=== PATIENT | female | born 1955 | race Caucasian/White ===

== ENCOUNTER 2017-06-13 10:28 | Emergency (ER) | payer MEDICARE, MEDICAID ==
[2017-06-13 11:21] LABS: #Eosinphils 0.2 thou/uL (0.0-0.7); #Lymphocytes 1.7 thou/uL (1.20-3.40); #Monocytes 0.4 thou/uL (0.11-0.59); #Neutrophils 3.5 thou/uL (1.40-6.50); %Basophils 0.5 % (0.0-1.0); %Lymphocytes 29.3 % (21.0-51.0); %Monocytes 6.8 % (0.0-10.0); Hematocrit 38.3 % (36.0-47.0); Mean Platelet Volume 8.8 fL (7.4-10.4); Red Blood Cell (RBC) Count 4.08 mill/uL (4.20-5.40); White Blood Cell (WBC) Count 5.9 thou/uL (4.8-10.8)
--- NOTE | 2017-06-13 11:25 | RAD ---
PORTABLE CHEST ONE VIEW: 06/13/2017 10:54 a.m. HISTORY: Syncope. Atrial fibrillation. Seizures. COMPARISON: 06/23/2016 FINDINGS: The heart size is enlarged. The lungs are well expanded without focal areas of consolidation, pneum othorax, anabel pulmonary edema, or pleural effusions. IMPRESSION: No acute process. POS: [facility]
[2017-06-13 11:33] LABS: PTT 41.3 SEC (22.9-36.1); Prothrombin Time 24.8 SEC (12.0-14.7)
[2017-06-13 11:50] LABS: Troponin I Less than 0.010 ng/mL (< 0.028)
[2017-06-13 11:53] LABS: ALT (SGPT) 27 U/L (8-55); AST (SGOT) 13 U/L (5-34); Alkaline Phosphatase 117 U/L (40-150); Anion Gap 8 mmol/L (10-20); BUN (Urea Nitrogen) 23 mg/dL (9.8-20.1); Bilirubin, Total 0.5 mg/dL (0.2-1.2); CK (CPK) 34 U/L (29-168); Calc. Creatinine Clearance 0 mL/min (70-130); Calcium 9.7 mg/dL (7.8-10.44); Carbon Dioxide 36 mmol/L (23-31); Chloride 98 mmol/L (98-107); Estimated GFR-MDRD 53; Globulin 3.4 g/dL (2.4-3.5); Lipase 12 U/L (8-78); Protein, Total 7.4 g/dL (6.0-8.3)
--- NOTE | 2017-06-13 11:53 | CT ---
CT BRAIN WITHOUT CONTRAST: Date: 06/13/17 HISTORY: Altered mental status. FINDINGS: Comparison made with exam of 06/28/16. No evidence of acute infarct, hemorrhage, midline shift, or abnormal extra-axial fluid collections a re seen. The ventricular size is stable and the basilar cisterns are patent. The bony calvarium is i ntact. The visualized paranasal sinuses and mastoid air cells are well aerated. IMPRESSION: No CT evidence of acute intracranial process. POS: [facility]
[2017-06-13 12:44] LABS: Bilirubin Negative (Negative); Blood, Urine Negative (Negative); Glucose, Urine (Dipstick) Negative (Negative); Ketone, Urine Negative (Negative); Nitrite Negative (Negative); Protein, Urine (Dipstick) Negative (Neg-Trace)
== END 2017-06-13 15:10 | disposition home or self-care (01) ==
LOC: ERS 10:28
DX: R55 Syncope and collapse (principal); E03.9 Hypothyroidism, unspecified; K21.9 Gastro-esophageal reflux disease without esophagitis; I48.91 Unspecified atrial fibrillation; I11.0 Hypertensive heart disease with heart failure; I50.9 Heart failure, unspecified; E11.9 Type 2 diabetes mellitus without complications; J44.9 Chronic obstructive pulmonary disease, unspecified; I05.0 Rheumatic mitral stenosis; F31.9 Bipolar disorder, unspecified; F20.9 Schizophrenia, unspecified; Z87.891 Personal history of nicotine dependence; Z79.4 Long term (current) use of insulin; Z79.82 Long term (current) use of aspirin; Z79.01 Long term (current) use of anticoagulants; Z79.899 Other long term (current) drug therapy
CPT/HCPCS: 36415; 70450; 71010; 80053; 80162; 81003; 82550; 82553; 83690; 83880; 84146; 84443; 84484; 85025; 85610; 85730; 87040; 93005; 96360; 96361

== ENCOUNTER 2017-08-04 09:15 | Outpatient (CLI) | payer MEDICARE, MEDICAID ==
--- NOTE | 2017-08-09 14:25 | MMO ---
BILATERAL SCREENING MAMMOGRAM: Date: 08/04/17 HISTORY: 61-year-old female. Screening mammography. COMPARISON: 08/31/16 and 11/07/13. TECHNIQUE: CC and MLO views of both breasts are submitted for interpretation. This patient's mammogram was reviewed with the assistance of computer-aided detection. FINDINGS: The breasts are composed of scattered fibroglandular tissue. Bilaterally, no suspicious dominant mass , architectural distortion, or suspicious calcifications. Benign-appearing calcifications noted bilat erally. IMPRESSION: BIRADS 2: Benign Finding(s) RECOMMENDATION: Annual mammogram. POS: [facility]
== END 2017-08-04 09:16 | disposition home or self-care (01) ==
LOC: SCSMAMMO 09:15
PROVIDERS: ATTEND Internal Medicine
DX: Z12.31 Encounter for screening mammogram for malignant neoplasm of breast (principal)
CPT/HCPCS: 77067; G0202

== ENCOUNTER 2017-12-18 00:04 | Inpatient (IN) | payer MEDICARE, MEDICAID ==
[2017-12-18] MEDS ORDERED: Ibuprofen 200 MG TAB ONE (00:44)
[2017-12-18] MEDS ORDERED: Acetaminophen 500 MG TAB ONE (00:44)
[2017-12-18 01:07] LABS: #Lymphocytes 1.1 thou/uL (1.20-3.40); #Monocytes 0.6 thou/uL (0.11-0.59); #Neutrophils 6.9 thou/uL (1.40-6.50); %Eosinophils 0.1 % (0.0-10.0); %Lymphocytes 12.7 % (21.0-51.0); %Neutrophils 80.2 % (42.0-75.0); Mean Corpuscular HGB CONC 33.6 g/dL (32.0-36.0); Mean Corpuscular Hemoglobin 28.9 pg (27.0-31.0); Mean Corpuscular Volume 85.9 fl (81.0-99.0); Mean Platelet Volume 9.9 fL (7.4-10.4); Platelet Count 143 thou/uL (130-400); RBC Distribution Width 16.4 % (11.5-14.5); Red Blood Cell (RBC) Count 4.17 mill/uL (4.20-5.40); White Blood Cell (WBC) Count 8.6 thou/uL (4.8-10.8)
[2017-12-18 01:17] LABS: ALT (SGPT) 27 U/L (8-55); AST (SGOT) 18 U/L (5-34); Alkaline Phosphatase 79 U/L (40-150); Anion Gap 12 mmol/L (10-20); BUN (Urea Nitrogen) 19 mg/dL (9.8-20.1); Bilirubin, Total 1.2 mg/dL (0.2-1.2); CK (CPK) 55 U/L (29-168); Calc. Creatinine Clearance 0 mL/min (70-130); Calcium 8.8 mg/dL (7.8-10.44); Carbon Dioxide 26 mmol/L (23-31); Chloride 102 mmol/L (98-107); Estimated GFR-MDRD 42; Globulin 3.4 g/dL (2.4-3.5); Glucose 141 mg/dL (80-115); Potassium 4.1 mmol/L (3.5-5.1); Protein, Total 7.4 g/dL (6.0-8.3); Sodium 136 mmol/L (136-145)
[2017-12-18 01:20] LABS: CKMB 0.4 ng/mL (0-6.6); Troponin I 0.018 ng/mL (< 0.028)
[2017-12-18] MEDS ORDERED: cefTRIAXone\\ROCEPHIN 2 GM VIAL ONE (01:51)
[2017-12-18] MEDS ORDERED: Furosemide 40 MG/4 ML VIAL ONE (01:51)
[2017-12-18] MEDS ORDERED: Azithromycin 500 MG VIAL ONE (03:01)
[2017-12-18] MEDS ORDERED: Acetaminophen 325 MG TAB PO PRN (03:42)
[2017-12-18 05:21] VITALS: BMI 39.7
[2017-12-18] MEDS ORDERED: Ondansetron ODT 4 MG TAB SL PRN (05:26)
[2017-12-18] MEDS ORDERED: Sodium Chloride 0.9% 1,000 ML IV SCH (05:26)
[2017-12-18] MEDS ORDERED: Ondansetron HCl/PF 4 MG/2 ML Vial IVP PRN (05:26)
[2017-12-18] MEDS ORDERED: Vancomycin HCl 1 GM in Premix Bag 1 BAG IVPB SCH ×2 (06:00→10:00)
--- NOTE | 2017-12-18 08:59 | RAD ---
PORTABLE CHEST: DATE: 12/18/17. PROVIDED CLINICAL HISTORY: Difficulty breathing. FINDINGS: Comparison 06/13/17. The cardiac silhouette appears enlarged. Prominence of the pulmonary vasculatu re and pulmonary interstitium are noted. Patchy perihilar airspace disease may be present. No pleur al fluid or pneumothorax evident. IMPRESSION: Findings suggesting congestive failure with possible alveolar edema. Followup is recommended. POS: [facility]
[2017-12-18] MEDS: Heparin 5,000 UNITS/ML VIAL SC SCH ×3 (09:04→21:05)
[2017-12-18] MEDS ORDERED: Acetaminophen 650 MG Suppository PR PRN (09:23)
[2017-12-18] MEDS ORDERED: Bisacodyl 5 MG TAB PO PRN (09:23)
[2017-12-18] MEDS ORDERED: cefTRIAXone\\ROCEPHIN 1 GM in Sodium Chloride 0.9% 100 ML IVPB SCH (10:00)
[2017-12-18] MEDS ORDERED: Dextrose 5% in Water 1,000 ML IV PRN (10:17)
[2017-12-18] MEDS ORDERED: Dextrose 50% Abboject 50 ML SYRINGE SLOW IVP PRN (10:17)
[2017-12-18] MEDS: Furosemide 20 MG/2 ML VIAL SLOW IVP SCH (13:30)
[2017-12-18 13:32] LABS: Bilirubin Negative (Negative); Blood, Urine Small (Negative); Glucose, Urine (Dipstick) Negative (Negative); Leukocyte Moderate (Negative); Nitrite Negative (Negative); Protein, Urine (Dipstick) 100 mg/dL (Neg-Trace); pH, Urine 5.5 (5.0-9.0)
[2017-12-18 13:38] LABS: Clarity CLEAR (Clear)
[2017-12-18 13:40] LABS: Bacteria/HPF 2+ HPF (None Seen); Hyaline Casts/LPF NONE SEEN LPF (0-3 Hyaline); WBC/HPF 21-50 HPF (0-3)
[2017-12-18] MEDS ORDERED: predniSONE 20 MG TAB PO SCH (15:00)
[2017-12-18] MEDS ORDERED: Amiodarone In Dextrose 200 ML IVPB SCH (15:15)
[2017-12-18] MEDS ORDERED: Amiodarone HCl 150 MG, Admixture Fee 1 EACH in Dextrose 5% in Water 100 ML IVPB SCH (15:45)
[2017-12-18] MEDS: Amiodarone HCl 450 MG, Admixture Fee 1 EACH in Dextrose 5% in Water 250 ML IVPB SCH (16:21)
[2017-12-18] MEDS ORDERED: Vancomycin HCl 1.75 GM in Sodium Chloride 0.9% 500 ML IVPB SCH (18:00)
[2017-12-18] MEDS: Insulin Regular 300 UNITS/3 ML VIAL SC PRN (21:06)
[2017-12-18] MEDS: Acetaminophen 325 MG TAB PO PRN (23:41)
[2017-12-19] MEDS: cefTRIAXone\\ROCEPHIN 1 GM, Syringe 0.4 ML in Sterile Water 9.6 ML SLOW IVP SCH (01:57)
[2017-12-19] MEDS: Amiodarone HCl 450 MG, Admixture Fee 1 EACH in Dextrose 5% in Water 250 ML IVPB SCH ×2 (02:35→15:59)
[2017-12-19] MEDS ORDERED: Azithromycin 500 MG in Sodium Chloride 0.9% 250 ML 250 ML IVPB SCH (03:00)
[2017-12-19 04:42] LABS: INR-International Normal Ratio 1.3
[2017-12-19 05:28] LABS: #Lymphocytes 0.9 thou/uL (1.20-3.40); #Monocytes 0.5 thou/uL (0.11-0.59); #Neutrophils 4.8 thou/uL (1.40-6.50); %Basophils 0.1 % (0.0-1.0); %Eosinophils 0.1 % (0.0-10.0); %Lymphocytes 14.8 % (21.0-51.0); Hemoglobin 11.1 g/dL (12.0-16.0); Mean Corpuscular Hemoglobin 29.9 pg (27.0-31.0); Mean Platelet Volume 10.4 fL (7.4-10.4); PLT Morphology Comment Appears Decreased; Platelet Count 103 thou/uL (130-400); RBC Distribution Width 16.4 % (11.5-14.5); Red Blood Cell (RBC) Count 3.71 mill/uL (4.20-5.40); White Blood Cell (WBC) Count 6.2 thou/uL (4.8-10.8)
[2017-12-19 05:40] LABS: Anion Gap 11 mmol/L (10-20); BUN (Urea Nitrogen) 18 mg/dL (9.8-20.1); Calc. Creatinine Clearance 86 mL/min (70-130); Calcium 8.2 mg/dL (7.8-10.44); Carbon Dioxide 24 mmol/L (23-31); Chloride 101 mmol/L (98-107); Estimated GFR-MDRD 46; Glucose 221 mg/dL (80-115); Potassium 3.9 mmol/L (3.5-5.1); Sodium 132 mmol/L (136-145)
[2017-12-19] MEDS: Insulin Regular 300 UNITS/3 ML VIAL SC PRN ×3 (05:46→18:11)
[2017-12-19] MEDS: Furosemide 20 MG/2 ML VIAL SLOW IVP SCH (05:46)
[2017-12-19] MEDS: predniSONE 20 MG TAB PO SCH (08:36)
[2017-12-19] MEDS: Heparin 5,000 UNITS/ML VIAL SC SCH ×3 (08:37→20:34)
--- NOTE | 2017-12-19 12:22 | PRG ---
DATE OF SERVICE: 12/19/2017 SERVICE: Pulmonary Medicine INTERVAL HISTORY: The patient is doing fine from a respiratory standpoint. She is breathing much mo re comfortably. She denies any chest pain or shortness of breath. Her heart rate is under good cont rol. Otherwise, there has been no change to her condition. She has some complaints of chest pain. It has been ongoing since being here. PHYSICAL EXAMINATION: VITAL SIGNS: Afebrile, pulse 95, blood pressure 144/67, respirations 20, saturation 95% on 2 liters nasal cannula. GENERAL: The patient is awake, alert, no apparent distress. LUNGS: Decent air entry. There is a slightly prolonged expiratory phase and a little bit of wheezin g. Rhonchi are also present, but they clear with cough. Dependent crackles are present. HEART: Normal rate. Irregular. ABDOMEN: Soft, nontender, nondistended. Bowel sounds are positive. MUSCULOSKELETAL: No cyanosis or clubbing. There is no pitting in the bilateral lower extremities. NEUROLOGIC: Grossly nonfocal. LABORATORY DATA: WBC 6.2, hemoglobin 11.1, platelets 103,000. INR 1.3. Creatinine 1.20 and gently down trending. Basic metabolic profile is otherwise unremarkable. TSH falls within normal limits. Procalcitonin is indeterminate. Urinalysis is positive for significant white blood cells. Urine cul ture, however, is negative to date. Blood cultures are also unremarkable. ASSESSMENT: 1. Atrial fibrillation with rapid ventricular response. 2. Acute hypoxic respiratory failure. 3. Chronic obstructive pulmonary disease with acute exacerbation. 4. Acute on chronic diastolic heart failure. PLAN: We will continue to diurese the patient to euvolemia. Steroids can be interrupted after rough ly 5 days. Steroids and antibiotics can be interrupted after 5 days. It looks like she has urinary tract infection based on the UA, though the cultures are unremarkable today. I will repeat an EKG to make certain she does not have significant ST changes. Previous cardiac enzymes were unremarkable.
--- NOTE | 2017-12-19 16:09 | PDOC.PN ---
- Subjective Encounter Start Date: 12/19/17 Encounter Start Time: 09:40 Pt seenfor followup re: sepsis. Denies chest pain, cough or fevers. Reports SOBOE. - Objective Resuscitation Status: Resuscitation Status FULL:Full Resuscitation MAR Reviewed: Yes Vital Signs & Weight: Vital Signs (12 hours) Temp Pulse Pulse Pulse Resp BP BP 12/19/17 13:17 107 H 20 12/19/17 12:02 117 H 101 H 104/76 117/56 L 12/19/17 10:56 98.5 F 114 H 22 H 12/19/17 08:00 98.8 F 95 20 12/19/17 07:35 98.8 F 95 20 12/19/17 07:22 100 18 BP Pulse Ox Pulse Ox Pulse Ox 12/19/17 13:17 97 12/19/17 12:02 97 97 12/19/17 10:56 144/67 H 97 12/19/17 08:00 95 12/19/17 07:35 133/63 95 12/19/17 07:22 98 Weight Weight 247 lb I&O: 12/18/17 12/19/17 12/20/17 06:59 06:59 06:59 Intake Total 200 900 Output Total 50 Balance 150 900 Result Diagrams: 12/19/17 04:16 12/19/17 04:16 Additional Labs: Accuchecks 12/19/17 12/19/17 12/18/17 10:46 05:26 20:58 POC Glucose 254 H 206 H 299 H Labs reviewed by me EKG Reviewed by me: Yes Phys Exam - Physical Examination Obesity HEENT: PERRLA, moist MMs, sclera anicteric, oral pharynx no lesions Neck: no nodes, supple, full ROM JVD+ Respiratory: no wheezing, no rhonchi Bassam crackles Cardiovascular: no rub, irregular S1, S2, tachy, irreg Gastrointestinal: soft, non-tender, no distention, positive bowel sounds Musculoskeletal: pulses present, edema present Neurological: moves all 4 limbs Psychiatric: normal affect Skin: no rash Dx/Plan (1) Sepsis Code(s): A41.9 - SEPSIS, UNSPECIFIED ORGANISM Status: Acute Comment: continue IV ceftriaxone, follow urine and blood cultures (2) Atrial fibrillation with RVR Code(s): I48.91 - UNSPECIFIED ATRIAL FIBRILLATION Status: Acute Comment: continue amiodarone (3) COPD exacerbation Code(s): J44.1 - CHRONIC OBSTRUCTIVE PULMONARY DISEASE W (ACUTE) EXACERBATION Status: Acute Comment: continue steroids, bronchodilators (4) DM type 2 (diabetes mellitus, type 2) Status: Chronic Comment: continue accuchecks, insulin sliding scale. (5) HTN (hypertension) Code(s): I10 - ESSENTIAL (PRIMARY) HYPERTENSION Status: Chronic Comment: Monitor vital signs, titrate antihypertensives as needed. - Plan * . Review of Systems - Review of Systems Constitutional: weakness. negative: fever, chills, sweats, malaise Respiratory: Cough, Dry. negative: SOB with Excertion, Pleuritic Pain, Sputum, Wheezing Cardiovascular: negative: chest pain, palpitations, orthopnea, paroxysmal nocturnal dyspnea Gastrointestinal: negative: Nausea, Vomiting, Abdominal Pain, Diarrhea, Constipation Genitourinary: negative: Dysuria, Frequency, Incontinence, Hematuria, Retention Skin: negative: Rash, Lesions, Faustino, Bruising - Medications/Allergies Allergies/Adverse Reactions: Allergies Allergy/AdvReac Type Severity Reaction Status Date / Time tomato [Tomato] Allergy Intermediate Verified 07/10/14 16:36 No Known Drug Allergies Allergy Verified 06/24/16 00:40 Medications: Current Medications Acetaminophen (Tylenol) 650 mg [place] Q4H PRN PRN Reason: Headache/Fever or Pain Acetaminophen (Tylenol) 650 mg PO Q4H PRN PRN Reason: Headache/Fever or Pain Last Admin: 12/18/17 23:41 Dose: 650 mg Albuterol/Ipratropium (Duoneb) 3 ml NEB [id number] [facility] Last Admin: 12/19/17 13:17 Dose: 3 ml Aspirin (Aspirin Chewable) 81 mg PO DAILY [facility] Last Admin: 12/19/17 08:37 Dose: 81 mg Bisacodyl (Dulcolax) 10 mg PO DAILYPRN PRN PRN Reason: Constipation Dextrose/Water (Dextrose 50%) 25 gm SLOW IVP PRN PRN PRN Reason: Hypoglycemia Furosemide (Lasix) 20 mg SLOW IVP 0600 SOFY Glucagon (Glucagon) 1 mg IM PRN PRN PRN Reason: Hypoglycemia Heparin Sodium (Porcine) (Heparin) 5,000 units SC TID [facility] Last Admin: 12/19/17 15:58 Dose: 5,000 units Ceftriaxone Sodium 1 gm/ (Syringe 0.4 ml/ Sterile Water) 10 mls @ 120 mls/hr SLOW IVP Q24HR@0200 [facility] Last Admin: 12/19/17 01:57 Dose: 10 mls Dextrose/Water (D5w) 1,000 mls @ 0 mls/hr IV .Q0M PRN; As Directed PRN Reason: Hypoglycemia Amiodarone HCl 450 mg/Miscellaneous Medication 1 each/ Dextrose/Water 259 mls @ 0 mls/hr IVPB INF SOFY; As Directed PRN Reason: Protocol Last Admin: 12/19/17 15:59 Dose: 259 mls Insulin Human Regular (Humulin R) 0 units SC .MILD SLIDING SCALE PRN PRN Reason: Mild Correctional Scale Last Admin: 12/19/17 12:08 Dose: 4 unit Prednisone (Prednisone) 40 mg PO QAM-[facility] Last Admin: 12/19/17 08:36 Dose: 40 mg
[2017-12-20] MEDS: cefTRIAXone\\ROCEPHIN 1 GM, Syringe 0.4 ML in Sterile Water 9.6 ML SLOW IVP SCH (02:17)
--- NOTE | 2017-12-20 03:20 | CON ---
DATE OF CONSULTATION: 12/19/2017 HISTORY OF PRESENT ILLNESS: Ms. Kristina Carlson is a 62-year-old white female , who had been following since 1991. She was noted at that time to have a murmur and was found to have moderate to severe aortic insufficiency with a trileaflet aortic valve, moderate tricuspid regurgitation, and moderate mitral stenosis. She denied any history of rheumatic fever, but does state that when she was 12 years old, she had 3-4 months of joint pain. In 1992, she underwent cardiac catheterization, which revealed normal coronary arteries. She had mild aortic insufficiency, mild mitral stenosis, and mild global left ventricular hypokinesis. Her problems at that time were increased shortness of breath, which was mostly related to COPD and smoking. She did fairly well over the years without significant worsening of her valvular heart disease initially. She had increased edema and shortness of breath and had been followed in the [facility]. In 11/2013, she was hospitalized and echo revealed ejection fraction of 50% to 55%, left atrial enlargement, mild aortic stenosis, moderate to severe aortic insufficiency, moderate mitral stenosis, moderate mitral regurgitation, moderate tricuspid regurgitation, and mild pulmonic insufficiency. She also was found to have atrial tachycardia. She was transferred to [facility] in [place] and underwent an atrial tachycardia ablation. In 12/2013, she was again admitted with chest pain after a fall. EKG showed atrial fibrillation with controlled rate. Cardiac enzymes were unremarkable. Also, prior to that in 11/2013, she had undergone Lexiscan Cardiolite testing, which was negative for ischemia. Again in 01/2014, she was admitted with atrial fibrillation with fast ventricular response and was given intravenous digoxin. She was diuresed. Her heart rate was controlled and she was discharged. She again was admitted later in 01/2014 with history of increased shortness of breath, increased leg edema, and chest pressure at rest lasting 30 minutes to 1 hour. Again, she had atrial fibrillation with controlled ventricular response. With her mitral stenosis and atrial fibrillation, she was placed on Coumadin and an appointment was made for followup with the educational administrator. She had a 3-hour episode of chest pressure and was admitted. She underwent cardiac catheterization and had a 20% LAD stenosis, 20% proximal RCA stenosis. There was moderate left ventricular systolic dysfunction with ejection fraction of 30% to 35%, moderate aortic insufficiency, moderate aortic stenosis with valve area of 1.05 cm2. She also had severe mitral stenosis with mitral valve area of 1.2 cm2. In 01/2014, she underwent mitral balloon valvuloplasty at [facility] in [place]. In 04/2014, she can walk for 10 minutes without becoming dyspneic after the balloon valvuloplasty. In 06/2014, she was admitted with COPD exacerbation and hypoxic respiratory failure. She would have tachycardic runs of her atrial fibrillation with activity. She now is admitted after a fall at her custodial. She has been in atrial fibrillation with fast ventricular response, has been started on IV amiodarone. She was last seen in the office in 03/2017. She does complain of increased shortness of breath, but denies any chest discomfort. PAST MEDICAL HISTORY: Probable rheumatic fever, valvular abnormalities status post valvuloplasty for mitral stenosis, diabetes, asthma, obesity, hypertension , hyperlipidemia, mental retardation, renal insufficiency, hypothyroidism, bipolar disorder and depression. MEDICATIONS: At home include; Abilify 7.5 at bedtime, aspirin 81 daily, atorvastatin 40 daily, Cogentin 1 tablet q.p.m., Celexa 20 daily, Zetia 10 mg daily, flecainide 50 b.i.d., furosemide 1 tablet b.i.d., levothyroxine 75 mcg daily, Tradjenta 5 mg daily, lisinopril 2.5 daily, alprazolam 0.5 b.i.d., Amitiza 24 mcg b.i.d., metoprolol unknown dose b.i.d., potassium 20 mEq b.i.d., torsemide 20 b.i.d., and warfarin unknown dose daily. ALLERGIES: TOMATOES. SOCIAL HISTORY: She smoked over a pack per day in the past, but has quit. She does not drink alcohol. She currently is back living in a custodial. FAMILY HISTORY: Unobtainable. REVIEW OF SYSTEMS: Negative except as noted above. PHYSICAL EXAMINATION: VITAL SIGNS: Blood pressure 111/70 and pulse of 105. HEENT: PERRL. NECK: Supple. CHEST: Reveals bilateral wheezing. CARDIAC: S1, S2 normal. There is no S3 or S4. There is a 2/6 holosystolic murmur along the left sternal border, and 1-2/6 diastolic murmur heard intermittently. ABDOMEN: Normal bowel sounds, without tenderness or organomegaly. EXTREMITIES: Revealed 1-2+ pretibial edema. NEUROLOGIC: Grossly intact. SKIN: Warm and dry. LABORATORY DATA: EKG reveals atrial fibrillation with fast ventricular response , nonspecific ST and T-wave changes. Hemoglobin 9.1, hematocrit 32.6, white count 6200, and platelets 103,000. INR is only 1.3. Sodium 132, potassium 3.9 , chloride 101, carbon dioxide 18, and creatinine 1.20. Troponin I is unremarkable. TSH is normal. IMPRESSION: 1. Increased shortness of breath which in the past has been more related to chronic obstructive pulmonary disease exacerbation. 2. Recurrence of paroxysmal atrial fibrillation, currently on amiodarone drip. 3. Rheumatic heart disease with moderate to severe aortic insufficiency. She has had mitral stenosis and has undergone mitral valvuloplasty. 4. Recurrence of atrial fibrillation. 5. History of atrial tachycardia ablation in 11/2013 at [place]. 6. Hypercholesterolemia. 7. Seizure disorder. 8. Depression. 9. Mild mental retardation. 10. Former smoker. 11. Chronic obstructive pulmonary disease. PLAN: The patient currently is on heparin 5000 units t.i.d. with her nontherapeutic Coumadin dosage. She currently is being diuresed. Echo will be performed to reassess her valvular abnormalities. Consideration may be given to electrical cardioversion during this admission if she does not convert on her own. MTDD
[2017-12-20] MEDS: Amiodarone HCl 450 MG, Admixture Fee 1 EACH in Dextrose 5% in Water 250 ML IVPB SCH ×2 (06:12→20:34)
[2017-12-20] MEDS: Furosemide 20 MG/2 ML VIAL SLOW IVP SCH (06:12)
--- NOTE | 2017-12-20 07:25 | EKG ---
Test Reason : Blood Pressure : / mmHG Vent. Rate : 110 BPM Atrial Rate : 103 BPM P-R Int : 000 ms QRS Dur : 078 ms QT Int : 376 ms P-R-T Axes : 000 073 036 degrees QTc Int : 508 ms Atrial fibrillation with rapid ventricular response with premature ventricular or aberrantly conducte d complexes Nonspecific ST and T wave abnormality Abnormal ECG When compared with ECG of 18-DEC-2017 01:56, (Unconfirmed) T wave inversion now evident in Anterior leads QT has lengthened Confirmed by DR. Cristiano THOMPSON (3) on 12/20/2017 7:25:34 AM Referred By: YOU Confirmed By:DR. Cristiano THOMPSON
--- NOTE | 2017-12-20 09:04 | CON ---
DATE OF CONSULTATION: 12/18/2017 SERVICE: Pulmonary Medicine. REASON FOR CONSULT: IMCU patient. HISTORY OF PRESENT ILLNESS: The patient is a 62-year-old white female with past medical history significant for debility. She was in her usual state of health until about a week prior to presentation. She had increasing dyspnea with exertion and orthopnea. She has sleep apnea and uses are CPAP intermittently. She also started having increasing cough, bringing up green sputum, and dysuria. She presented to the Emergency Department and was subsequently placed in the ICU because of AFib with rapid ventricular response. She ended up getting her rate in her slightly better control, though she remains tachycardic. She has a little bit of chest discomfort. She has no fevers. She did not have any recent sick contact. PAST MEDICAL HISTORY: 1. Hypothyroidism. 2. Chronic kidney disease. 3. Atrial fibrillation. 4. Chronic systolic and diastolic heart failure. 5. Type 2 diabetes mellitus. 6. Mitral regurgitation. 7. Mitral stenosis. 8. Hypertension. 9. Asthma, possible. 10. Obstructive sleep apnea. PAST SURGICAL HISTORY: 1. Left wrist surgery. 2. Cardiac catheterization. 3. Cardiac ablation. SOCIAL HISTORY: Negative for alcohol, tobacco, or illicit drug use. She denies any exposure to chemicals, dust, asbestos, or tuberculosis. FAMILY HISTORY: Noncontributory. ALLERGIES: TOMATOES. There is no known drug allergies. MEDICATIONS: List of her inpatient medications were reviewed. Multiple updates were made. REVIEW OF SYSTEMS: General, head, ears, eyes, nose, throat, cardiovascular, respiratory, GI, , musculoskeletal, neurologic, and skin is negative except as mentioned in the HPI. PHYSICAL EXAMINATION: VITAL SIGNS: Afebrile, pulse 79, blood pressure 149/80, respirations 18, saturation 98% on room air. GENERAL: The patient is awake, alert, in no apparent distress. LUNGS: Decent air entry. Crackles are present. There is no prolonged expiratory phase or wheezing. Rhonchi are present but clear with very good cough. HEART: Tachycardic. Irregular. ABDOMEN: Soft, nontender, nondistended. Bowel sounds are positive. MUSCULOSKELETAL: No cyanosis or clubbing. There is 1 to 2+ pitting throughout. GENITOURINARY: No Roman. NEUROLOGIC: Grossly nonfocal. LABORATORY DATA: WBC 8.6, hemoglobin 12.0, platelets 143,000 and roughly stable. Creatinine 1.30, which is slightly above baseline. Basic metabolic profile and liver function studies are otherwise unremarkable. Cardiac enzymes are negative. Lactate 1.6. Procalcitonin is 1.08, with in the intermediate range. Urinalysis is positive for leukocyte esterase and significant white blood cells. Digoxin level is unremarkable. IMAGING: Chest x-ray demonstrates findings consistent with volume overload. She is pulmonary vascular congestion, interstitial fullness. I do not see any obvious infiltrates bilaterally. Cardiac silhouette is quite enlarged. There is widened carinal angle. ASSESSMENT: 1. Acute hypoxic respiratory failure, resolved. 2. Atrial fibrillation with rapid ventricular response. 3. Sepsis without end-organ damage. 4. Urinary tract infection, suspected. PLAN: I will continue antibiotics. We will work on controlling her heart rate. Pulmonary Critical Care will continue to follow along for the time being. She will need to remain in the IMCU for the next 24 hours. We will work on mobility moving forward. 70 minutes have been devoted to this patient in various activities. I personally reviewed all imaging studies and laboratory data noted within this document. For fifty percent of this time, I was interacting with the patient at the bedside or coordinating care with the care team. For the remainder of the time I was immediately available to the patient in the hospital unit. CATHERINE
[2017-12-20] MEDS: predniSONE 20 MG TAB PO SCH (09:31)
[2017-12-20] MEDS: Heparin 5,000 UNITS/ML VIAL SC SCH ×3 (09:31→20:26)
--- NOTE | 2017-12-20 09:53 | PRG ---
DATE OF SERVICE: 12/20/2017 SERVICE: Pulmonary Medicine INTERVAL HISTORY: The patient is doing okay from a cardiovascular standpoint. Her heart rate is low. She denies any chest discomfort today. This morning, however, she indicates having more and breathing difficulty. She is more tachypneic. She also has increased work of breathing. PHYSICAL EXAMINATION: HEENT: Normocephalic, atraumatic. Sclerae are white, conjunctivae pink. Oral mucosa is moist without lesions. LUNGS: There is good air entry, but there is a prolonged expiratory phase with polyphonic wheezing as well as rhonchi. I do appreciate crackles today. HEART: Normal rate, regular. ABDOMEN: Soft, nontender, nondistended. Bowel sounds are positive. MUSCULOSKELETAL: No cyanosis or clubbing. There is no pitting in the bilateral lower extremities. NEUROLOGIC: Grossly nonfocal. LABORATORY: Blood cultures x2 and urine cultures remain unremarkable. ASSESSMENT: 1. Acute hypoxic respiratory failure. 2. Chronic obstructive pulmonary disease with acute exacerbation. 3. Atrial fibrillation with rapid ventricular response. 4. Sepsis without end organ damage. 5. Urinary tract infection, suspected. PLAN: We will initiate a brief course of steroids, and start some scheduled nebulized medications. I am going to repeat a chest x-ray to make certain that she has not fluffed out a pneumonia. BiPAP will be considered if the patient has increasing respiratory difficulties. ASHD
--- NOTE | 2017-12-20 11:58 | RAD ---
RADIOGRAPH CHEST 1 VIEW: Date: 12/20/17 Time: 1021 HOURS HISTORY: 62-year-old female with dyspnea. COMPARISON: 12/18/17. FINDINGS: Again noted is the cardiomegaly, pulmonary vascular engorgement, and predominantly mild, bilateral in terstitial densities. This has become more confluent into an air space density in the left upper lobe , including the lateral aspect of the mid lung field. No pneumothorax is identified. IMPRESSION: 1. Interval development of left upper lobe air space opacity, suspicious for left upper lobe pneumon ia. 2. Cardiomegaly and mild to moderate congestive heart failure is similar to 2 days ago. JN [] POS: [facility]
--- NOTE | 2017-12-20 13:11 | PDOC.PN ---
- Subjective Encounter Start Date: 12/20/17 Encounter Start Time: 11:00 Patient is seen today, alert and oriented. She is On oxygen and feels short of breath. Denies any chest pain. - Objective Resuscitation Status: Resuscitation Status FULL:Full Resuscitation MAR Reviewed: Yes Vital Signs & Weight: Vital Signs (12 hours) Temp Pulse Pulse Pulse Resp BP BP 12/20/17 12:51 109 H 16 12/20/17 11:25 98.0 F 91 20 12/20/17 09:46 97 119 H 120/62 106/79 12/20/17 08:00 98.0 F 91 20 12/20/17 07:29 103 H 16 12/20/17 07:15 97.8 F 90 20 12/20/17 04:00 98.4 F 87 18 BP Pulse Ox Pulse Ox Pulse Ox 12/20/17 12:51 12/20/17 11:25 119/63 98 12/20/17 09:46 97 93 L 12/20/17 08:00 98 12/20/17 07:29 12/20/17 07:15 119/75 94 L 12/20/17 04:00 103/69 99 Weight Weight 243 lb 1.6 oz I&O: 12/19/17 12/20/17 12/21/17 06:59 06:59 06:59 Intake Total 900 430 Balance 900 430 Result Diagrams: 12/19/17 04:16 12/19/17 04:16 Additional Labs: Accuchecks 12/20/17 12/20/17 12/19/17 10:43 06:13 20:42 POC Glucose 189 H 138 H 290 H 12/19/17 16:05 POC Glucose 225 H Radiology Reviewed by me: Yes Phys Exam - Physical Examination HEENT: PERRLA, moist MMs Neck: no nodes, no JVD Respiratory: no wheezing, no rales Cardiovascular: RRR, no significant murmur Gastrointestinal: soft, non-tender Musculoskeletal: no edema, pulses present Neurological: non-focal, normal sensation Psychiatric: normal affect Skin: no rash Dx/Plan (1) Atrial fibrillation with RVR Code(s): I48.91 - UNSPECIFIED ATRIAL FIBRILLATION Status: Acute Comment: continue amiodarone (2) COPD exacerbation Code(s): J44.1 - CHRONIC OBSTRUCTIVE PULMONARY DISEASE W (ACUTE) EXACERBATION Status: Acute Comment: continue steroids, bronchodilators, stable. (3) Sepsis Code(s): A41.9 - SEPSIS, UNSPECIFIED ORGANISM Status: Acute Comment: continue IV ceftriaxone, follow urine and blood cultures (4) Anticoagulant long-term use Code(s): Z79.01 - FPC (CURRENT) USE OF ANTICOAGULANTS Status: Acute (5) Dizziness Code(s): R42 - DIZZINESS AND GIDDINESS Status: Acute (6) DM type 2 (diabetes mellitus, type 2) Status: Chronic Comment: continue accuchecks, insulin sliding scale. (7) HTN (hypertension) Code(s): I10 - ESSENTIAL (PRIMARY) HYPERTENSION Status: Chronic Comment: Monitor vital signs, titrate antihypertensives as needed. - Plan cont current plan of care, plan discussed w/ family, PT/OT, social director, incentive spirometry * . - Discharge Day Encounter end time: 11:35 Review of Systems - Review of Systems Eyes: negative: Pain, Vision Change, Conjunctivae Inflammation, Eyelid Inflammation, Redness, Other ENT: negative: Ear Pain, Ear Discharge, Nose Pain, Nose Discharge, Nose Congestion, Mouth Pain, Mouth Swelling, Throat Pain, Throat Swelling, Other Respiratory: negative: Cough, Dry, Shortness of Breath, Hemoptysis, SOB with Excertion, Pleuritic Pain, Sputum, Wheezing Cardiovascular: negative: chest pain, palpitations, orthopnea, paroxysmal nocturnal dyspnea, edema, light headedness, other Musculoskeletal: negative: Neck Pain, Shoulder Pain, Arm Pain, Back Pain, Hand Pain, Leg Pain, Foot Pain, Other Skin: negative: Rash, Lesions, Faustino, Bruising, Other - Medications/Allergies Allergies/Adverse Reactions: Allergies Allergy/AdvReac Type Severity Reaction Status Date / Time tomato [Tomato] Allergy Intermediate Verified 07/10/14 16:36 No Known Drug Allergies Allergy Verified 06/24/16 00:40 Medications: Current Medications Acetaminophen (Tylenol) 650 mg [place] Q4H PRN PRN Reason: Headache/Fever or Pain Acetaminophen (Tylenol) 650 mg PO Q4H PRN PRN Reason: Headache/Fever or Pain Last Admin: 12/18/17 23:41 Dose: 650 mg Albuterol/Ipratropium (Duoneb) 3 ml NEB [id number] Last Admin: 12/20/17 12:51 Dose: 3 ml Aspirin (Aspirin Chewable) 81 mg PO DAILY [facility] Last Admin: 12/20/17 09:30 Dose: 81 mg Bisacodyl (Dulcolax) 10 mg PO DAILYPRN PRN PRN Reason: Constipation Dextrose/Water (Dextrose 50%) 25 gm SLOW IVP PRN PRN PRN Reason: Hypoglycemia Furosemide (Lasix) 20 mg SLOW IVP 0600 [facility] Last Admin: 12/20/17 06:12 Dose: 20 mg Glucagon (Glucagon) 1 mg IM PRN PRN PRN Reason: Hypoglycemia Heparin Sodium (Porcine) (Heparin) 5,000 units SC TID [facility] Last Admin: 12/20/17 09:31 Dose: 5,000 units Ceftriaxone Sodium 1 gm/ (Syringe 0.4 ml/ Sterile Water) 10 mls @ 120 mls/hr SLOW IVP Q24HR@0200 [facility] Last Admin: 12/20/17 02:17 Dose: 10 mls Dextrose/Water (D5w) 1,000 mls @ 0 mls/hr IV .Q0M PRN; As Directed PRN Reason: Hypoglycemia Amiodarone HCl 450 mg/Miscellaneous Medication 1 each/ Dextrose/Water 259 mls @ 0 mls/hr IVPB INF [facility]; As Directed PRN Reason: Protocol Last Admin: 12/20/17 06:12 Dose: 259 mls Insulin Human Regular (Humulin R) 0 units SC .MILD SLIDING SCALE PRN PRN Reason: Mild Correctional Scale Last Admin: 12/19/17 18:11 Dose: 4 unit Prednisone (Prednisone) 40 mg PO QAM-[facility] Last Admin: 12/20/17 09:31 Dose: 40 mg Warfarin Sodium (Coumadin) 5 mg PO 1700 [facility]
[2017-12-20] MEDS: Insulin Regular 300 UNITS/3 ML VIAL SC PRN (16:28)
[2017-12-20] MEDS: Warfarin Sodium 5 MG TAB PO SCH (16:29)
[2017-12-21] MEDS: cefTRIAXone\\ROCEPHIN 1 GM, Syringe 0.4 ML in Sterile Water 9.6 ML SLOW IVP SCH (02:08)
[2017-12-21 04:42] LABS: INR-International Normal Ratio 1.1; Prothrombin Time 14.2 SEC (12.0-14.7)
[2017-12-21 04:52] LABS: Anion Gap 12 mmol/L (10-20); BUN (Urea Nitrogen) 19 mg/dL (9.8-20.1); Calc. Creatinine Clearance 103 mL/min (70-130); Calcium 8.5 mg/dL (7.8-10.44); Carbon Dioxide 27 mmol/L (23-31); Chloride 101 mmol/L (98-107); Estimated GFR-MDRD 57; Glucose 190 mg/dL (80-115); Potassium 4.1 mmol/L (3.5-5.1); Sodium 136 mmol/L (136-145)
[2017-12-21] MEDS: Furosemide 20 MG/2 ML VIAL SLOW IVP SCH (05:58)
[2017-12-21] MEDS: Insulin Regular 300 UNITS/3 ML VIAL SC PRN ×3 (06:03→17:17)
[2017-12-21] MEDS: predniSONE 20 MG TAB PO SCH (08:35)
[2017-12-21] MEDS: Heparin 5,000 UNITS/ML VIAL SC SCH ×3 (08:35→20:53)
--- NOTE | 2017-12-21 11:18 | PDOC.PN ---
- Subjective Encounter Start Date: 12/21/17 Encounter Start Time: 11:00 Patient is seen today, alert and oriented. No other concern snoted. She is still on Amiodarone drip for her Afib with RVR. She has diffucty breething. - Objective Resuscitation Status: Resuscitation Status FULL:Full Resuscitation MAR Reviewed: Yes Vital Signs & Weight: Vital Signs (12 hours) Temp Pulse Resp BP Pulse Ox 12/21/17 07:30 97.9 F 80 20 131/68 98 12/21/17 07:26 90 18 97 12/21/17 04:00 97.2 F L 89 18 132/59 L 98 12/21/17 00:38 81 16 97 12/21/17 00:00 97.4 F L 81 20 115/70 99 Weight Weight 248 lb 1.6 oz I&O: 12/20/17 12/21/17 12/22/17 06:59 06:59 06:59 Intake Total 430 420 Balance 430 420 Result Diagrams: 12/19/17 04:16 12/21/17 04:21 Additional Labs: Accuchecks 12/21/17 12/21/17 12/20/17 10:44 05:39 20:48 POC Glucose 325 H 188 H 310 H 12/20/17 16:28 POC Glucose 286 H Radiology Reviewed by me: Yes Phys Exam - Physical Examination HEENT: PERRLA, moist MMs Neck: no nodes, no JVD Respiratory: wheezing present Cardiovascular: RRR, no significant murmur Gastrointestinal: soft, non-tender Musculoskeletal: no edema, pulses present Neurological: non-focal Lymphatic: no nodes Psychiatric: normal affect, A&O x 3 Dx/Plan (1) Atrial fibrillation with RVR Code(s): I48.91 - UNSPECIFIED ATRIAL FIBRILLATION Status: Acute Comment: continue amiodarone (2) COPD exacerbation Code(s): J44.1 - CHRONIC OBSTRUCTIVE PULMONARY DISEASE W (ACUTE) EXACERBATION Status: Acute Comment: continue steroids, bronchodilators, stable. (3) Sepsis Code(s): A41.9 - SEPSIS, UNSPECIFIED ORGANISM Status: Acute Comment: continue IV ceftriaxone, follow urine and blood cultures (4) Anticoagulant long-term use Code(s): Z79.01 - [employer] (CURRENT) USE OF ANTICOAGULANTS Status: Acute (5) Dizziness Code(s): R42 - DIZZINESS AND GIDDINESS Status: Acute (6) DM type 2 (diabetes mellitus, type 2) Status: Chronic Comment: continue accuchecks, insulin sliding scale. (7) HTN (hypertension) Code(s): I10 - ESSENTIAL (PRIMARY) HYPERTENSION Status: Chronic Comment: Monitor vital signs, titrate antihypertensives as needed. (8) Acute exacerbation of CHF (congestive heart failure) Code(s): I50.9 - HEART FAILURE, UNSPECIFIED Status: Acute Comment: Her Echo showed Reduced EF to 35-40% reduced from 55 % in 2016, Pt is on IV lasix, will start her on Coreg low dose and also lisinopril 2.5 mg - Plan cont current plan of care, PT/OT, respiratory therapy, incentive spirometry, DVT proph w/lovenox * . - Discharge Day Encounter end time: 11:30 Review of Systems - Review of Systems Eyes: negative: Pain, Vision Change, Conjunctivae Inflammation, Eyelid Inflammation, Redness, Other ENT: negative: Ear Pain, Ear Discharge, Nose Pain, Nose Discharge, Nose Congestion, Mouth Pain, Mouth Swelling, Throat Pain, Throat Swelling, Other Respiratory: negative: Cough, Dry, Shortness of Breath, Hemoptysis, SOB with Excertion, Pleuritic Pain, Sputum, Wheezing Cardiovascular: negative: chest pain, palpitations, orthopnea, paroxysmal nocturnal dyspnea, edema, light headedness, other Gastrointestinal: negative: Nausea, Vomiting, Abdominal Pain, Diarrhea, Constipation, Melena, Hematochezia, Other Genitourinary: negative: Dysuria, Frequency, Incontinence, Hematuria, Retention , Other Musculoskeletal: negative: Neck Pain, Shoulder Pain, Arm Pain, Back Pain, Hand Pain, Leg Pain, Foot Pain, Other Skin: negative: Rash, Lesions, Faustino, Bruising, Other - Medications/Allergies Allergies/Adverse Reactions: Allergies Allergy/AdvReac Type Severity Reaction Status Date / Time tomato [Tomato] Allergy Intermediate Verified 07/10/14 16:36 No Known Drug Allergies Allergy Verified 06/24/16 00:40 Medications: Current Medications Acetaminophen (Tylenol) 650 mg UT Q4H PRN PRN Reason: Headache/Fever or Pain Acetaminophen (Tylenol) 650 mg PO Q4H PRN PRN Reason: Headache/Fever or Pain Last Admin: 12/18/17 23:41 Dose: 650 mg Albuterol/Ipratropium (Duoneb) 3 ml NEB [id number] Last Admin: 12/21/17 07:26 Dose: 3 ml Aspirin (Aspirin Chewable) 81 mg PO DAILY [facility] Last Admin: 12/21/17 08:35 Dose: 81 mg Bisacodyl (Dulcolax) 10 mg PO DAILYPRN PRN PRN Reason: Constipation Carvedilol (Coreg) 3.125 mg PO BID-[facility] Dextrose/Water (Dextrose 50%) 25 gm SLOW IVP PRN PRN PRN Reason: Hypoglycemia Furosemide (Lasix) 20 mg SLOW IVP 0600 [facility] Last Admin: 12/21/17 05:58 Dose: 20 mg Glucagon (Glucagon) 1 mg IM PRN PRN PRN Reason: Hypoglycemia Heparin Sodium (Porcine) (Heparin) 5,000 units SC TID [facility] Last Admin: 12/21/17 08:35 Dose: 5,000 units Ceftriaxone Sodium 1 gm/ (Syringe 0.4 ml/ Sterile Water) 10 mls @ 120 mls/hr SLOW IVP Q24HR@0200 [facility] Last Admin: 12/21/17 02:08 Dose: 10 mls Dextrose/Water (D5w) 1,000 mls @ 0 mls/hr IV .Q0M PRN; As Directed PRN Reason: Hypoglycemia Amiodarone HCl 450 mg/Miscellaneous Medication 1 each/ Dextrose/Water 259 mls @ 0 mls/hr IVPB INF [facility]; As Directed PRN Reason: Protocol Last Admin: 12/20/17 20:34 Dose: 259 mls Insulin Human Regular (Humulin R) 0 units SC .MILD SLIDING SCALE PRN PRN Reason: Mild Correctional Scale Last Admin: 12/21/17 06:03 Dose: 2 unit Levothyroxine Sodium (Synthroid) 75 mcg PO 0600 [facility] Lisinopril (Zestril) 2.5 mg PO DAILY [facility] Prednisone (Prednisone) 40 mg PO QAM-[facility] Last Admin: 12/21/17 08:35 Dose: 40 mg Warfarin Sodium (Coumadin) 5 mg PO 1700 [facility] Last Admin: 12/20/17 16:29 Dose: 5 mg
[2017-12-21] MEDS: Amiodarone HCl 450 MG, Admixture Fee 1 EACH in Dextrose 5% in Water 250 ML IVPB SCH (12:15)
--- NOTE | 2017-12-21 13:29 | PRG ---
DATE OF SERVICE: 12/21/2017 SERVICE: Pulmonary Medicine. INTERVAL HISTORY: The patient is doing fine from cardiovascular and respiratory standpoint. She den ies any chest pain, nausea, vomiting. Her breathing is much less labored today. She has no specific complaints about chest pain currently. She remains in atrial fibrillation. There were no events ov ernight. PHYSICAL EXAMINATION: VITAL SIGNS: Afebrile, pulse 84, blood pressure 110/55, respirations 20, saturation 97% on 2 liters nasal cannula. HEENT: Normocephalic, atraumatic. Sclerae are white, conjunctivae pink. Oral mucosa is moist witho ut lesions. LUNGS: Reduced air entry. There is wheezing and crackles both present. HEART: Normal rate, regular. ABDOMEN: Soft, nontender, nondistended. Bowel sounds are positive. MUSCULOSKELETAL: No cyanosis or clubbing. There is no pitting in the bilateral lower extremities. NEUROLOGIC: Grossly nonfocal. LABORATORY DATA: Creatinine 0.99 and down trending. Basic metabolic profile otherwise unremarkable. Her potassium 4.1. IMAGING: Echocardiogram shows a reduced ejection fraction 35%-40%. There is dilated left atrium. M itral stenosis is present. Severe MR is also evident. ASSESSMENT: 1. Acute hypoxic respiratory failure, improving. 2. Atrial fibrillation with rapid ventricular response. 3. Acute on chronic systolic, diastolic and valvular heart failure. 4. Mitral stenosis and regurgitation. 5. Sepsis without end organ damage. 6. Urinary tract infection. 7. Chronic obstructive pulmonary disease with acute exacerbation. PLAN: We will continue her steroids, nebulized medications and antibiotics. We will also continue t o diurese the patient on euvolemia. I do think the patient is sick lungs, but her heart is adding a little fluid to the lungs causing them to operate less optimally. We will continue to diurese her ge ntly until she returns to euvolemia. At this point, however, she is stable for transition to the tel emetry unit.
[2017-12-21] MEDS ORDERED: Furosemide 20 MG/2 ML VIAL SLOW IVP SCH (13:30)
[2017-12-21] MEDS: Warfarin Sodium 5 MG TAB PO SCH (16:57)
[2017-12-21] MEDS: Carvedilol 3.125 MG TAB PO SCH (16:57)
[2017-12-22] MEDS: cefTRIAXone\\ROCEPHIN 1 GM, Syringe 0.4 ML in Sterile Water 9.6 ML SLOW IVP SCH (01:42)
[2017-12-22 04:38] LABS: INR-International Normal Ratio 1.3; Prothrombin Time 16.1 SEC (12.0-14.7)
[2017-12-22 04:47] LABS: Anion Gap 8 mmol/L (10-20); BUN (Urea Nitrogen) 20 mg/dL (9.8-20.1); Calc. Creatinine Clearance 133 mL/min (70-130); Calcium 8.3 mg/dL (7.8-10.44); Carbon Dioxide 28 mmol/L (23-31); Chloride 102 mmol/L (98-107); Estimated GFR-MDRD 75; Glucose 177 mg/dL (80-115); Magnesium 2.1 mg/dL (1.6-2.6); Sodium 134 mmol/L (136-145)
[2017-12-22] MEDS: Amiodarone HCl 450 MG, Admixture Fee 1 EACH in Dextrose 5% in Water 250 ML IVPB SCH (05:39)
[2017-12-22] MEDS: Levothyroxine Sodium 75 MCG TAB PO SCH (05:40)
[2017-12-22] MEDS: Furosemide 20 MG/2 ML VIAL SLOW IVP SCH (05:40)
[2017-12-22] MEDS ORDERED: Levothyroxine 150 MCG TAB PO SCH (06:00)
[2017-12-22] MEDS: Insulin Regular 300 UNITS/3 ML VIAL SC PRN ×3 (06:05→22:21)
--- NOTE | 2017-12-22 09:40 | PRG ---
DATE OF SERVICE: 12/22/2017 SERVICE: Pulmonary Medicine INTERVAL HISTORY: The patient indicates that her breathing is doing much better. She denies any elle st pain, nausea, vomiting, fevers or chills. She was able to get out of bed with physical therapy ye sterday. Otherwise, there is no significant interval change to her condition. PHYSICAL EXAMINATION: VITAL SIGNS: Afebrile, pulse 65, blood pressure 128/64, respirations 18, saturation 100% on 2 liters nasal cannula. GENERAL: The patient is awake, alert, no apparent distress. LUNGS: Decent air entry bilaterally. There is wheezing present. Dependent crackles are evident. HEART: Normal rate, regular. ABDOMEN: Soft, nontender, nondistended. Bowel sounds are positive. MUSCULOSKELETAL: No cyanosis or clubbing. No pitting in the bilateral lower extremities. NEUROLOGIC: Nonfocal. LABORATORY DATA: Basic metabolic profile is unremarkable. Magnesium is 2.1. Blood cultures x2 and urine culture negative to date. ASSESSMENT: 1. Acute hypoxic respiratory failure, resolving. 2. Atrial fibrillation with rapid ventricular response. 3. Acute on chronic systolic and diastolic and valvular heart failure. 4. Mitral stenosis and regurgitation. 5. Sepsis without end organ damage. 6. Urinary tract infection. 7. Chronic obstructive pulmonary disease with acute exacerbation, volume mediated. PLAN: We will continue to diurese the patient to euvolemia. We will work with physical therapy to m hammad her as mobile as possible. She can be transitioned to the telemetry unit. I will continue to fo llow while she remains in this location. Oxygen should be weaned away as tolerated.
[2017-12-22] MEDS: Carvedilol 3.125 MG TAB PO SCH ×2 (10:15→17:07)
[2017-12-22] MEDS: Amiodarone 200 MG TAB PO SCH ×2 (10:15→22:19)
[2017-12-22] MEDS: predniSONE 20 MG TAB PO SCH (10:15)
[2017-12-22] MEDS: Lisinopril 2.5 MG TAB PO SCH (10:15)
[2017-12-22] MEDS: Heparin 5,000 UNITS/ML VIAL SC SCH ×3 (10:16→22:18)
--- NOTE | 2017-12-22 14:39 | PDOC.PN ---
- Subjective Encounter Start Date: 12/22/17 Encounter Start Time: 12:00 Ekaterina is admitted with Afib With RRV, with COPD exacerbation, She is Doing much better, No concern snoted. Alert and oriented. - Objective Resuscitation Status: Resuscitation Status FULL:Full Resuscitation MAR Reviewed: Yes Vital Signs & Weight: Vital Signs (12 hours) Temp Pulse Resp BP Pulse Ox 12/22/17 14:29 97.5 F L 67 17 119/59 L 97 12/22/17 13:31 65 16 99 12/22/17 11:26 97.5 F L 82 14 120/49 L 99 12/22/17 10:15 65 12/22/17 08:32 97.2 F L 65 15 100 12/22/17 07:26 97.2 F L 65 15 120/64 100 12/22/17 07:11 68 14 97 12/22/17 04:00 98.1 F 73 18 124/67 98 12/22/17 02:41 99 Weight Weight 247 lb 1.6 oz I&O: 12/21/17 12/22/17 12/23/17 06:59 06:59 06:59 Intake Total 420 610 Balance 420 610 Result Diagrams: 12/19/17 04:16 12/22/17 03:27 Additional Labs: Accuchecks 12/22/17 12/22/17 12/21/17 10:20 06:01 20:54 POC Glucose 151 H 169 H 286 H 12/21/17 17:12 POC Glucose 295 H Radiology Reviewed by me: Yes Phys Exam - Physical Examination HEENT: PERRLA, moist MMs Neck: no nodes, no JVD Respiratory: no wheezing, no rales Cardiovascular: RRR, no significant murmur Gastrointestinal: soft, non-tender Musculoskeletal: no edema, pulses present Neurological: non-focal, normal sensation Psychiatric: normal affect, A&O x 3 Skin: no rash, normal turgor Dx/Plan (1) Atrial fibrillation with RVR Code(s): I48.91 - UNSPECIFIED ATRIAL FIBRILLATION Status: Acute Comment: Afib rate controlled now, Plan for BASIM in Am and then followed by cardiovertion. (2) COPD exacerbation Code(s): J44.1 - CHRONIC OBSTRUCTIVE PULMONARY DISEASE W (ACUTE) EXACERBATION Status: Acute Comment: continue steroids, bronchodilators, stable. (3) Sepsis Code(s): A41.9 - SEPSIS, UNSPECIFIED ORGANISM Status: Acute Comment: continue IV ceftriaxone, follow urine and blood cultures (4) Anticoagulant long-term use Code(s): Z79.01 - [employer] (CURRENT) USE OF ANTICOAGULANTS Status: Acute (5) Dizziness Code(s): R42 - DIZZINESS AND GIDDINESS Status: Acute (6) DM type 2 (diabetes mellitus, type 2) Status: Chronic Comment: continue accuchecks, insulin sliding scale. (7) HTN (hypertension) Code(s): I10 - ESSENTIAL (PRIMARY) HYPERTENSION Status: Chronic Comment: Monitor vital signs, titrate antihypertensives as needed. (8) Acute exacerbation of CHF (congestive heart failure) Code(s): I50.9 - HEART FAILURE, UNSPECIFIED Status: Acute Comment: Her Echo showed Reduced EF to 35-40% reduced from 55 % in 2016, Pt is on IV lasix, will start her on Coreg low dose and also lisinopril 2.5 mg - Plan cont current plan of care, hernandez catheter, continue antibiotics, PT/OT, respiratory therapy, incentive spirometry, DVT proph w/lovenox * . - Discharge Day Encounter end time: 12:30 Review of Systems - Review of Systems Eyes: negative: Pain, Vision Change, Conjunctivae Inflammation, Eyelid Inflammation, Redness, Other ENT: negative: Ear Pain, Ear Discharge, Nose Pain, Nose Discharge, Nose Congestion, Mouth Pain, Mouth Swelling, Throat Pain, Throat Swelling, Other Respiratory: negative: Cough, Dry, Shortness of Breath, Hemoptysis, SOB with Excertion, Pleuritic Pain, Sputum, Wheezing Cardiovascular: negative: chest pain, palpitations, orthopnea, paroxysmal nocturnal dyspnea, edema, light headedness, other Gastrointestinal: negative: Nausea, Vomiting, Abdominal Pain, Diarrhea, Constipation, Melena, Hematochezia, Other Musculoskeletal: negative: Neck Pain, Shoulder Pain, Arm Pain, Back Pain, Hand Pain, Leg Pain, Foot Pain, Other Skin: negative: Rash, Lesions, Faustino, Bruising, Other - Medications/Allergies Allergies/Adverse Reactions: Allergies Allergy/AdvReac Type Severity Reaction Status Date / Time tomato [Tomato] Allergy Intermediate Verified 07/10/14 16:36 No Known Drug Allergies Allergy Verified 06/24/16 00:40 Medications: Current Medications Acetaminophen (Tylenol) 650 mg FL Q4H PRN PRN Reason: Headache/Fever or Pain Acetaminophen (Tylenol) 650 mg PO Q4H PRN PRN Reason: Headache/Fever or Pain Last Admin: 12/18/17 23:41 Dose: 650 mg Albuterol/Ipratropium (Duoneb) 3 ml NEB [id number] Last Admin: 12/22/17 13:31 Dose: 3 ml Amiodarone HCl (Cordarone) 400 mg PO BID [facility] Last Admin: 12/22/17 10:15 Dose: 400 mg Aspirin (Aspirin Chewable) 81 mg PO DAILY [facility] Last Admin: 12/22/17 10:16 Dose: 81 mg Bisacodyl (Dulcolax) 10 mg PO DAILYPRN PRN PRN Reason: Constipation Carvedilol (Coreg) 3.125 mg PO BID-[facility] Last Admin: 12/22/17 10:15 Dose: 3.125 mg Dextrose/Water (Dextrose 50%) 25 gm SLOW IVP PRN PRN PRN Reason: Hypoglycemia Furosemide (Lasix) 20 mg SLOW IVP 0600 [facility] Last Admin: 12/22/17 05:40 Dose: 20 mg Glucagon (Glucagon) 1 mg IM PRN PRN PRN Reason: Hypoglycemia Heparin Sodium (Porcine) (Heparin) 5,000 units SC TID [facility] Last Admin: 12/22/17 10:16 Dose: 5,000 units Ceftriaxone Sodium 1 gm/ (Syringe 0.4 ml/ Sterile Water) 10 mls @ 120 mls/hr SLOW IVP Q24HR@0200 [facility] Last Admin: 12/22/17 01:42 Dose: 10 mls Dextrose/Water (D5w) 1,000 mls @ 0 mls/hr IV .Q0M PRN; As Directed PRN Reason: Hypoglycemia Insulin Human Regular (Humulin R) 0 units SC .MILD SLIDING SCALE PRN PRN Reason: Mild Correctional Scale Last Admin: 12/22/17 06:05 Dose: 2 unit Levothyroxine Sodium (Synthroid) 75 mcg PO 0600 [facility] Last Admin: 12/22/17 05:40 Dose: 75 mcg Lisinopril (Zestril) 2.5 mg PO DAILY [facility] Last Admin: 12/22/17 10:15 Dose: 2.5 mg Prednisone (Prednisone) 40 mg PO QAM-[facility] Last Admin: 12/22/17 10:15 Dose: 40 mg Warfarin Sodium (Coumadin) 5 mg PO 1700 [facility] Last Admin: 12/21/17 16:57 Dose: 5 mg
[2017-12-22] MEDS: Warfarin Sodium 5 MG TAB PO SCH (17:07)
[2017-12-23] MEDS: cefTRIAXone\\ROCEPHIN 1 GM, Syringe 0.4 ML in Sterile Water 9.6 ML SLOW IVP SCH (01:40)
[2017-12-23 05:17] LABS: INR-International Normal Ratio 1.5; Prothrombin Time 18.1 SEC (12.0-14.7)
[2017-12-23 05:24] LABS: Anion Gap 9 mmol/L (10-20); BUN (Urea Nitrogen) 20 mg/dL (9.8-20.1); Calc. Creatinine Clearance 123 mL/min (70-130); Calcium 8.9 mg/dL (7.8-10.44); Carbon Dioxide 31 mmol/L (23-31); Chloride 101 mmol/L (98-107); Estimated GFR-MDRD 69; Glucose 112 mg/dL (80-115); Magnesium 2.2 mg/dL (1.6-2.6); Sodium 137 mmol/L (136-145)
[2017-12-23] MEDS: Furosemide 20 MG/2 ML VIAL SLOW IVP SCH (06:12)
[2017-12-23] MEDS: Levothyroxine Sodium 75 MCG TAB PO SCH (06:12)
[2017-12-23] MEDS ORDERED: Ketamine 50 MG/ML VIAL ONE (07:45)
[2017-12-23] MEDS ORDERED: Fentanyl 100 MCG/2 ML VIAL ONE (07:45)
[2017-12-23] MEDS ORDERED: Midazolam HCl 2 mg/2 ml Vial ONE (07:45)
[2017-12-23] MEDS: Lisinopril 2.5 MG TAB PO SCH (09:00)
[2017-12-23] MEDS: Carvedilol 3.125 MG TAB PO SCH ×2 (09:00→16:05)
[2017-12-23] MEDS: Amiodarone 200 MG TAB PO SCH (09:00)
[2017-12-23] MEDS: Heparin 5,000 UNITS/ML VIAL SC SCH ×3 (09:00→21:20)
[2017-12-23] MEDS ORDERED: Promethazine HCl 25 MG/ML VIAL IM PRN (09:05)
[2017-12-23] MEDS ORDERED: Ondansetron HCl/PF 4 MG/2 ML Vial IVP PRN (09:05)
[2017-12-23] MEDS ORDERED: Promethazine HCl 25 MG/ML VIAL SLOW IVP PRN (09:05)
[2017-12-23] MEDS: predniSONE 20 MG TAB PO SCH (10:30)
--- NOTE | 2017-12-23 12:42 | ECHO ---
TRANSESOPHAGEAL ECHOCARDIOGRAM: DATE OF PROCEDURE: 12/24/15 INDICATION: 62-year-old woman with paroxysmal atrial fibrillation, mitral stenosis, and aortic stenosis. DESCRIPTION OF PROCEDURE: The patient was taken to the PACU. The patient was sedated by anesthesiology. A transesophageal probe was placed in the distal esophagus and stomach. Echocardiographic images were obtained. The transesophageal probe was removed. FINDINGS: 1. Normal left ventricular systolic function. 2. Left atrial enlargement. 3. The mitral valve leaflets are thickened with reduced leaflet excursion. 4. Moderate mitral stenosis with an estimated area of 1.7 cm2. 5. The aortic valve leaflets are thickened with reduced leaflet excursion. 6. Aortic stenosis. 7. Spontaneous contrast noted in the left atrium and left atrial appendage with no formed thrombus. 8. Atherosclerotic debris in the descending aorta. IMPRESSION: Spontaneous contrast noted in left atrium with no formed thrombus with aortic and mitral stenosis. MTDD
--- NOTE | 2017-12-23 12:46 | OP ---
PROCEDURE: Date: 12/23/17 PROCEDURE: Direct current cardioversion. INDICATION: Atrial fibrillation. DETAILS: The patient remained sedated after the transesophageal echo revealed no evidence of intracardiac thr ombus. With 200 joules of synchronized cardioversion, she returned to sinus bradycardia with heart ra te in the mid 40s, which then increased to the mid 50s. The patient tolerated the procedure well.
--- NOTE | 2017-12-23 14:26 | PRG ---
DATE OF SERVICE: 12/23/2017 SERVICE: Pulmonary Medicine. INTERVAL HISTORY: The patient is doing fine from a respiratory standpoint. She is breathing comfort ably. She has no chest discomfort. Otherwise, there has been no interval change to her condition. PHYSICAL EXAMINATION: VITAL SIGNS: Afebrile, pulse 51, blood pressure 111/54, respirations 18, saturation 94% on room air. GENERAL: The patient is awake, alert, no apparent distress. LUNGS: Decent air entry. There is no prolonged expiratory phase or wheezing present. HEART: Normal rate and regular. ABDOMEN: Soft, nontender, and nondistended. Bowel sounds are positive. MUSCULOSKELETAL: No cyanosis or clubbing. There is no pitting in the bilateral lower extremities. NEUROLOGIC: Grossly nonfocal. LABORATORY DATA: WBC 6.2, hemoglobin 11.1, platelets 103. INR 1.5. Creatinine 0.84. Basic metabol ic profile is otherwise unremarkable. Magnesium 2.2. Blood cultures x2 and urine culture are unrema rkable. IMAGING: BASIM demonstrates normal left ventricular systolic function and left atrial enlargement, red uced leaflet excursion to the mitral valve, moderate mitral stenosis. Aortic valve leaflets are thic kened with reduced leaflet excursion. Aortic stenosis is present. No thrombus is identified in the left atrium, left atrial appendage. Atherosclerotic debris is noted in the aorta. ASSESSMENT: 1. Acute hypoxic respiratory failure, resolved. 2. Atrial fibrillation with rapid ventricular response, status post cardioversion. 3. Acute on chronic systolic, diastolic, and valvular heart failure. 4. Mitral stenosis and regurgitation. 5. Aortic stenosis. 6. Sepsis without end organ damage. 7. Urinary tract infection. 10. Chronic obstructive pulmonary disease with acute exacerbation, volume mediated. DISCUSSION and PLAN: The patient has returned to euvolemia. She will continue working with physical therapy. Pulmonary will continue to follow, intermittently through the weekend. From my perspectiv e, she is stable for transition out of the hospital today or tomorrow. Oxygen will be weaned away as tolerated. Hopefully, having her heart in normal rhythm will facilitate oxygen weaning.
--- NOTE | 2017-12-23 15:03 | PDOC.PN ---
- Subjective Encounter Start Date: 12/23/17 Encounter Start Time: 14:00 Patient is seen today, alert and oriented. No other concerns , She is feeling dizzy now. She just returned from [facility]/ Cardioversion. Pt is admitted with Afibb / COpd exacerbation Right lung pna. - Objective Resuscitation Status: Resuscitation Status FULL:Full Resuscitation MAR Reviewed: Yes Vital Signs & Weight: Vital Signs (12 hours) Temp Pulse Resp BP Pulse Ox 12/23/17 14:36 72 16 98 12/23/17 12:00 96.9 F L 51 L 18 111/54 L 94 L 12/23/17 09:30 96.9 F L 61 18 99/55 L 98 12/23/17 09:00 65 12/23/17 04:00 97.4 F L 65 19 132/77 99 Weight Weight 251 lb 3.2 oz I&O: 12/22/17 12/23/17 12/24/17 06:59 06:59 06:59 Intake Total 610 676 100 Balance 610 676 100 Result Diagrams: 12/19/17 04:16 12/23/17 04:45 Additional Labs: Accuchecks 12/23/17 12/23/17 12/22/17 10:15 06:24 20:46 POC Glucose 123 H 245 H 260 H 12/22/17 16:42 POC Glucose 282 H Radiology Reviewed by me: Yes Phys Exam - Physical Examination HEENT: PERRLA, moist MMs Neck: no nodes, no JVD Respiratory: no wheezing, no rales Cardiovascular: RRR, no significant murmur Gastrointestinal: soft, non-tender Musculoskeletal: no edema, pulses present Lymphatic: no nodes Psychiatric: normal affect, A&O x 3 Dx/Plan (1) Hypotension Status: Acute Comment: WIll hold lisnopril, Pt is symptomatic , so will give 250mo IV bolus now. Systolic 92. Will clsoley monitor. (2) Atrial fibrillation with RVR Code(s): I48.91 - UNSPECIFIED ATRIAL FIBRILLATION Status: Resolved Comment: Sinus rhytm now. (3) COPD exacerbation Code(s): J44.1 - CHRONIC OBSTRUCTIVE PULMONARY DISEASE W (ACUTE) EXACERBATION Status: Acute Comment: continue steroids, bronchodilators, stable. (4) Sepsis Code(s): A41.9 - SEPSIS, UNSPECIFIED ORGANISM Status: Acute Comment: continue IV ceftriaxone, follow urine and blood cultures (5) Anticoagulant long-term use Code(s): Z79.01 - [facility] (CURRENT) USE OF ANTICOAGULANTS Status: Acute (6) Dizziness Code(s): R42 - DIZZINESS AND GIDDINESS Status: Acute (7) DM type 2 (diabetes mellitus, type 2) Status: Chronic Comment: continue accuchecks, insulin sliding scale. (8) HTN (hypertension) Code(s): I10 - ESSENTIAL (PRIMARY) HYPERTENSION Status: Chronic Comment: Hypotension now, will hold lisnoril. (9) Acute exacerbation of CHF (congestive heart failure) Code(s): I50.9 - HEART FAILURE, UNSPECIFIED Status: Acute Comment: Her Echo showed Reduced EF to 35-40% reduced from 55 % in 2016, Pt is on IV lasix, will start her on Coreg low dose and also lisinopril 2.5 mg - Plan cont current plan of care, continue antibiotics, PT/OT, social work job titles, respiratory therapy, incentive spirometry, DVT proph w/lovenox * . - Discharge Day Encounter end time: 14:35 Review of Systems - Review of Systems Constitutional: negative: fever, chills, sweats, weakness, malaise, other Eyes: negative: Pain, Vision Change, Conjunctivae Inflammation, Eyelid Inflammation, Redness, Other Respiratory: negative: Cough, Dry, Shortness of Breath, Hemoptysis, SOB with Excertion, Pleuritic Pain, Sputum, Wheezing Cardiovascular: negative: chest pain, palpitations, orthopnea, paroxysmal nocturnal dyspnea, edema, light headedness, other Gastrointestinal: negative: Nausea, Vomiting, Abdominal Pain, Diarrhea, Constipation, Melena, Hematochezia, Other Musculoskeletal: negative: Neck Pain, Shoulder Pain, Arm Pain, Back Pain, Hand Pain, Leg Pain, Foot Pain, Other - Medications/Allergies Allergies/Adverse Reactions: Allergies Allergy/AdvReac Type Severity Reaction Status Date / Time tomato [Tomato] Allergy Intermediate Verified 12/22/17 16:22 No Known Drug Allergies Allergy Verified 12/22/17 16:22 Medications: Current Medications Acetaminophen (Tylenol) 650 mg [place] Q4H PRN PRN Reason: Headache/Fever or Pain Acetaminophen (Tylenol) 650 mg PO Q4H PRN PRN Reason: Headache/Fever or Pain Last Admin: 12/18/17 23:41 Dose: 650 mg Albuterol/Ipratropium (Duoneb) 3 ml NEB [id number] [facility] Last Admin: 12/23/17 14:36 Dose: 3 ml Aspirin (Aspirin Chewable) 81 mg PO DAILY [facility] Last Admin: 12/23/17 10:30 Dose: 81 mg Bisacodyl (Dulcolax) 10 mg PO DAILYPRN PRN PRN Reason: Constipation Carvedilol (Coreg) 3.125 mg PO BID-[facility] Last Admin: 12/23/17 09:00 Dose: Not Given Dextrose/Water (Dextrose 50%) 25 gm SLOW IVP PRN PRN PRN Reason: Hypoglycemia Digoxin (Lanoxin) 0.25 mg PO DAILY [facility] Digoxin (Lanoxin) 0.5 mg PO ONE [facility] Furosemide (Lasix) 20 mg SLOW IVP 0600 [facility] Last Admin: 12/23/17 06:12 Dose: 20 mg Glucagon (Glucagon) 1 mg IM PRN PRN PRN Reason: Hypoglycemia Heparin Sodium (Porcine) (Heparin) 5,000 units SC TID [facility] Last Admin: 12/23/17 09:00 Dose: Not Given Ceftriaxone Sodium 1 gm/ (Syringe 0.4 ml/ Sterile Water) 10 mls @ 120 mls/hr SLOW IVP Q24HR@0200 [facility] Last Admin: 12/23/17 01:40 Dose: 10 mls Dextrose/Water (D5w) 1,000 mls @ 0 mls/hr IV .Q0M PRN; As Directed PRN Reason: Hypoglycemia Insulin Human Regular (Humulin R) 0 units SC .MILD SLIDING SCALE PRN PRN Reason: Mild Correctional Scale Last Admin: 12/22/17 22:21 Dose: 4 unit Levothyroxine Sodium (Synthroid) 75 mcg PO 0600 [facility] Last Admin: 12/23/17 06:12 Dose: Not Given Lisinopril (Zestril) 2.5 mg PO DAILY [facility] Last Admin: 12/23/17 09:00 Dose: Not Given Prednisone (Prednisone) 40 mg PO QAM-[facility] Last Admin: 12/23/17 10:30 Dose: 40 mg Warfarin Sodium (Coumadin) 5 mg PO 1700 [facility] Last Admin: 12/22/17 17:07 Dose: 5 mg
[2017-12-23] MEDS ORDERED: Digoxin 0.25 MG TAB PO SCH (15:45)
[2017-12-23] MEDS: Warfarin Sodium 5 MG TAB PO SCH (16:06)
--- NOTE | 2017-12-23 16:45 | EKG ---
Test Reason : POST BASIM/CARDIOVERSI Blood Pressure : / mmHG Vent. Rate : 060 BPM Atrial Rate : 060 BPM P-R Int : 162 ms QRS Dur : 088 ms QT Int : 518 ms P-R-T Axes : 075 065 079 degrees QTc Int : 518 ms Normal sinus rhythm Prolonged QT Abnormal ECG When compared with ECG of 19-DEC-2017 12:27, Sinus rhythm has replaced Atrial fibrillation Vent. rate has decreased BY [address] Cristiano THOMPSON ([id number]) on 12/23/2017 4:45:39 PM Referred By: NINO Confirmed By:DR. Cristiano THOMPSON
[2017-12-23] MEDS: Insulin Regular 300 UNITS/3 ML VIAL SC PRN ×2 (18:31→21:19)
[2017-12-23] MEDS ORDERED: PROPOFOL 200 MG/20 ML VIAL ONE (19:40)
[2017-12-24] MEDS: cefTRIAXone\\ROCEPHIN 1 GM, Syringe 0.4 ML in Sterile Water 9.6 ML SLOW IVP SCH (01:02)
[2017-12-24] MEDS: Furosemide 20 MG/2 ML VIAL SLOW IVP SCH (05:16)
[2017-12-24] MEDS: Levothyroxine Sodium 75 MCG TAB PO SCH (05:16)
[2017-12-24 05:51] LABS: INR-International Normal Ratio 1.6; Prothrombin Time 19.3 SEC (12.0-14.7)
[2017-12-24 06:08] LABS: Anion Gap 12 mmol/L (10-20); BUN (Urea Nitrogen) 20 mg/dL (9.8-20.1); Calc. Creatinine Clearance 117 mL/min (70-130); Calcium 9.1 mg/dL (7.8-10.44); Carbon Dioxide 29 mmol/L (23-31); Chloride 100 mmol/L (98-107); Estimated GFR-MDRD 64; Glucose 133 mg/dL (80-115); Potassium 3.8 mmol/L (3.5-5.1); Sodium 137 mmol/L (136-145)
[2017-12-24] MEDS: predniSONE 20 MG TAB PO SCH (09:38)
[2017-12-24] MEDS: Carvedilol 3.125 MG TAB PO SCH ×2 (09:38→17:01)
[2017-12-24] MEDS: Digoxin 0.25 MG TAB PO SCH (09:38)
[2017-12-24] MEDS: Lisinopril 2.5 MG TAB PO SCH (09:38)
[2017-12-24] MEDS: Heparin 5,000 UNITS/ML VIAL SC SCH ×3 (09:38→20:20)
--- NOTE | 2017-12-24 14:42 | PDOC.PN ---
- Subjective Encounter Start Date: 12/24/17 Encounter Start Time: 11:00 Patient is seen today, aler and oriened. Sill in sinus Rhyhm, On Amiodarone. Pt has Afib/ COPD/ CHF. - Objective Resuscitation Status: Resuscitation Status FULL:Full Resuscitation MAR Reviewed: Yes Vital Signs & Weight: Vital Signs (12 hours) Temp Pulse Resp BP Pulse Ox 12/24/17 13:35 66 18 99 12/24/17 11:55 98.3 F 85 18 132/75 94 L 12/24/17 08:00 97.5 F L 83 18 116/59 L 98 12/24/17 07:24 99 12/24/17 07:14 62 16 99 12/24/17 05:06 97.7 F 62 18 135/60 92 L Weight Weight 248 lb 11.2 oz I&O: 12/23/17 12/24/17 12/25/17 06:59 06:59 06:59 Intake Total 676 1080 Balance 676 1080 Result Diagrams: 12/19/17 04:16 12/24/17 05:28 Additional Labs: Accuchecks 12/24/17 12/24/17 12/23/17 11:44 05:15 20:50 POC Glucose 151 H 134 H 245 H 12/23/17 16:50 POC Glucose 297 H Radiology Reviewed by me: Yes Phys Exam - Physical Examination HEENT: PERRLA, moist MMs Neck: no nodes, no JVD Respiratory: no wheezing, no rales Cardiovascular: RRR, no significant murmur Gastrointestinal: soft, non-tender Musculoskeletal: no edema, pulses present Neurological: non-focal, normal sensation Lymphatic: no nodes Psychiatric: normal affect, A&O x 3 Dx/Plan (1) Hypotension Status: Resolved Comment: Resolved. (2) Atrial fibrillation with RVR Code(s): I48.91 - UNSPECIFIED ATRIAL FIBRILLATION Status: Resolved Comment: Sinus rhytm now. (3) COPD exacerbation Code(s): J44.1 - CHRONIC OBSTRUCTIVE PULMONARY DISEASE W (ACUTE) EXACERBATION Status: Acute Comment: continue steroids, bronchodilators, stable. (4) Sepsis Code(s): A41.9 - SEPSIS, UNSPECIFIED ORGANISM Status: Acute Comment: continue IV ceftriaxone, follow urine and blood cultures, Neg so far. (5) Anticoagulant long-term use Code(s): Z79.01 - [facility] (CURRENT) USE OF ANTICOAGULANTS Status: Acute (6) Dizziness Code(s): R42 - DIZZINESS AND GIDDINESS Status: Acute (7) DM type 2 (diabetes mellitus, type 2) Status: Chronic Comment: continue accuchecks, insulin sliding scale. (8) HTN (hypertension) Code(s): I10 - ESSENTIAL (PRIMARY) HYPERTENSION Status: Chronic Comment: Hypotension now, will hold lisnoril. (9) Acute exacerbation of CHF (congestive heart failure) Code(s): I50.9 - HEART FAILURE, UNSPECIFIED Status: Acute Comment: Her Echo showed Reduced EF to 35-40% reduced from 55 % in 2016, Pt is on IV lasix, will start her on Coreg low dose and also lisinopril 2.5 mg - Plan cont current plan of care, PT/OT, dental services director, incentive spirometry, out of bed/ambulate, DVT proph w/heparin, DVT proph w/lovenox * . - Discharge Day Encounter end time: 11:35 Review of Systems - Review of Systems Eyes: negative: Pain, Vision Change, Conjunctivae Inflammation, Eyelid Inflammation, Redness, Other ENT: negative: Ear Pain, Ear Discharge, Nose Pain, Nose Discharge, Nose Congestion, Mouth Pain, Mouth Swelling, Throat Pain, Throat Swelling, Other Respiratory: negative: Cough, Dry, Shortness of Breath, Hemoptysis, SOB with Excertion, Pleuritic Pain, Sputum, Wheezing Cardiovascular: negative: chest pain, palpitations, orthopnea, paroxysmal nocturnal dyspnea, edema, light headedness, other Gastrointestinal: negative: Nausea, Vomiting, Abdominal Pain, Diarrhea, Constipation, Melena, Hematochezia, Other Musculoskeletal: negative: Neck Pain, Shoulder Pain, Arm Pain, Back Pain, Hand Pain, Leg Pain, Foot Pain, Other - Medications/Allergies Allergies/Adverse Reactions: Allergies Allergy/AdvReac Type Severity Reaction Status Date / Time tomato [Tomato] Allergy Intermediate Verified 12/22/17 16:22 No Known Drug Allergies Allergy Verified 12/22/17 16:22 Medications: Current Medications Acetaminophen (Tylenol) 650 mg [place] Q4H PRN PRN Reason: Headache/Fever or Pain Acetaminophen (Tylenol) 650 mg PO Q4H PRN PRN Reason: Headache/Fever or Pain Last Admin: 12/18/17 23:41 Dose: 650 mg Albuterol/Ipratropium (Duoneb) 3 ml NEB [id number] [facility] Last Admin: 12/24/17 13:35 Dose: 3 ml Aspirin (Aspirin Chewable) 81 mg PO DAILY [facility] Last Admin: 12/24/17 09:38 Dose: 81 mg Bisacodyl (Dulcolax) 10 mg PO DAILYPRN PRN PRN Reason: Constipation Carvedilol (Coreg) 3.125 mg PO BID-[facility] Last Admin: 12/24/17 09:38 Dose: 3.125 mg Dextrose/Water (Dextrose 50%) 25 gm SLOW IVP PRN PRN PRN Reason: Hypoglycemia Digoxin (Lanoxin) 0.25 mg PO DAILY [facility] Last Admin: 12/24/17 09:38 Dose: 0.25 mg Furosemide (Lasix) 20 mg SLOW IVP 0600 [facility] Last Admin: 12/24/17 05:16 Dose: 20 mg Glucagon (Glucagon) 1 mg IM PRN PRN PRN Reason: Hypoglycemia Heparin Sodium (Porcine) (Heparin) 5,000 units SC TID [facility] Last Admin: 12/24/17 09:38 Dose: 5,000 units Ceftriaxone Sodium 1 gm/ (Syringe 0.4 ml/ Sterile Water) 10 mls @ 120 mls/hr SLOW IVP Q24HR@0200 [facility] Last Admin: 12/24/17 01:02 Dose: 10 mls Dextrose/Water (D5w) 1,000 mls @ 0 mls/hr IV .Q0M PRN; As Directed PRN Reason: Hypoglycemia Insulin Human Regular (Humulin R) 0 units SC .MILD SLIDING SCALE PRN PRN Reason: Mild Correctional Scale Last Admin: 12/23/17 21:19 Dose: 3 unit Levothyroxine Sodium (Synthroid) 75 mcg PO 0600 [facility] Last Admin: 12/24/17 05:16 Dose: 75 mcg Lisinopril (Zestril) 2.5 mg PO DAILY [facility] Last Admin: 12/24/17 09:38 Dose: 2.5 mg Mometasone Furoate/Formoterol Fumar (Dulera 200 Mcg/5 Mcg Inhaler) 2 puff INH BID-RT [facility] Prednisone (Prednisone) 40 mg PO QAM-[facility] Last Admin: 12/24/17 09:38 Dose: 40 mg Warfarin Sodium (Coumadin) 5 mg PO 1700 [facility] Last Admin: 12/23/17 16:06 Dose: 5 mg
--- NOTE | 2017-12-24 15:40 | PRG ---
DATE OF SERVICE: 12/24/2017 SUBJECTIVE: She is better. She still is coughing and wheezing. OBJECTIVE: VITAL SIGNS: Her sats are 98%, [id number], temperature 98, blood pressure 130/75. CHEST: Bilateral wheezing. CARDIAC: Normal S1, S2. No gallops. ABDOMEN: No masses. LABORATORY DATA: Electrolytes are normal. INR is 1.6. IMPRESSION: 1. Chronic obstructive pulmonary disease. 2. Congestive heart failure. 3. Atrial fibrillation. 4. Possibly pneumonia. PLAN: She is on neb treatments. I have added Dulera to her present treatment. Continue PT and supp ortive care.
[2017-12-24] MEDS: Warfarin Sodium 5 MG TAB PO SCH (17:01)
[2017-12-24] MEDS: Insulin Regular 300 UNITS/3 ML VIAL SC PRN (18:01)
--- NOTE | 2017-12-24 18:18 | PDOC.CTH ---
Cardiology Progress Note - Subjective She is doing well. denies CP, SOB, palpitations. - Objective Vital Signs Temp Pulse Resp BP Pulse Ox 12/24/17 16:57 97.3 F L 81 18 141/91 H 94 L 12/24/17 13:35 66 18 99 12/24/17 11:55 98.3 F 85 18 132/75 94 L 12/24/17 08:00 97.5 F L 83 18 116/59 L 98 12/24/17 07:24 99 12/24/17 07:14 62 16 99 Weight 248 lb 11.2 oz 12/23/17 12/24/17 12/25/17 06:59 06:59 06:59 Intake Total 676 1080 Balance 676 1080 - Physical Examination General/Neuro: alert & oriented x3, NAD Neck: no JVD present Lungs: unlabored respirations Heart: other: (irreg) Abdomen: NT/ND Extremities: + edema B (trace) - Telemetry Telemetry Rhythm: Afib HR 80's. - Labs Result Diagrams: 12/19/17 04:16 12/24/17 05:28 Troponin/CKMB CK-MB (CK-2) 0.4 ng/mL (0-6.6) 12/18/17 00:35 Troponin I 0.020 ng/mL (< 0.028) 12/18/17 06:33 - Assessment/Plan 1. Afib currently rate controlled. 2. COPD 3. Seizure disorder. 4. Mild MR 5. Mod to severe AI. 6. Mitral stenosis s/p valvuloplasty in the past. PLAN: - She recurred even after DCCV. Will opt for rate control strategy. - If she becomes symptomatic will consult EP for consideration of an ablation. - Continue coumadin for CVA prophylaxis.
[2017-12-24] MEDS: Mometasone/Formoterol 120 PUFF INHALER INH SCH (18:53)
[2017-12-25] MEDS: cefTRIAXone\\ROCEPHIN 1 GM, Syringe 0.4 ML in Sterile Water 9.6 ML SLOW IVP SCH (01:36)
[2017-12-25] MEDS: Furosemide 20 MG/2 ML VIAL SLOW IVP SCH (06:09)
[2017-12-25] MEDS: Levothyroxine Sodium 75 MCG TAB PO SCH (06:09)
[2017-12-25 06:31] LABS: INR-International Normal Ratio 1.9; Prothrombin Time 22.1 SEC (12.0-14.7)
[2017-12-25 06:36] LABS: Anion Gap 7 mmol/L (10-20); BUN (Urea Nitrogen) 19 mg/dL (9.8-20.1); Calc. Creatinine Clearance 121 mL/min (70-130); Calcium 8.5 mg/dL (7.8-10.44); Carbon Dioxide 31 mmol/L (23-31); Chloride 101 mmol/L (98-107); Estimated GFR-MDRD 67; Glucose 149 mg/dL (80-115); Potassium 3.9 mmol/L (3.5-5.1); Sodium 135 mmol/L (136-145)
[2017-12-25] MEDS: Mometasone/Formoterol 120 PUFF INHALER INH SCH ×2 (08:09→19:15)
[2017-12-25] MEDS: Carvedilol 3.125 MG TAB PO SCH ×2 (08:30→16:33)
[2017-12-25] MEDS: Digoxin 0.25 MG TAB PO SCH (08:30)
[2017-12-25] MEDS: predniSONE 20 MG TAB PO SCH (08:30)
[2017-12-25] MEDS: Lisinopril 2.5 MG TAB PO SCH (08:30)
[2017-12-25] MEDS: Heparin 5,000 UNITS/ML VIAL SC SCH ×3 (08:31→22:16)
[2017-12-25] MEDS: Insulin Regular 300 UNITS/3 ML VIAL SC PRN ×2 (11:54→16:33)
--- NOTE | 2017-12-25 13:45 | PRG ---
DATE OF SERVICE: 12/25/2017 OBJECTIVE: VITAL SIGNS: Sats are 97 on room air, respirations 18, temperature is 97, blood pressure 157/92. GENERAL: Denies any pain, difficulty breathing. INR is 1.9. She is walking the halls. CHEST: Reveals decreased breath sounds without any wheezing. CARDIAC: Normal S1, S2, no gallops. ABDOMEN: Soft. PLAN: Chronic obstructive pulmonary disease, atrial fibrillation, sepsis. Continue present treatment. Continue on neb treatments. Disposition as per primary care physician.
--- NOTE | 2017-12-25 14:02 | PDOC.PN ---
- Subjective Encounter Start Date: 12/25/17 Encounter Start Time: 09:00 PAtient iss een today,k alert and oriented. No other Concern snoted, pt is waiting to go to SNF tomorrow. - Objective Resuscitation Status: Resuscitation Status FULL:Full Resuscitation MAR Reviewed: Yes Vital Signs & Weight: Vital Signs (12 hours) Temp Pulse Resp BP Pulse Ox 12/25/17 13:30 97 12/25/17 13:25 60 16 97 12/25/17 11:50 97.8 F 70 18 157/92 H 97 12/25/17 08:25 97.9 F 67 18 114/60 94 L 12/25/17 06:59 68 16 92 L 12/25/17 04:00 97.9 F 76 18 153/70 H 95 Weight Weight 247 lb 2 oz I&O: 12/24/17 12/25/17 12/26/17 06:59 06:59 06:59 Intake Total 1080 120 Balance 1080 120 Result Diagrams: 12/19/17 04:16 12/25/17 06:04 Additional Labs: Accuchecks 12/25/17 12/25/17 12/24/17 10:49 05:44 21:08 POC Glucose 178 H 151 H 202 H 12/24/17 16:33 POC Glucose 250 H Radiology Reviewed by me: Yes Phys Exam - Physical Examination HEENT: PERRLA, moist MMs Neck: no nodes, no JVD Respiratory: no wheezing, no rales Cardiovascular: no significant murmur, irregular Gastrointestinal: soft, non-tender Musculoskeletal: pulses present, edema present Neurological: non-focal, normal sensation Lymphatic: no nodes Skin: no rash, normal turgor Dx/Plan (1) Hypotension Status: Resolved Comment: Resolved. (2) Atrial fibrillation with RVR Code(s): I48.91 - UNSPECIFIED ATRIAL FIBRILLATION Status: Resolved Comment: back to Afib rhytm failyed Cardioversion. Continue with Rate control regimen. and Anticoagulation with coumedin, INR is 1.9 (3) COPD exacerbation Code(s): J44.1 - CHRONIC OBSTRUCTIVE PULMONARY DISEASE W (ACUTE) EXACERBATION Status: Acute Comment: continue steroids, bronchodilators, stable. (4) Sepsis Code(s): A41.9 - SEPSIS, UNSPECIFIED ORGANISM Status: Acute Comment: continue IV ceftriaxone, follow urine and blood cultures, Neg so far. (5) Anticoagulant long-term use Code(s): Z79.01 - SNF (CURRENT) USE OF ANTICOAGULANTS Status: Acute (6) Dizziness Code(s): R42 - DIZZINESS AND GIDDINESS Status: Acute (7) DM type 2 (diabetes mellitus, type 2) Status: Chronic Comment: continue accuchecks, insulin sliding scale. (8) HTN (hypertension) Code(s): I10 - ESSENTIAL (PRIMARY) HYPERTENSION Status: Chronic Comment: Hypotension now, will hold lisnoril. (9) Acute exacerbation of CHF (congestive heart failure) Code(s): I50.9 - HEART FAILURE, UNSPECIFIED Status: Resolved Comment: Her Echo showed Reduced EF to 35-40% reduced from 55 % in 2016, Pt is on PO lasix, will start her on Coreg low dose and also lisinopril 2.5 mg - Plan cont current plan of care, plan discussed w/ family, PT/OT, social insurance adviser ( Planned for NH placement Tuesday), respiratory therapy, incentive spirometry, DVT proph w/heparin * . - Discharge Day Encounter end time: 09:35 Review of Systems - Review of Systems Eyes: negative: Pain, Vision Change, Conjunctivae Inflammation, Eyelid Inflammation, Redness, Other Respiratory: Shortness of Breath. negative: Cough, Dry, Hemoptysis, SOB with Excertion, Pleuritic Pain, Sputum, Wheezing Cardiovascular: negative: chest pain, palpitations, orthopnea, paroxysmal nocturnal dyspnea, edema, light headedness, other Gastrointestinal: negative: Nausea, Vomiting, Abdominal Pain, Diarrhea, Constipation, Melena, Hematochezia, Other Musculoskeletal: negative: Neck Pain, Shoulder Pain, Arm Pain, Back Pain, Hand Pain, Leg Pain, Foot Pain, Other - Medications/Allergies Allergies/Adverse Reactions: Allergies Allergy/AdvReac Type Severity Reaction Status Date / Time tomato [Tomato] Allergy Intermediate Verified 12/22/17 16:22 No Known Drug Allergies Allergy Verified 12/22/17 16:22 Medications: Current Medications Acetaminophen (Tylenol) 650 mg [place] Q4H PRN PRN Reason: Headache/Fever or Pain Acetaminophen (Tylenol) 650 mg PO Q4H PRN PRN Reason: Headache/Fever or Pain Last Admin: 12/18/17 23:41 Dose: 650 mg Albuterol/Ipratropium (Duoneb) 3 ml NEB [id number] [facility] Last Admin: 12/25/17 13:25 Dose: 3 ml Aspirin (Aspirin Chewable) 81 mg PO DAILY [facility] Last Admin: 12/25/17 08:30 Dose: 81 mg Bisacodyl (Dulcolax) 10 mg PO DAILYPRN PRN PRN Reason: Constipation Carvedilol (Coreg) 3.125 mg PO BID-[facility] Last Admin: 12/25/17 08:30 Dose: 3.125 mg Dextrose/Water (Dextrose 50%) 25 gm SLOW IVP PRN PRN PRN Reason: Hypoglycemia Digoxin (Lanoxin) 0.25 mg PO DAILY [facility] Last Admin: 12/25/17 08:30 Dose: 0.25 mg Furosemide (Lasix) 20 mg SLOW IVP 0600 [facility] Last Admin: 12/25/17 06:09 Dose: 20 mg Glucagon (Glucagon) 1 mg IM PRN PRN PRN Reason: Hypoglycemia Heparin Sodium (Porcine) (Heparin) 5,000 units SC TID [facility] Last Admin: 12/25/17 08:31 Dose: 5,000 units Ceftriaxone Sodium 1 gm/ (Syringe 0.4 ml/ Sterile Water) 10 mls @ 120 mls/hr SLOW IVP Q24HR@0200 [facility] Last Admin: 12/25/17 01:36 Dose: 10 mls Dextrose/Water (D5w) 1,000 mls @ 0 mls/hr IV .Q0M PRN; As Directed PRN Reason: Hypoglycemia Insulin Human Regular (Humulin R) 0 units SC .MILD SLIDING SCALE PRN PRN Reason: Mild Correctional Scale Last Admin: 12/25/17 11:54 Dose: 2 unit Levothyroxine Sodium (Synthroid) 75 mcg PO 0600 [facility] Last Admin: 12/25/17 06:09 Dose: 75 mcg Lisinopril (Zestril) 2.5 mg PO DAILY [facility] Last Admin: 12/25/17 08:30 Dose: 2.5 mg Mometasone Furoate/Formoterol Fumar (Dulera 200 Mcg/5 Mcg Inhaler) 2 puff INH BID-RT [facility] Last Admin: 12/25/17 08:09 Dose: 2 puff Prednisone (Prednisone) 40 mg PO QAM-WM [facility] Last Admin: 12/25/17 08:30 Dose: 40 mg Warfarin Sodium (Coumadin) 5 mg PO 1700 [facility] Last Admin: 12/24/17 17:01 Dose: 5 mg
[2017-12-25 14:15] LABS: #Eosinphils 0.1 thou/uL (0.0-0.7); #Lymphocytes 1.5 thou/uL (1.20-3.40); #Monocytes 0.4 thou/uL (0.11-0.59); #Neutrophils 7.8 thou/uL (1.40-6.50); %Basophils 0.3 % (0.0-1.0); %Eosinophils 0.7 % (0.0-10.0); %Lymphocytes 15.5 % (21.0-51.0); %Monocytes 4.4 % (0.0-10.0); %Neutrophils 79.1 % (42.0-75.0); Mean Corpuscular HGB CONC 33.5 g/dL (32.0-36.0); Mean Corpuscular Hemoglobin 28.9 pg (27.0-31.0); Mean Corpuscular Volume 86.3 fl (81.0-99.0); Mean Platelet Volume 8.7 fL (7.4-10.4); Platelet Count 206 thou/uL (130-400); RBC Distribution Width 15.8 % (11.5-14.5); Red Blood Cell (RBC) Count 4.14 mill/uL (4.20-5.40); White Blood Cell (WBC) Count 9.9 thou/uL (4.8-10.8)
[2017-12-25] MEDS: Warfarin Sodium 5 MG TAB PO SCH (16:33)
[2017-12-25] MEDS: Acetaminophen 325 MG TAB PO PRN (17:06)
--- NOTE | 2017-12-25 17:08 | PDOC.CTH ---
Cardiology Progress Note - Subjective No new issues. No complaints. - Objective Vital Signs Temp Pulse Resp BP Pulse Ox 12/25/17 13:30 97 12/25/17 13:25 60 16 97 12/25/17 11:50 97.8 F 70 18 157/92 H 97 12/25/17 08:25 97.9 F 67 18 114/60 94 L 12/25/17 06:59 68 16 92 L Weight 247 lb 2 oz 12/24/17 12/25/17 12/26/17 06:59 06:59 06:59 Intake Total 1080 120 Balance 1080 120 - Physical Examination General/Neuro: alert & oriented x3, NAD Neck: no JVD present Lungs: CTA, unlabored respirations Heart: other: (Irreg) Abdomen: NT/ND Extremities: + edema B (tarce) - Telemetry Telemetry Rhythm: Afib HR 70's - Labs Result Diagrams: 12/25/17 14:09 12/25/17 06:04 Troponin/CKMB CK-MB (CK-2) 0.4 ng/mL (0-6.6) 12/18/17 00:35 Troponin I 0.020 ng/mL (< 0.028) 12/18/17 06:33 - Assessment/Plan 1. Afib currently rate controlled. 2. COPD 3. Seizure disorder. 4. Mild MR 5. Mod to severe AI. 6. Mitral stenosis s/p valvuloplasty in the past. PLAN: - She recurred even after DCCV. Rate control strategy. - If she becomes symptomatic will consult EP for consideration of an ablation. - Continue coumadin for CVA prophylaxis. - Rate controlled on current regimen.
[2017-12-26] MEDS: cefTRIAXone\\ROCEPHIN 1 GM, Syringe 0.4 ML in Sterile Water 9.6 ML SLOW IVP SCH (01:34)
[2017-12-26] MEDS: Furosemide 20 MG/2 ML VIAL SLOW IVP SCH (05:44)
[2017-12-26] MEDS: Levothyroxine Sodium 75 MCG TAB PO SCH (05:44)
[2017-12-26 06:03] LABS: INR-International Normal Ratio 2.3; Prothrombin Time 26.2 SEC (12.0-14.7)
[2017-12-26 06:13] LABS: Anion Gap 11 mmol/L (10-20); BUN (Urea Nitrogen) 19 mg/dL (9.8-20.1); Calc. Creatinine Clearance 114 mL/min (70-130); Calcium 8.7 mg/dL (7.8-10.44); Carbon Dioxide 29 mmol/L (23-31); Chloride 100 mmol/L (98-107); Estimated GFR-MDRD 63; Glucose 136 mg/dL (80-115); Potassium 4.1 mmol/L (3.5-5.1); Sodium 136 mmol/L (136-145)
[2017-12-26] MEDS: Mometasone/Formoterol 120 PUFF INHALER INH SCH (07:36)
[2017-12-26 07:42] VITALS: TEMP 97.5
[2017-12-26] MEDS: Lisinopril 2.5 MG TAB PO SCH (08:26)
[2017-12-26] MEDS: Digoxin 0.25 MG TAB PO SCH (08:26)
[2017-12-26] MEDS: predniSONE 20 MG TAB PO SCH (08:27)
[2017-12-26] MEDS: Carvedilol 3.125 MG TAB PO SCH (08:27)
[2017-12-26 11:55] VITALS: BP 139/63
--- NOTE | 2017-12-26 12:20 | PRG ---
DATE OF SERVICE: 12/26/2017 SERVICE: Pulmonary Medicine INTERVAL HISTORY: The patient is doing fantastic from a respiratory standpoint. She denies any ches t pain or shortness of breath today. She is really excited about possibly getting out of here today. She is going to a facility where she has lots of friends. She is looking forward to that transitio n. She has no specific complaints right now. PHYSICAL EXAMINATION: VITAL SIGNS: Afebrile, pulse 80, blood pressure 139/63, respirations 20, saturation 98% on 1 liter n yimi cannula. GENERAL: The patient is awake, alert, no apparent distress. LUNGS: Decent air entry. There is no prolonged expiratory phase or wheezing. HEART: Normal rate. Irregular. ABDOMEN: Soft, nontender, nondistended. Bowel sounds are positive. MUSCULOSKELETAL: No cyanosis or clubbing. There is no pitting in the bilateral lower extremities. NEUROLOGIC: Grossly nonfocal. LABORATORY: Basic metabolic profile is essentially unremarkable. Potassium 4.1, creatinine 0.9. IN R 2.3. ASSESSMENT: 1. Acute hypoxic respiratory failure, resolved. 2. Atrial fibrillation with rapid ventricular response, status post cardioversion with return to a c ontrolled atrial fibrillation. 3. Acute on chronic systolic and diastolic and valvular heart failure. 4. Mitral stenosis and regurgitation. 5. Aortic stenosis. 6. Sepsis without end organ damage. 7. Chronic obstructive pulmonary disease with acute exacerbation, volume mediated. 8. Urinary tract infection. PLAN: The patient remains stable for transition out of the hospital from my perspective. She has be en treated for her COPD exacerbation. At this point, she has no further requirements for inpatient P ulmonary or Critical Care opinion, and I will sign off. Please call with additional questions or con cerns moving forward.
--- NOTE | 2017-12-26 16:57 | DIS ---
DATE OF ADMISSION: 12/18/2017 DATE OF DISCHARGE: 12/26/2017 ADMITTING DIAGNOSIS: Acute chronic obstructive pulmonary disease exacerbation. DISCHARGE DIAGNOSIS: Acute chronic obstructive pulmonary disease exacerbation. SECONDARY DIAGNOSES: 1. Acute recurrent paroxysmal atrial fibrillation. 2. History of seizure disorder. 3. History of depression. CONSULTANTS INVOLVED UNDER THE CARE: 1. Dr. Christ Anderson. 2. Dr. Mendez. HISTORY OF PRESENT ILLNESS AND HOSPITAL COURSE: In brief, this is a 62-year-old white female, who pr esented to the hospital from a senior care with increasing dyspnea and orthopnea. She had a persisten t sleep apnea and she uses CPAP. She was having worsening cough and green sputum and she was admitte d to the ICU because of the atrial fibrillation with rapid ventricular response. So she was started on amiodarone drip because of the low blood pressures and was also started on nebulizer treatments. Patient showed slow improvement and she had a history of ablation in the past, which she failed and s he repeatedly had atrial fibrillation, paroxysmal episodes. At this time, she underwent a BASIM, which was negative for any intramural thrombus and she underwent a repeat cardioversion. Patient again fa iled cardioversion. She initially turned to sinus and then then returned back to atrial fibrillation and which was rate controlled. She was continued on digoxin. The patient was on Coumadin and she c ontinued on the Coumadin. Patient showed slow improvement and the patient was discharged to senior living this time in stable condition. PHYSICAL EXAMINATION: On date of discharge: VITAL SIGNS: Blood pressures are 139/63, heart rate is 80, respirations 20, saturation 98% on room a ir. GENERAL: The patient is moderately built and moderately nourished, does not appear to be in acute di stress. CARDIOVASCULAR: S1 and S2 normal. Irregularly irregular. LUNGS: Bilateral air entry was equal. No wheezing, no crackles. ABDOMEN: Soft, nontender, no guarding, no rebound tenderness. Bowel sounds normal. MUSCULOSKELETAL: No calf tenderness. No pedal edema. No joint tenderness. DISCHARGE MEDICATIONS: 1. Abilify 7.5 mg p.o. at bedtime. 2. Aspirin 81 mg p.o. daily. 3. Benztropine 1 mg p.o. at bedtime. 4. Digoxin 250 mcg p.o. daily. 5. Ezetimibe 10 mg p.o. daily. 6. Lasix 80 mg p.o. daily. 7. Humalog. 8. Levemir 18 units subcu b.i.d. 9. Levothyroxine 75 mcg p.o. daily. 10. Linagliptin 5 mg p.o. daily. 11. Lisinopril 2.5 mg p.o. daily. 12. Metoprolol 25 mg p.o. b.i.d. 13. Pantoprazole 40 mg p.o. daily. 14. Potassium 20 mEq p.o. b.i.d. 15. Warfarin 6 mg p.o. daily at bedtime. DISCHARGE INSTRUCTIONS: Continue activity as tolerated. Advised to follow up with primary care radha baron in 1 week. Advised to follow up with Cardiology in 1-2 weeks. Advised to follow up with Gary castillo in 2 weeks. The patient is discharged to senior living where she will be staying there for rest of her life. The patient did not want to go back to senior care. I spent 35 minutes with this patient on the day of discharge.
== END 2017-12-26 15:24 | DRG 871 ==
LOC: ERS 00:04 → ERHOLD 02:44 → IMCU/EMU 05:01 → 2NO 12-22 14:10
PROVIDERS: ADMIT Internal Medicine; ATTEND Internal Medicine
PROC: 5A2204Z Restoration of Cardiac Rhythm, Single (ICD-10-PCS; principal; 2017-12-23)
DX: A41.9 Sepsis, unspecified organism (principal); J96.01 Acute respiratory failure with hypoxia; I50.43 Acute on chronic combined systolic (congestive) and diastolic (congestive) heart failure; J44.1 Chronic obstructive pulmonary disease with (acute) exacerbation; N39.0 Urinary tract infection, site not specified; I13.0 Hypertensive heart and chronic kidney disease with heart failure and stage 1 through stage 4 chronic kidney disease, or unspecified chronic kidney disease; G40.909 Epilepsy, unspecified, not intractable, without status epilepticus; I08.0 Rheumatic disorders of both mitral and aortic valves; I95.9 Hypotension, unspecified; Z79.01 Long term (current) use of anticoagulants; R42 Dizziness and giddiness; Z79.4 Long term (current) use of insulin; E03.9 Hypothyroidism, unspecified; F32.9 Major depressive disorder, single episode, unspecified; F20.9 Schizophrenia, unspecified; I48.0 Paroxysmal atrial fibrillation; G47.33 Obstructive sleep apnea (adult) (pediatric); Z87.891 Personal history of nicotine dependence; E66.9 Obesity, unspecified; E78.5 Hyperlipidemia, unspecified; F70 Mild intellectual disabilities; N18.9 Chronic kidney disease, unspecified; E11.22 Type 2 diabetes mellitus with diabetic chronic kidney disease; Z68.39 Body mass index [BMI] 39.0-39.9, adult
CPT/HCPCS: 36415; 36416; 71045; 80048; 80053; 81003; 81015; 82553; 83605; 83735; 83880; 84145; 84443; 84484; 85025; 85610; 87040; 87086; 92960; 93005; 93010; 93306; 93312; 93798; 94640; 94760; 96361; 96365; 96367; 96375; A4216; G8978-GP-CM; G8979-GP-CJ; J0282; J0456; J0696; J1644; J1940; J2250; J2704; J3010; J7070; J7506; J7620

== ENCOUNTER 2018-07-19 12:29 | Inpatient (IN) | payer MEDICARE, MEDICAID ==
[2018-07-19 13:13] LABS: #Basophils 0.1 thou/uL (0.0-0.2); #Eosinphils 0.2 thou/uL (0.0-0.7); #Neutrophils 4.8 thou/uL (1.40-6.50); %Eosinophils 2.4 % (0.0-10.0); %Lymphocytes 24.4 % (21.0-51.0); %Monocytes 12.3 % (0.0-10.0); %Neutrophils 59.9 % (42.0-75.0); Hemoglobin 13.7 g/dL (12.0-16.0); Mean Corpuscular HGB CONC 33.8 g/dL (32.0-36.0); Mean Corpuscular Hemoglobin 31.5 pg (27.0-31.0); Mean Corpuscular Volume 93.4 fL (78.0-98.0); Mean Platelet Volume 9.4 fL (7.4-10.4); Platelet Count 163 thou/uL (130-400); RBC Distribution Width 13.3 % (11.5-14.5); Red Blood Cell (RBC) Count 4.36 mill/uL (4.20-5.40)
[2018-07-19 13:22] LABS: INR-International Normal Ratio 1.7; PTT 31.7 SEC (22.9-36.1); Prothrombin Time 20.2 SEC (12.0-14.7)
[2018-07-19 13:31] LABS: ALT (SGPT) 29 U/L (8-55); AST (SGOT) 18 U/L (5-34); Albumin 3.8 g/dL (3.4-4.8); Alkaline Phosphatase 72 U/L (40-150); Anion Gap 12 mmol/L (10-20); BUN (Urea Nitrogen) 17 mg/dL (9.8-20.1); Bilirubin, Total 0.4 mg/dL (0.2-1.2); Calc. Creatinine Clearance 0 mL/min (70-130); Calcium 8.9 mg/dL (7.8-10.44); Carbon Dioxide 28 mmol/L (23-31); Chloride 103 mmol/L (98-107); Estimated GFR-MDRD 58; Globulin 2.9 g/dL (2.4-3.5); Glucose 171 mg/dL (80-115); Potassium 4.3 mmol/L (3.5-5.1); Protein, Total 6.7 g/dL (6.0-8.3); Sodium 139 mmol/L (136-145)
[2018-07-19 13:35] LABS: CKMB 1.6 ng/mL (0-6.6); Troponin I Less than 0.010 ng/mL (< 0.028)
[2018-07-19 13:36] LABS: Digoxin 2.11 ng/mL (0.8-2.0)
--- NOTE | 2018-07-19 13:45 | RAD ---
FRONTAL VIEW CHEST: COMPARISON: 12/20/2017. INDICATION: Syncope. FINDINGS: There is prominence of the cardiac silhouette with bilateral perihilar vascular prominence and inters titial prominence. No significant effusion or discrete pneumothorax. Interval resolution of prior c onsolidation at the lateral left upper mid lung zone. The chest is otherwise grossly stable. IMPRESSION: Findings likely related to decompensated congestive heart failure. Recommend clinical correlation, a nd as necessary imaging followup may be obtained. POS: [facility]
--- NOTE | 2018-07-19 14:17 | CT ---
CT CERVICAL SPINE WITH CORONAL AND SAGITTAL REFORMATIONS: Date: 07/19/18 HISTORY: 62-year-old female with syncope, fall, neck pain. FINDINGS/IMPRESSION: Comparison made with exam of 06/28/16. Multilevel degenerative changes are again seen. No fracture, subluxation, or bony destruction is iden tified. No facet malalignment is seen. POS: [facility]
[2018-07-19] MEDS ORDERED: Furosemide 20 MG/2 ML VIAL ONE (14:27)
[2018-07-19 14:46] LABS: Bilirubin Negative (Negative); Blood, Urine Negative (Negative); Clarity CLOUDY (Clear); Glucose, Urine (Dipstick) 100 mg/dL (Negative); Leukocyte Negative (Negative); Nitrite Negative (Negative); Protein, Urine (Dipstick) Negative (Neg-Trace); Specific Gravity, Urine 1.013 (1.002-1.036); Urobilinogen 0.2 mg/dL (0.2-1.0)
--- NOTE | 2018-07-19 14:51 | CT ---
CT ABDOMEN AND PELVIS WITH IV CONTRAST: Date: 07/19/18 HISTORY: Abdominal pain. FINDINGS: Comparison made with exam of 03/31/16. There are dependent changes at the lung bases. The liver demonstrates decreased attenuation compared to the spleen, consistent with fatty infiltrati on. No calcified gallstones are seen. The left adrenal nodule measuring 1.0 cm in short axis diameter is stable. The spleen, pancreas, and right adrenal gland are normal. Scarring in the kidneys is agai n seen. Small low density lesions consistent with cysts are again noted. No free air, free fluid, or lymphadenopathy seen in the abdomen or pelvis. Uterus is visualized. The small bowel loops are not abnormally dilated. There is fecal material in the colon. There are vascula r calcifications without evidence of aneurysmal dilatation of the abdominal aorta. Degenerative singh es are present in the spine. IMPRESSION: No acute process. POS: [facility]
--- NOTE | 2018-07-19 14:52 | CT ---
BRAIN CT WITHOUT IV CONTRAST: HISTORY: A 62-year-old female with a history of syncope. COMPARISON: 06/13/2017. FINDINGS: There is some motion artifact to the lower scan slices and skull base region. There is atrophy and c hronic white matter ischemic change. No focal mass or midline shift. No intra- or extraaxial hemorr angel. IMPRESSION: No mass or bleed. Atrophy and chronic white matter ischemic change. POS: [facility]
[2018-07-19] MEDS ORDERED: Acetaminophen 325 MG TAB PO PRN (16:42)
[2018-07-19] MEDS ORDERED: HumaLOG 300 UNITS/3 ML VIAL SC PRN (16:42)
[2018-07-19] MEDS ORDERED: Dextrose 5% in Water 1,000 ML IV PRN (16:42)
[2018-07-19] MEDS ORDERED: hydrALAZINE 20 MG/ML VIAL SLOW IVP PRN (16:42)
[2018-07-19] MEDS ORDERED: Dextrose 50% Abboject 50 ML SYRINGE SLOW IVP PRN (16:42)
[2018-07-19] MEDS ORDERED: ISOVUE-370 76%-LOCM 1 ML ONE (16:46)
[2018-07-19 22:02] VITALS: BMI 39.4
[2018-07-19] MEDS: Famotidine 20 MG TAB PO SCH (22:32)
--- NOTE | 2018-07-20 00:38 | HP ---
CHIEF COMPLAINT: "I passed out at the detention." HISTORY OF PRESENT ILLNESS: Ms. Carlson is a pleasant 62-year-old female, who has a complicated cardiac history. She has a history of atrial fibrillation as well as mitral stenosis status post valvuloplasty and moderate aortic stenosis as well. She also has chronic systolic heart failure. She has some mental retardation and resides at a nursing facility. She says she does not really remember what happened, but she says she was there at the nursing facility with her and says that she woke up on the ground and the nursing staff said that she passed out and seem like she was shaking all over. For this reason, they brought her to the ER for evaluation. In the ER, she was found to have decompensated heart failure, however, no significant changes on EKG. She had been complaining of some abdominal pain after the incident. A CT scan of the abdomen and pelvis was performed, which did not show any significant findings, however, she is being admitted for syncope and decompensated heart failure. When asked if she was having any symptoms prior to the event, the patient says that she was having some shortness of breath mainly on exertion. She also complains of having difficulty breathing and waking up through the middle of the night with shortness of breath over the last week. She denies having any chest pain. She also notes some increasing lower extremity edema and she occasionally does feel dizzy and lightheaded. Her only other symptom is having some constipation off and on. REVIEW OF SYSTEMS: All systems were reviewed and are negative except for that mentioned in the history of present illness. PAST MEDICAL HISTORY: Significant for chronic atrial fibrillation, diabetes mellitus type 2, hypertension, hyperlipidemia, mental retardation, hypothyroidism, bipolar disorder, and chronic kidney disease stage 1. PAST SURGICAL HISTORY: She has had valvuloplasty in 2014, in [place] at [facility]. She has had right wrist surgery and cardiac catheterization. ALLERGIES: TOMATOES. SOCIAL HISTORY: She is . Her Terrance Carlson is her . She says she has not designated any type of medical power of insurance attorney. She says she does not have any siblings and her parents are . She is a nonsmoker, nondrinker, and she would like to be a FULL CODE. FAMILY HISTORY: Significant for lung cancer in her mother. CURRENT MEDICATIONS: The medications will need to be reconciled, however, from the emergency room records, she is on; 1. Digoxin 0.25 mg daily. 2. Coumadin. 3. Potassium chloride 20 mEq daily. 4. Protonix 40 mg daily. 5. Metoprolol 25 mg twice daily. 6. Amitiza 24 mcg daily. 7. Lisinopril 2.5 mg daily. 8. Tradjenta 5 mg daily. 9. Levothyroxine 75 mcg p.o. daily. 10. Levemir insulin 18 units subcutaneous daily. 11. Furosemide 80 mg daily. 12. Fluticasone two puffs inhaled daily. 13. Zetia 10 mg daily. 14. Abilify 7.5 mg nightly. PHYSICAL EXAMINATION: GENERAL: She is alert and oriented. She appears to be in no acute distress. She is well-developed and well-nourished. VITAL SIGNS: Blood pressure 120/80, heart rate 77, respiratory rate of 23, and temperature is 97.9. HEENT: Pupils are equal, round, and reactive. Extraocular muscles are intact. Her sclerae anicteric. Throat, there is no erythema. No exudates. NECK: No adenopathy. No bruits. LUNGS: She has bilateral wheezing as well as rales through much of the lung salomon. CARDIOVASCULAR: She had a normal S1 and S2. No S3 or S4. She did have a great 2/6 systolic murmur. ABDOMEN: Soft. She had some tenderness in the right upper quadrant, but there was no rebound, no guarding. No organomegaly. EXTREMITIES: She has some nonpitting edema, some mild erythema. Good dorsalis pedis pulses. NEUROLOGIC: Her muscle strength is 5/5 in both her upper and lower extremities. Her cranial nerves are grossly intact. SKIN AND INTEGUMENT: She did have some mild erythema and venous stasis changes on the lower extremities about the ankles on both legs, but there was no warmth. LABORATORY DATA: On her EKG, it is atrial fibrillation, the heart rate is in the 70s. She did have some T-wave inversions in 2, 3, and aVF as well as V4 and V6, and this will flank a dig effect, this is by my reading. Chest x-ray shows some mild cardiomegaly and increased pulmonary vascular markings bilaterally, also by my reading. Sodium is 139, potassium 4.3, chloride is 103, CO2 is 28, BUN is 17, creatinine 0.97, glucose is 171, and lactic acid 2.4. Troponin less than 0.010. White blood cell count 8.0, hemoglobin 13.7, hematocrit is 40.7, and platelet count is 163. INR is 1.7. Digoxin level was 2.11. Urinalysis was negative. ASSESSMENT: 1. This is a 62-year-old female, who had a syncopal episode in her nursing facility. The etiology is unclear. It could be due to decompensated heart failure, however, her pro-BNP does not seem to be significantly elevated, and she does not appear to be in severe respiratory distress at this time. Other possibilities include significant valvular disease, specifically with the possibility of severe aortic stenosis or mitral stenosis. Her last echo was done in December of this year. Therefore, it has been 6 months and we will go ahead and likely repeat this. Therefore, for syncope, she will be monitored on telemetry for signs for any arrhythmia. Repeat her echocardiogram and consult Dr. Polo, her regular food sales clerk for further recommendations. 2. Decompensated heart failure with acute on chronic systolic heart failure. She will be treated with IV Lasix for diuresis. We will need to reconcile and restart her home medications and adjust as needed. 3. Diabetes mellitus type 2, again reconcile and restart her medications and she will also be placed on sliding scale insulin. 4. Hypothyroidism. She appears clinically euthyroid. We will check a TSH and restart her home dose of levothyroxine and further recommendations to follow. Job ID: [id number]
[2018-07-20 05:36] LABS: #Eosinphils 0.2 thou/uL (0.0-0.7); #Lymphocytes 1.8 thou/uL (1.20-3.40); #Monocytes 0.7 thou/uL (0.11-0.59); #Neutrophils 3.5 thou/uL (1.40-6.50); %Lymphocytes 29.3 % (21.0-51.0); %Monocytes 11.2 % (0.0-10.0); %Neutrophils 56.5 % (42.0-75.0); Hemoglobin 12.5 g/dL (12.0-16.0); Mean Corpuscular Hemoglobin 31.8 pg (27.0-31.0); Mean Corpuscular Volume 93.3 fL (78.0-98.0); Mean Platelet Volume 9.4 fL (7.4-10.4); Platelet Count 143 thou/uL (130-400); RBC Distribution Width 13.3 % (11.5-14.5); Red Blood Cell (RBC) Count 3.95 mill/uL (4.20-5.40); White Blood Cell (WBC) Count 6.2 thou/uL (4.8-10.8)
[2018-07-20 05:43] LABS: INR-International Normal Ratio 1.7; Prothrombin Time 19.8 SEC (12.0-14.7)
[2018-07-20 05:51] LABS: Anion Gap 12 mmol/L (10-20); BUN (Urea Nitrogen) 13 mg/dL (9.8-20.1); Calc. Creatinine Clearance 125 mL/min (70-130); Calcium 8.1 mg/dL (7.8-10.44); Carbon Dioxide 26 mmol/L (23-31); Chloride 105 mmol/L (98-107); Estimated GFR-MDRD 66; Glucose 167 mg/dL (80-115); Potassium 3.9 mmol/L (3.5-5.1); Sodium 139 mmol/L (136-145)
[2018-07-20] MEDS: Furosemide 40 MG/4 ML VIAL SLOW IVP SCH ×2 (06:19→13:03)
[2018-07-20] MEDS ORDERED: Prevnar 13-Val Conj/PF 0.5 ML SYRINGE IM ONE (09:00)
[2018-07-20] MEDS: Famotidine 20 MG TAB PO SCH ×2 (09:02→20:59)
--- NOTE | 2018-07-20 10:52 | PDOC.PN ---
- Subjective Encounter Start Date: 07/20/18 Encounter Start Time: 10:51 Ms. Carlson was seen today in follow-up of syncope. - Objective Resuscitation Status - Order Detail: 07/19/18 16:32 Resuscitation Status Routine Resuscitation Status: FULL: Full Resuscitation MAR Reviewed: Yes Vital Signs & Weight: Vital Signs (12 hours) Temp Pulse Resp BP Pulse Ox 07/20/18 08:26 97.4 F L 80 17 132/81 97 07/20/18 04:00 97.9 F 75 18 131/63 94 L 07/20/18 00:00 97.4 F L 74 14 134/74 95 Weight Weight 259 lb 8 oz I&O: 07/19/18 07/20/18 07/21/18 06:59 06:59 06:59 Intake Total 240 Balance 240 Result Diagrams: 07/20/18 05:08 07/20/18 05:08 Additional Labs: Accuchecks 07/20/18 05:38 POC Glucose 165 H Phys Exam - Physical Examination HEENT: PERRLA Respiratory: no wheezing + rales at the bases Cardiovascular: RRR, no significant murmur, no rub Gastrointestinal: soft, non-tender, no distention, positive bowel sounds Musculoskeletal: edema present + lower extremity edema, and venous stasis changes, Neurological: non-focal Dx/Plan (1) Syncope Code(s): R55 - SYNCOPE AND COLLAPSE Status: Acute (2) Atrial fibrillation Code(s): I48.91 - UNSPECIFIED ATRIAL FIBRILLATION Status: Chronic (3) Valvular heart disease Status: Chronic Comment: With Aortic Stenosis, Mitral valve regurgiation, and stenosis presumed due to Rheumatic heart disease (4) Acute on chronic systolic heart failure, NYHA class 3 Code(s): I50.23 - ACUTE ON CHRONIC SYSTOLIC (CONGESTIVE) HEART FAILURE Status : Acute (5) DM type 2 (diabetes mellitus, type 2) Status: Chronic Comment: continue accuchecks, insulin sliding scale. (6) HTN (hypertension) Code(s): I10 - ESSENTIAL (PRIMARY) HYPERTENSION Status: Chronic Comment: Hypotension now, will hold lisnoril. - Plan * Syncope- it is difficult to get an idea of what actually happened. The patient is also a poor historian with regards to her past and present symptoms. She could have had syncope due to worsening valvular heart disease- will follow- up on Echo * Acute on chronic systolic heart failure- re-start her home medications and continue to diurese * DM- re-start Lantus/Levemir- and continue SSI * Chronic anticoagulation- re-start coumadin * Digoxin level was elevated- will hold digoxin today- re-check level tomorrow * HTN- blood pressure is controlled * Await Cardiology input.
[2018-07-20] MEDS: HumaLOG 300 UNITS/3 ML VIAL SC PRN (13:04)
[2018-07-20] MEDS ORDERED: Lisinopril 2.5 MG TAB PO SCH (13:15)
[2018-07-20] MEDS ORDERED: Warfarin Sodium 2 MG TAB PO SCH (17:00)
[2018-07-20] MEDS: Mometasone/Formoterol 120 PUFF INHALER INH SCH (18:42)
[2018-07-20] MEDS: Aripiprazole 15 MG TAB PO SCH (20:58)
[2018-07-20] MEDS: Atorvastatin Calcium 10 MG TAB PO SCH (20:58)
[2018-07-20] MEDS: Potassium Chloride 20 MEQ TAB PO SCH (20:59)
[2018-07-20] MEDS: Metoprolol Tartrate 25 MG TAB PO SCH (20:59)
[2018-07-20] MEDS: Ezetimibe 10 MG TAB PO SCH (20:59)
[2018-07-20] MEDS: Benztropine 1 MG TAB PO SCH (20:59)
[2018-07-20] MEDS ORDERED: LEVEMIR 18 UNIT SC SCH (21:00)
[2018-07-20] MEDS: Insulin Glargine 18 UNITS in Pre-Filled Syringe 1 EACH SC SCH (21:00)
[2018-07-20 21:48] LABS: Hemoglobin 12.9 g/dL (12.0-16.0); Platelet Count 143 thou/uL (130-400)
--- NOTE | 2018-07-21 03:45 | CON ---
DATE OF CONSULTATION: HISTORY: Kristina Carlson is a 62-year-old white female, who I have been following since 1991. She was noted at that time to have a murmur and was found to have [id number] aortic insufficiency with a trileaflet aortic valve, moderate tricuspid regurgitation, and moderate mitral stenosis. She denied any history of rheumatic fever, but does state that when she was 12 years old, she had 3 to 4 months of joint pain. In 1992, she underwent cardiac catheterization, which revealed normal coronary arteries. She had mild aortic insufficiency, mild mitral stenosis, mild global left ventricular hypokinesis. Her problems at that time were increased shortness of breath, which was felt to be mostly related to COPD and smoking. She did fairly well over the years without significant worsening or valvular heart disease initially. She had increased edema and shortness of breath and had been followed in the [facility]. In November 2013, she was hospitalized, and echo revealed ejection fraction of 50% to 55%, left atrial enlargement, mild aortic stenosis, [id number] aortic insufficiency, moderate mitral stenosis, moderate mitral regurgitation, moderate tricuspid regurgitation, and mild pulmonic insufficiency. She was found to have atrial tachycardia. She was transferred to [facility] in [place] and underwent an atrial tachycardia ablation. In December 2013, she was again admitted with chest pain after a fall. EKG showed atrial fibrillation with a controlled rate. Cardiac enzymes were unremarkable. Also, prior to that in November 2013, she had undergone Lexiscan Cardiolite testing, which was negative for ischemia. Again, in January 2014, she was admitted with atrial fibrillation with fast ventricular response and was given intravenous digoxin. She was diuresed. Her heart rate was controlled. She was discharged. She was again admitted later in January 2014 with a history of increased shortness of breath, increased leg edema, and chest pressure at rest lasting 30 minutes to 1 hour. Again, she had atrial fibrillation with controlled ventricular response. With her mitral stenosis and atrial fibrillation, she was placed on Coumadin, and an appointment was made to follow up with the boilerhouse mechanic. She had 3-hour episode of chest pressure and was admitted. She underwent cardiac catheterization and had 20% LAD stenosis, 20% proximal RCA stenosis. There was moderate left ventricular systolic dysfunction with ejection fraction of 30% to 35%, moderate aortic insufficiency, moderate aortic stenosis with valve area of 1.05 cm2. She also had severe mitral stenosis with mitral valve area of 1.2 cm2. In January 2014, she underwent balloon valvuloplasty at [facility] in [place]. In April 2014, she could walk for 10 minutes without becoming dyspneic after a balloon valvuloplasty. In June 2014, she was admitted with COPD exacerbation and hypoxic respiratory failure. She would have tachycardic runs of her atrial fibrillation with activity. She then was admitted in November 2017 after a fall at her half-way. She had been in atrial fibrillation with fast ventricular response and was started on IV amiodarone. She did complain of increased shortness of breath, but denied chest discomfort. She was loaded with IV amiodarone and underwent transesophageal echo, which revealed normal left ventricular systolic function, moderate mitral stenosis with estimated valve area of 1.7 cm2. The aortic valve leaflets were thickened, reduced with excursion consistent with aortic stenosis. She had no formed thrombus. She underwent electrocardioversion and converted back to sinus rhythm. Then, later that day, she went back into atrial fibrillation. Amiodarone was discontinued, and digoxin was resumed for rate control, and she was anticoagulated and then discharged. I have not seen her since she was discharged on December 26, 2017, with her missing her followup appointment. She had been doing fairly well, although over the last 1 to 2 weeks, she has been having increased shortness of breath. She did have a syncopal episode at the long-term. She does not remember what happened, but just woke up on the floor. She had been complaining of some abdominal pain at this time and underwent CT scan of the abdomen and pelvis, which did not show any significant findings. She also had increasing lower extremity edema and occasional episodes of dizziness and lightheadedness. She denies any chest discomfort. PAST MEDICAL HISTORY: Probable rheumatic fever, valvular abnormalities status post valvuloplasty for mitral stenosis, diabetes, asthma, obesity, hypertension, hyperlipidemia, mental retardation, renal insufficiency, hypothyroidism, bipolar disorder, and depression. OPERATIONS: Mitral valvuloplasty in 2013 in [place] at [facility]; wrist surgery. MEDICATIONS: 1. Abilify 7.5 mg at bedtime. 2. Aspirin 81 daily. 3. Atorvastatin 10 mg daily. 4. Cogentin 1 mg at bedtime. 5. Digoxin 0.25 q.a.m. 6. Benadryl 25 mg p.r.n. 7. Zetia 10 mg at bedtime. 8. Furosemide 80 mg daily. 9. Advair 2 puffs b.i.d. 10. Humalog p.r.n. 11. Levemir 18 units subcu b.i.d. 12. Levothyroxine 100 mcg daily. 13. Tradjenta 5 mg q.a.m. 14. Lisinopril 2.5 mg q.a.m. 15. Amitiza 24 mcg b.i.d. 16. Metoprolol 25 b.i.d. 17. Pantoprazole 40 mg daily. 18. MiraLAX 17 g daily. 19. KCl 20 mEq b.i.d. 20. Warfarin 4 mg q.5 p.m. ALLERGIES: TOMATOES. NO KNOWN DRUG ALLERGIES. SOCIAL HISTORY: She is and now is living again with her at a long-term. She has smoked over a pack per day in the past, but did quit. She does not drink alcohol. FAMILY HISTORY: Unremarkable for cardiac disease. REVIEW OF SYSTEMS: A 12-point review of systems is otherwise unremarkable. PHYSICAL EXAMINATION: VITAL SIGNS: Blood pressure 140/86, pulse of 86 and irregularly irregular. HEENT: PERRL. NECK: Supple. CHEST: Reveals bilateral wheezing. CARDIAC: S1 and S2 normal. There is no S3 or S4. There is a 2/6 holosystolic murmur along the left sternal border and 1/6 to 2/6 diastolic murmur heard intermittently. ABDOMEN: Normal bowel sounds without tenderness or organomegaly. EXTREMITIES: Revealed 2+ pretibial edema and 1+ arm edema. NEUROLOGICAL: Grossly intact. SKIN: Warm and dry. LABORATORY DATA: I do not see an EKG on the chart. Her rhythm strip shows she is in atrial fibrillation and at times, heart rate is in the 50s. Chest x-ray shows mild cardiomegaly and increased pulmonary vascularity. Hemoglobin 12.5, hematocrit 36.9, white count 6200, platelets 143,000. INR 1.7. Sodium 139, potassium 3.9, chloride 105, carbon dioxide 26, BUN 13, creatinine 0.87. BNP 315.1. TSH is normal. AST and ALT are normal. Digoxin 2.11. IMPRESSION: 1. Syncope, probably due to bradycardic episode with her atrial fibrillation. 2. Digoxin toxicity. 3. Rheumatic heart diease with [id number] aortic insufficiency. She had mitral stenosis and has undergone mitral valvuloplasty. 4. Chronic atrial fibrillation. 5. History of atrial tachycardia ablation in November 2013 in [place]. 6. Hypercholesterolemia. 7. Seizure disorder. 8. Depression. 9. Mild mental retardation. 10. Former smoker. 11. Chronic obstructive pulmonary disease. 12. Hypothyroidism. 13. Hypertension. 14. Diabetes. PLAN: Digoxin has been discontinued, and her rate will be followed. She may also need to have metoprolol discontinued. She may ultimately require pacemaker placement. Echocardiogram will be performed to reassess her valvular heart disease. Also, she will be diuresed. Job ID: [id number]
[2018-07-21 04:54] LABS: #Eosinphils 0.2 thou/uL (0.0-0.7); #Lymphocytes 2.2 thou/uL (1.20-3.40); #Monocytes 0.8 thou/uL (0.11-0.59); #Neutrophils 3.4 thou/uL (1.40-6.50); %Basophils 0.3 % (0.0-1.0); %Eosinophils 2.8 % (0.0-10.0); %Lymphocytes 33.3 % (21.0-51.0); %Monocytes 12.5 % (0.0-10.0); %Neutrophils 51.1 % (42.0-75.0); Hemoglobin 12.9 g/dL (12.0-16.0); Mean Corpuscular HGB CONC 33.4 g/dL (32.0-36.0); Mean Corpuscular Hemoglobin 31.5 pg (27.0-31.0); Mean Corpuscular Volume 94.3 fL (78.0-98.0); Mean Platelet Volume 9.2 fL (7.4-10.4); Platelet Count 147 thou/uL (130-400); RBC Distribution Width 13.4 % (11.5-14.5); Red Blood Cell (RBC) Count 4.09 mill/uL (4.20-5.40); White Blood Cell (WBC) Count 6.6 thou/uL (4.8-10.8)
[2018-07-21 04:56] LABS: INR-International Normal Ratio 1.5; Prothrombin Time 17.7 SEC (12.0-14.7)
[2018-07-21 05:05] LABS: BUN (Urea Nitrogen) 13 mg/dL (9.8-20.1); Calc. Creatinine Clearance 128 mL/min (70-130); Calcium 8.1 mg/dL (7.8-10.44); Carbon Dioxide 28 mmol/L (23-31); Chloride 104 mmol/L (98-107); Estimated GFR-MDRD 68; Glucose 161 mg/dL (80-115); Magnesium 1.6 mg/dL (1.6-2.6); Potassium 3.6 mmol/L (3.5-5.1); Sodium 137 mmol/L (136-145)
[2018-07-21 05:24] LABS: Anion Gap 9 mmol/L (10-20)
[2018-07-21] MEDS: Levothyroxine Sodium 100 MCG TAB PO SCH (05:53)
[2018-07-21] MEDS: Furosemide 40 MG/4 ML VIAL SLOW IVP SCH ×2 (05:53→14:42)
[2018-07-21 06:01] LABS: Digoxin 0.95 ng/mL (0.8-2.0)
[2018-07-21] MEDS: Mometasone/Formoterol 120 PUFF INHALER INH SCH ×2 (06:47→18:28)
[2018-07-21] MEDS ORDERED: Magnesium 2 GM/50 ML 2 GM in Premix Bag 1 BAG IVPB SCH (09:00)
[2018-07-21] MEDS: Potassium Chloride 20 MEQ TAB PO SCH ×2 (09:23→21:07)
[2018-07-21] MEDS: Polyethylene Glycol 3350 17 GM Packet PO SCH (09:23)
[2018-07-21] MEDS: Aspirin 81 mg Enteric Coated Tablet PO SCH (09:23)
[2018-07-21] MEDS: Lisinopril 2.5 MG TAB PO SCH (09:24)
[2018-07-21] MEDS: Famotidine 20 MG TAB PO SCH ×2 (09:24→21:07)
[2018-07-21] MEDS: Metoprolol Tartrate 25 MG TAB PO SCH ×2 (09:24→21:07)
[2018-07-21] MEDS: Alogliptin 25 MG TAB PO SCH (09:24)
[2018-07-21] MEDS: Insulin Glargine 18 UNITS in Pre-Filled Syringe 1 EACH SC SCH ×2 (09:24→21:07)
[2018-07-21] MEDS: Warfarin Sodium 5 MG TAB PO SCH (16:51)
--- NOTE | 2018-07-21 17:08 | PDOC.PN ---
- Subjective Encounter Start Date: 07/21/18 Encounter Start Time: 09:45 Patient seen and examined for Syncope/CHF. Feels somewhat better. No new complaints. No overnight events - Objective Resuscitation Status - Order Detail: 07/19/18 16:32 Resuscitation Status Routine Resuscitation Status: FULL: Full Resuscitation MAR Reviewed: Yes Vital Signs & Weight: Vital Signs (12 hours) Temp Pulse Resp BP Pulse Ox 07/21/18 16:47 97.8 F 68 21 H 124/59 L 98 07/21/18 12:42 98.0 F 67 18 137/73 98 07/21/18 09:24 64 07/21/18 07:41 98.2 F 64 20 127/77 96 Weight Weight 256 lb 11.2 oz I&O: 07/20/18 07/21/18 07/22/18 06:59 06:59 06:59 Intake Total 240 1680 720 Output Total 1450 Balance 240 230 720 Result Diagrams: 07/21/18 04:25 07/21/18 04:25 Additional Labs: Accuchecks 07/21/18 07/21/18 07/20/18 11:13 05:19 20:22 POC Glucose 176 H 172 H 200 H 07/20/18 15:36 POC Glucose 137 H EKG Reviewed by me: Yes (Tele Afib) Phys Exam - Physical Examination Constitutional: NAD Respiratory: no wheezing, no rhonchi Cardiovascular: no rub, irregular Gastrointestinal: soft, non-tender, positive bowel sounds Musculoskeletal: edema present Neurological: moves all 4 limbs Dx/Plan - Plan 1. Syncope - suspected due to bradycardia 2. Acute on chronic diastolic heart failure exacerbation 3. Chronic Afib on anticoag/ Digoxin toxicity - Digoxin dced 4. HTN 5. HLD 6. DM2 / Seizure disorder / Hypomagnesemia / Other issues per previous notes PLAN: Await Echo Cont diuresis Replace electrolytes AM labs Cardio following Cont Lisinopril/Metoprolol Cont current meds as below Cont current dose of Lantus with sliding scale Laboratory Tests 07/21/18 07/21/18 04:25 04:25 INR 1.5 Digoxin 0.95 Review of Systems - Review of Systems Respiratory: SOB with Excertion. negative: Cough, Dry, Shortness of Breath, Hemoptysis, Pleuritic Pain, Sputum, Wheezing Cardiovascular: negative: chest pain, palpitations, orthopnea, paroxysmal nocturnal dyspnea, edema, light headedness, other - Medications/Allergies Allergies/Adverse Reactions: Allergies Allergy/AdvReac Type Severity Reaction Status Date / Time tomato [Tomato] Allergy Intermediate Verified 07/19/18 22:20 No Known Drug Allergies Allergy Verified 07/19/18 22:20 Medications: Current Medications Acetaminophen (Tylenol) 650 mg PO Q4H PRN PRN Reason: Headache/Fever/Mild Pain (1-3) Alogliptin Benzoate (Alogliptin) 25 mg PO DAILY [facility] Last Admin: 07/21/18 09:24 Dose: 25 mg Aripiprazole (Abilify) 7.5 mg PO HS [facility] Last Admin: 07/20/18 20:58 Dose: 7.5 mg Aspirin (Ecotrin) 81 mg PO DAILY [facility] Last Admin: 07/21/18 09:23 Dose: 81 mg Atorvastatin Calcium (Lipitor) 10 mg PO HS [facility] Last Admin: 07/20/18 20:58 Dose: 10 mg Benztropine Mesylate (Cogentin) 1 mg PO HS [facility] Last Admin: 07/20/18 20:59 Dose: 1 mg Dextrose/Water (Dextrose 50%) 25 gm SLOW IVP PRN PRN PRN Reason: Hypoglycemia Ezetimibe (Zetia) 10 mg PO HS [facility] Last Admin: 07/20/18 20:59 Dose: 10 mg Famotidine (Pepcid) 20 mg PO BID [facility] Last Admin: 07/21/18 09:24 Dose: 20 mg Furosemide (Lasix) 40 mg SLOW IVP 0600,1400 [facility] Last Admin: 07/21/18 14:42 Dose: 40 mg Glucagon (Glucagon) 1 mg IM PRN PRN PRN Reason: Hypoglycemia Hydralazine HCl (Apresoline) 10 mg SLOW IVP Q4H PRN PRN Reason: SBP > 180 and HR < 70 Dextrose/Water (D5w) 1,000 mls @ 0 mls/hr IV .Q0M PRN PRN Reason: Hypoglycemia Insulin Glargine 18 units/ (Miscellaneous Medication) 0.18 mls @ 0 mls/hr SC BID [facility] Last Admin: 07/21/18 09:24 Dose: 0.18 mls Magnesium Sulfate 2 gm/ Device 50 mls @ 100 mls/hr IVPB 0900 [facility] Stop: 07/22/18 09:29 Insulin Human Lispro (Humalog) 0 units SC .MODERATE SLIDING SC PRN PRN Reason: Moderate Correctional Scale Last Admin: 07/20/18 13:04 Dose: 8 unit Insulin Human Lispro (Humalog) 0 units SC .BEDTIME SLIDING SC PRN PRN Reason: Bedtime Correctional Scale Levothyroxine Sodium (Synthroid) 100 mcg PO 0600 [facility] Last Admin: 07/21/18 05:53 Dose: 100 mcg Lisinopril (Zestril) 2.5 mg PO DAILY [facility] Last Admin: 07/21/18 09:24 Dose: 2.5 mg Metoprolol Tartrate (Lopressor) 25 mg PO BID [facility] Last Admin: 07/21/18 09:24 Dose: 25 mg Miscellaneous Medication (Pharmacy To Dose) 0 each PO .WARFARIN PRN PRN Reason: Pharmacy to Dose Mometasone Furoate/Formoterol Fumar (Dulera 200 Mcg/5 Mcg Inhaler) 2 puff INH BID-RT [facility] Last Admin: 07/21/18 06:47 Dose: 2 puff Polyethylene Glycol (Miralax) 17 gm PO DAILY [facility] Last Admin: 07/21/18 09:23 Dose: 17 gm Potassium Chloride (K-Dur) 20 meq PO BID [facility] Last Admin: 07/21/18 09:23 Dose: 20 meq Sodium Chloride (Flush - Normal Saline) 10 ml IVF Q12HR [facility] Last Admin: 07/21/18 09:24 Dose: 10 ml Sodium Chloride (Flush - Normal Saline) 10 ml IVF PRN PRN PRN Reason: Saline Flush Warfarin Sodium (Coumadin) 5 mg PO 1700 [facility] Last Admin: 07/21/18 16:51 Dose: 5 mg
[2018-07-21] MEDS: HumaLOG 300 UNITS/3 ML VIAL SC PRN (17:16)
[2018-07-21] MEDS: Atorvastatin Calcium 10 MG TAB PO SCH (21:06)
[2018-07-21] MEDS: Benztropine 1 MG TAB PO SCH (21:06)
[2018-07-21] MEDS: Aripiprazole 15 MG TAB PO SCH (21:06)
[2018-07-21] MEDS: Ezetimibe 10 MG TAB PO SCH (21:07)
[2018-07-22 05:28] LABS: Hemoglobin 13.7 g/dL (12.0-16.0); Platelet Count 155 thou/uL (130-400)
[2018-07-22 05:43] LABS: Anion Gap 11 mmol/L (10-20); BUN (Urea Nitrogen) 17 mg/dL (9.8-20.1); Calc. Creatinine Clearance 120 mL/min (70-130); Calcium 8.2 mg/dL (7.8-10.44); Carbon Dioxide 26 mmol/L (23-31); Chloride 105 mmol/L (98-107); Estimated GFR-MDRD 65; Glucose 145 mg/dL (80-115); Magnesium 2.4 mg/dL (1.6-2.6); Potassium 4.1 mmol/L (3.5-5.1); Sodium 138 mmol/L (136-145)
[2018-07-22 05:49] LABS: INR-International Normal Ratio 1.5; Prothrombin Time 17.8 SEC (12.0-14.7)
[2018-07-22] MEDS: Levothyroxine Sodium 100 MCG TAB PO SCH (05:57)
[2018-07-22] MEDS: Furosemide 40 MG/4 ML VIAL SLOW IVP SCH ×2 (05:57→14:45)
[2018-07-22] MEDS: Mometasone/Formoterol 120 PUFF INHALER INH SCH ×2 (07:56→18:18)
[2018-07-22] MEDS ORDERED: Magnesium 2 GM/50 ML 2 GM in Premix Bag 1 BAG IVPB SCH (09:00)
[2018-07-22] MEDS: Metoprolol Tartrate 25 MG TAB PO SCH ×2 (09:10→21:41)
[2018-07-22] MEDS: Alogliptin 25 MG TAB PO SCH (09:10)
[2018-07-22] MEDS: Famotidine 20 MG TAB PO SCH ×2 (09:10→21:41)
[2018-07-22] MEDS: Lisinopril 2.5 MG TAB PO SCH (09:10)
[2018-07-22] MEDS: Potassium Chloride 20 MEQ TAB PO SCH ×2 (09:10→21:41)
[2018-07-22] MEDS: Aspirin 81 mg Enteric Coated Tablet PO SCH (09:10)
[2018-07-22] MEDS: Polyethylene Glycol 3350 17 GM Packet PO SCH (09:11)
[2018-07-22] MEDS: Insulin Glargine 18 UNITS in Pre-Filled Syringe 1 EACH SC SCH ×2 (09:11→21:44)
[2018-07-22] MEDS ORDERED: Saccharomyces boulardii 250 MG CAP PO SCH (12:00)
--- NOTE | 2018-07-22 13:51 | PDOC.PN ---
- Subjective Encounter Start Date: 07/22/18 Encounter Start Time: 10:15 Patient seen and examined for CHF/Syncope. No new complaints. No overnight events - Objective Resuscitation Status - Order Detail: 07/19/18 16:32 Resuscitation Status Routine Resuscitation Status: FULL: Full Resuscitation MAR Reviewed: Yes Vital Signs & Weight: Vital Signs (12 hours) Temp Pulse Resp BP Pulse Ox 07/22/18 11:15 97.8 F 66 16 103/56 L 97 07/22/18 07:56 83 16 07/22/18 07:00 97.7 F 66 17 153/70 H 99 07/22/18 04:17 98.1 F 94 18 121/72 97 Weight Weight 253 lb 4.8 oz I&O: 07/21/18 07/22/18 07/23/18 06:59 06:59 06:59 Intake Total 1680 2400 Output Total 1450 1450 Balance 230 950 Result Diagrams: 07/22/18 04:45 07/22/18 04:45 Additional Labs: Accuchecks 07/22/18 07/22/18 07/21/18 10:49 05:26 20:25 POC Glucose 179 H 150 H 211 H 07/21/18 17:01 POC Glucose 205 H EKG Reviewed by me: Yes (Tele Afib) Phys Exam - Physical Examination Constitutional: NAD Respiratory: no wheezing, no rhonchi Cardiovascular: RRR, no rub Gastrointestinal: soft, non-tender, positive bowel sounds Neurological: moves all 4 limbs Dx/Plan - Plan DVT proph w/SCDs 1. Syncope - suspected due to bradycardia 2. Acute on chronic diastolic heart failure exacerbation 3. Chronic Afib on anticoag/ Digoxin toxicity - Digoxin dced 4. HTN 5. HLD 6. Diarrhea /Obesity BMI 38.5/ DM2 / Seizure disorder / Hypomagnesemia / Other issues per previous notes PLAN: Cont diuresis Cont Lisinopril/Metoprolol AM labs Cdiff assay Cont current meds as below Cont current dose of Lantus with sliding scale Review of Systems - Review of Systems Respiratory: negative: Cough, Dry, Shortness of Breath, Hemoptysis, SOB with Excertion, Pleuritic Pain, Sputum, Wheezing Cardiovascular: negative: chest pain, palpitations, orthopnea, paroxysmal nocturnal dyspnea, edema, light headedness, other Gastrointestinal: Diarrhea. negative: Nausea, Vomiting, Abdominal Pain, Constipation, Melena, Hematochezia, Other - Medications/Allergies Allergies/Adverse Reactions: Allergies Allergy/AdvReac Type Severity Reaction Status Date / Time tomato [Tomato] Allergy Intermediate Verified 07/19/18 22:20 No Known Drug Allergies Allergy Verified 07/19/18 22:20 Medications: Current Medications Acetaminophen (Tylenol) 650 mg PO Q4H PRN PRN Reason: Headache/Fever/Mild Pain (1-3) Alogliptin Benzoate (Alogliptin) 25 mg PO DAILY [facility] Last Admin: 07/22/18 09:10 Dose: 25 mg Aripiprazole (Abilify) 7.5 mg PO HS [facility] Last Admin: 07/21/18 21:06 Dose: 7.5 mg Aspirin (Ecotrin) 81 mg PO DAILY [facility] Last Admin: 07/22/18 09:10 Dose: 81 mg Atorvastatin Calcium (Lipitor) 10 mg PO HS [facility] Last Admin: 07/21/18 21:06 Dose: 10 mg Benztropine Mesylate (Cogentin) 1 mg PO HS [facility] Last Admin: 07/21/18 21:06 Dose: 1 mg Dextrose/Water (Dextrose 50%) 25 gm SLOW IVP PRN PRN PRN Reason: Hypoglycemia Ezetimibe (Zetia) 10 mg PO HS [facility] Last Admin: 07/21/18 21:07 Dose: 10 mg Famotidine (Pepcid) 20 mg PO BID [facility] Last Admin: 07/22/18 09:10 Dose: 20 mg Furosemide (Lasix) 40 mg SLOW IVP 0600,1400 [facility] Last Admin: 07/22/18 05:57 Dose: 40 mg Glucagon (Glucagon) 1 mg IM PRN PRN PRN Reason: Hypoglycemia Hydralazine HCl (Apresoline) 10 mg SLOW IVP Q4H PRN PRN Reason: SBP > 180 and HR < 70 Dextrose/Water (D5w) 1,000 mls @ 0 mls/hr IV .Q0M PRN PRN Reason: Hypoglycemia Insulin Glargine 18 units/ (Miscellaneous Medication) 0.18 mls @ 0 mls/hr SC BID [facility] Last Admin: 07/22/18 09:11 Dose: 0.18 mls Insulin Human Lispro (Humalog) 0 units SC .MODERATE SLIDING SC PRN PRN Reason: Moderate Correctional Scale Last Admin: 07/21/18 17:16 Dose: 4 unit Insulin Human Lispro (Humalog) 0 units SC .BEDTIME SLIDING SC PRN PRN Reason: Bedtime Correctional Scale Levothyroxine Sodium (Synthroid) 100 mcg PO 0600 [facility] Last Admin: 07/22/18 05:57 Dose: 100 mcg Lisinopril (Zestril) 2.5 mg PO DAILY [facility] Last Admin: 07/22/18 09:10 Dose: 2.5 mg Metoprolol Tartrate (Lopressor) 25 mg PO BID [facility] Last Admin: 07/22/18 09:10 Dose: 25 mg Miscellaneous Medication (Pharmacy To Dose) 0 each PO .WARFARIN PRN PRN Reason: Pharmacy to Dose Mometasone Furoate/Formoterol Fumar (Dulera 200 Mcg/5 Mcg Inhaler) 2 puff INH BID-RT [facility] Last Admin: 07/22/18 07:56 Dose: 2 puff Potassium Chloride (K-Dur) 20 meq PO BID [facility] Last Admin: 07/22/18 09:10 Dose: 20 meq Saccharomyces Boulardii (Florastor) 250 mg PO DAILY [facility] Saccharomyces Boulardii (Florastor) 250 mg PO 1200 [facility] Stop: 07/22/18 14:00 Last Admin: 07/22/18 12:18 Dose: 250 mg Sodium Chloride (Flush - Normal Saline) 10 ml IVF Q12HR [facility] Last Admin: 07/22/18 09:11 Dose: 10 ml Sodium Chloride (Flush - Normal Saline) 10 ml IVF PRN PRN PRN Reason: Saline Flush Warfarin Sodium (Coumadin) 5 mg PO 1700 [facility] Last Admin: 07/21/18 16:51 Dose: 5 mg
[2018-07-22] MEDS: Warfarin Sodium 5 MG TAB PO SCH (17:14)
[2018-07-22] MEDS: HumaLOG 300 UNITS/3 ML VIAL SC PRN (17:22)
[2018-07-22] MEDS: Ezetimibe 10 MG TAB PO SCH (21:41)
[2018-07-22] MEDS: Atorvastatin Calcium 10 MG TAB PO SCH (21:41)
[2018-07-22] MEDS: Aripiprazole 15 MG TAB PO SCH (21:42)
[2018-07-22] MEDS: Benztropine 1 MG TAB PO SCH (21:42)
[2018-07-23 05:55] LABS: INR-International Normal Ratio 1.7; Prothrombin Time 20.3 SEC (12.0-14.7)
[2018-07-23 06:09] LABS: Anion Gap 11 mmol/L (10-20); BUN (Urea Nitrogen) 17 mg/dL (9.8-20.1); Calc. Creatinine Clearance 120 mL/min (70-130); Calcium 8.4 mg/dL (7.8-10.44); Carbon Dioxide 25 mmol/L (23-31); Chloride 107 mmol/L (98-107); Estimated GFR-MDRD 65; Glucose 143 mg/dL (80-115); Potassium 3.9 mmol/L (3.5-5.1); Sodium 139 mmol/L (136-145)
[2018-07-23] MEDS: Furosemide 40 MG/4 ML VIAL SLOW IVP SCH ×2 (06:13→13:53)
[2018-07-23] MEDS: Levothyroxine Sodium 100 MCG TAB PO SCH (06:13)
[2018-07-23] MEDS: Mometasone/Formoterol 120 PUFF INHALER INH SCH ×2 (07:50→18:52)
[2018-07-23] MEDS: Lisinopril 2.5 MG TAB PO SCH (08:24)
[2018-07-23] MEDS: Insulin Glargine 18 UNITS in Pre-Filled Syringe 1 EACH SC SCH ×2 (08:24→21:39)
[2018-07-23] MEDS: Alogliptin 25 MG TAB PO SCH (08:24)
[2018-07-23] MEDS: Saccharomyces boulardii 250 MG CAP PO SCH (08:24)
[2018-07-23] MEDS: Famotidine 20 MG TAB PO SCH ×2 (08:24→21:25)
[2018-07-23] MEDS: Metoprolol Tartrate 25 MG TAB PO SCH ×2 (08:25→21:26)
[2018-07-23] MEDS: Potassium Chloride 20 MEQ TAB PO SCH ×2 (08:25→21:26)
[2018-07-23] MEDS: Aspirin 81 mg Enteric Coated Tablet PO SCH (08:25)
[2018-07-23] MEDS: HumaLOG 300 UNITS/3 ML VIAL SC PRN ×2 (11:23→17:04)
[2018-07-23] MEDS: Warfarin Sodium 7.5 MG TAB PO SCH (17:02)
--- NOTE | 2018-07-23 18:13 | PDOC.PN ---
- Subjective Encounter Start Date: 07/23/18 Encounter Start Time: 13:30 Patient seen and examined for CHF. No new complaints. No overnight events - Objective Resuscitation Status - Order Detail: 07/19/18 16:32 Resuscitation Status Routine Resuscitation Status: FULL: Full Resuscitation MAR Reviewed: Yes Vital Signs & Weight: Vital Signs (12 hours) Temp Pulse Pulse Pulse Resp BP BP 07/23/18 15:05 97.9 F 72 17 07/23/18 11:05 98.2 F 77 16 07/23/18 09:50 94 68 140/86 128/66 07/23/18 07:55 07/23/18 07:50 77 20 07/23/18 07:05 98.2 F 65 17 BP Pulse Ox Pulse Ox Pulse Ox 07/23/18 15:05 116/70 96 07/23/18 11:05 120/59 L 97 07/23/18 09:50 98 98 07/23/18 07:55 98 07/23/18 07:50 98 07/23/18 07:05 136/69 97 Weight Weight 253 lb 1.6 oz I&O: 07/22/18 07/23/18 07/24/18 06:59 06:59 06:59 Intake Total 2400 984 720 Output Total 1450 1100 1800 Balance 077 -226 -8978 Result Diagrams: 07/22/18 04:45 07/23/18 05:14 Additional Labs: Accuchecks 07/23/18 07/23/18 07/23/18 17:04 10:59 05:15 POC Glucose 159 H 183 H 137 H 07/22/18 20:20 POC Glucose 288 H EKG Reviewed by me: Yes (Tele SR) Phys Exam - Physical Examination Constitutional: NAD Respiratory: no wheezing, no rhonchi Cardiovascular: RRR, no rub Gastrointestinal: soft, non-tender, positive bowel sounds Neurological: moves all 4 limbs Dx/Plan - Plan DVT proph w/SCDs 1. Syncope - suspected due to bradycardia 2. Acute on chronic diastolic heart failure exacerbation 3. Chronic Afib on anticoag/ Digoxin toxicity - Digoxin dced 4. HTN 5. HLD 6. Diarrhea /Obesity BMI 38.5/ DM2 / Seizure disorder / Hypomagnesemia / Other issues per previous notes PLAN: Cont diuresis Linq monitor in AM Cont Lisinopril/Metoprolol and other meds as below Cont Lantus with sliding scale AM labs Review of Systems - Review of Systems Respiratory: negative: Cough, Dry, Shortness of Breath, Hemoptysis, SOB with Excertion, Pleuritic Pain, Sputum, Wheezing Cardiovascular: negative: chest pain, palpitations, orthopnea, paroxysmal nocturnal dyspnea, edema, light headedness, other - Medications/Allergies Allergies/Adverse Reactions: Allergies Allergy/AdvReac Type Severity Reaction Status Date / Time tomato [Tomato] Allergy Intermediate Verified 07/19/18 22:20 No Known Drug Allergies Allergy Verified 07/19/18 22:20 Medications: Current Medications Acetaminophen (Tylenol) 650 mg PO Q4H PRN PRN Reason: Headache/Fever/Mild Pain (1-3) Last Admin: 07/23/18 00:34 Dose: 650 mg Alogliptin Benzoate (Alogliptin) 25 mg PO DAILY [facility] Last Admin: 07/23/18 08:24 Dose: 25 mg Aripiprazole (Abilify) 7.5 mg PO HS [facility] Last Admin: 07/22/18 21:42 Dose: 7.5 mg Aspirin (Ecotrin) 81 mg PO DAILY [facility] Last Admin: 07/23/18 08:25 Dose: 81 mg Atorvastatin Calcium (Lipitor) 10 mg PO HS [facility] Last Admin: 07/22/18 21:41 Dose: 10 mg Benztropine Mesylate (Cogentin) 1 mg PO HS [facility] Last Admin: 07/22/18 21:42 Dose: 1 mg Dextrose/Water (Dextrose 50%) 25 gm SLOW IVP PRN PRN PRN Reason: Hypoglycemia Ezetimibe (Zetia) 10 mg PO HS [facility] Last Admin: 07/22/18 21:41 Dose: 10 mg Famotidine (Pepcid) 20 mg PO BID [facility] Last Admin: 07/23/18 08:24 Dose: 20 mg Furosemide (Lasix) 40 mg SLOW IVP 0600,1400 [facility] Last Admin: 07/23/18 13:53 Dose: 40 mg Glucagon (Glucagon) 1 mg IM PRN PRN PRN Reason: Hypoglycemia Hydralazine HCl (Apresoline) 10 mg SLOW IVP Q4H PRN PRN Reason: SBP > 180 and HR < 70 Dextrose/Water (D5w) 1,000 mls @ 0 mls/hr IV .Q0M PRN PRN Reason: Hypoglycemia Insulin Glargine 18 units/ (Miscellaneous Medication) 0.18 mls @ 0 mls/hr SC BID [facility] Last Admin: 07/23/18 08:24 Dose: 0.18 mls Insulin Human Lispro (Humalog) 0 units SC .MODERATE SLIDING SC PRN PRN Reason: Moderate Correctional Scale Last Admin: 07/23/18 17:04 Dose: 2 unit Insulin Human Lispro (Humalog) 0 units SC .BEDTIME SLIDING SC PRN PRN Reason: Bedtime Correctional Scale Last Admin: 07/22/18 21:45 Dose: 3 unit Levothyroxine Sodium (Synthroid) 100 mcg PO 0600 [facility] Last Admin: 07/23/18 06:13 Dose: 100 mcg Lisinopril (Zestril) 2.5 mg PO DAILY [facility] Last Admin: 07/23/18 08:24 Dose: 2.5 mg Metoprolol Tartrate (Lopressor) 25 mg PO BID [facility] Last Admin: 07/23/18 08:25 Dose: 25 mg Miscellaneous Medication (Pharmacy To Dose) 0 each PO .WARFARIN PRN PRN Reason: Pharmacy to Dose Mometasone Furoate/Formoterol Fumar (Dulera 200 Mcg/5 Mcg Inhaler) 2 puff INH BID-RT [facility] Last Admin: 07/23/18 07:50 Dose: 2 puff Potassium Chloride (K-Dur) 20 meq PO BID [facility] Last Admin: 07/23/18 08:25 Dose: 20 meq Saccharomyces Boulardii (Florastor) 250 mg PO DAILY [facility] Last Admin: 07/23/18 08:24 Dose: 250 mg Sodium Chloride (Flush - Normal Saline) 10 ml IVF Q12HR [facility] Last Admin: 07/23/18 08:25 Dose: 10 ml Sodium Chloride (Flush - Normal Saline) 10 ml IVF PRN PRN PRN Reason: Saline Flush Last Admin: 07/23/18 06:13 Dose: 10 ml Warfarin Sodium (Coumadin) 7.5 mg PO 1700 [facility] Last Admin: 07/23/18 17:02 Dose: 7.5 mg
[2018-07-23] MEDS: Ezetimibe 10 MG TAB PO SCH (21:25)
[2018-07-23] MEDS: Aripiprazole 15 MG TAB PO SCH (21:25)
[2018-07-23] MEDS: Benztropine 1 MG TAB PO SCH (21:26)
[2018-07-23] MEDS: Atorvastatin Calcium 10 MG TAB PO SCH (21:26)
[2018-07-24 05:18] LABS: Hemoglobin 12.6 g/dL (12.0-16.0); Platelet Count 163 thou/uL (130-400)
[2018-07-24 05:25] LABS: INR-International Normal Ratio 1.9; Prothrombin Time 21.7 SEC (12.0-14.7)
[2018-07-24 05:38] LABS: Anion Gap 10 mmol/L (10-20); BUN (Urea Nitrogen) 18 mg/dL (9.8-20.1); Calc. Creatinine Clearance 118 mL/min (70-130); Calcium 8.7 mg/dL (7.8-10.44); Carbon Dioxide 27 mmol/L (23-31); Chloride 106 mmol/L (98-107); Estimated GFR-MDRD 64; Glucose 156 mg/dL (80-115); Potassium 4.2 mmol/L (3.5-5.1); Sodium 139 mmol/L (136-145)
[2018-07-24] MEDS: Levothyroxine Sodium 100 MCG TAB PO SCH (06:28)
[2018-07-24] MEDS: Furosemide 40 MG/4 ML VIAL SLOW IVP SCH ×2 (06:28→13:46)
[2018-07-24] MEDS: Mometasone/Formoterol 120 PUFF INHALER INH SCH (07:56)
[2018-07-24] MEDS ORDERED: Lidocaine 1% w/Epinephrine 1:100K 30 ML VIAL ONE (11:50)
[2018-07-24] MEDS: Insulin Glargine 18 UNITS in Pre-Filled Syringe 1 EACH SC SCH (13:12)
[2018-07-24] MEDS: Potassium Chloride 20 MEQ TAB PO SCH (13:13)
[2018-07-24] MEDS: Metoprolol Tartrate 25 MG TAB PO SCH (13:13)
[2018-07-24] MEDS: Lisinopril 2.5 MG TAB PO SCH (13:46)
[2018-07-24] MEDS: Alogliptin 25 MG TAB PO SCH (13:47)
[2018-07-24] MEDS: Famotidine 20 MG TAB PO SCH (13:47)
[2018-07-24] MEDS: Saccharomyces boulardii 250 MG CAP PO SCH (13:47)
[2018-07-24] MEDS: Aspirin 81 mg Enteric Coated Tablet PO SCH (13:47)
[2018-07-24 15:42] VITALS: BP 131/68; TEMP 98.1
[2018-07-24] MEDS: Warfarin Sodium 7.5 MG TAB PO SCH (16:00)
--- NOTE | 2018-07-25 20:01 | DIS ---
DATE OF ADMISSION: 07/20/2018 DATE OF DISCHARGE: 07/24/2018 DISCHARGE DISPOSITION: [facility]. The patient was seen and examined on the day of discharge. Denies any new complaints. No chest pain, shortness of breath, palpitations, or diarrhea. ALLERGIES: NO KNOWN DRUG ALLERGIES. DISCHARGE MEDICATIONS: Same as admission medications except for discontinuation of digoxin. INPATIENT PROCEDURES: LINQ monitor was placed. INPATIENT CONTENT ARCHITECT: Cardiology, Dr. Justin Polo. BRIEF HOSPITAL COURSE: The patient is a 62-year-old female with coronary artery disease and chronic atrial fibrillation, on digoxin, presented to the emergency room on July 19, 2018, with an episode of syncope at the senior care. She was found to have elevated digoxin level of 2.11 along with lactic acid of 2.4. BNP of 285. Troponins were negative. TSH was in normal range. She was seen by Cardiology. She was monitored on the telemetry unit. Syncope was suspected secondary to bradycardia. For this reason, LINQ monitor has been placed. Digoxin has been discontinued due to elevated digoxin level. She also had some electrolyte abnormalities, which were replaced. She was seen by Cardiology, Dr. Justin Polo. She has been cleared by Cardiology for discharge. FINAL DIAGNOSES: 1. Syncope, probably secondary to bradycardia. 2. Digoxin toxicity, resolved. 3. Chronic atrial fibrillation, on anticoagulation. 4. Acute on chronic diastolic heart failure exacerbation, improved with diuresis. 5. Hypertension. 6. Hyperlipidemia. 7. Diarrhea, resolved. 8. Obesity with a BMI of 38.5. 9. Diabetes mellitus, type 2. 10. Seizure disorder. 11. Hypomagnesemia. 12. Former smoker. 13. Chronic obstructive pulmonary disease. 14. Depression. 15. History of atrial tachycardia, requiring ablation. 16. Mitral stenosis, status post mitral valvuloplasty. 17. Moderate aortic stenosis and insufficiency. Total time coordinating the discharge of this patient was 33 minutes. The patient was extensively counseled on congestive heart failure as well as fluid restriction. Weight on the day of discharge is 250 pounds from 259 pounds on admission. Job ID: [id number]
== END 2018-07-24 17:24 | DRG 262 ==
LOC: ERS 12:29 → ERHOLD 15:22 → 2NO 21:34 → OBSVTOIN 07-20 17:41
PROVIDERS: ADMIT Internal Medicine; ATTEND Internal Medicine
PROC: B246ZZZ Ultrasonography of Right and Left Heart (ICD-10-PCS; 2018-07-20)
PROC: 0JH632Z Insertion of Monitoring Device into Chest Subcutaneous Tissue and Fascia, Percutaneous Approach (ICD-10-PCS; principal; 2018-07-24)
DX: I11.0 Hypertensive heart disease with heart failure (principal); I48.2 Chronic atrial fibrillation; I50.33 Acute on chronic diastolic (congestive) heart failure; R00.1 Bradycardia, unspecified; E03.9 Hypothyroidism, unspecified; E11.9 Type 2 diabetes mellitus without complications; Z79.84 Long term (current) use of oral hypoglycemic drugs; J45.909 Unspecified asthma, uncomplicated; E78.5 Hyperlipidemia, unspecified; F79 Unspecified intellectual disabilities; F31.9 Bipolar disorder, unspecified; T46.0X5A Adverse effect of cardiac-stimulant glycosides and drugs of similar action, initial encounter; Z79.01 Long term (current) use of anticoagulants; G40.909 Epilepsy, unspecified, not intractable, without status epilepticus; I08.0 Rheumatic disorders of both mitral and aortic valves; Z87.891 Personal history of nicotine dependence; E66.9 Obesity, unspecified; Z68.38 Body mass index [BMI] 38.0-38.9, adult; E83.42 Hypomagnesemia
CPT/HCPCS: 33282; 36415; 36416; 70450; 71045; 72125; 74177; 80048; 80053; 80162; 81003; 82553; 83605; 83735; 83880; 84443; 84484; 85014; 85018; 85025; 85049; 85610; 85730; 87324; 87449; 90471; 90686; 93005; 93306; 93798; 96374; C1764; G0008; J1940; J2001

== ENCOUNTER 2018-09-04 21:58 | Inpatient (IN) | payer MEDICARE, MEDICAID ==
[2018-09-04 22:31] LABS: #Basophils 0.1 thou/uL (0.0-0.2); #Eosinphils 0.1 thou/uL (0.0-0.7); #Monocytes 0.7 thou/uL (0.11-0.59); #Neutrophils 8.1 thou/uL (1.40-6.50); %Basophils 0.7 % (0.0-1.0); %Eosinophils 0.7 % (0.0-10.0); %Lymphocytes 25.1 % (21.0-51.0); %Neutrophils 67.5 % (42.0-75.0); Hemoglobin 12.4 g/dL (12.0-16.0); Mean Corpuscular HGB CONC 32.2 g/dL (32.0-36.0); Mean Corpuscular Hemoglobin 31.8 pg (27.0-31.0); Mean Corpuscular Volume 98.9 fL (78.0-98.0); Mean Platelet Volume 9.3 fL (7.4-10.4); Platelet Count 211 thou/uL (130-400); RBC Distribution Width 15.2 % (11.5-14.5)
[2018-09-04 22:38] LABS: INR-International Normal Ratio 1.9; PTT 31.7 SEC (22.9-36.1); Prothrombin Time 21.5 SEC (12.0-14.7)
--- NOTE | 2018-09-04 22:46 | RAD ---
RADIOGRAPH CHEST 1 VIEW: Date: 09/04/2018 Time: 10:28 p.m. HISTORY: A 62-year-old female with chest pain. COMPARISON: 07/19/2018 FINDINGS: There is a new finding of diffuse bilateral mixed interstitial and alveolar infiltrates, which could represent pulmonary edema. There is cardiomegaly, with increase in cardiac size since the prior stud y. No pneumothorax. IMPRESSION: Evidence for congestive heart failure: Cardiomegaly and probable bilateral pulmonary alveolar edema (vs severe bilateral pneumonia). TORSTEN [] POS: ZACK
[2018-09-04 22:51] LABS: ALT (SGPT) 37 U/L (8-55); AST (SGOT) 18 U/L (5-34); Albumin 3.6 g/dL (3.4-4.8); Alkaline Phosphatase 72 U/L (40-150); Anion Gap 15 mmol/L (10-20); BUN (Urea Nitrogen) 23 mg/dL (9.8-20.1); Bilirubin, Total 1.3 mg/dL (0.2-1.2); Calc. Creatinine Clearance 0 mL/min (70-130); Calcium 8.5 mg/dL (7.8-10.44); Carbon Dioxide 20 mmol/L (23-31); Chloride 106 mmol/L (98-107); Estimated GFR-MDRD 43; Globulin 2.6 g/dL (2.4-3.5); Glucose 156 mg/dL (80-115); Potassium 4.1 mmol/L (3.5-5.1); Protein, Total 6.2 g/dL (6.0-8.3); Sodium 137 mmol/L (136-145)
[2018-09-05 00:24] LABS: Bilirubin Negative (Negative); Blood, Urine Negative (Negative); Clarity CLOUDY (Clear); Glucose, Urine (Dipstick) Negative (Negative); Leukocyte Small (Negative); Nitrite Negative (Negative); Protein, Urine (Dipstick) 30 mg/dL (Neg-Trace); Specific Gravity, Urine 1.013 (1.002-1.036); pH, Urine 5.5 (5.0-9.0)
[2018-09-05 00:27] LABS: Bacteria/HPF None Seen HPF (None Seen); Hyaline Casts/LPF 4-6 HYALINE CAST LPF (0-3 Hyaline); RBC/HPF 0-3 HPF (0-3)
[2018-09-05] MEDS ORDERED: Aspirin 325 MG TAB ONE (00:38)
[2018-09-05 02:30] LABS: Troponin I 0.012 ng/mL (< 0.028)
[2018-09-05] MEDS ORDERED: diphenhydrAMINE 25 MG CAP PO PRN (03:39)
[2018-09-05] MEDS ORDERED: Dextrose 50% Abboject 50 ML SYRINGE SLOW IVP PRN (03:41)
[2018-09-05] MEDS ORDERED: HumaLOG 300 UNITS/3 ML VIAL SC PRN (03:41)
[2018-09-05] MEDS ORDERED: Dextrose 5% in Water 1,000 ML IV PRN (03:41)
[2018-09-05] MEDS ORDERED: Bisacodyl 5 MG TAB PO PRN (03:41)
[2018-09-05] MEDS ORDERED: Senokot S 8.6-50 MG TAB PO PRN (03:41)
[2018-09-05] MEDS ORDERED: Acetaminophen 325 MG TAB PO PRN (03:41)
[2018-09-05] MEDS ORDERED: Zolpidem Tartrate 5 MG TAB PO PRN (03:41)
[2018-09-05] MEDS ORDERED: Calcium Carbonate 500 MG ChewTAB PO PRN (03:41)
[2018-09-05 04:10] LABS: #Lymphocytes 0.8 thou/uL (1.20-3.40); #Monocytes 0.2 thou/uL (0.11-0.59); #Neutrophils 8.4 thou/uL (1.40-6.50); %Basophils 0.1 % (0.0-1.0); %Eosinophils 0.1 % (0.0-10.0); %Lymphocytes 8.5 % (21.0-51.0); %Monocytes 1.8 % (0.0-10.0); %Neutrophils 89.5 % (42.0-75.0); Hemoglobin 11.5 g/dL (12.0-16.0); Mean Corpuscular Hemoglobin 31.5 pg (27.0-31.0); Mean Corpuscular Volume 95.4 fL (78.0-98.0); Mean Platelet Volume 9.6 fL (7.4-10.4); Platelet Count 152 thou/uL (130-400); RBC Distribution Width 15.1 % (11.5-14.5); Red Blood Cell (RBC) Count 3.64 mill/uL (4.20-5.40); White Blood Cell (WBC) Count 9.3 thou/uL (4.8-10.8)
[2018-09-05 04:13] LABS: Anion Gap 14 mmol/L (10-20); BUN (Urea Nitrogen) 23 mg/dL (9.8-20.1); Calc. Creatinine Clearance 0 mL/min (70-130); Calcium 8.6 mg/dL (7.8-10.44); Carbon Dioxide 22 mmol/L (23-31); Chloride 106 mmol/L (98-107); Estimated GFR-MDRD 47; Glucose 182 mg/dL (80-115); Potassium 4.2 mmol/L (3.5-5.1); Sodium 138 mmol/L (136-145)
[2018-09-05 04:25] LABS: Troponin I 0.016 ng/mL (< 0.028)
[2018-09-05] MEDS ORDERED: Furosemide 40 MG/4 ML VIAL ONE ×2 (08:07→14:17)
[2018-09-05] MEDS: Mometasone/Formoterol 120 PUFF INHALER INH SCH ×2 (08:21→19:48)
[2018-09-05 08:38] LABS: INR-International Normal Ratio 1.9; Prothrombin Time 21.5 SEC (12.0-14.7)
[2018-09-05] MEDS ORDERED: LEVEMIR 18 UNIT SC SCH (09:00)
[2018-09-05] MEDS ORDERED: Aspirin Chewable 81 MG TAB ONE (12:21)
[2018-09-05] MEDS ORDERED: Enoxaparin Sodium 30 MG/0.3 ML SYRINGE ONE (12:22)
[2018-09-05] MEDS ORDERED: Famotidine 20 MG TAB ONE (12:22)
[2018-09-05] MEDS ORDERED: Metoprolol Tartrate 25 MG TAB ONE (12:23)
[2018-09-05] MEDS: Enoxaparin Sodium 30 MG/0.3 ML SYRINGE SC SCH (12:24)
[2018-09-05] MEDS: Famotidine 20 MG TAB PO SCH ×2 (12:25→22:35)
[2018-09-05] MEDS: Aspirin 81 mg Enteric Coated Tablet PO SCH (12:25)
[2018-09-05] MEDS: Insulin Glargine 18 UNITS in Pre-Filled Syringe SC SCH ×2 (12:26→22:35)
[2018-09-05] MEDS: Famotidine/PF 20 mg/2ml Vial SLOW IVP SCH ×2 (12:26→22:35)
[2018-09-05] MEDS: Metoprolol Tartrate 25 MG TAB PO SCH ×2 (12:27→22:35)
[2018-09-05] MEDS: Furosemide 40 MG/4 ML VIAL SLOW IVP SCH (14:25)
[2018-09-05] MEDS: Levothyroxine Sodium 100 MCG TAB PO SCH (16:04)
[2018-09-05] MEDS: Atorvastatin Calcium 10 MG TAB PO SCH (16:04)
[2018-09-05] MEDS: Lisinopril 2.5 MG TAB PO SCH (16:04)
[2018-09-05] MEDS: Lubiprostone 24 MCG CAP PO SCH ×2 (16:04→22:35)
[2018-09-05] MEDS: Potassium Chloride 20 MEQ TAB PO SCH ×2 (16:05→22:35)
[2018-09-05] MEDS: Polyethylene Glycol 3350 17 GM Packet PO SCH (16:05)
[2018-09-05] MEDS: Warfarin Sodium 2 MG TAB PO SCH (22:33)
[2018-09-05] MEDS: Ezetimibe 10 MG TAB PO SCH (22:34)
[2018-09-05] MEDS: Aripiprazole 15 MG TAB PO SCH (22:34)
[2018-09-05] MEDS: Benztropine 1 MG TAB PO SCH (22:34)
[2018-09-05] MEDS: HumaLOG 300 UNITS/3 ML VIAL SC PRN (22:36)
--- NOTE | 2018-09-05 23:08 | CON ---
DATE OF CONSULTATION: 09/05/2018 TYPE OF CONSULTATION: Cardiology Consult Note INDICATION FOR CONSULTATION: A 62-year-old female with CHF exacerbation. HISTORY OF PRESENT ILLNESS: This very unfortunate 62-year-old female has been in the hospital several times. She has a long cardiac history. She has been seen in the hospital most recently, I believe, back in July of last year. She has had a history of most likely rheumatic heart disease. She has aortic valve stenosis, mitral valve stenosis. She has undergone mitral valve valvuloplasty. She has undergone cardiac catheterization, which showed no evidence of coronary artery disease. She resides in the senior living with her due to some mild mental issues. I believe she is somewhat mentally challenged, but not severely. She has been complaining of cough for the last couple of weeks and then recently yesterday developed increasing shortness of breath and dyspnea to the fact which she almost fell. The staff were able to keep her from falling completely on the floor and she was brought to the emergency room here and was admitted to the hospital. She denies any chest discomfort except when she coughs. She has also noticed lower extremity edema, which is worse and also hand edema. She has had syncopal episodes in the past and recently underwent a LINQ implant and this will be interrogated while she is here. PAST MEDICAL HISTORY: Please refer the notes dictated by my nurse practitioner, Ericka Patterson. SOCIAL HISTORY: Please refer the notes dictated by my nurse practitioner, Ericka Patterson. FAMILY HISTORY: Please refer the notes dictated by my nurse practitioner, Ericka Patterson. REVIEW OF SYSTEMS: Please refer the notes dictated by my nurse practitioner, Ericka Patterson. ALLERGIES: PLEASE REFER THE NOTES DICTATED BY MY NURSE PRACTITIONER, ERICKA PATTERSON. PHYSICAL EXAMINATION: GENERAL: Reveals an elderly female, who is still coughing during most of the evaluation. VITAL SIGNS: Relatively stable. Blood pressure is 117/72, heart rate is 93 and irregular. She remains in atrial fibrillation, respiratory rate 18, and O2 saturation 96%. HEENT: Shows the head to be normocephalic and atraumatic. Carotid pulses are present. Difficult to hear due to coughing, but did not appear to be stenotic. Do not hear any significant bruits. CHEST: She does have some decreased breath sounds on the left base with some crackles, otherwise did not hear any significant rales or rhonchi. CARDIOVASCULAR: Reveals an irregularly irregular rhythm. She has systolic murmur at the apex, also at the upper sternal border. She has a systolic murmur. I cannot hear a diastolic component at the apex, but again the patient has increasing coughing during most of the evaluation. ABDOMEN: Shows obesity with positive bowel sounds. I did not palpate any masses or tenderness. EXTREMITIES: Showed 2+ lower extremity edema, also hand edema is present. SKIN: Warm and dry. NEUROLOGIC: She appears to be somewhat slow, but is able to function as far as neurologic is concerned. IMPRESSION: 1. Congestive heart failure exacerbation due to most likely exacerbated by coughing and atrial fibrillation with rapid ventricular response. She does have a history of aortic valve insufficiency and also has history of mitral valve stenosis, which has undergone mitral valvuloplasty. I will need to confirm if she has had a repeat, recent echocardiogram, I suspect of her last visit. She had an echocardiogram while she was in the hospital, it was done in July 20, 2018. At that time, the echocardiogram showed ejection fraction of 45% to 50% with mildly enlarged left atrium with mitral stenosis, as well as mitral valve regurgitation and also moderate aortic stenosis and regurgitation. 2. Atrial fibrillation, I believe this is now chronic. We will need to try to control the heart rate and continue anticoagulation. She has been on Coumadin. We will need to continue this medication. Determine whether or not she may be a candidate for further intervention needed to the aortic or mitral valve. This will be dealt with by Dr. Polo when he sees the patient tomorrow. She has undergone ablation in the past, but it looks like she remains in chronic atrial fibrillation. We will need to control the heart rate. We will review her medications and if necessary, we will add diltiazem or digoxin to control her rate. 3. History of seizure disorder. This appears to be stable. She has had no recent seizures. 4. Chronic obstructive pulmonary disease with chronic coughing and history of tobacco abuse in the past. At this time, the goal would be to control the heart rate and to consider other antiarrhythmics or control the heart rate with beta blockers as tolerated but if she has chronic obstructive pulmonary disease, we may need to resort just to digoxin and diltiazem for rate control. At this time, she is on IV diltiazem as well as metoprolol. She remains in atrial fibrillation at this time. Her creatinine was 1.16 and renal function appears to be stable. We could add digoxin if heart rate does not remain stable. Job ID: [id number]
--- NOTE | 2018-09-06 03:12 | CON ---
DATE OF CONSULTATION: 09/05/2018 TYPE OF CONSULTATION: Cardiology Consult PRIMARY CARE DOCTOR: Dilan George MD PRIMARY DESIGN COORDINATOR: Justin Polo MD REASON FOR CARDIOLOGY CONSULT: Heart failure. HISTORY OF PRESENT ILLNESS: Ms. Carlson is a 62-year-old female with a significant history of chronic atrial fibrillation, chronic diastolic heart failure, COPD, hypertension, insulin-dependent diabetes. The patient is a resident of jail in [place]. This morning, she felt very weak and she notified to the nurse. At that time, she was not transferred to the emergency department for further evaluation and treatment. However, she has had shortness of breath for 3 days which became worse today this evening with palpitation for 2 hours. The patient was found to have tachycardia with systolic blood pressure more than 200 over 150 diastolic. The patient was transferred to the emergency department via EMS for further evaluation and treatment. The patient had a syncopal episode when she get out from bed to the stretcher today. The patient has a LINQ placement in July 2018 for syncopal episode. The patient at length has not interrogated at this moment. The patient has been in sinus rhythm with Cardizem 10 mg an hour. At this moment, the patient denies any chest pain, discomfort, palpitation, fluttering, nauseated, or vomiting at this moment but complains of shortness of breath. Her O2 saturation is 95% to 96% with 1 L nasal cannula. She reports she uses O2 of 3 L nasal cannula at home. She also reports that she does not watch fluid and salt intake much as she is supposed to. The patient had an echocardiogram done in June 2018 which shows EF of 45% to 50%, moderately dilated left atrium, mildly enlarged right atrium size, mitral valve stenosis, moderate mitral valve regurgitation, moderate aortic valve stenosis, moderate aortic valve regurgitation, and [id number] tricuspid regurgitation. The patient underwent cardiac catheterization in January 2014, which shows 20% stenosis in the proximal LAD and 20% stenosis in the proximal right coronary arteries with global hypokinesis. The patient had a carotid Doppler study in June 2016, which showed no evidence of significant stenosis in proximal internal coronary arteries. Last stress test was done in 2014, shows no evidence of ischemia. She has several BASIM and cardioversion in the past. The patient has atrial fibrillation ablation in the past. PAST MEDICAL HISTORY: 1. Chronic atrial fibrillation. 2. Chronic diastolic heart failure. 3. Insulin-dependent diabetes. 4. Hypertension. 5. Hyperlipidemia. 6. Chronic kidney disease, stage 3. 7. Chronic shakiness. 8. COPD. 9. Asthma. 10. Valvular abnormality probably secondary to rheumatic fever. 11. Obesity. 12. Mental retardation. 13. Hypothyroidism. 14. Bipolar disorder. 15. Depression. PAST SURGICAL HISTORY: 1. Mitral valvuloplasty in 2013 in [place]. 2. Atrial fibrillation ablation in November 2013. 3. Left wrist repair. 4. Cataract surgery. 5. LINQ placement in July 2018. FAMILY HISTORY: The patient's mother has a medical history of CHF, diabetes, and PAD. No other family history. SOCIAL HISTORY: She is . She is living in nursing facility with her . No children. She is an ex-smoker. She quit about 9 months ago. The patient denied EtOH or illicit drug abuse. ALLERGIES: SHE IS ALLERGIC TO TOMATO. HOME MEDICATIONS: Please see the patient's medical records. REVIEW OF SYSTEMS: A 12-point review of systems is unless otherwise mentioned. The patient use a walker. She has complained of chronic joint pain. She uses home O2 at 3 L nasal cannula for history of COPD and congestive heart failure. She had incontinent urine, but no stool. PHYSICAL EXAMINATION: VITAL SIGNS: Blood pressure 128/91, O2 saturation 92% on 2 L nasal cannula, pulse is 83, AFib, respiratory rate 14. GENERAL: The patient is alert and oriented x4, not in acute distress. HEENT: Head is normocephalic, atraumatic. Eyes, extraocular muscle movement intact. ENT and mouth, oral and nasal mucosa moist without lesion. NECK: No JVD. Supple. Normal range of motion. RESPIRATORY: Clear to auscultation bilaterally. CARDIOVASCULAR: Irregularly irregular. No S3 or S4. There are murmurs present. 2+ pulses in bilateral upper extremities and 1+ pulses in bilateral lower extremities. They have skin discoloration to the bilateral morel area, tender to touch to the site. ABDOMEN: Nontender. No masses palpated. Bowel sounds are present. MUSCULOSKELETAL: The patient is able to move all extremities. She uses a walker. SKIN: Warm and dry. No bruise, rash, or hematoma noticed except discoloration to bilateral morel side with tenderness to palpation at that side. PSYCHIATRIC: The patient's mood is appropriate. NEUROLOGIC: The patient is alert and oriented x4. Nonfocal. LABORATORY DATA: WBC 9.3, hemoglobin 11.5, hematocrit 30.8, platelets 152. PT 21.5, INR 1.9. Sodium 138, potassium 4.2, BUN 23, creatinine is 1.16, glucose . AST 18, ALT 37. BNP is 477. Cardiac enzymes are negative. TSH 2.4805. 12-lead EKG at the ER shows atrial fibrillation with heart rate 86. The patient's chest x-ray shows evidence of congestive heart failure, cardiomegaly and probable bilateral pulmonary alveolar edema versus severe bilateral pneumonia. ASSESSMENT AND PLAN: 1. Acute on chronic diastolic dysfunction. The patient's condition is stable after the patient received Lasix at the ER. At this moment, the patient is on Lasix 40 mg IV push twice a day, lisinopril 2.5 mg once a day, and metoprolol 25 mg twice a day. We would like to continue current medication. 2. Chronic atrial fibrillation. At this moment, the patient has converted back to sinus rhythm with Cardizem 10 mg an hour. The patient's vital signs are stable at this moment with well controlled heart rate. The patient is on aspirin 81 mg once a day with Coumadin 4 mg once a day at this moment. Coumadin dosage management have been done by the patient's primary care doctor. The patient's INR today was 1.9 , which was supposed to be 2 to 3. 3. Hypertension. The patient's blood pressure is stable at this moment with current medication. 4. Insulin-dependent diabetes. She is on a.c. and at bedtime blood glucose check with sliding scale insulin order, which is managed by primary care doctor. 5. [id number] tricuspid regurgitation/moderate mitral valve regurgitation/moderate aortic valve stenosis. We would like to defer the management to Dr. Polo. 6. Chronic obstructive pulmonary disease exacerbation. The patient's breathing condition is stable at this moment. 7. Possible pneumonia. She is not on any antibiotic at this moment, which is managed by the patient's primary care doctor. 8. Hyperlipidemia. She is on Lipitor 10 mg once a day. Thank you very much for allowing the Cardiology Service to participate in the care of this patient. We will follow along the patient's care team and make further recommendations as appropriate. Job ID: [id number] MTDD
[2018-09-06 05:15] LABS: INR-International Normal Ratio 2.2; Prothrombin Time 24.1 SEC (12.0-14.7)
[2018-09-06 05:31] LABS: Albumin 3.3 g/dL (3.4-4.8); Anion Gap 12 mmol/L (10-20); BUN (Urea Nitrogen) 30 mg/dL (9.8-20.1); BUN/Creatinine Ratio 25.21; Calc. Creatinine Clearance 93 mL/min (70-130); Calcium 8.8 mg/dL (7.8-10.44); Carbon Dioxide 26 mmol/L (23-31); Chloride 103 mmol/L (98-107); Estimated GFR-MDRD 46; Glucose 189 mg/dL (80-115); Phosphorus 3.4 mg/dL (2.3-4.7); Potassium 4.1 mmol/L (3.5-5.1); Sodium 137 mmol/L (136-145)
[2018-09-06] MEDS: Mometasone/Formoterol 120 PUFF INHALER INH SCH ×2 (06:55→19:10)
[2018-09-06] MEDS: Furosemide 40 MG/4 ML VIAL SLOW IVP SCH ×2 (07:16→13:42)
[2018-09-06] MEDS: Levothyroxine Sodium 100 MCG TAB PO SCH (07:16)
[2018-09-06] MEDS: Insulin Glargine 18 UNITS in Pre-Filled Syringe SC SCH (08:05)
[2018-09-06] MEDS: Polyethylene Glycol 3350 17 GM Packet PO SCH (08:05)
[2018-09-06] MEDS: Lubiprostone 24 MCG CAP PO SCH ×2 (08:05→21:02)
[2018-09-06] MEDS: Enoxaparin Sodium 30 MG/0.3 ML SYRINGE SC SCH (08:05)
[2018-09-06] MEDS: Aspirin 81 mg Enteric Coated Tablet PO SCH (08:06)
[2018-09-06] MEDS: Lisinopril 2.5 MG TAB PO SCH (08:06)
[2018-09-06] MEDS: Atorvastatin Calcium 10 MG TAB PO SCH (08:06)
[2018-09-06] MEDS: Metoprolol Tartrate 25 MG TAB PO SCH ×2 (08:06→21:03)
[2018-09-06] MEDS: Famotidine 20 MG TAB PO SCH ×2 (08:06→21:03)
[2018-09-06] MEDS: Famotidine/PF 20 mg/2ml Vial SLOW IVP SCH (08:07)
[2018-09-06] MEDS: Potassium Chloride 20 MEQ TAB PO SCH ×2 (08:07→21:03)
[2018-09-06] MEDS: HumaLOG 300 UNITS/3 ML VIAL SC PRN ×3 (12:08→21:56)
[2018-09-06] MEDS ORDERED: predniSONE 20 MG TAB PO SCH (13:30)
--- NOTE | 2018-09-06 14:51 | PRG ---
DATE OF SERVICE: 09/06/2018 SUBJECTIVE: The patient is seen and examined at bedside. She is short of breath. OBJECTIVE: VITAL SIGNS: Blood pressure is 113/70, pulse is 78, temperature is 97.5, respiratory rate is 18, O2 saturation is 99% on 1 L by nasal cannula. GENERAL: She is obese lady. Her weight is 262 pounds. She shows significant peripheral edema on upper extremities and lower extremities. HEENT: Her head is atraumatic and normocephalic. Eyes are PERRLA. Sclerae are nonicteric. Oral mucosa is moist. She has some labored breathing. NECK: Supple. Thyroid is not palpable. LUNGS: Bilateral rales and diminished breath sounds at both bases present. Few wheezes bilaterally present. HEART: S1 and S2. Irregularly irregular. No S3. No S4. ABDOMEN: Obese, soft, nontender. EXTREMITIES: 2+ peripheral edema similarly bilaterally in lower extremities. NEUROLOGIC: She follows my commands. She moves all 4 extremities. There are no any motor or sensory deficits present. Cranial nerves are intact. LABORATORY DATA: Glycemia is ranging from 191 to 305. Her INR is 2.2, PT 24.1. Normal electrolytes. BUN 30, creatinine 1.19. Albumin is 3.3. IMPRESSION: 1. Acute on chronic exacerbation of chronic obstructive pulmonary disease. 2. Atrial fibrillation which is chronic. 3. Chronic obstructive pulmonary disease. 4. History of seizure disorder. 5. Hypothyroidism. 6. Diabetes mellitus, type 2. 7. Hypertension. 8. Hyperlipidemia. 9. Schizoaffective depressive disorder. PLAN: Start her on prednisone 40 mg once a day, DuoNeb q.4 hours, Lasix up to 80 mg q.12. We will do strict input and output checks. We will continue her breathing treatments with Dulera, and we will continue her normal skilled nursing medications. The patient is started on diltiazem to control her ventricular rate by Cardiology. She is on Coumadin 4 mg once a day. We will continue that. Her INR is good. We will continue her sliding scale. I am going to increase her dose of long-acting insulin from 18 units to 24 and we will watch her kidney function closely. Job ID: [id number]
[2018-09-06] MEDS: Warfarin Sodium 2 MG TAB PO SCH (17:11)
[2018-09-06] MEDS: Ezetimibe 10 MG TAB PO SCH (21:02)
[2018-09-06] MEDS: Benztropine 1 MG TAB PO SCH (21:03)
[2018-09-06] MEDS: Aripiprazole 15 MG TAB PO SCH (21:03)
[2018-09-06] MEDS: Insulin Glargine 24 UNITS in Pre-Filled Syringe 1 EACH SC SCH (21:55)
[2018-09-07 05:43] LABS: INR-International Normal Ratio 2.3; Prothrombin Time 25.5 SEC (12.0-14.7)
[2018-09-07] MEDS: Levothyroxine Sodium 100 MCG TAB PO SCH (05:52)
[2018-09-07] MEDS: Furosemide 40 MG/4 ML VIAL SLOW IVP SCH ×2 (05:52→14:37)
[2018-09-07 05:59] LABS: Anion Gap 13 mmol/L (10-20); BUN (Urea Nitrogen) 27 mg/dL (9.8-20.1); Calc. Creatinine Clearance 109 mL/min (70-130); Calcium 8.5 mg/dL (7.8-10.44); Carbon Dioxide 21 mmol/L (23-31); Chloride 102 mmol/L (98-107); Estimated GFR-MDRD 55; Glucose 204 mg/dL (80-115); Potassium 4.2 mmol/L (3.5-5.1); Sodium 132 mmol/L (136-145)
[2018-09-07] MEDS: Mometasone/Formoterol 120 PUFF INHALER INH SCH ×2 (06:23→19:28)
[2018-09-07] MEDS ORDERED: Metolazone 5 MG TAB PO SCH (08:00)
[2018-09-07] MEDS: Insulin Glargine 24 UNITS in Pre-Filled Syringe 1 EACH SC SCH ×2 (09:36→21:21)
[2018-09-07] MEDS: Famotidine 20 MG TAB PO SCH ×2 (09:37→21:20)
[2018-09-07] MEDS: Metoprolol Tartrate 25 MG TAB PO SCH ×2 (09:37→21:20)
[2018-09-07] MEDS: Atorvastatin Calcium 10 MG TAB PO SCH (09:37)
[2018-09-07] MEDS: Lubiprostone 24 MCG CAP PO SCH ×2 (09:37→21:20)
[2018-09-07] MEDS: Potassium Chloride 20 MEQ TAB PO SCH ×2 (09:37→21:21)
[2018-09-07] MEDS: Lisinopril 2.5 MG TAB PO SCH (09:37)
[2018-09-07] MEDS: Aspirin 81 mg Enteric Coated Tablet PO SCH (09:38)
[2018-09-07] MEDS: predniSONE 20 MG TAB PO SCH (09:38)
[2018-09-07] MEDS: Polyethylene Glycol 3350 17 GM Packet PO SCH (09:38)
--- NOTE | 2018-09-07 11:42 | PRG ---
DATE OF SERVICE: 09/07/2018 SUBJECTIVE: The patient is seen and examined at bedside. She is doing significantly better. Her breathing improved since yesterday. Her appetite is fair and she noticed significantly less swelling on her lower extremities. Fluid balance is -1422. Her output was 2900. OBJECTIVE: VITAL SIGNS: Blood pressure is 168/114 which is, I believe, not adequately measured since she is in atrial fibrillation and this was taken by automatic cuff. Pulse is 104, respiratory rate is 18, O2 saturation is 98% on 1 L by nasal cannula. Her temperature is 97.6. HEAD: Atraumatic and normocephalic. EYES: PERRLA. Sclerae nonicteric. Oral mucosa is moist. NECK: Supple, obese. LUNGS: Breath sounds diminished at both bases with bilateral wheezes and some rales, but improved significantly since yesterday. HEART: S1 and S2, somewhat tachycardic, irregularly irregular, no S3, no S4. ABDOMEN: Obese, nontender. Bowel sounds are present. No organomegaly. EXTREMITIES: A 2+ peripheral edema, similar bilaterally. She still has a lot of fluids in the upper and lower extremities which is somewhat improved. NEUROLOGIC: She follows my commands. She moves her all 4 extremities. There is no any motor deficits. Cranial nerves seem to be fine. LABORATORY DATA: Labs showed a PT of 25.5, INR 2.3, sodium 132, potassium 4.2, chloride 102, CO2 of 21, BUN 27, creatinine 1.02. Glycemia is ranging from 180 to 219. Calcium 8.5. IMPRESSION: 1. Acute on chronic exacerbation of congestive heart failure. 2. Acute on chronic exacerbation of chronic obstructive pulmonary disease. 3. Atrial fibrillation, chronic, rate is still not very well controlled despite of Cardizem drip. 4. History of seizure disorder. 5. Hypothyroidism. 6. Diabetes mellitus type 2. 7. Hypertension. 8. Hyperlipidemia. 9. Schizoaffective depressive disorder. PLAN: Plan is to continue her DuoNebs, continue her diuretics which is Lasix 80 mg IV push. Her glycemia is somewhat better after her insulin glargine was increased to 24 units, but it is still too early to see the full effect. We will continue her Dulera. We will continue her prednisone. We will continue her warfarin and potassium supplementation. She is on KCl 20 mEq twice a day. We will start her on PT today and her INR is within normal limits. Job ID: [id number]
[2018-09-07] MEDS: Warfarin Sodium 2 MG TAB PO SCH (16:45)
[2018-09-07] MEDS: HumaLOG 300 UNITS/3 ML VIAL SC PRN (17:35)
[2018-09-07] MEDS: Benztropine 1 MG TAB PO SCH (21:20)
[2018-09-07] MEDS: Aripiprazole 15 MG TAB PO SCH (21:21)
[2018-09-07] MEDS: Ezetimibe 10 MG TAB PO SCH (21:21)
[2018-09-08] MEDS: Furosemide 40 MG/4 ML VIAL SLOW IVP SCH ×2 (06:05→13:45)
[2018-09-08] MEDS: Levothyroxine Sodium 100 MCG TAB PO SCH (06:05)
[2018-09-08 06:34] LABS: INR-International Normal Ratio 2.5; Prothrombin Time 27.2 SEC (12.0-14.7)
[2018-09-08] MEDS: Mometasone/Formoterol 120 PUFF INHALER INH SCH ×2 (06:39→18:35)
[2018-09-08 06:49] LABS: Anion Gap 12 mmol/L (10-20); BUN (Urea Nitrogen) 22 mg/dL (9.8-20.1); Calc. Creatinine Clearance 129 mL/min (70-130); Calcium 8.9 mg/dL (7.8-10.44); Carbon Dioxide 28 mmol/L (23-31); Chloride 98 mmol/L (98-107); Estimated GFR-MDRD 70; Glucose 128 mg/dL (80-115); Potassium 3.9 mmol/L (3.5-5.1); Sodium 134 mmol/L (136-145)
[2018-09-08] MEDS: Lisinopril 2.5 MG TAB PO SCH (08:10)
[2018-09-08] MEDS: predniSONE 20 MG TAB PO SCH (08:11)
[2018-09-08] MEDS: Polyethylene Glycol 3350 17 GM Packet PO SCH (08:11)
[2018-09-08] MEDS: Metoprolol Tartrate 25 MG TAB PO SCH ×2 (08:11→21:32)
[2018-09-08] MEDS: Atorvastatin Calcium 10 MG TAB PO SCH (08:11)
[2018-09-08] MEDS: Famotidine 20 MG TAB PO SCH ×2 (08:11→21:32)
[2018-09-08] MEDS: Aspirin 81 mg Enteric Coated Tablet PO SCH (08:12)
[2018-09-08] MEDS: Insulin Glargine 24 UNITS in Pre-Filled Syringe 1 EACH SC SCH ×2 (08:12→21:35)
[2018-09-08] MEDS: Potassium Chloride 20 MEQ TAB PO SCH ×2 (08:12→21:32)
[2018-09-08] MEDS: Lubiprostone 24 MCG CAP PO SCH ×2 (09:10→21:30)
--- NOTE | 2018-09-08 11:22 | PRG ---
DATE OF SERVICE: 09/08/2018 SUBJECTIVE: The patient denies any new complaints. Shortness of breath is improving. She is currently on Cardizem drip. Denies any chest pain. CURRENT MEDICATIONS: Current medications were reviewed. The patient is on: 1. Lantus. 2. Nebulizer treatment. 3. Abilify. 4. Aspirin. 5. Lipitor. 6. Cogentin. 7. Zetia. 8. Lasix. 9. Lisinopril. 10. Metoprolol. 11. Dulera. 12. Protonix. 13. Potassium chloride. 14. Prednisone. 15. Coumadin. OBJECTIVE: VITAL SIGNS: Temperature 97.4, pulse rate of 83, blood pressure 130/82, O2 saturation 95% on nasal cannula. GENERAL: A 62-year-old female in mild respiratory distress at rest. LUNGS: Showed bibasilar rales with rhonchi. No significant wheezing appreciated. HEART: S1 and S2 present. Irregularly irregular. No heaves or pulsation. ABDOMEN: Soft. Bowel sounds present. EXTREMITIES: 2 to 3+ edema in bilateral lower extremities. LABORATORY FINDINGS: Potassium 3.9, chloride 98, sodium 134, BUN 22, creatinine 0.83. DIAGNOSTIC STUDIES: Telemetry monitoring by my review showed atrial fibrillation. Chest x-ray by my review on admission showed congestive heart failure/pulmonary edema. IMPRESSION: 1. Pulmonary edema/acute on chronic diastolic heart failure exacerbation. Recent echocardiogram showed ejection fraction of 45% to 50%. 2. Chronic obstructive pulmonary disease exacerbation. 3. Atrial fibrillation with rapid ventricular response, on Cardizem drip. 4. Swallow dysfunction. The patient is currently on modified diet. 5. Morbid obesity with a BMI of 40.1. 6. Chronic anticoagulation. INR 2.5 today. 7. Hypertension. 8. Hyperlipidemia. 9. History of atrial tachycardia, requiring ablation. 10. Mitral stenosis, status post mitral valvuloplasty. 11. Moderate aortic stenosis and insufficiency. 12. Former smoker. 13. Diabetes mellitus type 2. 14. Seizure disorder. 15. Depression without any suicidal ideation. 16. Schizoaffective disorder. PLAN: The patient will be monitored on the telemetry unit. She currently lives at [facility]. We will continue O2 supplementation with diuretics. Cardiology is following. We will recheck Coumadin level and electrolytes in a.m. Speech Therapy input appreciated. We will continue all other home medications. We will recheck electrolytes. Continue current medications. Continue fluid restriction. We will continue sliding scale. Plan of care was discussed with the patient and [id number] over the phone, she stated understanding. Job ID: [id number]
[2018-09-08] MEDS: Warfarin Sodium 2 MG TAB PO SCH (16:57)
[2018-09-08] MEDS: HumaLOG 300 UNITS/3 ML VIAL SC PRN (17:25)
[2018-09-08] MEDS ORDERED: Digoxin 0.5 MG/2 ML AMP SLOW IVP SCH (18:00)
[2018-09-08] MEDS: Ezetimibe 10 MG TAB PO SCH (21:30)
[2018-09-08] MEDS: Benztropine 1 MG TAB PO SCH (21:31)
[2018-09-08] MEDS: Aripiprazole 15 MG TAB PO SCH (21:31)
[2018-09-09] MEDS: Furosemide 40 MG/4 ML VIAL SLOW IVP SCH ×2 (05:38→14:19)
[2018-09-09 06:07] LABS: Platelet Count 170 thou/uL (130-400)
[2018-09-09 06:11] LABS: INR-International Normal Ratio 2.4; Prothrombin Time 26.6 SEC (12.0-14.7)
[2018-09-09] MEDS: Levothyroxine Sodium 100 MCG TAB PO SCH (06:12)
[2018-09-09 06:35] LABS: Anion Gap 15 mmol/L (10-20); BUN (Urea Nitrogen) 24 mg/dL (9.8-20.1); Calc. Creatinine Clearance 111 mL/min (70-130); Calcium 9.2 mg/dL (7.8-10.44); Carbon Dioxide 28 mmol/L (23-31); Chloride 96 mmol/L (98-107); Estimated GFR-MDRD 60; Glucose 110 mg/dL (80-115); Magnesium 2.1 mg/dL (1.6-2.6); Potassium 3.6 mmol/L (3.5-5.1); Sodium 135 mmol/L (136-145)
[2018-09-09] MEDS ORDERED: Metolazone 5 MG TAB PO SCH (08:30)
[2018-09-09] MEDS: Mometasone/Formoterol 120 PUFF INHALER INH SCH ×2 (08:48→19:03)
[2018-09-09] MEDS: Insulin Glargine 18 UNITS in Pre-Filled Syringe 1 EACH SC SCH ×2 (09:33→21:10)
[2018-09-09] MEDS: Famotidine 20 MG TAB PO SCH ×2 (09:36→21:03)
[2018-09-09] MEDS: Polyethylene Glycol 3350 17 GM Packet PO SCH (09:36)
[2018-09-09] MEDS: Lisinopril 2.5 MG TAB PO SCH (09:37)
[2018-09-09] MEDS: Potassium Chloride 20 MEQ TAB PO SCH ×3 (09:37→17:51)
[2018-09-09] MEDS: Digoxin 0.125 MG TAB PO SCH (09:37)
[2018-09-09] MEDS: Lubiprostone 24 MCG CAP PO SCH ×2 (09:37→21:03)
[2018-09-09] MEDS: predniSONE 20 MG TAB PO SCH (09:38)
[2018-09-09] MEDS: Atorvastatin Calcium 10 MG TAB PO SCH (09:38)
[2018-09-09] MEDS: Aspirin 81 mg Enteric Coated Tablet PO SCH (09:38)
[2018-09-09] MEDS: Metoprolol Tartrate 25 MG TAB PO SCH ×2 (09:39→21:03)
--- NOTE | 2018-09-09 11:14 | EKG ---
Test Reason : Blood Pressure : / mmHG Vent. Rate : 129 BPM Atrial Rate : 092 BPM P-R Int : 000 ms QRS Dur : 080 ms QT Int : 320 ms P-R-T Axes : 000 059 032 degrees QTc Int : 468 ms Atrial fibrillation with rapid ventricular response Nonspecific ST and T wave abnormality , probably digitalis effect Abnormal ECG Confirmed by RASHEED CHIANG ([id number]), editorial intern RAYA JAVIER ([id number]) on 09/09/2018 11:14:14 AM Referred By: Confirmed By:RASHEED CHIANG
--- NOTE | 2018-09-09 16:27 | PDOC.PN ---
- Subjective Encounter Start Date: 09/09/18 Encounter Start Time: 10:30 Patient seen and examined for CHF/Afib with RVR. SOB improving. No new complaints. No overnight events - Objective Resuscitation Status - Order Detail: 09/05/18 03:41 Resuscitation Status Routine Resuscitation Status: FULL: Full Resuscitation MAR Reviewed: Yes Vital Signs & Weight: Vital Signs (12 hours) Temp Pulse Pulse Resp BP BP BP 09/09/18 14:22 81 16 09/09/18 13:52 73 129/81 09/09/18 12:00 96.8 F L 96 16 129/81 09/09/18 09:40 81 101/69 09/09/18 09:37 80 96/68 09/09/18 08:48 80 16 09/09/18 08:41 09/09/18 08:38 80 16 09/09/18 08:00 96.1 F L 96 16 121/76 Pulse Ox Pulse Ox Pulse Ox 09/09/18 14:22 09/09/18 13:52 90 L 97 09/09/18 12:00 97 09/09/18 09:40 09/09/18 09:37 09/09/18 08:48 09/09/18 08:41 100 09/09/18 08:38 09/09/18 08:00 97 Weight Weight 250 lb 11.2 oz I&O: 09/08/18 09/09/18 09/10/18 06:59 06:59 06:59 Intake Total 775.4 1140 Output Total 1850 5700 1425 Balance -1074.6 -4560 -1425 Result Diagrams: 09/09/18 05:47 09/09/18 05:47 Additional Labs: Accuchecks 09/09/18 09/09/18 09/08/18 11:35 05:57 20:48 POC Glucose 112 H 111 H 221 H 09/08/18 17:12 POC Glucose 336 H EKG Reviewed by me: Yes (Tele Afib) Phys Exam - Physical Examination Constitutional: NAD Respiratory: no wheezing, no rhonchi Cardiovascular: no rub, irregular Gastrointestinal: soft, non-tender, positive bowel sounds Neurological: moves all 4 limbs Dx/Plan - Plan 1. Pulmonary edema/acute on chronic diastolic heart failure exacerbation. 2. Chronic obstructive pulmonary disease exacerbation. 3. Atrial fibrillation with rapid ventricular response, on Cardizem drip. 4. Swallow dysfunction. 5. Morbid obesity with a BMI of 40.1. 6. Chronic anticoagulation. 7. Hypertension. 8. Hyperlipidemia. 9. History of atrial tachycardia, requiring ablation. 10. Mitral stenosis, status post mitral valvuloplasty. 11. Moderate aortic stenosis and insufficiency. 12. Former smoker. 13. Diabetes mellitus type 2. 14. Seizure disorder. 15. Depression without any suicidal ideation. 16. Schizoaffective disorder. PLAN: Cont diuretics Add Potassium supp Reduce Prednisone dose Reduce Lantus dose AM labs Cont Cardizem drip On Digoxin Review of Systems - Review of Systems Gastrointestinal: negative: Nausea, Vomiting, Abdominal Pain, Diarrhea, Constipation, Melena, Hematochezia, Other Genitourinary: negative: Dysuria, Frequency, Incontinence, Hematuria, Retention , Other - Medications/Allergies Allergies/Adverse Reactions: Allergies Allergy/AdvReac Type Severity Reaction Status Date / Time tomato [Tomato] Allergy Intermediate Verified 07/19/18 22:20 No Known Drug Allergies Allergy Verified 07/19/18 22:20 Medications: Current Medications Acetaminophen (Tylenol) 650 mg PO Q4H PRN PRN Reason: Headache/Fever/Mild Pain (1-3) Albuterol/Ipratropium (Duoneb) 3 ml NEB [id number] [facility] Last Admin: 09/09/18 14:22 Dose: 3 ml Aripiprazole (Abilify) 7.5 mg PO HS [facility] Last Admin: 09/08/18 21:31 Dose: 7.5 mg Aspirin (Ecotrin) 81 mg PO DAILY [facility] Last Admin: 09/09/18 09:38 Dose: 81 mg Atorvastatin Calcium (Lipitor) 10 mg PO DAILY [facility] Last Admin: 09/09/18 09:38 Dose: 10 mg Benztropine Mesylate (Cogentin) 1 mg PO HS [facility] Last Admin: 09/08/18 21:31 Dose: 1 mg Bisacodyl (Dulcolax) 10 mg PO DAILYPRN PRN PRN Reason: Constipation Calcium Carbonate (Tums) 1,000 mg PO Q4H PRN PRN Reason: Heartburn or Indigestion Dextrose/Water (Dextrose 50%) 25 gm SLOW IVP PRN PRN PRN Reason: Hypoglycemia Digoxin (Lanoxin) 0.125 mg PO DAILY [facility] Last Admin: 09/09/18 09:37 Dose: 0.125 mg Diphenhydramine HCl (Benadryl) 25 mg PO Q6HR PRN PRN Reason: Itching & Insomnia Ezetimibe (Zetia) 10 mg PO HS [facility] Last Admin: 09/08/18 21:30 Dose: 10 mg Famotidine (Pepcid) 20 mg PO BID [facility] Last Admin: 09/09/18 09:36 Dose: 20 mg Furosemide (Lasix) 80 mg SLOW IVP 0600,1400 [facility] Last Admin: 09/09/18 14:19 Dose: 80 mg Glucagon (Glucagon) 1 mg IM PRN PRN PRN Reason: Hypoglycemia Dextrose/Water (D5w) 1,000 mls @ 0 mls/hr IV .Q0M PRN PRN Reason: Hypoglycemia Insulin Glargine 18 units/ (Miscellaneous Medication) 0.18 mls @ 0 mls/hr SC BID [facility] Last Admin: 09/09/18 09:33 Dose: 0.18 mls Insulin Human Lispro (Humalog) 0 units SC .MILD SLIDING SCALE PRN PRN Reason: Mild Correctional Scale Last Admin: 09/08/18 17:25 Dose: 5 unit Levothyroxine Sodium (Synthroid) 100 mcg PO 0600 [facility] Last Admin: 09/09/18 06:12 Dose: 100 mcg Lisinopril (Zestril) 2.5 mg PO DAILY [facility] Last Admin: 09/09/18 09:37 Dose: 2.5 mg Lubiprostone (Amitiza) 24 mcg PO BID [facility] Last Admin: 09/09/18 09:37 Dose: 24 mcg Metoprolol Tartrate (Lopressor) 25 mg PO BID [facility] Last Admin: 09/09/18 09:39 Dose: 25 mg Miscellaneous Medication (Pharmacy To Dose) 1 each PO .WARFARIN [facility] Mometasone Furoate/Formoterol Fumar (Dulera 200 Mcg/5 Mcg Inhaler) 2 puff INH BID-RT [facility] Last Admin: 09/09/18 08:48 Dose: 2 puff Pantoprazole Sodium (Protonix) 40 mg PO DAILY [facility] Last Admin: 09/09/18 09:38 Dose: 40 mg Polyethylene Glycol (Miralax) 17 gm PO DAILY [facility] Last Admin: 09/09/18 09:36 Dose: Not Given Potassium Chloride (K-Dur) 20 meq PO TID-[facility] Last Admin: 09/09/18 11:45 Dose: 20 meq Prednisone (Prednisone) 10 mg PO QAM-[facility] Last Admin: 09/09/18 09:38 Dose: 10 mg Senna/Docusate Sodium (Senokot S) 2 tab PO BID PRN PRN Reason: Constipation Sodium Chloride (Flush - Normal Saline) 10 ml IVF Q12HR [facility] Last Admin: 09/09/18 09:39 Dose: Not Given Sodium Chloride (Flush - Normal Saline) 10 ml IVF PRN PRN PRN Reason: Saline Flush Last Admin: 09/09/18 14:20 Dose: 10 ml Warfarin Sodium (Coumadin) 4 mg PO 1700 [facility] Last Admin: 09/08/18 16:57 Dose: 4 mg Zolpidem Tartrate (Ambien) 5 mg PO HSPRN PRN PRN Reason: Insomnia
[2018-09-09] MEDS: HumaLOG 300 UNITS/3 ML VIAL SC PRN (17:50)
[2018-09-09] MEDS: Warfarin Sodium 2 MG TAB PO SCH (17:51)
[2018-09-09] MEDS: Ezetimibe 10 MG TAB PO SCH (21:02)
[2018-09-09] MEDS: Aripiprazole 15 MG TAB PO SCH (21:02)
[2018-09-09] MEDS: Benztropine 1 MG TAB PO SCH (21:03)
[2018-09-10 05:51] LABS: INR-International Normal Ratio 2.3; Prothrombin Time 25.1 SEC (12.0-14.7)
[2018-09-10 06:08] LABS: Anion Gap 16 mmol/L (10-20); BUN (Urea Nitrogen) 30 mg/dL (9.8-20.1); Calc. Creatinine Clearance 100 mL/min (70-130); Calcium 9.5 mg/dL (7.8-10.44); Carbon Dioxide 30 mmol/L (23-31); Chloride 93 mmol/L (98-107); Estimated GFR-MDRD 56; Glucose 88 mg/dL (80-115); Magnesium 2.3 mg/dL (1.6-2.6); Potassium 3.8 mmol/L (3.5-5.1); Sodium 135 mmol/L (136-145)
[2018-09-10] MEDS: Levothyroxine Sodium 100 MCG TAB PO SCH (06:35)
[2018-09-10] MEDS: Furosemide 40 MG/4 ML VIAL SLOW IVP SCH ×2 (06:35→14:39)
[2018-09-10] MEDS: Potassium Chloride 20 MEQ TAB PO SCH ×3 (08:42→16:18)
[2018-09-10] MEDS: Digoxin 0.125 MG TAB PO SCH (08:42)
[2018-09-10] MEDS: Lisinopril 2.5 MG TAB PO SCH (08:42)
[2018-09-10] MEDS: Metoprolol Tartrate 25 MG TAB PO SCH (08:42)
[2018-09-10] MEDS: Lubiprostone 24 MCG CAP PO SCH ×2 (08:43→21:27)
[2018-09-10] MEDS: Aspirin 81 mg Enteric Coated Tablet PO SCH (08:43)
[2018-09-10] MEDS: Atorvastatin Calcium 10 MG TAB PO SCH (08:43)
[2018-09-10] MEDS: predniSONE 20 MG TAB PO SCH (08:43)
[2018-09-10] MEDS: Polyethylene Glycol 3350 17 GM Packet PO SCH (08:44)
[2018-09-10] MEDS: Insulin Glargine 18 UNITS in Pre-Filled Syringe 1 EACH SC SCH (08:45)
[2018-09-10] MEDS: Mometasone/Formoterol 120 PUFF INHALER INH SCH ×2 (09:06→18:32)
[2018-09-10] MEDS: Famotidine 20 MG TAB PO SCH ×2 (10:29→21:28)
[2018-09-10] MEDS ORDERED: Metoprolol Tartrate 25 MG TAB PO SCH (10:30)
--- NOTE | 2018-09-10 12:34 | PDOC.PN ---
- Subjective Encounter Start Date: 09/10/18 Encounter Start Time: 11:30 Patient seen and examined for CHF/Afib with RVr. SOB improving. No CP/ palpitations. No new complaints. No overnight events - Objective Resuscitation Status - Order Detail: 09/05/18 03:41 Resuscitation Status Routine Resuscitation Status: FULL: Full Resuscitation MAR Reviewed: Yes Vital Signs & Weight: Vital Signs (12 hours) Temp Pulse Resp BP BP Pulse Ox 09/10/18 11:50 78 16 09/10/18 09:06 104 H 16 09/10/18 08:57 100 09/10/18 08:50 104 H 12 09/10/18 08:42 88 135/84 09/10/18 07:37 96.5 F L 88 16 135/84 95 09/10/18 03:00 98.1 F 93 16 114/77 94 L Weight Weight 240 lb 8 oz I&O: 09/09/18 09/10/18 09/11/18 06:59 06:59 06:59 Intake Total 1140 1353.6 Output Total 5700 3925 800 Balance -4560 -2571.4 -800 Result Diagrams: 09/09/18 05:47 09/10/18 05:33 Additional Labs: Accuchecks 09/10/18 09/09/18 09/09/18 05:26 22:27 20:04 POC Glucose 88 153 H 239 H 09/09/18 16:54 POC Glucose 185 H EKG Reviewed by me: Yes (Tele Afib) Phys Exam - Physical Examination Constitutional: NAD Respiratory: no wheezing, no rhonchi few rales at bases Cardiovascular: no rub, irregular Gastrointestinal: soft, non-tender, positive bowel sounds Musculoskeletal: edema present Neurological: moves all 4 limbs Dx/Plan - Plan 1. Pulmonary edema/acute on chronic diastolic heart failure exacerbation. improving 2. Chronic obstructive pulmonary disease exacerbation. 3. Atrial fibrillation with rapid ventricular response, off Cardizem drip. 4. Swallow dysfunction. 5. Morbid obesity with a BMI of 40.1. 6. Chronic anticoagulation. 7. Hypertension. 8. Hyperlipidemia. 9. History of atrial tachycardia, requiring ablation. 10. Mitral stenosis, status post mitral valvuloplasty. 11. Moderate aortic stenosis and insufficiency. 12. Former smoker. 13. Diabetes mellitus type 2. 14. Seizure disorder. 15. Depression without any suicidal ideation. 16. Schizoaffective disorder. PLAN: Cont IV Lasix Reduce Lantus dose Cont sliding scale One dose of IV Cardizem due to RVR Will increase Metoprolol dose. AM labs On Digoxin Review of Systems - Review of Systems Cardiovascular: negative: chest pain, palpitations, orthopnea, paroxysmal nocturnal dyspnea, edema, light headedness, other Gastrointestinal: negative: Nausea, Vomiting, Abdominal Pain, Diarrhea, Constipation, Melena, Hematochezia, Other - Medications/Allergies Allergies/Adverse Reactions: Allergies Allergy/AdvReac Type Severity Reaction Status Date / Time tomato [Tomato] Allergy Intermediate Verified 07/19/18 22:20 No Known Drug Allergies Allergy Verified 07/19/18 22:20 Medications: Current Medications Acetaminophen (Tylenol) 650 mg PO Q4H PRN PRN Reason: Headache/Fever/Mild Pain (1-3) Albuterol/Ipratropium (Duoneb) 3 ml NEB [id number] [facility] Last Admin: 09/10/18 11:50 Dose: 3 ml Aripiprazole (Abilify) 7.5 mg PO HS [facility] Last Admin: 09/09/18 21:02 Dose: 7.5 mg Aspirin (Ecotrin) 81 mg PO DAILY [facility] Last Admin: 09/10/18 08:43 Dose: 81 mg Atorvastatin Calcium (Lipitor) 10 mg PO DAILY [facility] Last Admin: 09/10/18 08:43 Dose: 10 mg Benztropine Mesylate (Cogentin) 1 mg PO HS [facility] Last Admin: 09/09/18 21:03 Dose: 1 mg Bisacodyl (Dulcolax) 10 mg PO DAILYPRN PRN PRN Reason: Constipation Calcium Carbonate (Tums) 1,000 mg PO Q4H PRN PRN Reason: Heartburn or Indigestion Dextrose/Water (Dextrose 50%) 25 gm SLOW IVP PRN PRN PRN Reason: Hypoglycemia Digoxin (Lanoxin) 0.125 mg PO DAILY [facility] Last Admin: 09/10/18 08:42 Dose: 0.125 mg Diphenhydramine HCl (Benadryl) 25 mg PO Q6HR PRN PRN Reason: Itching & Insomnia Ezetimibe (Zetia) 10 mg PO HS [facility] Last Admin: 09/09/18 21:02 Dose: 10 mg Famotidine (Pepcid) 20 mg PO BID [facility] Last Admin: 09/10/18 10:29 Dose: 20 mg Furosemide (Lasix) 80 mg SLOW IVP 0600,1400 [facility] Last Admin: 09/10/18 06:35 Dose: 80 mg Glucagon (Glucagon) 1 mg IM PRN PRN PRN Reason: Hypoglycemia Dextrose/Water (D5w) 1,000 mls @ 0 mls/hr IV .Q0M PRN PRN Reason: Hypoglycemia Insulin Glargine 14 units/ (Miscellaneous Medication) 0.14 mls @ 0 mls/hr SC BID [facility] Insulin Human Lispro (Humalog) 0 units SC .MILD SLIDING SCALE PRN PRN Reason: Mild Correctional Scale Last Admin: 09/09/18 17:50 Dose: 2 unit Levothyroxine Sodium (Synthroid) 100 mcg PO 0600 [facility] Last Admin: 09/10/18 06:35 Dose: 100 mcg Lisinopril (Zestril) 2.5 mg PO DAILY [facility] Last Admin: 09/10/18 08:42 Dose: 2.5 mg Lubiprostone (Amitiza) 24 mcg PO BID [facility] Last Admin: 09/10/18 08:43 Dose: 24 mcg Metoprolol Tartrate (Lopressor) 50 mg PO BID [facility] Miscellaneous Medication (Pharmacy To Dose) 1 each PO .WARFARIN [facility] Mometasone Furoate/Formoterol Fumar (Dulera 200 Mcg/5 Mcg Inhaler) 2 puff INH BID-RT [facility] Last Admin: 09/10/18 09:06 Dose: 2 puff Pantoprazole Sodium (Protonix) 40 mg PO DAILY [facility] Last Admin: 09/10/18 08:43 Dose: 40 mg Polyethylene Glycol (Miralax) 17 gm PO DAILY [facility] Last Admin: 09/10/18 08:44 Dose: Not Given Potassium Chloride (K-Dur) 20 meq PO TID-[facility] Last Admin: 09/10/18 11:08 Dose: 20 meq Prednisone (Prednisone) 10 mg PO QAM-[facility] Last Admin: 09/10/18 08:43 Dose: 10 mg Senna/Docusate Sodium (Senokot S) 2 tab PO BID PRN PRN Reason: Constipation Sodium Chloride (Flush - Normal Saline) 10 ml IVF Q12HR [facility] Last Admin: 09/10/18 08:45 Dose: 10 ml Sodium Chloride (Flush - Normal Saline) 10 ml IVF PRN PRN PRN Reason: Saline Flush Last Admin: 09/09/18 14:20 Dose: 10 ml Warfarin Sodium (Coumadin) 4 mg PO 1700 [facility] Last Admin: 09/09/18 17:51 Dose: 4 mg Zolpidem Tartrate (Ambien) 5 mg PO HSPRN PRN PRN Reason: Insomnia
[2018-09-10] MEDS: Warfarin Sodium 2 MG TAB PO SCH (16:18)
[2018-09-10] MEDS: Ezetimibe 10 MG TAB PO SCH (21:27)
[2018-09-10] MEDS: Metoprolol Tartrate 50 MG TAB PO SCH (21:27)
[2018-09-10] MEDS: Aripiprazole 15 MG TAB PO SCH (21:28)
[2018-09-10] MEDS: Benztropine 1 MG TAB PO SCH (21:28)
[2018-09-10] MEDS: Insulin Glargine 14 UNITS in Pre-Filled Syringe 1 EACH SC SCH (21:32)
[2018-09-11] MEDS: Levothyroxine Sodium 100 MCG TAB PO SCH (05:02)
[2018-09-11] MEDS: Furosemide 40 MG/4 ML VIAL SLOW IVP SCH (05:02)
[2018-09-11 05:53] LABS: INR-International Normal Ratio 2.2; Prothrombin Time 24.4 SEC (12.0-14.7)
[2018-09-11 06:00] LABS: Hemoglobin 15.7 g/dL (12.0-16.0); Platelet Count 211 thou/uL (130-400)
[2018-09-11 06:07] LABS: Anion Gap 17 mmol/L (10-20); BUN (Urea Nitrogen) 42 mg/dL (9.8-20.1); Calc. Creatinine Clearance 73 mL/min (70-130); Calcium 10.1 mg/dL (7.8-10.44); Carbon Dioxide 33 mmol/L (23-31); Chloride 91 mmol/L (98-107); Estimated GFR-MDRD 40; Glucose 119 mg/dL (80-115); Potassium 3.5 mmol/L (3.5-5.1); Sodium 137 mmol/L (136-145)
[2018-09-11] MEDS: Mometasone/Formoterol 120 PUFF INHALER INH SCH ×2 (06:44→18:46)
[2018-09-11] MEDS: Insulin Glargine 14 UNITS in Pre-Filled Syringe 1 EACH SC SCH ×2 (09:05→21:40)
[2018-09-11] MEDS: Atorvastatin Calcium 10 MG TAB PO SCH (09:05)
[2018-09-11] MEDS: Metoprolol Tartrate 50 MG TAB PO SCH ×2 (09:05→21:39)
[2018-09-11] MEDS: Lisinopril 2.5 MG TAB PO SCH (09:05)
[2018-09-11] MEDS: Famotidine 20 MG TAB PO SCH ×2 (09:05→21:39)
[2018-09-11] MEDS: Potassium Chloride 20 MEQ TAB PO SCH ×3 (09:06→17:12)
[2018-09-11] MEDS: Polyethylene Glycol 3350 17 GM Packet PO SCH (09:06)
[2018-09-11] MEDS: predniSONE 20 MG TAB PO SCH (09:06)
[2018-09-11] MEDS: Digoxin 0.125 MG TAB PO SCH (09:06)
[2018-09-11] MEDS: Lubiprostone 24 MCG CAP PO SCH (09:06)
[2018-09-11] MEDS: Aspirin 81 mg Enteric Coated Tablet PO SCH (09:06)
[2018-09-11] MEDS: HumaLOG 300 UNITS/3 ML VIAL SC PRN ×2 (11:17→17:13)
--- NOTE | 2018-09-11 12:12 | PDOC.PN ---
- Subjective Encounter Start Date: 09/11/18 Encounter Start Time: 08:00 Patient seen and examined for CHF. No new complaints. No overnight events - Objective Resuscitation Status - Order Detail: 09/05/18 03:41 Resuscitation Status Routine Resuscitation Status: FULL: Full Resuscitation MAR Reviewed: Yes Vital Signs & Weight: Vital Signs (12 hours) Temp Pulse Resp BP Pulse Ox 09/11/18 11:14 97.6 F 99 16 104/59 L 96 09/11/18 09:54 84 16 99 09/11/18 09:06 86 09/11/18 09:05 86 09/11/18 07:10 97.4 F L 86 18 116/79 97 09/11/18 06:44 89 16 100 09/11/18 02:47 97.6 F 80 18 118/85 92 L Weight Weight 237 lb 3 oz I&O: 09/10/18 09/11/18 09/12/18 06:59 06:59 06:59 Intake Total 1353.6 120 Output Total 3925 1350 Balance -2571.4 -1230 Result Diagrams: 09/11/18 05:18 09/12/18 06:10 Additional Labs: Accuchecks 09/11/18 09/11/18 09/10/18 10:54 05:25 20:31 POC Glucose 223 H 107 240 H 09/10/18 09/10/18 16:34 11:11 POC Glucose 209 H 151 H EKG Reviewed by me: Yes (Tele Afib) Phys Exam - Physical Examination Constitutional: NAD Respiratory: no wheezing, no rhonchi Cardiovascular: no rub, irregular Gastrointestinal: soft, non-tender Musculoskeletal: edema present (trace) Neurological: non-focal, moves all 4 limbs Dx/Plan - Plan 1. Pulmonary edema/acute on chronic diastolic heart failure exacerbation. ACC stage C. 2. Chronic obstructive pulmonary disease exacerbation. 3. Atrial fibrillation with rapid ventricular response, off Cardizem drip. 4. Swallow dysfunction. 5. Morbid obesity with a BMI of 40.1. 6. Chronic anticoagulation. 7. Hypertension. 8. Hyperlipidemia. 9. History of atrial tachycardia, requiring ablation. 10. Mitral stenosis, status post mitral valvuloplasty. 11. Moderate aortic stenosis and insufficiency. 12. Former smoker. 13. Diabetes mellitus type 2. 14. Seizure disorder. 15. Depression without any suicidal ideation. 16. Schizoaffective disorder. PLAN: Reduce IV Lasix Cont Lantus and sliding scale Cont Digoxin/Metoprolol AM labs Cont other meds as below Laboratory Tests 09/11/18 05:18 INR 2.2 Review of Systems - Review of Systems Cardiovascular: negative: chest pain, palpitations, orthopnea, paroxysmal nocturnal dyspnea, edema, light headedness, other Gastrointestinal: negative: Nausea, Vomiting, Abdominal Pain, Diarrhea, Constipation, Melena, Hematochezia, Other - Medications/Allergies Allergies/Adverse Reactions: Allergies Allergy/AdvReac Type Severity Reaction Status Date / Time tomato [Tomato] Allergy Intermediate Verified 07/19/18 22:20 No Known Drug Allergies Allergy Verified 07/19/18 22:20 Medications: Current Medications Acetaminophen (Tylenol) 650 mg PO Q4H PRN PRN Reason: Headache/Fever/Mild Pain (1-3) Albuterol/Ipratropium (Duoneb) 3 ml NEB [id number] [facility] Last Admin: 09/11/18 09:54 Dose: 3 ml Aripiprazole (Abilify) 7.5 mg PO [facility] Last Admin: 09/10/18 21:28 Dose: 7.5 mg Aspirin (Ecotrin) 81 mg PO DAILY [facility] Last Admin: 09/11/18 09:06 Dose: 81 mg Atorvastatin Calcium (Lipitor) 10 mg PO DAILY [facility] Last Admin: 09/11/18 09:05 Dose: 10 mg Benztropine Mesylate (Cogentin) 1 mg PO HS [facility] Last Admin: 09/10/18 21:28 Dose: 1 mg Bisacodyl (Dulcolax) 10 mg PO DAILYPRN PRN PRN Reason: Constipation Calcium Carbonate (Tums) 1,000 mg PO Q4H PRN PRN Reason: Heartburn or Indigestion Dextrose/Water (Dextrose 50%) 25 gm SLOW IVP PRN PRN PRN Reason: Hypoglycemia Digoxin (Lanoxin) 0.125 mg PO DAILY [facility] Last Admin: 09/11/18 09:06 Dose: 0.125 mg Diphenhydramine HCl (Benadryl) 25 mg PO Q6HR PRN PRN Reason: Itching & Insomnia Ezetimibe (Zetia) 10 mg PO HS [facility] Last Admin: 09/10/18 21:27 Dose: 10 mg Famotidine (Pepcid) 20 mg PO BID [facility] Last Admin: 09/11/18 09:05 Dose: 20 mg Furosemide (Lasix) 40 mg SLOW IVP 0600,1400 [facility] Glucagon (Glucagon) 1 mg IM PRN PRN PRN Reason: Hypoglycemia Dextrose/Water (D5w) 1,000 mls @ 0 mls/hr IV .Q0M PRN PRN Reason: Hypoglycemia Insulin Glargine 14 units/ (Miscellaneous Medication) 0.14 mls @ 0 mls/hr SC BID [facility] Last Admin: 09/11/18 09:05 Dose: 0.14 mls Insulin Human Lispro (Humalog) 0 units SC .MILD SLIDING SCALE PRN PRN Reason: Mild Correctional Scale Last Admin: 09/11/18 11:17 Dose: 3 unit Levothyroxine Sodium (Synthroid) 100 mcg PO 0600 [facility] Last Admin: 09/11/18 05:02 Dose: 100 mcg Lisinopril (Zestril) 2.5 mg PO DAILY [facility] Last Admin: 09/11/18 09:05 Dose: 2.5 mg Lubiprostone (Amitiza) 24 mcg PO BID [facility] Last Admin: 09/11/18 09:06 Dose: 24 mcg Metoprolol Tartrate (Lopressor) 50 mg PO BID [facility] Last Admin: 09/11/18 09:05 Dose: 50 mg Miscellaneous Medication (Pharmacy To Dose) 1 each PO .WARFARIN [facility] Mometasone Furoate/Formoterol Fumar (Dulera 200 Mcg/5 Mcg Inhaler) 2 puff INH BID-RT [facility] Last Admin: 09/11/18 06:44 Dose: 2 puff Pantoprazole Sodium (Protonix) 40 mg PO DAILY [facility] Last Admin: 09/11/18 09:05 Dose: 40 mg Polyethylene Glycol (Miralax) 17 gm PO DAILY [facility] Last Admin: 09/11/18 09:06 Dose: Not Given Potassium Chloride (K-Dur) 20 meq PO TID-[facility] Last Admin: 09/11/18 11:17 Dose: 20 meq Prednisone (Prednisone) 10 mg PO QAM-[facility] Last Admin: 09/11/18 09:06 Dose: 10 mg Senna/Docusate Sodium (Senokot S) 2 tab PO BID PRN PRN Reason: Constipation Sodium Chloride (Flush - Normal Saline) 10 ml IVF Q12HR [facility] Last Admin: 09/11/18 09:07 Dose: 10 ml Sodium Chloride (Flush - Normal Saline) 10 ml IVF PRN PRN PRN Reason: Saline Flush Last Admin: 09/10/18 14:39 Dose: 10 ml Warfarin Sodium (Coumadin) 4 mg PO 1700 [facility] Last Admin: 09/10/18 16:18 Dose: 4 mg Zolpidem Tartrate (Ambien) 5 mg PO HSPRN PRN PRN Reason: Insomnia
[2018-09-11] MEDS: Warfarin Sodium 2 MG TAB PO SCH (17:13)
[2018-09-11] MEDS: Ezetimibe 10 MG TAB PO SCH (21:39)
[2018-09-11] MEDS: Aripiprazole 15 MG TAB PO SCH (21:39)
[2018-09-11] MEDS: Benztropine 1 MG TAB PO SCH (21:39)
[2018-09-12] MEDS: Lubiprostone 24 MCG CAP PO SCH ×2 (01:02→12:20)
[2018-09-12] MEDS: Levothyroxine Sodium 100 MCG TAB PO SCH (05:32)
[2018-09-12] MEDS ORDERED: Furosemide 40 MG/4 ML VIAL SLOW IVP SCH (06:00)
[2018-09-12 06:30] LABS: INR-International Normal Ratio 2.1; Prothrombin Time 23.4 SEC (12.0-14.7)
[2018-09-12 06:36] LABS: Anion Gap 17 mmol/L (10-20); BUN (Urea Nitrogen) 53 mg/dL (9.8-20.1); Calc. Creatinine Clearance 70 mL/min (70-130); Calcium 9.7 mg/dL (7.8-10.44); Carbon Dioxide 28 mmol/L (23-31); Chloride 92 mmol/L (98-107); Digoxin 0.56 ng/mL (0.8-2.0); Estimated GFR-MDRD 37; Glucose 110 mg/dL (80-115); Potassium 3.6 mmol/L (3.5-5.1); Sodium 133 mmol/L (136-145)
[2018-09-12] MEDS: Mometasone/Formoterol 120 PUFF INHALER INH SCH (08:00)
[2018-09-12] MEDS: Insulin Glargine 14 UNITS in Pre-Filled Syringe 1 EACH SC SCH (09:52)
[2018-09-12] MEDS: predniSONE 20 MG TAB PO SCH (09:53)
[2018-09-12] MEDS: Potassium Chloride 20 MEQ TAB PO SCH ×2 (09:54→12:20)
[2018-09-12] MEDS: Digoxin 0.125 MG TAB PO SCH (09:54)
[2018-09-12] MEDS: Aspirin 81 mg Enteric Coated Tablet PO SCH (09:54)
[2018-09-12] MEDS: Metoprolol Tartrate 50 MG TAB PO SCH (09:54)
[2018-09-12] MEDS: Lisinopril 2.5 MG TAB PO SCH (09:55)
[2018-09-12] MEDS: Atorvastatin Calcium 10 MG TAB PO SCH (09:55)
[2018-09-12] MEDS: Famotidine 20 MG TAB PO SCH (09:55)
[2018-09-12] MEDS: Polyethylene Glycol 3350 17 GM Packet PO SCH (10:31)
[2018-09-12] MEDS: HumaLOG 300 UNITS/3 ML VIAL SC PRN (12:23)
[2018-09-12 12:31] VITALS: BP 119/73; TEMP 97.6
--- NOTE | 2018-09-12 16:00 | DIS ---
DATE OF ADMISSION: 09/05/2018 DATE OF DISCHARGE: 09/12/2018 DISCHARGE DISPOSITION: [facility]. DISCHARGE MEDICATIONS: Same as admission medication except for; 1. Digoxin 0.125 mg daily. 2. Metoprolol dose was increased to 50 mg b.i.d. from 25 mg b.i.d. All other home medications were left unchanged. DISCHARGE CONDITION: The patient was seen and examined on the day of discharge. Denies any new complaints. No chest pain, shortness of breath, or palpitations reported. BRIEF HOSPITAL COURSE: The patient is a 62-year-old female with congestive heart failure, currently residing at the nursing facility, presented to the emergency room with shortness of breath and palpitations. Her workup was consistent with atrial fibrillation with rapid ventricular response along with congestive heart failure exacerbation. She was started on Cardizem drip along with IV Lasix 80 mg twice a day. Her weight improved to 237 pounds from 265 pounds on admission. She was extensively counseled on fluid restriction. She can have up to 2 L of fluid a day. Cardizem drip was later discontinued. Metoprolol dose has been increased. Digoxin was added as well. Her heart rate is controlled at this time. She has been cleared by Cardiology for discharge. FINAL DIAGNOSES: 1. Acute on chronic diastolic heart failure exacerbation/pulmonary edema. 2. Atrial fibrillation with rapid ventricular response requiring Cardizem drip. 3. Chronic obstructive pulmonary disease with mild chronic obstructive pulmonary disease exacerbation probably exacerbated by fluid retention. 4. Swallow dysfunction. The patient is currently on pureed diet with thin liquid by cup and straws. 5. Morbid obesity with a BMI of 40.1. 6. Chronic anticoagulation. 7. Hypertension. 8. Hyperlipidemia. 9. History of atrial tachycardia, requiring ablation in the past. 10. Mitral stenosis, status post mitral valvuloplasty. 11. Moderate aortic stenosis and insufficiency. 12. Former smoker. 13. Diabetes mellitus type 2. 14. Seizure disorder. 15. Depression. 16. Schizoaffective disorder. 17. Diet consistency will be pureed consistency with thin liquids. 18. Daily weights. 19. Coumadin management. 20. INR on the day of discharge is 2.1. 21. Acute kidney injury on chronic kidney disease stage 2, probably exacerbated by cardiorenal syndrome. SIGNIFICANT LABS: Creatinine on the day of discharge is 1.42 compared to 1.26 on admission. Repeat basic metabolic panel after 1 week is recommended. Job ID: [id number]
[2018-09-13] MEDS ORDERED: Furosemide 40 MG TAB PO SCH (09:00)
== END 2018-09-12 14:20 | DRG 292 ==
LOC: ERS 21:58 → ERHOLD 09-05 00:54 → 2NO 09-05 19:25
PROVIDERS: ADMIT Internal Medicine; ATTEND Internal Medicine
DX: I11.0 Hypertensive heart disease with heart failure (principal); J44.1 Chronic obstructive pulmonary disease with (acute) exacerbation; Z68.41 Body mass index [BMI] 40.0-44.9, adult; I50.33 Acute on chronic diastolic (congestive) heart failure; I48.2 Chronic atrial fibrillation; E66.01 Morbid (severe) obesity due to excess calories; E78.5 Hyperlipidemia, unspecified; E11.9 Type 2 diabetes mellitus without complications; G40.909 Epilepsy, unspecified, not intractable, without status epilepticus; K21.9 Gastro-esophageal reflux disease without esophagitis; E03.9 Hypothyroidism, unspecified; F32.9 Major depressive disorder, single episode, unspecified; F25.9 Schizoaffective disorder, unspecified; Z79.4 Long term (current) use of insulin; Z79.01 Long term (current) use of anticoagulants; Z87.891 Personal history of nicotine dependence
CPT/HCPCS: 36415; 36416; 71045; 80048; 80053; 80069; 80162; 81003; 81015; 83735; 83880; 84443; 84484; 85014; 85018; 85025; 85049; 85610; 85730; 93005; 93798; 94640; 94760; 96374; 96375; J1160; J1650; J1825; J1940; J7050; J7506; J7620; S0028

== ENCOUNTER 2018-11-20 09:44 | Outpatient (CLI) | payer MEDICARE, MEDICAID ==
--- NOTE | 2018-11-20 13:54 | MRI ---
FExam brain and orbit MRI with and without contrast HISTORY: Optic nerve disorder. COMPARISON: None TECHNIQUE: Brain and orbit MRI performed with and without intravenous gadolinium administration. Mult i sequential, multiplanar imaging was performed FINDINGS: Brain MRI: Normal T1 marrow signal intensity of the calvarium. Midline brain parenchymal structures a re unremarkable No parenchymal mass, mass effect or midline shift. Brain volume, age appropriate. Cortical bella-white matter differentiation is preserved Ventricles and sulci are patent and symmetric Central arterial flow is maintained. Absent restricted diffusion Minimal T2 and FLAIR white matter hyperintensities likely due to chronic small vessel ischemic change Adequate aeration of the sinuses and mastoid air cells No pathologic enhancement of the brain parenchyma Orbit MRI: Symmetric signal intensity of the left and right globe. Appropriate signal intensity of the ocular re ctus muscles. No abnormal signal intensity in the left or right retrobulbar region The optic chiasm, prechiasmatic optic nerves, intracranial and intracanalicular optic nerves have sym metric signal intensity. No optic nerve atrophy. No T2 hyperintensity in the optic nerves. No abnorma l enhancement. IMPRESSION: 1. No pathologic enhancement of brain parenchyma 2. Absent restricted diffusion. No acute infarct. 3. Appropriate brain volume. 4. Unremarkable orbit MRI. Appropriate signal intensity of the optic nerves
== END 2018-11-20 09:45 | disposition home or self-care (01) ==
LOC: SCSMRI 09:44
PROVIDERS: ATTEND Psychiatry & Neurology Neurology
DX: H47.099 Other disorders of optic nerve, not elsewhere classified, unspecified eye (principal)
CPT/HCPCS: 70553; 82565

== ENCOUNTER 2018-11-26 16:30 | Observation (INO) | payer MEDICARE, MEDICAID ==
[2018-11-26] MEDS ORDERED: Morphine 4 MG/ML VIAL ONE ×2 (16:50→20:49)
--- NOTE | 2018-11-26 19:17 | MRI ---
[facility] thoracic spine noncontrast: 11/26/2018 HISTORY: 63-year-old female with traumatic mid back pain after fall. Unable to walk. FINDINGS: There is a mild lateral thoracic spine curvature. There is irregularity and mild depression of the orellana perior endplate of T12, with mild bony retropulsion which does not cause high-grade central spinal ca nal stenosis, and does not contact the spinal cord. There is mild to moderate bone marrow edema at th e superior one third to half of the T12 vertebral body. Overall loss of height is approximately 20%. There is a thin layer of edema in the prevertebral space at this level, extending superiorly and infe riorly several levels.. The rest of the thoracic vertebral body heights are maintained. The rest of t he thoracic vertebral body heights are maintained. No other region of significant bone marrow signal abnormality. No central spinal canal stenosis at any level. In fact, the caliber of the spinal canal is generous throughout the thoracic spine. At T8-9, there is a shallow, broad-based disc-osteophytic bar complex abutting the ventral surface of the spinal cord without significantly displacing the spin al cord. The thoracic spinal cord is normal in size and signal, with no evidence of cord edema, syrin x, or hemorrhage, and no extrinsic compression. Conus medullaris probably terminates at L1. There is exaggerated kyphosis of the lower thoracic spine. IMPRESSION: 1. Acute or subacute, traumatic, mild burst fracture of T12 vertebra, with mild loss of height, and m inimal retropulsion. 2. No abnormality of the thoracic spinal cord. 3. Exaggerated kyphosis of the lower thoracic spine
--- NOTE | 2018-11-26 19:40 | MRI ---
[facility] lumbar spine noncontrast: DATE: 11/26/2018 HISTORY: 63-year-old female with T12 compression fracture after fall. Unable to walk. FINDINGS: There are 5 lumbar-type vertebrae. There is mild, approximately 20%, loss of height of T12 vertebra d ue to mild depression of superior endplate, and mild bony retropulsion, with disc-osteophytic bar com plex encroaching upon the anterior aspect of the spinal canal, but without causing central spinal can al stenosis, and not contacting the spinal cord. There is mild to moderate edema involving the superi or aspect of the T12 vertebral body. No other bone marrow signal abnormality elsewhere, except for be nign hemangiomas of bone at both the T12 and L1 vertebral bodies (venous malformations of bone). Conu s medullaris terminates at L1. There are disc bulges indenting the ventral aspect of the spinal canal at all levels, with the exception of L3-4. There is mild disc space narrowing at several levels. The disc space narrowing at L4-5 is mild to moderate, with diffuse disc bulge causing mild central spina l canal stenosis at that level. There is no significant central spinal canal stenosis at any other le azam. There is no significant neural foraminal stenosis at other level. The cauda equina is arranged i n a symmetrical, normal distribution throughout the thecal sac. There is mild anterior wedge compress ion deformity with mild loss of height of the L2 vertebral body with no bone marrow edema. IMPRESSION: 1) acute or subacute mild burst fracture of T12, with mild loss of height and mild bony retropulsion. 2) no cord impingement, nerve root impingement, high-grade central spinal canal stenosis, or high-gra de neural foraminal stenosis, at any level. 3) lumbar spondylosis, with multilevel mild and mild to moderate degenerative disc changes at several levels. 4) old compression fracture deformity of L2.
[2018-11-26 20:42] LABS: #Eosinphils 0.2 thou/uL (0.0-0.7); #Lymphocytes 1.9 thou/uL (1.20-3.40); #Monocytes 1.1 thou/uL (0.11-0.59); #Neutrophils 6.7 thou/uL (1.40-6.50); %Basophils 0.2 % (0.0-1.0); %Eosinophils 2.1 % (0.0-10.0); %Lymphocytes 18.8 % (21.0-51.0); %Monocytes 10.9 % (0.0-10.0); %Neutrophils 68.1 % (42.0-75.0); Hemoglobin 13.1 g/dL (12.0-16.0); Mean Corpuscular HGB CONC 32.9 g/dL (32.0-36.0); Mean Corpuscular Hemoglobin 30.5 pg (27.0-31.0); Mean Corpuscular Volume 92.7 fL (78.0-98.0); Mean Platelet Volume 8.8 fL (7.4-10.4); Platelet Count 177 thou/uL (130-400); RBC Distribution Width 14.5 % (11.5-14.5); Red Blood Cell (RBC) Count 4.29 mill/uL (4.20-5.40); White Blood Cell (WBC) Count 9.9 thou/uL (4.8-10.8)
[2018-11-26 20:48] LABS: PTT 44.6 SEC (22.9-36.1); Prothrombin Time 22.6 SEC (12.0-14.7)
[2018-11-26] MEDS ORDERED: Ketorolac Tromethamine 30 MG/ML VIAL ONE (20:49)
[2018-11-26 21:05] LABS: ALT (SGPT) 14 U/L (8-55); AST (SGOT) 10 U/L (5-34); Albumin 3.6 g/dL (3.4-4.8); Alkaline Phosphatase 95 U/L (40-150); Anion Gap 12 mmol/L (10-20); BUN (Urea Nitrogen) 14 mg/dL (9.8-20.1); Bilirubin, Total 0.8 mg/dL (0.2-1.2); Calc. Creatinine Clearance 0 mL/min (70-130); Calcium 9.1 mg/dL (7.8-10.44); Carbon Dioxide 31 mmol/L (23-31); Chloride 103 mmol/L (98-107); Estimated GFR-MDRD 57; Globulin 3.1 g/dL (2.4-3.5); Glucose 148 mg/dL (80-115); Potassium 3.8 mmol/L (3.5-5.1); Protein, Total 6.7 g/dL (6.0-8.3); Sodium 142 mmol/L (136-145)
[2018-11-26 22:34] VITALS: BMI 36.5
[2018-11-26] MEDS ORDERED: Acetaminophen 325 MG TAB PO PRN (22:34)
[2018-11-26] MEDS ORDERED: Ondansetron PF 4 MG/2 ML Vial IVP PRN (22:34)
[2018-11-26] MEDS ORDERED: Ondansetron ODT 4 MG TAB SL PRN (22:34)
[2018-11-26] MEDS ORDERED: Morphine 4 MG/ML VIAL SLOW IVP PRN (22:36)
[2018-11-26] MEDS: Sodium Chloride 0.9% 1,000 ML IV SCH (22:51)
[2018-11-27] MEDS ORDERED: Dextrose 50% Abboject 50 ML SYRINGE IVP PRN (04:26)
[2018-11-27] MEDS ORDERED: HumaLOG 300 UNITS/3 ML VIAL SC PRN (04:26)
[2018-11-27] MEDS ORDERED: Dextrose 5% in Water 1,000 ML IV PRN (04:26)
[2018-11-27] MEDS: HumaLOG 300 UNITS/3 ML VIAL SC PRN ×4 (05:56→20:56)
[2018-11-27] MEDS ORDERED: Docusate 100 MG CAP PO PRN (07:39)
[2018-11-27] MEDS ORDERED: Acetaminophen/Codeine 30-300mg Tablet PO PRN (07:39)
[2018-11-27] MEDS ORDERED: MENTHOL TOP PRN (07:39)
[2018-11-27] MEDS ORDERED: Polyethylene Glycol 3350 17 GM Packet PO PRN (07:39)
[2018-11-27] MEDS ORDERED: Ondansetron ODT 4 MG TAB PO PRN ×2 (07:39→08:02)
[2018-11-27] MEDS ORDERED: diphenhydrAMINE 25 MG CAP PO PRN (07:39)
[2018-11-27] MEDS ORDERED: Non-Formulary Item 1 EACH (Acetaminophen [Tylenol] 2 TAB) PO PRN (07:39)
[2018-11-27] MEDS ORDERED: Acetaminophen 325 MG TAB PO PRN (08:01)
[2018-11-27] MEDS ORDERED: BIOFREEZE 4% TOP PRN (08:08)
[2018-11-27] MEDS ORDERED: Non-Formulary Item 1 EACH (Fluticasone/Vilanterol [Breo Ellipta] 1 PUFF) INH SCH (09:00)
[2018-11-27] MEDS: Digoxin 0.125 MG TAB PO SCH (09:00)
[2018-11-27] MEDS ORDERED: CEPHALEXIN 500 MG PO SCH (09:00)
[2018-11-27] MEDS ORDERED: Furosemide 40 MG TAB PO SCH (09:00)
[2018-11-27] MEDS ORDERED: Levothyroxine Sodium 75 MCG TAB PO SCH (09:00)
[2018-11-27] MEDS ORDERED: Non-Formulary Item 1 EACH (Linagliptin [Tradjenta] 5 MG) PO SCH (09:00)
[2018-11-27] MEDS: Cephalexin 250 MG CAP PO SCH ×4 (09:02→20:54)
[2018-11-27] MEDS: Atorvastatin Calcium 10 MG TAB PO SCH (09:02)
[2018-11-27] MEDS: Furosemide 80 MG TAB PO SCH ×2 (09:02→13:28)
[2018-11-27] MEDS: Metoprolol Tartrate 50 MG TAB PO SCH ×2 (09:02→21:04)
[2018-11-27] MEDS: Lubiprostone 24 MCG CAP PO SCH ×2 (09:02→20:54)
[2018-11-27] MEDS: Alogliptin 25 MG TAB PO SCH (09:02)
[2018-11-27] MEDS: Potassium Chloride 20 MEQ TAB PO SCH ×2 (09:03→20:53)
[2018-11-27] MEDS: Aspirin 81 mg Enteric Coated Tablet PO SCH (09:03)
[2018-11-27] MEDS: Sodium Chloride 0.9% 1,000 ML IV SCH (09:05)
[2018-11-27] MEDS: Insulin Glargine 18 UNITS in Pre-Filled Syringe 1 EACH SC SCH ×2 (09:06→20:55)
--- NOTE | 2018-11-27 13:42 | HP ---
CHIEF COMPLAIN: Back pain, status post fall. HISTORY OF PRESENT ILLNESS: The patient is a 63-[facility]-old [facility] patient from [place], who fell at the [facility] 4 days ago and started complaining about some back pain, which is located in the lower back. She is a very poor historian. She is telling me that she did not have any bowel movement for the last 4 days since she fell and she did not have any appetite and she is not eating and not drinking much. She was brought to the emergency room in [place] and she was sent to the emergency room of [facility] in [place] for MRI of her lower back. She was found to have fracture and for pain management and orthopedic consultation, she is admitted to the hospital. Her other medical problems are stable at this point. PAST MEDICAL HISTORY: Positive for, 1. Chronic atrial fibrillation. 2. Chronic diastolic heart failure. 3. Insulin-dependent diabetes mellitus, type 2. 4. Hypertension. 5. Hyperlipidemia. 6. Chronic kidney disease, stage 3. 7. Chronic COPD. 8. Asthma. 9. Valvular abnormality probably secondary to rheumatic fever. 10. Obesity. 11. Mental retardation. 12. Hypothyroidism. 13. Bipolar disorder. 14. Depression. PAST SURGICAL HISTORY: 1. Mitral valvuloplasty in 2013 in [place]. 2. Atrial fibrillation and ablation in November 2013. 3. Left wrist repair. 4. Cataract surgery. 5. LINQ placement in July 2018. FAMILY HISTORY: Positive for CHF, diabetes, and PAD in the patient's mother. SOCIAL HISTORY: She used to smoke, quit a year ago. She does not use any alcohol or illicit drugs. [facility]. ALLERGIES: TOMATO. NO DRUG ALLERGIES. HOME MEDICATIONS: She is on a very long list of [facility] medications. Please refer to the list. REVIEW OF SYSTEMS: Twelve-point review of systems was reviewed and the patient uses a walker. She had some chronic joint pain prior to this fall. She is on O2 at 3 L by nasal cannula for COPD on and off. She is incontinent of the urine, but not to stool. PHYSICAL EXAMINATION: VITAL SIGNS: Blood pressure is 93/66, pulse is 90, temperature is 98, respirations 16, and O2 saturation is 96% on 2.5 L by nasal cannula. GENERAL: She is obese. Her BMI is 36.5. She is slow to response verbally. She is a very poor historian. HEENT: Head is atraumatic and normocephalic. Sclerae are nonicteric. Oral mucosa is moist. NECK: Supple. LUNGS: Clear. HEART: S1 and S2 normal. Irregularly irregular. No S3. No S4. ABDOMEN: Obese, soft, and nontender. EXTREMITIES: No clubbing or cyanosis. There is 1+ peripheral edema similar bilaterally on both lower extremities. There is a venous stasis ulceration of the right chin laterally and anteriorly. NEUROLOGICAL: She is able to follow my commands. She moves her all 4 extremities. When she moves her lower extremities, she has pain in the back. She has normal sensation in lower extremities. Her Babinski signs are negative bilaterally. She does not appear to be in any motor deficits. LABORATORY DATA: Normal CBC. Normal chemistry. Glucose is 148. INR 2.0. PT 22.6 and APTT 44.6. The rest of chemistry within normal limits. IMAGING DATA: Lumbar spine MRI and thoracic spine MRI showed acute or subacute mild burst fracture of T12 with mild loss of height and mild bony retropulsion. No cord impingement, nerve root impingement, high-grade central spinal canal stenosis or high-grade neural foraminal stenosis at any level. She has lumbar spondylosis with multiple [id number] degenerative disk changes at several levels. Also, she has old compression fracture deformity of L2. IMPRESSION: 1. Intractable pain in the lower back is secondary to a fracture of T12 per MRI acute or subacute mild burst fracture with mild loss of height and mild bony retropulsion. This is status post fall. 2. Old L2 fracture. 3. Chronic atrial fibrillation, on Coumadin. 4. Chronic diastolic heart failure, on diuretics. 5. Insulin-dependent type 2 diabetes, on insulin. 6. Hypertension. 7. Hyperlipidemia. 8. Chronic kidney disease, stage 3. 9. Chronic obstructive pulmonary disease. 10. Asthma. 11. Mental retardation. 12. Hypothyroidism. 13. Bipolar disorder. 14. Depression. PLAN: Admission to observation. Condition is fair. Activity, bedrest. Pain management with morphine and p.o. opioids. Continue her [facility] medications. PT. Orthopedic consultation. Job ID: [id number]
[2018-11-27] MEDS ORDERED: Warfarin Sodium 2 MG TAB PO SCH (17:00)
[2018-11-27] MEDS ORDERED: WARFARIN SODIUM 4 MG PO SCH (17:00)
--- NOTE | 2018-11-27 18:26 | CON ---
DATE OF CONSULTATION: This is Andres Herring PA-C dictating a report for Sung Larose MD. This is a 50-minute initial patient evaluation, in which greater than 50% of the exam was spent counseling and coordinating the patient's care. Remainder of the exam was spent in review of the patient's medical records and formulation of treatment plan. CHIEF COMPLAINT: Status post fall 4 days ago with intractable low back pain. HISTORY OF PRESENT ILLNESS: Ms. Carlson is a 63-year-old female, who is a transfer from [facility] for the above complaints. The patient has multiple comorbidities and resides at a longterm. Apparently, 4 to 5 days ago, she was walking with her walker and fell as she attempted to catch herself. She began to experience significant midline and bilateral paralumbar low back pain. She then presented to the emergency room with leg weakness secondary to back pain. She notes a 4-day history of urinary incontinence. However, review of the patient's medical records notes that this urinary incontinence has actually been longstanding. She has had no reported fecal incontinence. Review of the patient's thoracic and lumbar spine CTs notes a T12 burst fracture. Review of the patient's lumbar spine and thoracic spine MRIs also confirms T12 burst fracture. However, there is not significant edema noted in the T12 vertebrae. This is questionable for even an acute fracture as if there was acute fracture, there would be significant edema at the T12 vertebrae. Regardless, there is no malalignment of this fracture and no compression of central or foraminal stenosis. There is no evidence of acute fracture in the thoracic or lumbar spine. PHYSICAL EXAMINATION: The patient is awake, alert, and appropriate. She complains of back pain. GCS currently is 15. She follows commands equally in the bilateral lower extremities, though her exam is limited somewhat to her back pain. She has full sensation in the bilateral lower extremities. IMPRESSION AND DIAGNOSES: 1. Status post remote fall with T12 burst fracture. 2. Intractable low back pain. PLAN: I have discussed the patient's case and imaging with Dr. Larose. At this time, the patient does not require any type of neurosurgical intervention. In fact, this T12 burst fracture may even be chronic. Nonetheless, we will order a clamshell TLSO brace for the patient to wear anytime she is out of bed to help with pain control. I wish to maximize her pain control and rehab potential as she will likely benefit from ambulation to prevent other comorbidities related to being bed bound. I have discussed this in great detail with the patient and that she does not require neurosurgical intervention and that she must work diligently with therapies to remain mobile. She is in agreement with this plan. Please call with any changes in the patient's neurologic status, otherwise Neurosurgery will sign off. Job ID: [id number]
[2018-11-27] MEDS: Mometasone/Formoterol 120 PUFF INHALER INH SCH (18:41)
[2018-11-27] MEDS: Ezetimibe 10 MG TAB PO SCH (20:53)
[2018-11-27] MEDS: Aripiprazole 15 MG TAB PO SCH (20:54)
[2018-11-27] MEDS: Benztropine 1 MG TAB PO SCH (20:55)
[2018-11-27] MEDS: Cyclobenzaprine 10 MG TAB PO PRN (23:30)
[2018-11-28] MEDS: Levothyroxine Sodium 100 MCG TAB PO SCH (05:59)
[2018-11-28] MEDS: Mometasone/Formoterol 120 PUFF INHALER INH SCH ×2 (06:20→19:49)
[2018-11-28] MEDS: HYDROcodone/Acetaminophen 7.5/325 mg Tablet PO PRN ×3 (06:37→20:58)
[2018-11-28] MEDS: HumaLOG 300 UNITS/3 ML VIAL SC PRN ×3 (06:37→20:57)
[2018-11-28] MEDS: Potassium Chloride 20 MEQ TAB PO SCH ×2 (09:15→20:54)
[2018-11-28] MEDS: Alogliptin 25 MG TAB PO SCH (09:15)
[2018-11-28] MEDS: Cephalexin 250 MG CAP PO SCH ×4 (09:15→20:53)
[2018-11-28] MEDS: Digoxin 0.125 MG TAB PO SCH (09:15)
[2018-11-28] MEDS: Atorvastatin Calcium 10 MG TAB PO SCH (09:15)
[2018-11-28] MEDS: Lubiprostone 24 MCG CAP PO SCH ×2 (09:15→20:54)
[2018-11-28] MEDS: Aspirin 81 mg Enteric Coated Tablet PO SCH (09:15)
[2018-11-28] MEDS: Metoprolol Tartrate 50 MG TAB PO SCH ×2 (09:15→21:31)
[2018-11-28] MEDS: Furosemide 80 MG TAB PO SCH ×2 (09:19→14:14)
[2018-11-28] MEDS: Insulin Glargine 18 UNITS in Pre-Filled Syringe 1 EACH SC SCH (09:19)
[2018-11-28] MEDS: Cyclobenzaprine 10 MG TAB PO PRN (11:14)
--- NOTE | 2018-11-28 16:19 | PRG ---
DATE OF SERVICE: 11/28/2018 SUBJECTIVE: The patient was seen and examined at the bedside. She feels better. The amount of pain was decreased. She was able to participate in PT session. OBJECTIVE: VITAL SIGNS: Blood pressure is 134/81, pulse is 96, respiratory rate is 16, and O2 saturation is 96% on 2 L by nasal cannula. HEENT: Head is atraumatic and normocephalic. Eyes are PERRLA. Sclerae nonicteric. Oral mucosa is moist. NECK: Supple. LUNGS: Breath sounds diminished at both bases. HEART: S1, S2, somewhat irregular. No S3. No S4. ABDOMEN: Obese, soft, nontender. EXTREMITIES: No clubbing, cyanosis, or edema. NEUROLOGIC: She follows my commands. She moves all 4 extremities. There are no any motor deficits. LABORATORY DATA: Labs showed glycemia ranging from 190 to 278. IMPRESSION: 1. Intractable pain in the lower back, secondary to T12 fracture. The patient was seen by orthopedic surgeon who does not recommend any intervention. The patient was giving a TLSO brace. She was able to participate in PT. The pain is under better control today. Most likely, she will be able to be discharged back to her group home tomorrow in the morning after the next session of PT. 2. Chronic atrial fibrillation with controlled ventricular rate. 3. Old L2 fracture. 4. Chronic diastolic heart failure, on diuretics. 5. Insulin-dependent type 2 diabetes mellitus, not very well controlled. 6. Hypertension. 7. Hyperlipidemia. 8. Chronic kidney disease, stage 3. 9. Chronic obstructive pulmonary disease. 10. Asthma. 11. Mental retardation. 12. Hypothyroidism. 13. Bipolar disorder. 14. Depression. PLAN: Plan is to continue her pain management and PT and continue wearing the brace and discharge tomorrow morning after the physical session. Job ID: [id number]
[2018-11-28 16:57] LABS: Bilirubin Negative (Negative); Blood, Urine Negative (Negative); Clarity CLEAR (Clear); Glucose, Urine (Dipstick) Negative (Negative); Leukocyte Negative (Negative); Nitrite Negative (Negative); Protein, Urine (Dipstick) Negative (Neg-Trace); Specific Gravity, Urine 1.013 (1.002-1.036)
[2018-11-28 16:59] LABS: Bacteria/HPF None Seen HPF (None Seen); Hyaline Casts/LPF 0-3 HYALINE CAST LPF (0-3 Hyaline); Pathc Cast-AUWi Flag 0.81 (0-2.49); RBC/HPF 0-3 HPF (0-3); Squamous Epithelial 0-3 HPF (0-3); WBC/HPF 0-3 HPF (0-3)
[2018-11-28] MEDS: Aripiprazole 15 MG TAB PO SCH (20:53)
[2018-11-28] MEDS: Benztropine 1 MG TAB PO SCH (20:53)
[2018-11-28] MEDS: Ezetimibe 10 MG TAB PO SCH (20:54)
[2018-11-28] MEDS ORDERED: Insulin Glargine 22 UNITS in Pre-Filled Syringe SC SCH (21:00)
[2018-11-29] MEDS: Levothyroxine Sodium 100 MCG TAB PO SCH (05:42)
[2018-11-29] MEDS: Mometasone/Formoterol 120 PUFF INHALER INH SCH (07:37)
[2018-11-29] MEDS ORDERED: Insulin Glargine 22 UNITS in Pre-Filled Syringe SC SCH (09:00)
[2018-11-29] MEDS: Potassium Chloride 20 MEQ TAB PO SCH (09:04)
[2018-11-29] MEDS: Cephalexin 250 MG CAP PO SCH ×2 (09:04→15:01)
[2018-11-29] MEDS: Digoxin 0.125 MG TAB PO SCH (09:04)
[2018-11-29] MEDS: Atorvastatin Calcium 10 MG TAB PO SCH (09:05)
[2018-11-29] MEDS: Aspirin 81 mg Enteric Coated Tablet PO SCH (09:05)
[2018-11-29] MEDS: Alogliptin 25 MG TAB PO SCH (09:05)
[2018-11-29] MEDS: Metoprolol Tartrate 50 MG TAB PO SCH (09:05)
[2018-11-29] MEDS: Lubiprostone 24 MCG CAP PO SCH (09:05)
[2018-11-29] MEDS: Furosemide 80 MG TAB PO SCH ×2 (09:05→15:01)
[2018-11-29] MEDS: HumaLOG 300 UNITS/3 ML VIAL SC PRN (12:04)
[2018-11-29 16:20] VITALS: BP 160/75; TEMP 99.7
--- NOTE | 2018-11-30 08:47 | DIS ---
DATE OF ADMISSION: 11/26/2018 DATE OF DISCHARGE: 11/29/2018 ALLERGIES: NO KNOWN DRUG ALLERGIES. POSITIVE FOR TOMATO ALLERGY. CHIEF COMPLAINT: Back pain after suffering a fall 4 days prior to admission. DISCHARGE DIAGNOSES: 1. Back pain secondary to T12 burst fracture, no surgical intervention recommended, back pain resolved with use of TLSO brace. 2. Old L2 fracture. 3. Chronic atrial fibrillation, on anticoagulation with Coumadin. 4. Chronic diastolic congestive heart failure, euvolemic, stable. 5. Insulin-dependent type 2 diabetes mellitus. 6. Hypertension. 7. Hyperlipidemia. 8. Chronic obstructive pulmonary disease, without acute exacerbation, stable. 9. Mental retardation. 10. Bipolar disorder. PROCEDURE PERFORMED: None. LABORATORY RESULTS: Labs on arrival November 26, 2018 showed RBC 4.29, hemoglobin 13.1, hematocrit 39.8, white blood cell count 9.9, platelet count 177. PT 22.6, INR 2.0, PTT 44.6. Sodium 142, potassium 3.8, chloride 103, anion gap is 12, BUN is 14, creatinine 0.98, glucose 148. Liver function enzymes within normal limits. Urinalysis performed on November 28, 2018 was completely negative. IMAGING RESULTS: Thoracic spine of the CT showed acute traumatic mild burst fracture of the T12 vertebra. Lumbar spine CT performed on November 26, 2018 showed acute superior endplate fracture of T12 with minimal retropulsion. No definite acute fracture of the lumbar spine. Degenerative changes noted. Thoracic spine MRI performed November 26, 2018 showed acute or subacute traumatic mild burst fracture of T12 vertebra with mild loss of height and minimal retropulsion. No abnormality of the thoracic spinal cord. Exaggerated kyphosis of lower thoracic spine. MRI of the lumbar spine showed acute or subacute mild burst fracture of T12 with mild loss of height and mild bony retropulsion. No cord impingement, nerve root impingement, high-grade central spinal canal stenosis, or high-grade neuroforaminal stenosis at any level. Lumbar spondylosis and old compression fracture deformity of L2. CONSULTATIONS: Dr. Larose, neurosurgery. VITAL SIGNS: Pulse 80s to low 100s, O2 saturation 96% on room air, respirations 18, the patient is afebrile, blood pressure 100/68. HOSPITAL COURSE: The patient is a pleasant 63-year-old longterm resident with past medical history significant for multiple medical comorbidities including insulin-dependent type 2 diabetes, chronic atrial fibrillation, chronic diastolic heart failure with preserved EF, and a history of cognitive disability, who is a full-time longterm resident in [place]. She lives with her . The patient is a poor historian, but does state that about 4 days prior to her admission, she was trying to help her , and suffered a fall. She stated she tried to catch herself with her walker, but was unsuccessful. Since that time, she had suffered from increasing back pain. She finally presented to the ER for further workup and treatment. Imaging performed included both CTs and MRIs of the thoracic and lumbar spine, with results as outlined above. She was seen in consultation with Dr. Larose, who did not recommend any type of surgical intervention. A TLSO brace was recommended, which significantly relieved the patient's pain. She has been wearing the brace when she has been out of bed. She has successfully walked with PT and done well. She has been able to perform all designated exercises with PT. Upon my interview, the patient has no pain. She denies any other discomfort such as chest pain or shortness of breath. She has had no nausea or vomiting. She is tolerating her diet and has no complaints to me at this time. PHYSICAL EXAMINATION: GENERAL: This is a moderately obese female, resting comfortably in bed, wearing her brace. HEENT: Atraumatic and normocephalic. Mucous membranes are moist. NECK: Supple. No lymphadenopathy. No JVD. No carotid bruits. RESPIRATORY: Regular respiratory rate and pattern. Clear to auscultation bilaterally. No rhonchi, wheezes, or crackles noted. CV: S1 and S2. Irregularly irregular rhythm. No appreciable murmurs, rubs, or gallops. GI: Soft, nontender. Positive bowel sounds. PERIPHERAL VASCULAR: Trace pitting edema bilaterally. +2 DP pulses. EXTREMITIES: Warm and well perfused. MUSCULOSKELETAL: No joint effusion or swelling. NEUROLOGIC: The patient is awake and alert. Cranial nerves 2 through 12 intact. Nonfocal. SKIN: Warm and dry. DISCHARGE CONDITION: Stable. DISCHARGE MEDICATIONS: She will continue her home medication regimen including, 1. Acetaminophen with codeine 300/30 one tablet p.o. q.6 hours p.r.n. 2. Abilify 7.5 mg p.o. at bedtime. 3. Aspirin 81 mg daily. 4. Atorvastatin 10 mg p.o. daily. 5. Cogentin 1 mg tablet p.o. at bedtime. 6. Cephalexin 500 mg capsule one tablet p.o. q.i.d. 7. Flexeril 10 mg tablet p.o. q.6 hours. 8. Benadryl 25 mg p.o. q.6 hours p.r.n. 9. Colace 100 mg capsule p.o. b.i.d. p.r.n. 10. Zetia 10 mg tablet one tablet p.o. at bedtime. 11. Breo inhaler one puff daily. 12. Lasix 80 mg p.o. b.i.d. 13. Humalog 100 units/mL vial 1-4 units subcu a.c. and at bedtime. 14. Ipratropium and albuterol (DuoNeb) q.i.d. p.r.n. 15. Levemir FlexPen 18 units subcu b.i.d. 16. Levothyroxine 100 mcg p.o. daily. 17. Tradjenta 5 mg p.o. q.a.m. 18. Amitiza 24 mcg capsule one capsule p.o. b.i.d. 19. Zofran 1 tablet p.o. q.6 hours p.r.n. 20. Protonix 40 mg tablet one tablet daily. 21. MiraLAX 17 g capsule one tablet daily. 22. K-Dur 20 mEq tablet one tablet p.o. b.i.d. 23. Coumadin 4 mg tablet one tablet p.o. at 1700. 24. Digoxin 0.125 mg tablet one tablet daily. 25. Metoprolol tartrate 50 mg tablet one tablet p.o. b.i.d. DISCHARGE DISPOSITION: [facility] System, where the patient resides. PLAN: The patient will continue physical therapy at her longterm and wear her TLSO brace when she is out of bed. Continue Tylenol and Tylenol with codeine p.r.n. for pain. She will continue her home medications as outlined above. All questions answered to the patient's satisfaction. Care discussed with Dr. Sharma who agrees with the above. Job ID: [id number]
== END 2018-11-29 16:36 ==
LOC: ERS 16:30 → SURG A 22:06
PROVIDERS: ADMIT Internal Medicine; ATTEND Internal Medicine
DX: S22.081A Stable burst fracture of T11-T12 vertebra, initial encounter for closed fracture (principal); I48.2 Chronic atrial fibrillation; I13.0 Hypertensive heart and chronic kidney disease with heart failure and stage 1 through stage 4 chronic kidney disease, or unspecified chronic kidney disease; E11.22 Type 2 diabetes mellitus with diabetic chronic kidney disease; N18.3 Chronic kidney disease, stage 3 (moderate); I50.32 Chronic diastolic (congestive) heart failure; J44.9 Chronic obstructive pulmonary disease, unspecified; E78.5 Hyperlipidemia, unspecified; E66.9 Obesity, unspecified; F79 Unspecified intellectual disabilities; E03.9 Hypothyroidism, unspecified; F31.9 Bipolar disorder, unspecified; Z98.890 Other specified postprocedural states; Z68.36 Body mass index [BMI] 36.0-36.9, adult; Z91.018 Allergy to other foods; Z87.891 Personal history of nicotine dependence; Z79.51 Long term (current) use of inhaled steroids; Z79.82 Long term (current) use of aspirin; Z79.4 Long term (current) use of insulin; Z79.01 Long term (current) use of anticoagulants; Z79.899 Other long term (current) drug therapy; W19.XXXA Unspecified fall, initial encounter
CPT/HCPCS: 72146; 72148; 80053; 81001; 82962 ×3; 85025; 85610; 85730; 94640 ×3; 94760; 96361 ×2; 96374; 96375; 96376 ×2; 97110; 97530 ×2; 99285; G0378 ×2; 36415; 36416; J1825; J1885; J2270

== ENCOUNTER 2018-12-25 13:55 | Outpatient (CLI) | payer MEDICARE, MEDICAID ==
--- NOTE | 2018-12-25 15:08 | RAD ---
LUMBAR SPINE 2 VIEWS: Date: 12/25/18 HISTORY: Pain after fall. COMPARISON: 11/26/18. FINDINGS: Vertical height loss of L2 vertebral body, evidence for compression fracture. Burst-type fracture inv olving T12 with approximately 50% vertical height loss and some retropulsion superiorly. Both of thes e fractures show progressive height loss when compared to CT scan of 11/26/18. Minimal bony demineral ization. IMPRESSION: Fractures of L2 and T12, showing slightly more progressive height loss than on the initial CT. Contin ue short-term follow-up. POS: JULIO
== END 2018-12-25 13:56 | disposition home or self-care (01) ==
LOC: TBSIIMAG 13:55
PROVIDERS: ATTEND Surgery
DX: M54.5 Low back pain (principal); S32.029D Unspecified fracture of second lumbar vertebra, subsequent encounter for fracture with routine healing; S22.089D Unspecified fracture of T11-T12 vertebra, subsequent encounter for fracture with routine healing
CPT/HCPCS: 72100

== ENCOUNTER 2019-02-07 13:23 | Outpatient (CLI) | payer MEDICARE, MEDICAID ==
--- NOTE | 2019-02-07 13:52 | RAD ---
EXAM: XR Lumbar Spine 2 Or 3 View PROVIDED CLINICAL HISTORY: Low back pain. Follow-up evaluation. COMPARISON: 12/25/2018 FINDINGS: There are 5 nonrib-bearing lumbar-type vertebral bodies. The wedge-shaped compression fracture of the T12 vertebral body is again seen and overall stable in degree of height loss and stable mild retropulsion of posterior superior endplate of the vertebral body. However, there has been interval d evelopment of a severe wedge-shaped compression fracture of the T11 vertebral body. There is exaggerated kyphosis centered at the level of the compression fractures of the lower thoracic spine. There is stable mild vertical height loss of the L2 vertebral body. No additional vertebral body fracture is seen. There is no evidence of a subluxation. Vascular calcifications are seen in the abdominal aorta and iliac arteries. IMPRESSION: 1. Interval development of a severe wedge-shaped compression fracture T11 vertebral body with stable degree of height loss involving a mild burst fracture of the T12 vertebral body. 2. Stable degree of height loss involving compression fracture L2 vertebral body. There is question o f slight compression deformity involving the superior endplate of the L3 vertebral body centrally which was also probably present on the prior study but less conspicuous on that exam due to positioni ng.
== END 2019-02-07 13:24 | disposition home or self-care (01) ==
LOC: TBSIIMAG 13:23
PROVIDERS: ATTEND Surgery
DX: M54.5 Low back pain (principal); S22.080A Wedge compression fracture of T11-T12 vertebra, initial encounter for closed fracture; S22.081A Stable burst fracture of T11-T12 vertebra, initial encounter for closed fracture; S32.029A Unspecified fracture of second lumbar vertebra, initial encounter for closed fracture
CPT/HCPCS: 72100

== ENCOUNTER 2019-02-25 13:54 | Observation (INO) | payer MEDICARE, MEDICAID ==
[~2019-02-25 13:54] MED LIST: ISOVUE-370 76%-LOCM 1 ML ONE
[2019-02-25 14:38] LABS: #Basophils 0.1 thou/uL (0.0-0.2); #Eosinphils 0.2 thou/uL (0.0-0.7); #Monocytes 0.8 thou/uL (0.11-0.59); #Neutrophils 4.8 thou/uL (1.40-6.50); %Basophils 0.7 % (0.0-1.0); %Eosinophils 2.5 % (0.0-10.0); %Monocytes 9.9 % (0.0-10.0); %Neutrophils 60.8 % (42.0-75.0); Hemoglobin 12.5 g/dL (12.0-16.0); Mean Corpuscular Hemoglobin 30.2 pg (27.0-31.0); Mean Corpuscular Volume 91.5 fL (78.0-98.0); Mean Platelet Volume 8.2 fL (7.4-10.4); Platelet Count 188 thou/uL (130-400); RBC Distribution Width 15.4 % (11.5-14.5); Red Blood Cell (RBC) Count 4.13 mill/uL (4.20-5.40); White Blood Cell (WBC) Count 7.8 thou/uL (4.8-10.8)
[2019-02-25 14:42] LABS: Base Excess-Venous 2.8 mmol/L (-2.0 to 3.0); Bicarbonate (HCO3v) 29.7 mmol/L (22.0-28.0); CO2 Tension (PvCO2) 54.8 mmHg (40.0-50.0); Calcium, Ionized 1.15 mmol/L (See Comments:); Chloride 103 mmol/L (98-107); Hemoglobin - Calc 12.6 g/dL (12.0-16.0); Potassium 3.9 mmol/L (3.5-5.1); Sodium 139 mmol/L (138-145); T. Carbon Dioxide 31.4 mmol/L (22.0-28.0); vO2 Saturation-calc 70.4 % (60.0-85.0)
[2019-02-25 15:00] LABS: Bilirubin Negative (Negative); Blood, Urine Negative (Negative); Glucose, Urine (Dipstick) Negative (Negative); Leukocyte Negative (Negative); Nitrite Negative (Negative); Protein, Urine (Dipstick) Negative (Neg-Trace)
[2019-02-25 15:01] LABS: Clarity Clear (Clear)
[2019-02-25 15:05] LABS: ALT (SGPT) 16 U/L (8-55); AST (SGOT) 12 U/L (5-34); Albumin 3.3 g/dL (3.4-4.8); Alkaline Phosphatase 122 U/L (40-150); Anion Gap 10 mmol/L (10-20); BUN (Urea Nitrogen) 8 mg/dL (9.8-20.1); Bilirubin, Total 0.6 mg/dL (0.2-1.2); Calc. Creatinine Clearance 0 mL/min (70-130); Calcium 9.2 mg/dL (7.8-10.44); Carbon Dioxide 31 mmol/L (23-31); Chloride 102 mmol/L (98-107); Estimated GFR-MDRD 58; Globulin 3.1 g/dL (2.4-3.5); Glucose 149 mg/dL (80-115); Lipase 18 U/L (8-78); Potassium 3.9 mmol/L (3.5-5.1); Protein, Total 6.4 g/dL (6.0-8.3); Sodium 139 mmol/L (136-145)
--- NOTE | 2019-02-25 16:42 | CT ---
CT THORAX WITH CONTRAST CT ABDOMEN WITH CONTRAST CT PELVIS WITH CONTRAST CT THORACIC SPINE WITH CONTRAST CT LUMBAR SPINE WITH CONTRAST: (Trauma protocol) DATE: 02/25/2019 HISTORY: Trauma to the chest, abdomen, and pelvis TECHNIQUE: IV administration of iodinated contrast media. No oral contrast media. Single phase scans of thorax, abdomen, and pelvis. Sagittal reconstructions of thoracic and lumbar spine. FINDINGS: Thoracic and lumbar spine: Collapse of T11 with approximately 75% loss of height overall and bony retropulsion. Acute fracture l ucencies. Depression of superior endplate of T12 with approximately 50-60% anterior loss of height and bony ret ropulsion. Fracture lucencies. Broad indentation of inferior endplate of L2 of indeterminate age. Broad depression of superior endplate of L3, with mild loss of height and bony retropulsion, of indet erminate age. Diffuse severe osteoporosis. Thorax: Nonspecific mild patchy atelectatic changes at posterior bases of bilateral lower lobes. No large pul monary contusion or consolidation or edema otherwise. No sternal fracture. No thoracic aortic aneurysm or dissection. No pleural effusion or pneumothorax. No mediastinal hematoma or lymphadenopat hy. Abdomen: No abdominal aortic aneurysm or dissection. No renal laceration. No hydronephrosis. lobulations throughout both kidneys. Small hypodense lesion at lower pole lateral cortex, too small to characterize, perhaps a cyst. No major pathology of liver, spleen, or pancreas. Small bilateral adren al nodules, too small to characterize. No free fluid within the abdominal cavity. No retroperitoneal hematoma. Pelvis: No displaced pelvic fracture identified. Normal urinary bladder. No free intrapelvic cavity fluid. No colonic diverticulitis. No small bowel dilation. IMPRESSION: 1) acute, traumatic burst fractures of T12, and severely of T11. 2.) Diffuse, severe osteoporosis. 3) mild compression fractures of superior endplate of L3 and inferior endplate of L2, of indeterminat e age.
[2019-02-25] MEDS ORDERED: Morphine 2 MG/ML SYRINGE ONE ×2 (17:44→19:09)
[2019-02-25] MEDS ORDERED: Ondansetron PF 4 MG/2 ML Vial IVP PRN (19:48)
[2019-02-25] MEDS ORDERED: Ondansetron ODT 4 MG TAB SL PRN (19:48)
[2019-02-25] MEDS ORDERED: HYDROcodone/Acetaminophen 5/325 mg Tablet PO PRN (19:48)
[2019-02-25 21:27] VITALS: BMI 37.5
[2019-02-25] MEDS ORDERED: Senokot S 8.6-50 MG TAB PO PRN (21:54)
[2019-02-25] MEDS ORDERED: HumaLOG 300 UNITS/3 ML VIAL SC PRN (21:56)
[2019-02-25] MEDS ORDERED: Dextrose 50% Abboject 50 ML SYRINGE SLOW IVP PRN (21:56)
[2019-02-25] MEDS ORDERED: Dextrose 5% in Water 1,000 ML IV PRN (21:56)
[2019-02-25] MEDS: HYDROcodone/Acetaminophen 5/325 mg Tablet PO PRN (22:51)
[2019-02-25 23:02] LABS: INR-International Normal Ratio 2.1; Prothrombin Time 23.6 SEC (12.0-14.7)
[2019-02-26] MEDS ORDERED: Docusate 100 MG CAP PO PRN (02:01)
[2019-02-26] MEDS ORDERED: Acetaminophen 325 MG TAB PO PRN (02:01)
[2019-02-26] MEDS ORDERED: diphenhydrAMINE 25 MG CAP PO PRN (02:01)
[2019-02-26] MEDS ORDERED: Polyethylene Glycol 3350 17 GM Packet PO PRN (02:01)
[2019-02-26] MEDS: Cyclobenzaprine 10 MG TAB PO PRN ×3 (03:39→21:03)
--- NOTE | 2019-02-26 05:03 | HP ---
PRIMARY CARE PHYSICIAN: Dr. Felder. CHIEF COMPLAINT: Evaluation of back pain. HISTORY OF PRESENT ILLNESS: Ms. Carlson is a 63-year-old female, who resides at the jail in [place], who states that she re-injured her lower back on this past week. Reports that at the jail, they gave her Tylenol No. 3 every 6 hours, but this was not controlling her pain. She reports that she fell backwards on the toilet seat. She denies hitting her head or any other trauma. She reports that she has been wearing a brace for her back when she attempts to ambulate. On 11/26/2018, she went to the emergency room at [place]. CT scan there showed an acute traumatic burst fracture of T12 vertebrae. She also had findings suggestive of an acute superior endplate fracture of T12 with minimal retropulsion. On this visit, the patient had a CT of the chest, abdomen, and pelvis with contrast, and the impression was an acute traumatic burst fracture T12, which was seen severely at T11. Mild compression fractures of superior endplate of L3, inferior endplate of L2 of indeterminate age. Urine was found to be negative. The patient does take digoxin and the level was checked in the emergency room and shown at 0.6. Labs otherwise were unremarkable, and she did have a blood glucose of 149. The patient was given morphine 2 mg while in the emergency room, which did not control her pain and she was admitted for further management of pain and PT evaluation. It is noted that the neurosurgery PA, Jayme Veras, was consulted and looked at the CT scans and did not believe that the fractures were particularly acute. PAST MEDICAL HISTORY: Positive for chronic atrial fibrillation, chronic diastolic heart failure, insulin-dependent diabetes, hypertension, hyperlipidemia, chronic kidney disease stage 3, chronic COPD, asthma, valvular abnormality, obesity, mental retardation, hypothyroidism, bipolar disorder, depression. PAST SURGICAL HISTORY: Mitral valvuloplasty in 2013 in [place], atrial fibrillation with ablation in 2013, left wrist repair, cataract surgery, LINQ placement in July of 2018. FAMILY HISTORY: Positive for CHF, diabetes, PAD in the patient's mother. SOCIAL HISTORY: She used to smoke, quit over a year ago. Denies any alcohol or drug use. She lives at a jail. ALLERGIES: TOMATO. NO DRUG ALLERGIES. REVIEW OF SYSTEMS: Review of systems are reviewed. She reports that she has been using a walker. Does have a spinal brace, which she uses with ambulation, and has some O2 at the jail which she uses intermittently as needed for COPD exacerbation. She is chronically incontinent of urine, and she reports that there is no change to this since her fall on . PHYSICAL EXAMINATION: VITAL SIGNS: Blood pressure is 135/82, pulse is 98, respirations 18, temp is 97.8. Pain is 8. PO2 sats are 97% on room air. CONSTITUTIONAL: The patient appears nontoxic. She is alert and oriented to person, place, and time. She is in mild pain distress. HEAD: Atraumatic and normocephalic. EYES: Eyelids are normal to inspection. Pupils are equally round and reactive to light. ENT: Mouth exam is normal. Mucous membranes are moist. NECK: Trachea is midline. RESPIRATORY/CHEST: Breath sounds are clear. Chest expansion is equal. CARDIOVASCULAR: Regular rate and rhythm. Heart sounds are normal. ABDOMEN: Nontender. Bowel sounds are heard. BACK: Painful to palpation midline lumbar spine. She has no CVA tenderness. EXTREMITIES: Upper extremity inspection is normal, range of motion is normal. Radial pulses equal bilaterally. Lower extremity inspection is normal, range of motion is normal. Sensation is intact. Pedal pulses equal bilaterally. NEUROLOGIC: The patient is oriented to person, place, and time. Speech is normal. No focal or sensory deficits are noted. She does move all extremities. SKIN: Warm, dry, normal in color. PSYCHIATRIC: Normal affect. ASSESSMENT AND PLAN: 1. T11, 75% loss of height, bony retropulsion. T12, approximately 50% to 60% depression of superior endplate. Broad indentation of inferior endplate of L2. Broad depression of L3. The patient was actually admitted in November of this year with a burst fracture of T12. Neurosurgery has reviewed the CT scans and believes that current findings are particularly acute. We will ask PT to consult. Pain medications will be ordered. 2. Chronic atrial fibrillation on Coumadin. We will continue to check INRs. 3. Chronic diastolic heart failure on diuretics. 4. Insulin-dependent type 2 diabetes. We will restart insulin. Add Accu-Cheks a.c. and at bedtime. 5. Hypertension. We will restart home medications. 6. Hyperlipidemia. We will start home medications. 7. Chronic kidney disease stage 3. 8. Chronic obstructive pulmonary disease, stable. 9. Asthma. 10. Mental retardation. 11. Hypothyroidism. We will restart home medications. 12. Bipolar disorder. We will restart home medications. 13. Depression. Restart home medication. 14. Condition is fair. 15. We may need to discuss inpatient rehab depending on PT findings and recommendations. 16. Plan discussed with Dr. Wilson, who agrees. 17. Deep venous thrombosis prophylaxis is not needed due to patient being on Coumadin. Gastrointestinal prophylaxis has been started. 18. Hospital course will dependent on clinical findings. Job ID: [id number]
[2019-02-26] MEDS: HYDROcodone/Acetaminophen 5/325 mg Tablet PO PRN ×2 (05:24→21:02)
[2019-02-26] MEDS: Levothyroxine Sodium 100 MCG TAB PO SCH (05:24)
[2019-02-26 05:39] LABS: INR-International Normal Ratio 1.9
[2019-02-26 05:43] LABS: #Eosinphils 0.2 thou/uL (0.0-0.7); #Lymphocytes 1.8 thou/uL (1.20-3.40); #Monocytes 0.7 thou/uL (0.11-0.59); #Neutrophils 4.8 thou/uL (1.40-6.50); %Basophils 0.2 % (0.0-1.0); %Eosinophils 3.1 % (0.0-10.0); %Lymphocytes 24.1 % (21.0-51.0); %Monocytes 9.4 % (0.0-10.0); %Neutrophils 63.1 % (42.0-75.0); Hemoglobin 11.9 g/dL (12.0-16.0); Mean Corpuscular HGB CONC 32.2 g/dL (32.0-36.0); Mean Corpuscular Hemoglobin 29.5 pg (27.0-31.0); Mean Corpuscular Volume 91.7 fL (78.0-98.0); Mean Platelet Volume 8.9 fL (7.4-10.4); Platelet Count 173 thou/uL (130-400); RBC Distribution Width 15.5 % (11.5-14.5); Red Blood Cell (RBC) Count 4.03 mill/uL (4.20-5.40); White Blood Cell (WBC) Count 7.6 thou/uL (4.8-10.8)
[2019-02-26 05:57] LABS: ALT (SGPT) 14 U/L (8-55); AST (SGOT) 9 U/L (5-34); Albumin 3.3 g/dL (3.4-4.8); Alkaline Phosphatase 115 U/L (40-150); Anion Gap 11 mmol/L (10-20); BUN (Urea Nitrogen) 10 mg/dL (9.8-20.1); Bilirubin, Total 0.6 mg/dL (0.2-1.2); Calc. Creatinine Clearance 106 mL/min (70-130); Calcium 9.2 mg/dL (7.8-10.44); Carbon Dioxide 29 mmol/L (23-31); Chloride 102 mmol/L (98-107); Estimated GFR-MDRD 61; Globulin 2.9 g/dL (2.4-3.5); Glucose 147 mg/dL (80-115); Potassium 3.7 mmol/L (3.5-5.1); Protein, Total 6.2 g/dL (6.0-8.3); Sodium 138 mmol/L (136-145)
[2019-02-26] MEDS: HumaLOG 300 UNITS/3 ML VIAL SC PRN ×3 (06:10→17:03)
[2019-02-26] MEDS: Mometasone/Formoterol 120 PUFF INHALER INH SCH ×2 (07:17→21:17)
[2019-02-26] MEDS: Digoxin 0.125 MG TAB PO SCH (08:12)
[2019-02-26] MEDS: Insulin Glargine 18 UNITS in Pre-Filled Syringe 1 EACH SC SCH ×2 (08:15→21:05)
[2019-02-26] MEDS: Potassium Chloride 20 MEQ TAB PO SCH ×2 (08:15→16:50)
[2019-02-26] MEDS: Metoprolol Tartrate 50 MG TAB PO SCH ×2 (08:15→21:02)
[2019-02-26] MEDS: Furosemide 40 MG TAB PO SCH ×2 (08:15→14:37)
[2019-02-26] MEDS: Lubiprostone 24 MCG CAP PO SCH ×2 (08:15→21:02)
[2019-02-26] MEDS: Aspirin 81 mg Enteric Coated Tablet PO SCH (08:15)
[2019-02-26] MEDS: Atorvastatin Calcium 10 MG TAB PO SCH (08:15)
[2019-02-26] MEDS: Famotidine 20 MG TAB PO SCH ×2 (08:16→21:02)
[2019-02-26] MEDS ORDERED: LEVEMIR 18 UNIT SC SCH (09:00)
[2019-02-26] MEDS: Calcium Carbonate + Vit D 1 TAB PO SCH (16:50)
[2019-02-26] MEDS ORDERED: Warfarin Sodium 2 MG TAB PO SCH (17:00)
[2019-02-26] MEDS ORDERED: HYDROcodone/Acetaminophen 5/325 mg Tablet PO PRN (18:01)
--- NOTE | 2019-02-26 18:25 | PRG ---
DATE OF SERVICE: 02/26/2019 SUBJECTIVE: A 63-year-old female with recent traumatic burst fracture of T12 vertebra, currently residing at [facility] facility, presented to the hospital with intractable back pain. She also had a recent fall at the nursing facility per the patient report. The pain is still uncontrolled. It is 10/10. No bladder or bowel incontinence reported. The pain is localized to the back without any radiation. No fever, chills, focal neurologic deficit reported. REVIEW OF SYSTEMS: All other review of systems was reviewed and were found negative. PHYSICAL EXAMINATION: VITAL SIGNS: Temperature 98.3, pulse 90, respiration of 16, blood pressure 124/82, and O2 saturation 95% on room air. GENERAL: A 63-year-old female in distress due to intractable back pain. HEENT: Head, atraumatic and normocephalic. Sclerae anicteric. Moist mucous membranes. No oral lesion. NECK: Supple. No JVD. No carotid bruit. LUNGS: Clear to auscultation bilaterally. No wheezing, rales, rhonchi. HEART: S1 and S2 present. Regular rate and rhythm. No rubs or gallops appreciated. ABDOMEN: Soft and nontender. Bowel sounds present. No rebound or guarding. EXTREMITIES: No edema or calf tenderness. NEUROLOGY: Cranial nerves 2 through 12 are normal on examination. Power was 5/5 in all extremities. Exam was limited due to intractable low back pain. The back pain gets worse on slight movement of bilateral lower extremity actively or passively. Sensation to touch was normal bilaterally. DIAGNOSTIC TESTS: CT scan of the thorax, abdomen, and pelvis along with thoracic spine and lumbar spine with contrast showed acute traumatic burst fracture of T12 and severely of T11 with diffuse severe osteoporosis. There was also mild compression fractures of the superior endplate of L3 and inferior endplate of L2 of indeterminate age. LABORATORY DATA: INR 1.9. WBC 7.6 with hemoglobin 11.9. BUN 10 and creatinine 0.93. Digoxin level was 0.6. Urinalysis was negative. IMPRESSION: 1. Intractable low back pain secondary to lumbar compression fractures. 2. Chronic atrial fibrillation, on anticoagulation. INR slightly subtherapeutic. 3. Chronic diastolic heart failure, compensated. 4. Diabetes mellitus type 2. 5. Hypertension. 6. Hyperlipidemia. 7. Chronic obstructive pulmonary disease. 8. Chronic kidney disease, stage 3. 9. Mild mental retardation. 10. Mild intermittent asthma. 11. Bipolar disorder. 12. Depression, mild, stable. 13. Hypothyroidism. 14. Dementia. MEDICATIONS: Current medications were reviewed. The patient is on all of her home medications including; 1. Lantus. 2. Abilify. 3. Aspirin. 4. Warfarin. 5. Digoxin. 6. Lasix. 7. Metoprolol. 8. Protonix. 9. Potassium supplementation. PLAN: Neurosurgery has been consulted. We will continue Tye for pain. Continue bowel regimen. Continue TLSO brace while ambulating. Recheck PT/INR in a.m. Continue current medications. Physical Therapy consultation. Consult returned case inspector for discharge planning. Probably discharge later today or in a.m. once cleared by Neurosurgery. Job ID: [id number]
[2019-02-26] MEDS ORDERED: Aripiprazole 15 MG TAB PO SCH (21:00)
[2019-02-26] MEDS ORDERED: Benztropine 1 MG TAB PO SCH (21:00)
[2019-02-26] MEDS ORDERED: Ezetimibe 10 MG TAB PO SCH (21:00)
[2019-02-26] MEDS: Senokot S 8.6-50 MG TAB PO SCH (21:01)
[2019-02-27 05:32] LABS: INR-International Normal Ratio 1.9; Prothrombin Time 21.5 SEC (12.0-14.7)
[2019-02-27] MEDS: Levothyroxine Sodium 100 MCG TAB PO SCH (05:44)
[2019-02-27] MEDS: Mometasone/Formoterol 120 PUFF INHALER INH SCH (06:27)
[2019-02-27] MEDS: Furosemide 40 MG TAB PO SCH ×2 (08:49→14:22)
[2019-02-27] MEDS: Digoxin 0.125 MG TAB PO SCH (08:49)
[2019-02-27] MEDS: Lubiprostone 24 MCG CAP PO SCH (08:49)
[2019-02-27] MEDS: Famotidine 20 MG TAB PO SCH (08:49)
[2019-02-27] MEDS: Potassium Chloride 20 MEQ TAB PO SCH (08:49)
[2019-02-27] MEDS: Aspirin 81 mg Enteric Coated Tablet PO SCH (08:49)
[2019-02-27] MEDS: Senokot S 8.6-50 MG TAB PO SCH (08:49)
[2019-02-27] MEDS: Calcium Carbonate + Vit D 1 TAB PO SCH (08:50)
[2019-02-27] MEDS: Metoprolol Tartrate 50 MG TAB PO SCH (08:50)
[2019-02-27] MEDS: Atorvastatin Calcium 10 MG TAB PO SCH (08:50)
[2019-02-27] MEDS: Insulin Glargine 18 UNITS in Pre-Filled Syringe 1 EACH SC SCH (08:50)
[2019-02-27] MEDS ORDERED: Polyethylene Glycol 3350 17 GM Packet PO SCH (09:00)
[2019-02-27] MEDS ORDERED: Multivit, Therapeutic 1 TAB PO SCH (09:00)
[2019-02-27] MEDS: HumaLOG 300 UNITS/3 ML VIAL SC PRN (11:24)
--- NOTE | 2019-02-27 12:12 | CON ---
DATE OF CONSULTATION: This is Andres Herring PA-C dictating a report for Sung Larose MD. TIME SPENT: This is a 50-minute initial patient evaluation of which greater than 50% of the exam was spent counseling and coordinating the patient's care. Remainder of the exam was spent in review of the patient's medical records and formulation of treatment plan. CHIEF COMPLAINT: Increased low back pain after fall. HISTORY OF PRESENT ILLNESS: Ms. Carlson is a 63-year-old female, who resides at a detention, of which Dr. Larose and I are following her for multiple thoracic and lumbar burst and compression fractures on an outpatient setting. Apparently on , the patient had a fall backwards onto a toilet seat, which increased low back pain and prompted her to be seen at [facility]. CT scan of the chest, abdomen, and pelvis was completed and compared to her x-rays done on 02/07, has had some progression of perhaps the T12 burst fracture and progression of L3 burst fracture. There does not appear to be any type of central canal compromise of the fractures. The vertebra plana T11 appears to be stable compared to again her x-rays from 02/07. The patient complains of low back pain with any type of weightbearing and right hip and groin, anterior thigh, and morel pain again with weightbearing. She states this began on . She does have a well-fitting clamshell TLSO brace in the room, but she is not wearing this. She says she does not like wearing it because it makes her sweat. PAST MEDICAL HISTORY: Her past medical history is pertinent for atrial fibrillation on 81 mg aspirin and warfarin, and she has significant osteoporosis due to long-term steroid use. PHYSICAL EXAMINATION: GENERAL: The patient is awake, alert, and appropriate. EXTREMITIES: She appears to be comfortable when she is not moving. When asked to move the right lower extremity, which I believe is secondary to pain. She has weakness in multiple myotomes of the right lower extremity. She with significant encouragement has good strength in the left lower extremity with intact sensation in bilateral lower extremities to light touch. IMPRESSION AND DIAGNOSIS: 1. Status post fall from a seated position with progressive T12 and L3 burst fractures. 2. Osteoporosis. 3. Atrial fibrillation on dual antiplatelet therapy. PLAN: I have discussed the patient's case and imaging with Dr. Larose. At this time, the patient remains a poor surgical candidate. Dr. Larose has been in touch with Pain Management in regard to the possibility of vertebroplasty to help with the patient's pain. I do believe that the patient's pain should improve as her fractures continue to heal and rehab especially in the inpatient setting will benefit the patient. Again, we will be in touch with the end user support specialist, but I would like the patient to wear a clamshell TLSO brace anytime she is out of bed. She may have an irritated nerve root on the right causing her lower extremity symptoms. However again, she is not a good surgical candidate. There does not appear to be significant neural foraminal stenosis at the L3-L4 level. Please call with any changes in the patient's neurologic status. Otherwise, we will intermittently follow the patient. Job ID: [id number]
[2019-02-27] MEDS: HYDROcodone/Acetaminophen 5/325 mg Tablet PO PRN (12:16)
[2019-02-27] MEDS: Cyclobenzaprine 10 MG TAB PO PRN (12:16)
[2019-02-27 15:24] VITALS: BP 144/82; TEMP 98.2
--- NOTE | 2019-02-28 22:39 | DIS ---
DATE OF ADMISSION: 02/25/2019 DATE OF DISCHARGE: 02/27/2019 DISCHARGE DISPOSITION: Back to [facility]. The patient was seen and examined on the day of discharge. Denies any new complaints. Pain somewhat better controlled. INPATIENT CENTRAL SUPPLY CLERK: 1. Neurosurgery, Dr. Larose. 2. Acute Pain Management, Dr. Medellin's group. DISCHARGE MEDICATION: Fentanyl patch 12 mcg every 72 hours. All other home medications were left unchanged. BRIEF HOSPITAL COURSE: The patient is a 63-year-old female with recent traumatic burst fracture of T12 vertebra, currently residing at [facility], presented to the hospital with intractable back pain. She had a recent fall at the nursing facility per the patient's report. Please refer to the history and physical for further details. The patient was admitted to the surgical floor with a diagnosis of intractable back pain. The patient was evaluated by Neurosurgery as well as Acute Pain Management. She was advised to follow up with Pain Management for possible kyphoplasty. This procedure could not be done during this admission due to Coumadin. She has been started on fentanyl patch. She will continue Tylenol No.3 for breakthrough pain. The patient has been cleared by Neurosurgery for discharge. She will continue TLSO brace. FINAL DIAGNOSES: 1. Intractable low back pain secondary to lumbar compression fractures. 2. Chronic atrial fibrillation, on anticoagulation. 3. Chronic diastolic heart failure. 4. Hypertension. 5. Hyperlipidemia. 6. Diabetes mellitus type 2. 7. Chronic obstructive pulmonary disease. 8. Chronic kidney disease stage 3. 9. Mild mental retardation. 10. Mild intermittent asthma. 11. Depression, mild, stable. 12. Bipolar disorder. 13. Dementia. 14. Hypothyroidism. 15. Osteoporosis. FOLLOWUP: The patient will follow up with Dr. Medellin's group as outpatient for kyphoplasty. PLAN: Plan was discussed with the patient in detail. She stated understanding. Job ID: [id number]
== END 2019-02-27 15:26 ==
LOC: ERS 13:54 → SURG A 17:45
PROVIDERS: ADMIT Internal Medicine; ATTEND Internal Medicine
DX: M80.08XA Age-related osteoporosis with current pathological fracture, vertebra(e), initial encounter for fracture (principal); S22.081A Stable burst fracture of T11-T12 vertebra, initial encounter for closed fracture; I13.0 Hypertensive heart and chronic kidney disease with heart failure and stage 1 through stage 4 chronic kidney disease, or unspecified chronic kidney disease; E11.22 Type 2 diabetes mellitus with diabetic chronic kidney disease; N18.3 Chronic kidney disease, stage 3 (moderate); I50.32 Chronic diastolic (congestive) heart failure; E78.5 Hyperlipidemia, unspecified; I48.2 Chronic atrial fibrillation; J44.9 Chronic obstructive pulmonary disease, unspecified; J45.20 Mild intermittent asthma, uncomplicated; F70 Mild intellectual disabilities; F32.9 Major depressive disorder, single episode, unspecified; F03.90 Unspecified dementia, unspecified severity, without behavioral disturbance, psychotic disturbance, mood disturbance, and anxiety; E03.9 Hypothyroidism, unspecified; E66.9 Obesity, unspecified; Z68.37 Body mass index [BMI] 37.0-37.9, adult; Z87.891 Personal history of nicotine dependence; Z79.4 Long term (current) use of insulin; Z79.82 Long term (current) use of aspirin; Z79.899 Other long term (current) drug therapy
CPT/HCPCS: 71260; 74177; 80053 ×2; 80162; 81003; 82330; 82435; 82803; 82962 ×3; 83605; 83690; 84132; 84295; 84484; 85014; 85025 ×2; 85610 ×3; 87086; 93005; 94640 ×2; 94760; 96374; 96376; 97110; 97139; 99285; G0378 ×2; 36415; 36416; J1815; J2270; Q9966

== ENCOUNTER 2019-03-01 13:38 | Emergency (ER) | payer MEDICARE, MEDICAID ==
[2019-03-01 14:10] LABS: #Basophils 0.1 thou/uL (0.0-0.2); #Eosinphils 0.3 thou/uL (0.0-0.7); #Lymphocytes 2.1 thou/uL (1.20-3.40); #Monocytes 0.7 thou/uL (0.11-0.59); #Neutrophils 3.7 thou/uL (1.40-6.50); %Basophils 0.8 % (0.0-1.0); %Eosinophils 4.6 % (0.0-10.0); %Lymphocytes 30.4 % (21.0-51.0); %Neutrophils 54.2 % (42.0-75.0); Hemoglobin 12.2 g/dL (12.0-16.0); Mean Corpuscular HGB CONC 32.2 g/dL (32.0-36.0); Mean Corpuscular Hemoglobin 29.6 pg (27.0-31.0); Mean Corpuscular Volume 91.9 fL (78.0-98.0); Mean Platelet Volume 8.5 fL (7.4-10.4); Platelet Count 176 thou/uL (130-400); RBC Distribution Width 15.3 % (11.5-14.5); Red Blood Cell (RBC) Count 4.11 mill/uL (4.20-5.40); White Blood Cell (WBC) Count 6.9 thou/uL (4.8-10.8)
[2019-03-01 14:32] LABS: ALT (SGPT) 11 U/L (8-55); AST (SGOT) 11 U/L (5-34); Albumin 3.3 g/dL (3.4-4.8); Alkaline Phosphatase 113 U/L (40-150); Anion Gap 11 mmol/L (10-20); BUN (Urea Nitrogen) 12 mg/dL (9.8-20.1); Bilirubin, Total 0.6 mg/dL (0.2-1.2); Calc. Creatinine Clearance 0 mL/min (70-130); Calcium 9.2 mg/dL (7.8-10.44); Carbon Dioxide 31 mmol/L (23-31); Chloride 103 mmol/L (98-107); Estimated GFR-MDRD 67; Globulin 3.2 g/dL (2.4-3.5); Glucose 109 mg/dL (80-115); Potassium 4.1 mmol/L (3.5-5.1); Protein, Total 6.5 g/dL (6.0-8.3); Sodium 141 mmol/L (136-145)
--- NOTE | 2019-03-01 15:37 | RAD ---
SINGLE VIEW CHEST: Date: )03/01/19 COMPARISON: 11/26/18. HISTORY: Congestive heart failure with edema. FINDINGS: Single view of the chest shows an enlarged but stable cardiomediastinal silhouette. A school lunch monitor device projects over the left chest wall. There is no evidence of consolidation, mass, or pleural ef fusion. IMPRESSION: No evidence of acute cardiopulmonary disease. POS: [facility]
[2019-03-01 16:01] LABS: Bilirubin Negative (Negative); Blood, Urine Negative (Negative); Glucose, Urine (Dipstick) Negative (Negative); Leukocyte Trace (Negative); Nitrite Negative (Negative); Protein, Urine (Dipstick) Negative (Neg-Trace)
[2019-03-01 16:05] LABS: Clarity Hazy (Clear)
[2019-03-01 16:13] LABS: Bacteria/HPF 2+ HPF (None Seen); RBC/HPF None Seen HPF (0-3); WBC/HPF 0-3 HPF (0-3)
--- NOTE | 2019-03-01 18:31 | ULT ---
BILATERAL LOWER EXTREMITY VENOUS ULTRASOUND 03/01/19 COMPARISON: None. HISTORY: Bilateral lower extremity edema. TECHNIQUE: Multiplanar bella scale and color Doppler images were obtained in a bilateral extremity venous ultraso und. Spectral analysis of the Doppler waveforms were performed. FINDINGS: This exam is limited secondary to the patient's body habitus. The bilateral common femoral veins and profunda femoral veins demonstrate normal compression and flow without evidence of thrombus. The supe rficial femoral veins demonstrate normal flow but incomplete compression. This may be secondary to dameon coleman's body habitus but nonocclusive thrombus cannot be excluded bilaterally. The popliteal veins are normal in appearance without visible thrombus and demonstrate normal compress ion, flow and augmentation. The posterior tibial veins cannot be seen on either side. IMPRESSION: Incomplete compression of the superficial femoral veins. This may be secondary to lack of compressibi lity secondary to patient's body habitus and the patient not allowing the technologist to adequately compress secondary to pain. However, nonocclusive thrombi within the superficial femoral veins cannot be excluded. POS: [facility]
[2019-03-01 19:21] LABS: Troponin I Less than 0.010 ng/mL (< 0.028)
[2019-03-01] MEDS ORDERED: HYDROcodone/Acetaminophen 10/325 mg Tablet ONE (21:54)
== END 2019-03-01 22:03 | disposition home or self-care (01) ==
LOC: ERS 13:38
DX: M79.89 Other specified soft tissue disorders (principal); R60.0 Localized edema; E78.5 Hyperlipidemia, unspecified; E03.9 Hypothyroidism, unspecified; K21.9 Gastro-esophageal reflux disease without esophagitis; I48.91 Unspecified atrial fibrillation; E11.9 Type 2 diabetes mellitus without complications; I11.0 Hypertensive heart disease with heart failure; I50.9 Heart failure, unspecified; J44.9 Chronic obstructive pulmonary disease, unspecified; F25.9 Schizoaffective disorder, unspecified; F31.9 Bipolar disorder, unspecified; Z87.891 Personal history of nicotine dependence; Z79.4 Long term (current) use of insulin; Z79.899 Other long term (current) drug therapy; Z79.82 Long term (current) use of aspirin; Z79.01 Long term (current) use of anticoagulants
CPT/HCPCS: 36415; 51701; 71045; 80053; 81003; 81015; 83605; 83880; 84484; 85025; 93970; 94760; 96360; 96361

== ENCOUNTER 2019-04-12 10:11 | Outpatient (CLI) | payer MEDICARE, MEDICAID ==
--- NOTE | 2019-04-12 16:26 | BD ---
DEXA BONE DENSITY SCAN: Date: 04/12/19 COMPARISON: 01/22/13. HISTORY: Postmenopausal female undergoing screening for osteoporosis. FINDINGS: Lumbar Spine BMD (g/cm2) L1 0.755 T-Score -2.1 (previous -2.4) L2 0.780 T-Score -2.3 (previous -0.4) L3 0.936 T-Score -1.3 (previous -2.4) L4 0.976 T-Score -0.8 (previous -2.2) L1-L4 0.868 T-Score -1.6 (previous -1.9) Femoral Neck 0.676 T-Score -1.6 (previous -1.4) Total Femur 0.916 T-Score -0.2 (previous -0.2) FRAX-WHO fracture risk assessment tool is not reported as the patient is being treated for osteoporos is. IMPRESSION: Osteopenia within the lumbar spine and femoral neck, correlating with a moderately increased risk for fracture. POS: [facility]
== END 2019-04-12 10:12 | disposition home or self-care (01) ==
LOC: BICMAMMO 10:11
PROVIDERS: ATTEND Family Medicine
DX: M81.0 Age-related osteoporosis without current pathological fracture (principal); M85.89 Other specified disorders of bone density and structure, multiple sites; Z79.899 Other long term (current) drug therapy
CPT/HCPCS: 77080

== ENCOUNTER 2019-04-20 09:13 | Outpatient (CLI) | payer MEDICARE, MEDICAID ==
--- NOTE | 2019-04-20 10:31 | MRI ---
THORACIC SPINE MRI WITHOUT CONTRAST: DATE: 04/20/2019. COMPARISON: 11/26/2018. HISTORY: Compression fracture at the thoracolumbar junction. TECHNIQUE: Multiplanar multisequence MR imaging of the thoracic spine obtained without contrast. FINDINGS: As seen on the spine radiographs performed 03/28/2019, there is a burst fracture at the T11 level. This is an acute burst fracture with increased T2 signal and decreased T1 signal throughout the T11 vertebral body. There is an anterior wedge compression fracture of the T12 vertebral body as well. Th ere may be minimal increased T2 signal involving the superior endplate of T12 suggesting a possible mild degree of acute edema. The degree of vertebral body height loss at T12 is estimated in the 30-35 % range, stable when compared to a lumbar spine radiograph performed 02/07/2019. There is severe loss of vertebral body height involving the T11 fracture, approaching vertebra plana, also stable whe n compared to 01/28/2019 exam. No additional acute fractures noted within the thoracic spine. No significant central canal or neural foraminal stenosis is noted at T1-2, T2-3, T3-4, T4-5, T5-6, T 6-7, or T7-8. At the T8-9 level there is disc desiccation, disc space narrowing, and mild disc bulge but no significant central canal or neural foraminal stenosis. At T9-10 there is no significant central canal or neural foraminal stenosis. At T10-11 there is disc space narrowing and disc desiccation. No significant central canal or neural foraminal stenosis is noted. However, secondary to the burst fracture at T11 and associated retropulsion there is moderate central canal stenosis at the T11 level. At the T11-12 level there is disc space narrowing disc desiccation and disc bulge causing a moderate degree of central canal stenosis. At the T11-12 level there is moderate/severe bilateral neural foraminal stenosis, right gre ater than left. At T12-L1 there is disc desiccation with no significant central canal or neural foraminal stenosis. No focal area of abnormal signal intensity is identified within the thoracic cord. Exophytic upper pole left renal cyst noted measuring 1.7 cm. IMPRESSION: There is a burst fracture of T11 with prominent associated vertebral body edema. Retropulsion causes significant central canal stenosis and bilateral neural foraminal stenosis. There is minimal edema involving the superior aspect of the T12 vertebral body which may signify minimal acute component. Ho wever, the degree of vertebral body height loss at T12 is stable. Transcribed Date/Time: 04/20/2019 10:37 AM
--- NOTE | 2019-04-20 11:01 | MRI ---
MRI OF LUMBAR SPINE: DATE: 04/20/2019. COMPARISON: 11/26/2018. HISTORY: Compression fracture at thoracolumbar junction. TECHNIQUE: Multiplanar multisequence MR imaging of the lumbar spine obtained without contrast. FINDINGS: STIR imaging demonstrates extensive osseous marrow edema associated with a burst fracture at the T11 level involving the vertebral body and bilateral pedicles. STIR imaging also demonstrates mild edema involving the T12 vertebral body, particularly the superior endplate, consistent with a degree of acute fracture, worsened since the 11/26/2018 exam. In addition, there is edema on the basis of a new superior endplate burst fracture of L4. On today's examination, the degree of vertebral body heig ht loss involving the T12 vertebral body anteriorly is estimated at 35%, previously in the 10% range. On the basis of 5 lumbar type vertebral bodies, conus medullaris terminates at the L1 level. At the T11 level on the basis of retropulsion there is moderate central canal stenosis. At T11-12 there is moderate/severe bilateral neural foraminal stenosis, right greater than left. Mild retropulsion at T12 causes a mild degree of central canal stenosis. T12-L1: Mild bilateral facet hypertrophy. There is disc space narrowing and disc desiccation with mil d disc bulge. No significant central canal or neural foraminal stenosis. There is mild edema involving the superior endplate of the L1 vertebral body to the left of midline c onsistent with a new mild superior endplate fracture of L1. There is no retropulsion involving the acute L1 fracture. L1-2: Mild bilateral facet hypertrophy and disc desiccation with no significant central canal or neur al foraminal stenosis. L2-3: Mild bilateral facet hypertrophy. There is disc space narrowing and disc desiccation with a sma ll disc osteophyte complex causing no significant central canal or neural foraminal stenosis. L3-4: Mild bilateral facet hypertrophy. There is disc desiccation with no significant central canal o r neural foraminal stenosis. Minimal retropulsion associated with the fracture involving the superior aspect of L4 demonstrates no associated central canal stenosis. L4-5: Disc space narrowing and disc desiccation. No significant central canal or neural foraminal gladys nosis. Bilateral facet hypertrophy. L5-S1: Bilateral facet hypertrophy with no significant central canal or neural foraminal stenosis. Imaged retroperitoneal structures demonstrate a cyst associated with the upper pole of the left kidne y. There is a subtle new superior endplate fracture of the L5 vertebral body centrally with minimal loss of vertebral body height. IMPRESSION: There is edema associated with acute fractures of T11, T12, L1, L4, and L5 as detailed above. There i s also multilevel degenerative change as detailed above. Transcribed Date/Time: 04/20/2019 11:59 AM
== END 2019-04-20 09:14 | disposition home or self-care (01) ==
LOC: BICMRI 09:13
PROVIDERS: ATTEND Specialist
DX: S32.010A Wedge compression fracture of first lumbar vertebra, initial encounter for closed fracture (principal); S22.081A Stable burst fracture of T11-T12 vertebra, initial encounter for closed fracture; S32.041A Stable burst fracture of fourth lumbar vertebra, initial encounter for closed fracture; S32.059A Unspecified fracture of fifth lumbar vertebra, initial encounter for closed fracture; M48.04 Spinal stenosis, thoracic region; M51.35 Other intervertebral disc degeneration, thoracolumbar region; M89.38 Hypertrophy of bone, other site; M51.36 Other intervertebral disc degeneration, lumbar region; M25.78 Osteophyte, vertebrae
CPT/HCPCS: 72146; 72148

== ENCOUNTER 2019-12-10 14:06 | Observation (INO) | payer MEDICARE, MEDICAID ==
[2019-12-10 14:39] LABS: #Basophils 0.1 thou/uL (0.0-0.2); #Eosinphils 0.2 thou/uL (0.0-0.7); #Lymphocytes 3.4 thou/uL (1.20-3.40); #Monocytes 1.1 thou/uL (0.11-0.59); %Basophils 0.5 % (0.0-1.0); %Eosinophils 1.5 % (0.0-10.0); %Monocytes 9.7 % (0.0-10.0); %Neutrophils 56.3 % (42.0-75.0); Hemoglobin 13.7 g/dL (12.0-16.0); Mean Corpuscular HGB CONC 31.5 g/dL (32.0-36.0); Mean Corpuscular Hemoglobin 30.6 pg (27.0-31.0); Mean Corpuscular Volume 97.3 fL (78.0-98.0); Mean Platelet Volume 9.2 fL (7.4-10.4); Platelet Count 175 thou/uL (130-400); RBC Distribution Width 12.9 % (11.5-14.5); Red Blood Cell (RBC) Count 4.48 mill/uL (4.20-5.40); White Blood Cell (WBC) Count 10.7 thou/uL (4.8-10.8)
[2019-12-10 14:45] LABS: INR-International Normal Ratio 1.6; PTT 25.5 SEC (22.9-36.1)
--- NOTE | 2019-12-10 14:55 | RAD ---
Chest one view HISTORY: Chest pain. Dyspnea. COMPARISON: 03/01/2019. FINDINGS: Cardiac silhouette is magnified and upper limits of normal in size. Pulmonary vasculature w ithin normal limits. Mediastinum is midline with aortic calcification. Linear scarring at the left base is stable. No loba r consolidation or evidence of pneumothorax. Old right posterior rib fractures. hospital monitor leads overlie the chest. IMPRESSION : No active cardiopulmonary abnormalities are demonstrated.
[2019-12-10 15:11] LABS: Digoxin 1.22 ng/mL (0.8-2.0)
[2019-12-10 15:12] LABS: CKMB 1.4 ng/mL (0-6.6)
[2019-12-10 15:13] LABS: ALT (SGPT) 23 U/L (8-55); AST (SGOT) 22 U/L (5-34); Albumin 4.1 g/dL (3.4-4.8); Alkaline Phosphatase 68 U/L (40-110); Anion Gap 16 mmol/L (10-20); BUN (Urea Nitrogen) 24 mg/dL (9.8-20.1); Bilirubin, Total 0.5 mg/dL (0.2-1.2); CK (CPK) 54 U/L (29-168); Calc. Creatinine Clearance 0 mL/min (70-130); Calcium 9.7 mg/dL (7.8-10.44); Carbon Dioxide 30 mmol/L (23-31); Chloride 97 mmol/L (98-107); Estimated GFR-MDRD 42; Globulin 3.3 g/dL (2.4-3.5); Glucose 179 mg/dL (80-115); Magnesium 1.8 mg/dL (1.6-2.6); Potassium 3.5 mmol/L (3.5-5.1); Protein, Total 7.4 g/dL (6.0-8.3); Sodium 139 mmol/L (136-145)
[2019-12-10] MEDS ORDERED: Enoxaparin Sodium 100 MG/ML SYRINGE ONE (15:41)
[2019-12-10] MEDS ORDERED: Ondansetron ODT 4 MG TAB PO PRN (17:11)
[2019-12-10] MEDS ORDERED: Bisacodyl 10 MG SUPP PR PRN (17:11)
[2019-12-10] MEDS ORDERED: Senokot S 8.6-50 MG TAB PO PRN (17:11)
[2019-12-10] MEDS ORDERED: Ondansetron PF 4 MG/2 ML Vial IVP PRN (17:11)
[2019-12-10] MEDS ORDERED: Nitroglycerin 0.4 MG TAB (25 Tab Bottle) PO PRN (17:11)
[2019-12-10] MEDS ORDERED: Calcium Carbonate 500 MG ChewTAB PO PRN (17:11)
[2019-12-10] MEDS ORDERED: Acetaminophen 325 MG TAB PO PRN (17:11)
[2019-12-10] MEDS ORDERED: Magnesium Sulfate 2 GM in Sodium Chloride 0.9% 100 ML IVPB SCH (17:15)
[2019-12-10] MEDS ORDERED: cloNIDine 0.1 MG TAB PO PRN (17:16)
[2019-12-10] MEDS ORDERED: Magnesium 2 GM/50 ML 2 GM in Premix Bag 1 BAG IVPB SCH (17:45)
[2019-12-10] MEDS ORDERED: Warfarin Sodium 5 MG TAB PO SCH (18:00)
[2019-12-10] MEDS ORDERED: HumaLOG 300 UNITS/3 ML VIAL SC PRN (18:08)
[2019-12-10] MEDS ORDERED: Dextrose 50% Abboject 50 ML SYRINGE SLOW IVP PRN (18:08)
[2019-12-10] MEDS ORDERED: Dextrose 5% in Water 1,000 ML IV PRN (18:08)
--- NOTE | 2019-12-10 18:12 | PDOC.HHP ---
Hospitalist HPI - History of Present Illness Chest pain History of Present Illness: PCP: [facility], Dr. Alejandro The patient is a 64/f with PMH significant for Chronic diastolic HF, HTN, HLD, DMII and mild CAD (cath 2013), chronic afib (taking coumadin), COPD, and asthma that presents to the ER for the above complaint. The patient reports developing chest pain around 2000 last night, describes as sharp, constant, 8/10, exacerbated with exertion, unrelieved by nothing with associated SOB, MENDOZA and lower extremity swelling. Denies any hear palpitations or wheezing. Denies any fever or chills. Denies any abdominal pain, N/V or diarrhea. She has no other complaints at this time. EMS was called, administered SL nitro x 3 and morphine 7mg and 50mcg of fentanyl with moderate relief of symptoms, reporting pain 4/10. ED Course: EKG afib with RVR 95 PVCs, no ST elevations or depression Trop 0.014 BNP 222 INR 1.6 Mag 1.8 WBC 10.7 Dig 1.22 Given LMWH 1mg/kg bridging Hospitalist ROS - Review of Systems Constitutional: reports: weakness. denies: fever, chills Eyes: denies: pain, vision change, conjunctivae inflammation, eyelid inflammation, redness, other ENT: denies: ear pain, ear discharge, nose pain, nose discharge, nose congestion , mouth pain, mouth swelling, throat pain, throat swelling, other Respiratory: reports: cough (chronic), shortness of breath, SOB with excertion. denies: hemoptysis, sputum, wheezing Cardiovascular: reports: chest pain, orthopnea, edema. 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: Dementia, Seizure (as child) Psych: reports: Bipolar, Depression, Schizophrenia (schizoaffective disorder), Other (mental retardation) Musculoskeletal: reports: Chronic low back pain, Osteoarthritis Endocrine: reports: Diabetes (type II) - Past Surgical History Past Surgical History: reports: Other (afib with ablation 2014 LINQ 2018 Right leg and right wrist surgery) - Family History Family History: reports: cardiac disorder, diabetes mellitus, Other (PAD) - Social History Smoking Status: Former smoker Alcohol: reports: None Drugs: reports: none Living Situation: [employer] Occupation: disabled Other Social History: Lives [facility] - Exam General Appearance: NAD, awake alert Eye: anicteric sclera ENT: normocephalic atraumatic, moist mucosa Neck: no JVD Heart: no gallops, no rubs, irregular, diminshed peripheral pulses Respiratory: no wheezes, no rales, no tachypnea Respiratory - other findings: diminished BLL, Gastrointestinal: soft, non-tender, normal bowel sounds, no guarding, no rigidity Extremities: no cyanosis, 2+ LE edema Neurological: no focal deficits Psychiatric: normal affect, A&O x 3 Hospitalist Results - Labs Result Diagrams: 12/10/19 14:26 12/10/19 14:26 Lab results: WBC 10.7 thou/uL (4.8-10.8) 12/10/19 14:26 Hgb 13.7 g/dL (12.0-16.0) 12/10/19 14:26 Hct 43.5 % (36.0-47.0) 12/10/19 14:26 MCV 97.3 fL (78.0-98.0) 12/10/19 14:26 Plt Count 175 thou/uL (130-400) 12/10/19 14:26 Neutrophils % 56.3 % (42.0-75.0) 12/10/19 14:26 Sodium 139 mmol/L (136-145) 12/10/19 14:26 Potassium 3.5 mmol/L (3.5-5.1) 12/10/19 14:26 Chloride 97 mmol/L (98-107) L 12/10/19 14:26 Carbon Dioxide 30 mmol/L (23-31) 12/10/19 14:26 BUN 24 mg/dL (9.8-20.1) H 12/10/19 14:26 Creatinine 1.27 mg/dL (0.6-1.1) H 12/10/19 14:26 Glucose 179 mg/dL (80-115) H 12/10/19 14:26 Calcium 9.7 mg/dL (7.8-10.44) 12/10/19 14:26 Total Bilirubin 0.5 mg/dL (0.2-1.2) 12/10/19 14:26 AST 22 U/L (5-34) 12/10/19 14:26 ALT 23 U/L (8-55) 12/10/19 14:26 Alkaline Phosphatase 68 U/L (40-110) 12/10/19 14:26 Creatine Kinase 54 U/L (29-168) 12/10/19 14:26 CK-MB (CK-2) 1.4 ng/mL (0-6.6) 12/10/19 14:26 Troponin I 0.014 ng/mL (< 0.028) 12/10/19 14:26 B-Natriuretic Peptide 222.0 pg/mL (0-100) H 12/10/19 14:27 Serum Total Protein 7.4 g/dL (6.0-8.3) 12/10/19 14:26 Albumin 4.1 g/dL (3.4-4.8) 12/10/19 14:26 - EKG Interpretation EKG: afib with RVR 95 - Radiology Interpretation Chest x-ray Status: report reviewed by ma Hospitalist H&P A/P - Problem (1) Chest pain Code(s): R07.9 - CHEST PAIN, UNSPECIFIED Status: Acute Assessment and Plan: Admit to telemetry floor, observation status Expected length of stay less than 2 midnights Trend troponins Order echocardiogram Consult cardiology Continue ASA Nitro SL prn Oxygen prn (2) MINOR (acute kidney injury) Code(s): N17.9 - ACUTE KIDNEY FAILURE, UNSPECIFIED Status: Acute Assessment and Plan: Mild elevation Will Recheck bmp in am (3) Hypomagnesemia Code(s): E83.42 - HYPOMAGNESEMIA Status: Acute Assessment and Plan: Mild 1.8 Replace with 2 gm IVPB Will recheck in am (4) Atrial fibrillation with RVR Code(s): I48.91 - UNSPECIFIED ATRIAL FIBRILLATION Status: Chronic Assessment and Plan: EKG afib rvr 95 Currently HR in 80s Restart digoxin home medication Will add cardizem prn for rate control Start coumadin 5mg loading dose and scheduled daily thereafter (5) DM type 2 (diabetes mellitus, type 2) Status: Chronic Assessment and Plan: Patient home lantus dosing 18u daily will start mild sliding scale AC/HS accuchecks (6) HTN (hypertension) Code(s): I10 - ESSENTIAL (PRIMARY) HYPERTENSION Status: Chronic Assessment and Plan: Restart home medications when reconciled by nursing Add clonidine prn - Plan Plan: No DVT prophylaxis, patient on Coumadin Pepcid GI prophylaxis Full Code Does not identify DPOA Discussed case with Dr. Emerson
[2019-12-10 19:49] VITALS: BMI 34.4
[2019-12-10] MEDS: Famotidine 20 MG TAB PO SCH (20:04)
[2019-12-10 20:56] LABS: Troponin I 0.028 ng/mL (< 0.028)
[2019-12-11 04:38] LABS: #Basophils 0.1 thou/uL (0.0-0.2); #Eosinphils 0.1 thou/uL (0.0-0.7); #Lymphocytes 2.3 thou/uL (1.20-3.40); #Monocytes 0.7 thou/uL (0.11-0.59); #Neutrophils 4.3 thou/uL (1.40-6.50); %Basophils 0.7 % (0.0-1.0); %Eosinophils 1.9 % (0.0-10.0); %Monocytes 9.7 % (0.0-10.0); %Neutrophils 56.9 % (42.0-75.0); Hemoglobin 13.1 g/dL (12.0-16.0); Mean Corpuscular HGB CONC 34.1 g/dL (32.0-36.0); Mean Corpuscular Hemoglobin 33.3 pg (27.0-31.0); Mean Corpuscular Volume 97.9 fL (78.0-98.0); Mean Platelet Volume 9.2 fL (7.4-10.4); Platelet Count 146 thou/uL (130-400); RBC Distribution Width 12.9 % (11.5-14.5); Red Blood Cell (RBC) Count 3.94 mill/uL (4.20-5.40); White Blood Cell (WBC) Count 7.6 thou/uL (4.8-10.8)
[2019-12-11 04:44] LABS: INR-International Normal Ratio 1.8; Prothrombin Time 20.6 SEC (12.0-14.7)
[2019-12-11 05:00] LABS: Anion Gap 13 mmol/L (10-20); BUN (Urea Nitrogen) 20 mg/dL (9.8-20.1); Calc. Creatinine Clearance 82 mL/min (70-130); Calcium 8.8 mg/dL (7.8-10.44); Carbon Dioxide 34 mmol/L (23-31); Chloride 95 mmol/L (98-107); Estimated GFR-MDRD 48; Glucose 234 mg/dL (80-115); Magnesium 2.2 mg/dL (1.6-2.6); Sodium 139 mmol/L (136-145)
[2019-12-11 05:04] LABS: Potassium 2.9 mmol/L (3.5-5.1)
[2019-12-11 05:21] LABS: CKMB 1.3 ng/mL (0-6.6)
[2019-12-11] MEDS ORDERED: Potassium Chloride 20 MEQ TAB PO SCH (05:30)
[2019-12-11] MEDS ORDERED: Polyethylene Glycol 3350 17 GM Packet PO PRN (13:42)
[2019-12-11] MEDS ORDERED: Ondansetron ODT 4 MG TAB PO PRN (13:42)
[2019-12-11] MEDS ORDERED: diphenhydrAMINE 25 MG CAP PO PRN (13:42)
[2019-12-11] MEDS ORDERED: Docusate 100 MG CAP PO PRN (13:42)
[2019-12-11] MEDS ORDERED: Cyclobenzaprine 10 MG TAB PO PRN (13:42)
[2019-12-11] MEDS ORDERED: Metoprolol Tartrate 50 MG TAB PO SCH (14:00)
--- NOTE | 2019-12-11 14:07 | PDOC.HOSPP ---
- Subjective Encounter Date: 12/11/19 Encounter Time: 11:00 Subjective: Patient seen and examined for CP. Cont to have precordial CP - mild. No other complaints. No overnight events - Objective Vital Signs & Weight: Vital Signs (12 hours) Temp Pulse Resp BP Pulse Ox 12/11/19 11:35 97.8 F 84 18 126/60 96 12/11/19 10:38 89 18 99 12/11/19 08:10 97.9 F 80 16 128/58 L 97 12/11/19 07:18 83 16 97 12/11/19 04:00 98.7 F 86 17 143/62 H 97 12/11/19 02:23 80 14 96 Weight Weight 226 lb 9.6 oz I&O: 12/10/19 12/11/19 12/12/19 06:59 06:59 06:59 Intake Total 460 Output Total 750 Balance -290 Result Diagrams: 12/11/19 03:53 12/11/19 03:53 Additional Labs: Accuchecks 12/10/19 20:43 POC Glucose 217 H Radiology Reviewed by me: Yes (CXR - no infiltrate) EKG Reviewed by me: Yes (Tele SR) Hospitalist ROS - Review of Systems Respiratory: denies: cough, dry, shortness of breath, hemoptysis, SOB with excertion, pleuritic pain, sputum, wheezing, other Cardiovascular: denies: chest pain, palpitations, orthopnea, paroxysmal noc. dyspnea, edema, light headedness, other Gastrointestinal: denies: nausea, vomiting, abdominal pain, diarrhea, constipation, melena, hematochezia, other - Medication Medications: Active Medications Generic Name Dose Route Start Last Admin Trade Name Freq PRN Reason Stop Dose Admin Albuterol/Ipratropium 3 ml 12/10/19 18:30 12/11/19 10:38 Duoneb NEB 3 ml [id number] SOFY Administration - Exam General Appearance: NAD Neck: supple, no JVD, no thyromegaly, no lymphadenopathy Heart: no gallops, no rubs, normal peripheral pulses, irregular Respiratory: no wheezes, no rales, no ronchi, normal chest expansion Gastrointestinal: soft, non-tender, non-distended, normal bowel sounds, no guarding, no rigidity Extremities: 2+ LE edema Skin: normal turgor Neurological: no new deficit Psychiatric: normal affect, A&O x 3 Hosp A/P - Plan CP Hypokalemia/Hypomagnesemia MINOR prob due to diuretics HTN DM2 Chronic Afib with subtherapeutic INR - POA HLD Chronic diastolic HF Chronic pain syndrome PLAN: NPO Await Cardio input Await Echo Cont ASA Increase Warfarin dose Daily INR Replace Potassium Restart Metoprolol Restart other home meds Low dose Lantus DC to NH once cleared by Cardiology
[2019-12-11] MEDS: Famotidine 20 MG TAB PO SCH (15:50)
[2019-12-11] MEDS: Digoxin 0.125 MG TAB PO SCH (16:03)
[2019-12-11] MEDS: Aspirin 81 mg Enteric Coated Tablet PO SCH (16:03)
[2019-12-11] MEDS ORDERED: Warfarin Sodium 5 MG TAB PO SCH (17:00)
[2019-12-11] MEDS: Mometasone 100 MCG/Formoterol 5 MCG 120 PUFF INHALER INH SCH (18:36)
[2019-12-11] MEDS: HumaLOG 300 UNITS/3 ML VIAL SC PRN (19:00)
--- NOTE | 2019-12-11 19:31 | CON ---
DATE OF CONSULTATION: HISTORY OF PRESENT ILLNESS: Kristina Carlson is a 64-year-old white female, that I have followed since 1991. She was noticed at that time to have a heart murmur and was found to have moderate to severe aortic insufficiency with a trileaflet aortic valve, moderate tricuspid regurgitation, and moderate mitral stenosis. She denied any history of rheumatic fever, but did state that when she was 12 years old, she had 3 to 4 months of joint pain. In 1992, she underwent cardiac catheterization , which revealed normal coronary arteries. She had mild aortic insufficiency, mild mitral stenosis, mild global left ventricular hypokinesis. Her problems at that time were increased shortness of breath, which was mostly related to COPD and smoking. She did fairly well over the years without significant worsening of her valvular heart disease initially. She had increased edema and shortness of breath and had been followed in the [facility]. In November 2013, she was hospitalized , and echocardiogram revealed ejection fraction of 50% to 55%, left atrial enlargement , moderate aortic stenosis, moderate to severe aortic insufficiency, moderate mitral stenosis, moderate mitral regurgitation, moderate tricuspid regurgitation, and mild pulmonic insufficiency. She was found to have atrial tachycardia. She was transferred to [facility] in [place] and underwent atrial tachycardia ablation. In December 2013, she was again admitted with chest pain after a fall. EKG revealed atrial fibrillation with controlled rate. Cardiac enzymes were unremarkable. Cardiolite scan previously in November 2013 was negative for ischemia. Again in January 2014, she was admitted with atrial fibrillation with fast ventricular response, was given intravenous digoxin and diuresed. Her heart rate was controlled, and she was discharged. She was again admitted later in January 2014 with history of increased shortness of breath, increased leg edema, chest pressure at rest lasting 30 minutes to 1 hour. She again was in atrial fibrillation with controlled ventricular response. With her mitral stenosis and atrial fibrillation, she was placed on Coumadin, and an appointment was made for followup with the pearl diver. She then had a 3-hour episode of chest pressure and was readmitted. She underwent cardiac catheterization, had a 20% LAD stenosis, 20% proximal RCA stenosis, and 20% mid RCA stenosis. There was moderate left ventricular systolic dysfunction with ejection fraction of 30% to 35%, moderate aortic insufficiency, moderate aortic stenosis with valve area of 1.05 cm2. She had severe mitral stenosis with mitral valve area of 1.2 cm2. Later that month in January 2014, she underwent mitral balloon valvuloplasty at [facility] in [place]. In April 2014, she was walking 10 minutes without becoming dyspneic after the balloon valvuloplasty. In June 2014, she was admitted with COPD exacerbation and hypoxic respiratory failure. She would have episodes of tachycardia with her atrial fibrillation with any activity. She was started on amiodarone. Ultimately in December 2017, she underwent electrical cardioversion, but did not remain in sinus rhythm. She had been hospitalized multiple times due to heart failure and atrial fibrillation with fast ventricular response. Also at times she would be somewhat bradycardic, and ultimately a LINQ was placed. She has not had any significant bradycardia that would warrant pacemaker placement in following her LINQ. She was last evaluated on November 13, 2019, via telemedicine. She was asymptomatic at that time without any chest pain or shortness of breath. She now states that over the last four days she has had a continual pleuritic left-sided chest pain. The pain is worse with cough or deep breath. She states that she started to have a lot of coughing around the time that this started to become uncomfortable. At no time during the past four days that she had been without the chest discomfort. PAST MEDICAL HISTORY: Probable rheumatic fever with valvular abnormalities, status post mitral valvuloplasty for mitral stenosis, diabetes, asthma, COPD, obesity, hypertension, hyperlipidemia, mild coronary artery disease, mental retardation, renal insufficiency, hypothyroidism, bipolar disorder, and depression. MEDICATIONS: 1. Abilify 10 mg q.h.s. 2. Aspirin 81 daily. 3. Atorvastatin 10 mg daily. 4. Cogentin 1 mg q.h.s. 5. Digoxin 0.125 q.a.m. 6. Benadryl 25 mg p.r.n. 7. Colace 100 mg b.i.d. p.r.n. 8. Zetia 10 mg q.h.s. 9. Fentanyl patch q.72 hours. 10. Breo Ellipta q.a.m. 11. Furosemide 80 mg b.i.d. 12. Humalog 100 units, Levemir, levothyroxine 100 mcg daily. 13. Tradjenta 5 mg q.a.m. 14. Amitiza 24 mcg b.i.d. 15. Zaroxolyn 5 mg q.24 hours p.r.n. 16. Metoprolol 50 mg b.i.d. 17. Protonix 40 q.a.m. 18. KCl 15 mEq b.i.d. 19. Warfarin 3 mg daily. ALLERGIES: TOMATO. SOCIAL HISTORY: She smoked over a pack per day in the past, but stopped smoking several years ago. She does not drink alcohol. She lives in a half-way, and in the past, lived in a prison. FAMILY HISTORY: Unobtainable. REVIEW OF SYSTEMS: A 10-point review of systems is otherwise unremarkable. PHYSICAL EXAMINATION: VITAL SIGNS: Blood pressure 126/75, pulse of 95 and irregularly irregular. HEENT: PERRL. NECK: Supple. CHEST: Reveals distant wheezing. CARDIOVASCULAR: S1 and S2 normal without any S3 or S4. There is a 2/6 holosystolic murmur along the left sternal border. ABDOMEN: Normal bowel sounds without tenderness or organomegaly. EXTREMITIES: Revealed trace pretibial edema. NEUROLOGICAL: Grossly intact except for her mild mental retardation. SKIN: Warm and dry. MUSCULOSKELETAL: Revealed palpable left chest tenderness, which reproduces her pain and is exquisitely tender. LABORATORY DATA: EKG revealed atrial fibrillation with frequent PVCs, left ventricular hypertrophy. Hemoglobin 13.1, hematocrit 38.6, white count 7600, and platelets 146,000. INR is subtherapeutic at 1.6 yesterday and 1.8 today. Sodium 139, potassium 2.9, chloride 95, carbon dioxide 34, BUN 20, creatinine 1.13. BNP 222.0. Troponin I 0.040. IMPRESSION: 1. Noncardiac chest wall pain-four days, continual pleuritic pain with palpable tenderness and essentially normal cardiac enzymes. 2. Mild coronary artery disease on catheterization in January 2014. 3. History of rheumatic fever with mitral stenosis. 4. Status post mitral valve valvuloplasty in 2013. 5. Moderate aortic stenosis. 6. Moderate aortic insufficiency. 7. Mild left ventricular dysfunction. 8. Chronic atrial fibrillation. 9. LINQ. She has not had significant bradycardic episodes to warrant pacemaker placement. In general, her rate is fairly well controlled. 10. Hypercholesterolemia. 11. Seizure disorder. 12. Depression. 13. Mental retardation. 14. Former smoker. 15. Chronic obstructive pulmonary disease. PLAN: The patient's current chest pain, which has been present continually for four days with palpable tenderness, is not cardiac in nature. I do not feel that any further cardiac evaluation is warranted. Job ID: [id number] MTDD
[2019-12-11] MEDS ORDERED: Benztropine 1 MG TAB PO SCH (21:00)
[2019-12-11] MEDS ORDERED: Ezetimibe 10 MG TAB PO SCH (21:00)
[2019-12-11] MEDS ORDERED: Insulin Glargine 10 UNITS in Pre-Filled Syringe 1 EACH SC SCH (21:00)
[2019-12-11] MEDS ORDERED: Metoprolol Tartrate 25 MG TAB PO SCH (21:00)
[2019-12-11] MEDS ORDERED: Aripiprazole 15 MG TAB PO SCH (21:00)
[2019-12-11] MEDS: Metoprolol Tartrate 50 MG TAB PO SCH (21:22)
[2019-12-12 04:29] LABS: INR-International Normal Ratio 2.3
[2019-12-12 04:48] LABS: Anion Gap 12 mmol/L (10-20); BUN (Urea Nitrogen) 16 mg/dL (9.8-20.1); Calc. Creatinine Clearance 110 mL/min (70-130); Calcium 8.6 mg/dL (7.8-10.44); Carbon Dioxide 30 mmol/L (23-31); Chloride 99 mmol/L (98-107); Estimated GFR-MDRD 68; Glucose 148 mg/dL (80-115); Potassium 3.4 mmol/L (3.5-5.1); Sodium 138 mmol/L (136-145)
[2019-12-12] MEDS: Mometasone 100 MCG/Formoterol 5 MCG 120 PUFF INHALER INH SCH (06:54)
[2019-12-12] MEDS: Metoprolol Tartrate 50 MG TAB PO SCH (08:38)
[2019-12-12] MEDS: Digoxin 0.125 MG TAB PO SCH (08:38)
[2019-12-12] MEDS: Aspirin 81 mg Enteric Coated Tablet PO SCH (08:38)
[2019-12-12] MEDS ORDERED: Aspirin 81 mg Enteric Coated Tablet PO SCH (09:00)
[2019-12-12] MEDS ORDERED: Aripiprazole 10 MG TAB PO SCH (09:00)
[2019-12-12] MEDS ORDERED: Levothyroxine Sodium 75 MCG TAB PO SCH (09:00)
[2019-12-12] MEDS: HumaLOG 300 UNITS/3 ML VIAL SC PRN ×2 (09:38→11:21)
[2019-12-12 12:47] VITALS: BP 128/91; TEMP 97.5
--- NOTE | 2019-12-12 17:49 | DIS ---
DATE OF ADMISSION: 12/10/2019 DATE OF DISCHARGE: 12/12/2019 DISCHARGE DISPOSITION: [facility]. FOLLOWUP: 1. Follow up with Cardiology, Dr. Justin Polo in 3 to 4 weeks. 2. Follow up with primary care physician, Dr. Felder at the nursing facility. 3. PT/INR every 3 days x3, then weekly until stable. 4. A basic metabolic profile after 1 week is recommended. DISCHARGE MEDICATIONS: Same as admission medication. DIAGNOSTIC TESTS: INR on admission 1.6, at discharge 2.3. Potassium 2.9. Creatinine 1.27 on admission and 0.84 at discharge. The patient was seen and examined on the day of discharge. Denies any new complaints. No chest pain, shortness of breath, palpitations reported. BRIEF HOSPITAL COURSE: The patient is a 64-year-old female with hypertension, hyperlipidemia, diabetes mellitus type 2, and chronic diastolic heart failure, presented to the hospital with chest discomfort. Please refer to the history and physical for further details. The patient was admitted to the hospital with a diagnosis of chest discomfort, rule out acute coronary syndrome. Her serial troponins were negative. The patient was evaluated by Cardiology, Dr. Justin Polo. Dr. Polo felt that the patient has noncardiac chest pain with palpable tenderness. Last cardiac cath was in 2013 that showed mild coronary artery disease. The LINQ recorder interrogation did not show significant arrhythmias. The patient has been cleared by Cardiology for discharge. FINAL DIAGNOSES: 1. Noncardiac chest pain. 2. Mild coronary artery disease on cardiac catheterization in 2013. 3. History of rheumatic fever with mitral stenosis, status post mitral valve valvuloplasty in 2013. 4. Moderate aortic stenosis. 5. Moderate aortic insufficiency. 6. Mild left ventricular dysfunction. 7. Chronic atrial fibrillation. 8. History of LINQ recorder placement. 9. Seizure disorder. 10. Hyperlipidemia. 11. Depression. 12. Former smoker. 13. Mental retardation. 14. Chronic obstructive pulmonary disease. 15. Hypokalemia. 16. Hypomagnesemia. 17. Mild acute kidney injury, probably secondary to diuretics. 18. Chronic pain syndrome, on fentanyl patch. The patient understands the above plan of care. Job ID: [id number]
[2019-12-12] MEDS ORDERED: Atorvastatin Calcium 10 MG TAB PO SCH (21:00)
--- NOTE | 2019-12-14 15:26 | EKG ---
Test Reason : Blood Pressure : / mmHG Vent. Rate : 095 BPM Atrial Rate : 095 BPM P-R Int : 000 ms QRS Dur : 096 ms QT Int : 382 ms P-R-T Axes : 000 021 257 degrees QTc Int : 480 ms Atrial fibrillation with frequent Premature ventricular complexes Left ventricular hypertrophy with repolarization abnormality Abnormal ECG Confirmed by JAMARCUS CARDONA DO ([id number]), non linear editor KENDY FARRELL ([id number]) on 12/14/2019 3:26:24 PM Referred By: Confirmed By:JAMARCUS CARDONA DO
== END 2019-12-12 14:10 ==
LOC: ERS 14:06 → INTOOBSV 15:43 → 2NO 15:43
PROVIDERS: ADMIT Internal Medicine; ATTEND Internal Medicine
DX: R07.89 Other chest pain (principal); I25.10 Atherosclerotic heart disease of native coronary artery without angina pectoris; I35.2 Nonrheumatic aortic (valve) stenosis with insufficiency; I48.20 Chronic atrial fibrillation, unspecified; G40.909 Epilepsy, unspecified, not intractable, without status epilepticus; E78.5 Hyperlipidemia, unspecified; F31.9 Bipolar disorder, unspecified; F79 Unspecified intellectual disabilities; E87.6 Hypokalemia; E83.42 Hypomagnesemia; N17.9 Acute kidney failure, unspecified; G89.4 Chronic pain syndrome; M54.5 Low back pain; I11.0 Hypertensive heart disease with heart failure; I50.32 Chronic diastolic (congestive) heart failure; E11.9 Type 2 diabetes mellitus without complications; J44.9 Chronic obstructive pulmonary disease, unspecified; F03.90 Unspecified dementia, unspecified severity, without behavioral disturbance, psychotic disturbance, mood disturbance, and anxiety; F20.9 Schizophrenia, unspecified; M19.90 Unspecified osteoarthritis, unspecified site; Z87.891 Personal history of nicotine dependence; Z79.01 Long term (current) use of anticoagulants; Z79.4 Long term (current) use of insulin; Z79.82 Long term (current) use of aspirin; Z79.899 Other long term (current) drug therapy; Z91.018 Allergy to other foods; Z98.890 Other specified postprocedural states
CPT/HCPCS: 71045; 80048 ×2; 80162; 82550; 82553 ×2; 82962 ×3; 83735 ×2; 83880; 84484 ×3; 85025; 85610 ×3; 85730; 93005; 93306; 94640 ×6; 94664; 94760 ×3; 96365; 96372; 99285; G0378 ×4; J1650; J1815; J3475; J7620 ×3; Q0163; 36415; 36416; 80053; 84443

== ENCOUNTER 2020-02-24 17:14 | Observation (INO) | payer MEDICARE, MEDICAID ==
[2020-02-24 18:13] LABS: #Eosinphils 0.2 thou/uL (0.0-0.7); #Lymphocytes 3.1 thou/uL (1.20-3.40); #Neutrophils 4.9 thou/uL (1.40-6.50); %Basophils 0.3 % (0.0-1.0); %Eosinophils 2.3 % (0.0-10.0); %Lymphocytes 33.3 % (21.0-51.0); %Monocytes 10.8 % (0.0-10.0); %Neutrophils 53.3 % (42.0-75.0); Hemoglobin 13.7 g/dL (12.0-16.0); Mean Corpuscular HGB CONC 34.3 g/dL (32.0-36.0); Mean Corpuscular Hemoglobin 32.2 pg (27.0-31.0); Mean Corpuscular Volume 93.9 fL (78.0-98.0); Mean Platelet Volume 9.3 fL (7.4-10.4); Platelet Count 167 thou/uL (130-400); RBC Distribution Width 13.2 % (11.5-14.5); Red Blood Cell (RBC) Count 4.25 mill/uL (4.20-5.40); White Blood Cell (WBC) Count 9.2 thou/uL (4.8-10.8)
--- NOTE | 2020-02-24 18:25 | RAD ---
PORTABLE CHEST: Date: 02-24-2020 Provided Clinical History: Chest pain FINDINGS: Comparison 12-10-2019. The cardiac silhouette appears enlarged. There is focal parenchymal opacity involving the left midlun g zone that appears slightly more conspicuous than on prior but appears predominately linear and pres umably reflects some subsegmental atelectasis and/or scarring. The lungs appear otherwise clear. Ther e is no pleural fluid or pneumothorax apparent. IMPRESSION: 1. Cardiomegaly. 2. Left lung parenchymal opacity which is likely subsegmental atelectasis and/or scarring. Correlate with concerns for pneumonia. POS: SHABNAM
[2020-02-24 18:41] LABS: ALT (SGPT) 26 U/L (8-55); AST (SGOT) 16 U/L (5-34); Albumin 3.8 g/dL (3.4-4.8); Alkaline Phosphatase 76 U/L (40-110); Anion Gap 13 mmol/L (10-20); BUN (Urea Nitrogen) 18 mg/dL (9.8-20.1); Bilirubin, Total 0.4 mg/dL (0.2-1.2); Calc. Creatinine Clearance 0 mL/min (70-130); Carbon Dioxide 33 mmol/L (23-31); Chloride 95 mmol/L (98-107); Estimated GFR-MDRD 44; Globulin 2.8 g/dL (2.4-3.5); Glucose 370 mg/dL (80-115); Potassium 3.1 mmol/L (3.5-5.1); Protein, Total 6.6 g/dL (6.0-8.3); Sodium 138 mmol/L (136-145)
[2020-02-24 18:56] LABS: CKMB 1.9 ng/mL (0-6.6)
[2020-02-24] MEDS ORDERED: Dextrose 5% in Water 1,000 ML IV PRN (20:41)
[2020-02-24] MEDS ORDERED: Dextrose 50% Abboject 50 ML SYRINGE SLOW IVP PRN (20:41)
[2020-02-24] MEDS ORDERED: Metoprolol Tartrate 5 MG/5 ML VIAL IVP PRN (20:43)
[2020-02-24] MEDS ORDERED: Potassium Chloride 20 MEQ TAB PO SCH (21:00)
[2020-02-24] MEDS ORDERED: Bisacodyl 5 MG TAB PO PRN (21:05)
[2020-02-24] MEDS ORDERED: Senokot S 8.6-50 MG TAB PO PRN (21:05)
[2020-02-24] MEDS ORDERED: Nitroglycerin 0.4 MG TAB (25 Tab Bottle) PO PRN (21:19)
[2020-02-24 21:40] LABS: INR-International Normal Ratio 2.5; Prothrombin Time 27.2 sec (12.0-14.7)
[2020-02-24 21:56] LABS: Troponin I 0.049 ng/mL (< 0.028)
[2020-02-24 22:51] VITALS: BMI 39.2
[2020-02-25] MEDS: Nitroglycerin 2% Ointment 1 INCH/1 GM Packet TOP SCH ×4 (00:01→21:50)
[2020-02-25] MEDS ORDERED: Polyethylene Glycol 3350 17 GM Packet PO PRN (00:22)
[2020-02-25] MEDS ORDERED: Ondansetron ODT 4 MG TAB PO PRN (00:22)
[2020-02-25] MEDS ORDERED: diphenhydrAMINE 25 MG CAP PO PRN (00:22)
[2020-02-25] MEDS ORDERED: Cyclobenzaprine 10 MG TAB PO PRN (00:22)
[2020-02-25] MEDS ORDERED: Docusate 100 MG CAP PO PRN (00:22)
[2020-02-25] MEDS ORDERED: Clotrimazole 1 % Cream 30 GM TUBE TOP PRN (00:22)
--- NOTE | 2020-02-25 01:23 | HP ---
REASON FOR ADMISSION: Chest pain. HISTORY OF PRESENT ILLNESS: This is a 64-year-old female patient, who presented today complaining of chest pain described as sharp stabbing like in nature, localized in the left parasternal area radiating to her whole chest. Also increased swelling of her bilateral lower extremities with ongoing fluid retention, that chest pain started a week ago and today got more severe and hence, she was sent to the emergency room. The patient did add that she gained 5 pounds since yesterday. She can reproduce the pain with palpation. Also, she was not able to eat lunch. She went out and she felt out of breath today. She was close to falling, but did not fall. Reviewing her records, the patient was in our hospital in November with similar presentation. At that time, she was seen by Cardiology and her chest pain was deemed to be musculoskeletal in nature. No further testing was initiated. It was noted that her last cardiac cath was in 2013 and it showed mild coronary artery disease. PAST MEDICAL HISTORY: 1. Chronic diastolic heart failure. 2. High blood pressure. 3. Hyperlipidemia. 4. Diabetes, type 2. 5. Mild coronary artery disease. 6. Chronic atrial fibrillation. 7. COPD. 8. Asthma. SOCIAL HISTORY: She is a former smoker. FAMILY HISTORY: Positive for heart disease and diabetes. PAST SURGICAL HISTORY: Atrial fibrillation with ablation in 2013 and right leg and right wrist surgery. REVIEW OF SYSTEMS: All systems reviewed except the above-mentioned chest pain found to be negative. PHYSICAL EXAMINATION: GENERAL: She is awake, alert, and oriented. Does report pain. VITAL SIGNS: Her blood pressure is 184/80, heart rate of 93, temperature is 98 degrees, and saturating 99% on 1 L oxygen. HEENT: Head is nontraumatic and normocephalic. Pupils are equal and reactive. Extraocular movements are intact. Nonicteric sclerae. Well injected conjunctivae. Oral mucosa normal. Nasal mucosa normal. NECK: Supple. No adenopathy. No murmur. Thyroid is not palpable. HEART: S1 and S2. Irregular. Systolic murmur is heard. Tenderness on palpation of the chest, mainly in the left parasternal area. LUNGS: Inspiratory crackles bilateral bases. ABDOMEN: Bowel sounds are positive. Tenderness upon palpation of her abdomen, but overall it is soft. EXTREMITIES: She does have 3+ pitting edema bilateral extremities with skin changes compatible with chronic venous insufficiency. NEURO: Cranial nerves 2 through 12 within normal limits. Normal motor function and sensory function and reflexes. LABORATORY DATA: Blood work shows a WBC of 9.3, hemoglobin of 13.7, and platelets of 167. Sodium 138, potassium 3.1, bicarb of 33, BUN 18, creatinine of 1.23, and glucose of 370. Troponin 0.037 and BNP of 100. Chest x-ray shows cardiomegaly, left lung parenchymal opacity, which is likely subsegmental atelectasis and/or scarring. Correlate with concerns of pneumonia. EKG shows atrial fibrillation with ST-segment depression in the anterolateral leads, could be due to LVH as per my read. ASSESSMENT AND PLAN: This is a 64-year-old female patient, who is presenting with chest pain that is reproducible with palpation. Also appears to have anasarca, also worsening of her renal function. Cardiac, the patient will be admitted to telemetry. We will continue cycling her cardiac enzymes. We will provide her with blood pressure control by resuming her medication, also by adding IV Lopressor on an as needed basis. I will continue her Coumadin. I am awaiting her coag study to come back and adjust the Coumadin dose accordingly. We will also consult Cardiology. Until then, we will provide her with [place] for pain control. Since she does have anasarca, we will change her Lasix to IV. This might put a strain on her kidney function, but we will monitor her electrolytes on a daily basis. In regard of her psychiatric problems, we will resume her psychiatric medication. In regard of her diabetes, we will have her on insulin sliding scale and I am awaiting her med rec to be done, so I could reconcile her home regimen. I did discuss with her the code status and she wishes to be a full code. Job ID: [id number]
[2020-02-25 01:34] LABS: Troponin I 0.049 ng/mL (< 0.028)
[2020-02-25 04:33] LABS: #Eosinphils 0.2 thou/uL (0.0-0.7); #Lymphocytes 2.4 thou/uL (1.20-3.40); #Monocytes 0.9 thou/uL (0.11-0.59); #Neutrophils 4.6 thou/uL (1.40-6.50); %Basophils 0.3 % (0.0-1.0); %Eosinophils 2.1 % (0.0-10.0); %Lymphocytes 29.6 % (21.0-51.0); %Monocytes 11.4 % (0.0-10.0); %Neutrophils 56.6 % (42.0-75.0); Hemoglobin 12.9 g/dL (12.0-16.0); Mean Corpuscular HGB CONC 34.4 g/dL (32.0-36.0); Mean Corpuscular Hemoglobin 32.8 pg (27.0-31.0); Mean Corpuscular Volume 95.4 fL (78.0-98.0); Mean Platelet Volume 9.2 fL (7.4-10.4); Platelet Count 151 thou/uL (130-400); RBC Distribution Width 13.1 % (11.5-14.5); Red Blood Cell (RBC) Count 3.95 mill/uL (4.20-5.40); White Blood Cell (WBC) Count 8.1 thou/uL (4.8-10.8)
[2020-02-25 05:00] LABS: Anion Gap 12 mmol/L (10-20); BUN (Urea Nitrogen) 17 mg/dL (9.8-20.1); Calc. Creatinine Clearance 91 mL/min (70-130); Calcium 8.7 mg/dL (7.8-10.44); Carbon Dioxide 33 mmol/L (23-31); Chloride 99 mmol/L (98-107); Estimated GFR-MDRD 52; Glucose 198 mg/dL (80-115); Potassium 3.2 mmol/L (3.5-5.1); Sodium 141 mmol/L (136-145)
[2020-02-25] MEDS: Levothyroxine Sodium 100 MCG TAB PO SCH (05:43)
[2020-02-25] MEDS: HumaLOG 300 UNITS/3 ML VIAL SC PRN ×3 (06:25→21:41)
[2020-02-25] MEDS: Mometasone 100 MCG/Formoterol 5 MCG 120 PUFF INHALER INH SCH ×2 (07:10→19:01)
[2020-02-25] MEDS: Aspirin 81 mg Enteric Coated Tablet PO SCH (08:03)
[2020-02-25] MEDS: Lubiprostone 24 MCG CAP PO SCH ×2 (08:03→21:50)
[2020-02-25] MEDS: Atorvastatin Calcium 10 MG TAB PO SCH (08:03)
[2020-02-25] MEDS: Calcium Carbonate 600 MG + Vit D TAB PO SCH ×2 (08:03→21:48)
[2020-02-25] MEDS: Digoxin 0.25 MG TAB PO SCH (08:03)
[2020-02-25] MEDS: Multivit, Therapeutic 1 TAB PO SCH (08:04)
[2020-02-25] MEDS: Furosemide 100 MG/10 ML VIAL SLOW IVP SCH (08:04)
[2020-02-25] MEDS: Metoprolol Tartrate 25 MG TAB PO SCH ×2 (08:04→21:48)
[2020-02-25] MEDS: Warfarin Sodium 3 MG TAB PO SCH ×2 (08:04→13:50)
[2020-02-25] MEDS: Insulin Glargine 18 UNITS in Pre-Filled Syringe 1 EACH SC SCH ×2 (08:05→21:41)
[2020-02-25] MEDS: Alogliptin 6.25 MG TAB PO SCH (08:05)
[2020-02-25] MEDS ORDERED: POTASSIUM CHLORIDE PO SCH (09:00)
[2020-02-25] MEDS ORDERED: Metolazone 5 MG TAB PO PRN (09:00)
[2020-02-25] MEDS ORDERED: Non-Formulary Item 1 EACH (Insulin Detemir [Levemir] 18 UNIT) SC SCH (09:00)
[2020-02-25] MEDS ORDERED: Metolazone 5 MG TAB PO SCH (13:00)
[2020-02-25] MEDS: HYDROcodone/Acetaminophen 5/325 mg Tablet PO PRN ×2 (15:46→23:46)
--- NOTE | 2020-02-25 17:18 | PDOC.HOSPP ---
- Subjective Encounter Date: 02/25/20 Encounter Time: 17:00 Subjective: f/u for chest wall pain and hx of A-fib with current LINQ device. - Objective Vital Signs & Weight: Vital Signs (12 hours) Temp Pulse Resp BP Pulse Ox 02/25/20 15:43 98.5 F 77 19 171/83 H 100 02/25/20 13:26 70 16 02/25/20 11:42 99.2 F 65 15 135/68 99 02/25/20 07:59 98.0 F 73 16 133/67 100 02/25/20 06:35 139/69 02/25/20 05:39 98.0 F 60 18 192/86 H 98 Weight Weight 235 lb 14.4 oz I&O: 02/24/20 02/25/20 02/26/20 06:59 06:59 06:59 Intake Total 250 Output Total 400 Balance -150 Result Diagrams: 02/25/20 04:09 02/25/20 04:09 Additional Labs: Accuchecks 02/25/20 02/25/20 02/25/20 17:05 10:31 05:53 POC Glucose 265 H 144 H 187 H 02/24/20 21:50 POC Glucose 217 H Radiology Reviewed by me: Yes (PCXR - LLL atelectasis) EKG Reviewed by me: Yes (Tele - A-fib in 70's) Hospitalist ROS - Medication Medications: Active Medications Generic Name Dose Route Start Last Admin Trade Name Freq PRN Reason Stop Dose Admin Hydrocodone Bitart/Acetaminophen 2 tab 02/24/20 21:05 02/25/20 15:46 [place] 5/325 PO 2 tab Q4H PRN Administration Severe Pain (7-10) Albuterol/Ipratropium 3 ml 02/25/20 13:00 02/25/20 13:26 Duoneb NEB 3 ml [id number] SOFY Administration Alogliptin Benzoate 12.5 mg 02/25/20 09:00 02/25/20 08:05 Alogliptin PO Not Given QAM SOFY Aspirin 81 mg 02/25/20 09:00 02/25/20 08:03 Ecotrin PO 81 mg QAM SOFY Administration Atorvastatin Calcium 10 mg 02/25/20 09:00 02/25/20 08:03 Lipitor PO 10 mg DAILY SOFY Administration Calcium/Vitamin D 1 tab 02/25/20 09:00 02/25/20 08:03 Caltrate 600 + Vit D PO 1 tab BID SOFY Administration Digoxin 0.25 mg 02/25/20 08:00 02/25/20 08:03 Lanoxin PO 0.25 mg QAM-WM SOFY Administration Fentanyl 25 mcg 02/25/20 09:00 02/25/20 08:15 Duragesic TD Not Given Q3D SOFY Furosemide 80 mg 02/25/20 09:00 02/25/20 08:04 Lasix SLOW IVP 80 mg DAILY SOFY Administration Insulin Glargine 18 units/ 0.18 mls @ 0 mls/hr 02/25/20 09:00 02/25/20 08:05 Miscellaneous Medication SC Not Given BID [facility] Insulin Human Lispro 0 units 02/24/20 20:41 02/25/20 06:25 Humalog SC 2 unit .MODERATE SLIDING SC PRN Administration Moderate Correctional Scale Levothyroxine Sodium 100 mcg 02/25/20 06:00 02/25/20 05:43 Synthroid PO 100 mcg 0600 SOFY Administration Lubiprostone 24 mcg 02/25/20 09:00 02/25/20 08:03 Amitiza PO 24 mcg BID [facility] Administration Metoprolol Tartrate 5 mg 02/24/20 20:43 02/24/20 21:14 Lopressor IVP 5 mg Q6H PRN Administration SBP > 140 Metoprolol Tartrate 50 mg 02/25/20 09:00 02/25/20 08:04 Lopressor PO 50 mg BID SOFY Administration Mometasone Furoate/Formoterol Fumar 2 puff 02/25/20 06:30 02/25/20 07:10 Dulera 100 Mcg/5 Mcg Inhaler INH 2 puff BID-RT [facility] Administration Multivitamins 1 tab 02/25/20 09:00 02/25/20 08:04 Theragran PO 1 tab DAILY [facility] Administration Nitroglycerin 0.5 inch 02/24/20 22:00 02/25/20 13:48 Nitro-Bid 2% Ointment TOP 0.5 inch Q8HR SOFY Administration Pantoprazole Sodium 40 mg 02/25/20 09:00 02/25/20 08:05 Protonix PO 40 mg QAM [facility] Administration Potassium Chloride 20 meq 02/25/20 08:00 02/25/20 08:03 Klor-Con PO 20 meq BID-WM SOFY Administration Warfarin Sodium 3 mg 02/25/20 09:00 02/25/20 13:50 Coumadin PO 3 mg QAM SOFY Administration - Exam General Appearance: NAD, awake alert Eye: PERRL, anicteric sclera ENT: normocephalic atraumatic, no oropharyngeal lesions Neck: supple, symmetric, no JVD, no thyromegaly, no lymphadenopathy Heart: no gallops, no rubs, normal peripheral pulses, irregular Heart - other findings: S1, S2 Respiratory: CTAB, no wheezes, no rales, no ronchi, normal chest expansion, no tachypnea Gastrointestinal: soft, non-tender, non-distended, normal bowel sounds, no palpable masses Extremities: no cyanosis, no clubbing, 2+ LE edema Extremities - other findings: chronic venous stasis changes Skin: normal turgor, no lesions Neurological: cranial nerve grossly intact, no new deficit Musculoskeletal: normal tone, generalized weakness Psychiatric: A&O x 3, flat affect Hosp A/P (1) Atrial fibrillation with controlled ventricular response Code(s): I48.91 - UNSPECIFIED ATRIAL FIBRILLATION Status: Chronic Plan: Continue Digoxin/Metoprolol, continue Coumadin (2) MINOR (acute kidney injury) Code(s): N17.9 - ACUTE KIDNEY FAILURE, UNSPECIFIED Status: Acute Plan: Resolving, supportive mgmt, avoid nephrotoxic meds (3) Anticoagulant long-term use Code(s): Z79.01 - PLUMBING TECHNICIAN (CURRENT) USE OF ANTICOAGULANTS Status: Chronic Plan: Therapeutic INR with Coumadin (4) Chest pain Code(s): R07.9 - CHEST PAIN, UNSPECIFIED Status: Chronic Qualifiers: Chest pain type: intercostal pain Qualified Code(s): R07.82 - Intercostal pain Plan: Chest wall pain (5) DM type 2 (diabetes mellitus, type 2) Status: Chronic Plan: ISS, ADA - Plan pediatric social worker, DVT proph w/SCDs Stable currently Cardiology consult pending LINQ device interrogation Continue Digoxin/Metoprolol AM lab: BMP, PT/INR Likely d/c 02/26/20
--- NOTE | 2020-02-25 17:49 | EKG ---
Test Reason : STAT Blood Pressure : / mmHG Vent. Rate : 062 BPM Atrial Rate : 075 BPM P-R Int : 000 ms QRS Dur : 086 ms QT Int : 404 ms P-R-T Axes : 000 022 -07 degrees QTc Int : 410 ms Atrial fibrillation with premature ventricular or aberrantly conducted complexes Nonspecific ST abnormality Abnormal ECG When compared with ECG of 10-DEC-2019 14:28, Premature ventricular complexes are no longer Present Vent. rate has decreased BY [address] no longer depressed in Anterior leads T wave inversion less evident in Inferior leads T wave inversion no longer evident in Lateral leads QT has shortened Confirmed by GIL METZGER, DR. Shipman ([id number]) on 02/25/2020 5:48:38 PM Referred By: Confirmed By:DR. Ramonita CORDERO MD
--- NOTE | 2020-02-25 18:55 | CON ---
DATE OF CONSULTATION: HISTORY OF PRESENT ILLNESS: Kristina Carlson is a 64-year-old white female whom I have followed since 1991. An exhaustive cardiac history is in the computer from the note dictated in November of this year. At that time, she was admitted with chest wall pain. She now presents complaining of 3 weeks of pleuritic chest pain. It is present when she coughs or takes a deep breath and it will last for approximately 30 seconds. She states she has been having increasing cough over the last several weeks and this has made her chest hurt more. PAST MEDICAL HISTORY: Probable rheumatic fever with valvular abnormalities, status post mitral valvuloplasty for mitral stenosis, diabetes, asthma, COPD, obesity, hypertension, hyperlipidemia, mild coronary artery disease, mental retardation, renal insufficiency, hypothyroidism, bipolar disorder, and depression. MEDICATIONS: As noted in the computer. ALLERGIES: TOMATO. SOCIAL HISTORY: Smoked over 1 pack per day in the past, but stopped smoking several years ago. She does not drink alcohol. She lives in a retirement. Prior to that she lived in a longterm. FAMILY HISTORY: Unobtainable. REVIEW OF SYSTEMS: A 10-point review of systems unremarkable. PHYSICAL EXAMINATION: VITAL SIGNS: Blood pressure 135/68 and pulse of 65. HEENT: PERRL. NECK: Supple. CHEST: Clear without any wheezing. CARDIOVASCULAR: S1 and S2 normal without any S3 or S4. There is a 2/6 holosystolic murmur along the left sternal border. ABDOMEN: Normal bowel sounds without tenderness or organomegaly. EXTREMITIES: Revealed 2+ pretibial edema. NEUROLOGIC: Grossly intact except for her mild mental retardation. MUSCULOSKELETAL: Reveals palpable chest tenderness that reproduces her pain. LABORATORY DATA: EKG reveals atrial fibrillation with nonspecific ST-segment changes. Hemoglobin 12.9, hematocrit 37.7, white count 8100, and platelets 151. INR 2.5. Sodium 141, potassium 3.2, chloride 99, carbon dioxide 33, BUN 17, creatinine 1.06, glucose 217, troponin I is up to 0.049. IMPRESSION: 1. Noncardiac chest wall pain for the last 3 weeks with palpable tenderness, pleuritic in nature, only lasting 30 seconds. 2. Mild coronary artery disease on catheterization in January 2014. 3. History of rheumatic fever with mitral stenosis. 4. Status post mitral valvuloplasty in 2013. 5. Moderate aortic stenosis. 6. Moderate aortic insufficiency. 7. Mild left ventricular dysfunction. 8. Chronic atrial fibrillation. 9. Bradycardia in the past, but has never been severe enough to warrant pacemaker placement. She does have a LINQ implantable loop recorder. 10. Hypercholesterolemia. 11. Seizure. 12. Depression. 13. Mental retardation. 14. Former smoker. 15. Chronic obstructive pulmonary disease. PLAN: The patient will be given metolazone for better diuresis. Also with her worsening cough, I will start her on DuoNeb for her COPD. From a Cardiac standpoint, I do not feel that any further evaluation is warranted. Job ID: [id number] MTDD
[2020-02-25] MEDS ORDERED: Benztropine 1 MG TAB PO SCH (21:00)
[2020-02-25] MEDS ORDERED: Melatonin 3 MG TAB PO SCH (21:00)
[2020-02-25] MEDS ORDERED: Aripiprazole 10 MG TAB PO SCH (21:00)
[2020-02-25] MEDS ORDERED: Ezetimibe 10 MG TAB PO SCH (21:00)
[2020-02-25] MEDS: Furosemide 80 MG TAB PO SCH (21:48)
[2020-02-26 04:45] LABS: Anion Gap 13 mmol/L (10-20); BUN (Urea Nitrogen) 25 mg/dL (9.8-20.1); Calc. Creatinine Clearance 75 mL/min (70-130); Calcium 9.1 mg/dL (7.8-10.44); Carbon Dioxide 35 mmol/L (23-31); Chloride 93 mmol/L (98-107); Estimated GFR-MDRD 42; Glucose 329 mg/dL (80-115); Potassium 3.3 mmol/L (3.5-5.1); Sodium 138 mmol/L (136-145)
[2020-02-26] MEDS: Levothyroxine Sodium 100 MCG TAB PO SCH (06:15)
[2020-02-26] MEDS: HumaLOG 300 UNITS/3 ML VIAL SC PRN ×2 (06:16→12:20)
[2020-02-26] MEDS: Mometasone 100 MCG/Formoterol 5 MCG 120 PUFF INHALER INH SCH (06:58)
[2020-02-26] MEDS: Furosemide 100 MG/10 ML VIAL SLOW IVP SCH (08:49)
[2020-02-26] MEDS: Insulin Glargine 18 UNITS in Pre-Filled Syringe 1 EACH SC SCH (08:52)
[2020-02-26] MEDS: Alogliptin 6.25 MG TAB PO SCH (08:52)
[2020-02-26] MEDS: Digoxin 0.25 MG TAB PO SCH (08:52)
[2020-02-26] MEDS: Lubiprostone 24 MCG CAP PO SCH (08:52)
[2020-02-26] MEDS: Multivit, Therapeutic 1 TAB PO SCH (08:52)
[2020-02-26] MEDS: Furosemide 80 MG TAB PO SCH (08:52)
[2020-02-26] MEDS: Warfarin Sodium 3 MG TAB PO SCH (08:52)
[2020-02-26] MEDS: Calcium Carbonate 600 MG + Vit D TAB PO SCH (08:52)
[2020-02-26] MEDS: Metoprolol Tartrate 25 MG TAB PO SCH (08:52)
[2020-02-26] MEDS: Atorvastatin Calcium 10 MG TAB PO SCH (08:52)
[2020-02-26] MEDS: Aspirin 81 mg Enteric Coated Tablet PO SCH (08:52)
[2020-02-26] MEDS ORDERED: Potassium Chloride 20 MEQ TAB PO SCH (09:15)
[2020-02-26] MEDS ORDERED: Magnesium Citrate 300 ML BOT PO SCH (09:30)
--- NOTE | 2020-02-26 10:13 | DIS ---
DATE OF ADMISSION: 02/24/2020 DATE OF DISCHARGE: 02/26/2020 DISCHARGE DIAGNOSES: 1. Atrial fibrillation with controlled ventricular response, chronic. 2. Acute kidney injury, mild, resolving. 3. Chronic anticoagulation with Coumadin. 4. Chest wall pain, stable. 5. Constipation. 6. Diabetes mellitus, type 2, insulin requiring. 7. Hypokalemia. 8. Chronic kidney disease, stage 3. CONSULTATIONS: Dr. Justin Polo with Cardiology Service. PERTINENT LABORATORY AND X-RAY FINDINGS: Potassium ranged between 3.1 to 3.3. Creatinine ranged between 1.06 to 1.28. Estimated GFR ranged between 42 to 50. Troponin I ranged between 0.037 to 0.049. BNP 100. CBC within normal limits. PT 27.2, INR 2.5. Portable chest x-ray dated 02/24/2020, positive for cardiomegaly with left lower lobe atelectasis. HOSPITAL COURSE: The patient was initially observed on the telemetry unit after presenting with sharp left parasternal chest pain worse with movement and coughing and reproducible on clinical exam. The patient underwent extensive evaluation including metabolic survey showing no evidence for acute coronary syndrome. The patient's presentation consistent with chest wall pain with recommendations for symptomatic management. The patient was evaluated by the Cardiology Service with recommendations for symptom management and continuation of her regular cardiac medications. The patient was noted with constipation, receiving magnesium citrate during hospital course and likely will need a bowel regimen on an ongoing basis due to chronic narcotic use. Telemetry monitoring showed atrial fibrillation with controlled rate and overall, the patient remained clinically stable during the hospital course. I have examined the patient at the time of discharge and discussed followup instructions. The patient verbalized understanding and in agreement and ready for discharge on 02/26/2020. DISCHARGE MEDICATIONS: 1. Tylenol No. 3 of 300 mg/30 mg one tablet p.o. q.8 hours p.r.n. 2. Fosamax 70 mg p.o. q.7 days. 3. Abilify 10 mg p.o. at bedtime. 4. Enteric-coated aspirin 81 mg p.o. daily. 5. Lipitor 10 mg p.o. daily. 6. Cogentin 1 mg p.o. at bedtime. 7. Calcium with vitamin D one tablet p.o. b.i.d. 8. Cyclobenzaprine 5 mg p.o. q.6 hours p.r.n. 9. Digoxin 0.25 mg p.o. daily. 10. Colace 100 mg p.o. b.i.d. 11. Zetia 10 mg p.o. at bedtime. 12. Fentanyl patch 25 mcg q.72h hours. 13. Breo Ellipta 100 mcg/25 mcg p.o. q.a.m. 14. Lasix 80 mg p.o. b.i.d. 15. Levemir 18 units subcutaneously b.i.d. 16. Levothyroxine 100 mcg p.o. q.a.m. 17. Tradjenta 5 mg p.o. q.a.m. 18. Amitiza 24 mcg p.o. b.i.d. 19. Melatonin 10 mg p.o. at bedtime. 20. Zaroxolyn 5 mg p.o. daily. 21. Metoprolol tartrate 50 mg p.o. b.i.d. 22. Multivitamin one tablet p.o. daily. 23. Protonix 20 mg p.o. q.a.m. 24. MiraLAX 17 g p.o. daily. 25. Potassium chloride 20 mEq p.o. b.i.d. 26. Coumadin 3 mg p.o. q.a.m. FOLLOWUP: The patient may follow up with Dr. Delicia Felder at [facility]. CONDITION ON DISCHARGE: Fair. ACTIVITY: Ad-garima. Rolling walker with ambulation. DIET: ADA and heart healthy. CODE STATUS: Full. DISPOSITION: To [facility] on 02/26/2020. Job ID: [id number]
[2020-02-26 10:34] LABS: INR-International Normal Ratio 2.5; Prothrombin Time 26.8 sec (12.0-14.7)
[2020-02-26 12:19] VITALS: BP 126/60; TEMP 98.7
== END 2020-02-26 15:10 ==
LOC: ERS 17:14 → 2NO 19:25
PROVIDERS: ADMIT Internal Medicine; ATTEND Internal Medicine
DX: I48.20 Chronic atrial fibrillation, unspecified (principal); E11.22 Type 2 diabetes mellitus with diabetic chronic kidney disease; N18.3 Chronic kidney disease, stage 3 (moderate); N17.9 Acute kidney failure, unspecified; J44.9 Chronic obstructive pulmonary disease, unspecified; E87.6 Hypokalemia; F31.9 Bipolar disorder, unspecified; E03.9 Hypothyroidism, unspecified; I25.10 Atherosclerotic heart disease of native coronary artery without angina pectoris; F79 Unspecified intellectual disabilities; Z79.4 Long term (current) use of insulin; E78.00 Pure hypercholesterolemia, unspecified; E78.5 Hyperlipidemia, unspecified; E66.9 Obesity, unspecified; Z68.39 Body mass index [BMI] 39.0-39.9, adult; Z79.01 Long term (current) use of anticoagulants; Z79.899 Other long term (current) drug therapy; Z91.018 Allergy to other foods; Z87.891 Personal history of nicotine dependence
CPT/HCPCS: 36415; 36416; 71045; 80048; 80053; 82553; 83880; 84484; 85025; 85610; 93005; 93010; 94640; 94760; 96374; 96375; G0378; J1815; J1940; J7620

== ENCOUNTER 2020-06-20 08:44 | Outpatient (CLI) | payer MEDICARE, MEDICAID ==
--- NOTE | 2020-06-20 09:23 | MMO ---
Bilateral MAMMO Bilat Diag DDI+ALVERTO. CLINICAL HISTORY: Patient is 64 years old and is seen for diagnostic exam and lump or thickening in the left breast at 9 o'clock. The patient has the following family history of breast cancer: mother, malignant (generic) and grandmother, malignant (generic). The patient has no personal history of cancer. The patient has a history of left Ultrasound Guided Core Biopsy in May, - benign. VIEWS: The views performed were: bilateral craniocaudal with tomosynthesis; bilateral mediolateral oblique with tomosynthesis; and bilateral mediolateral with tomosynthesis. FILMS COMPARED: The present examination has been compared to prior imaging studies performed at [facility] on 08/04/2017, and at [facility] on 08/08/2012, 11/07/2013 and 08/31/2016. This study has been interpreted with the assistance of computer-aided detection. MAMMOGRAM FINDINGS: There are scattered fibroglandular densities. Finding 1: There is an implanted loop recorder device in the medial left breast, corresponding to the palpable finding. This limits mammographic evaluation of the left breast. Finding 2: There are stable benign appearing calcifications seen in both breasts. There are also vascular calcifications. There are no suspicious masses, suspicious calcifications, or new areas of architectural distortion. IMPRESSION: THERE IS NO MAMMOGRAPHIC EVIDENCE OF MALIGNANCY. A ROUTINE FOLLOW-UP MAMMOGRAM IN 1 YEAR IS RECOMMENDED. THE RESULTS OF THIS EXAM WERE SENT TO THE PATIENT. ACR BI-RADS Category 2 - Benign finding MAMMOGRAPHY NOTE: 1. A negative mammogram report should not delay a biopsy if a dominant of clinically suspicious mass is present. 2. Approximately 10% to 15% of breast cancers are not detected by mammography. 3. Adenosis and dense breasts may obscure an underlying neoplasm. Reported by: STEVE FARFAN MD Electonically Signed: [id number]
== END 2020-06-20 08:45 | disposition home or self-care (01) ==
LOC: BICMAMMO 08:44
PROVIDERS: ATTEND Family Medicine
DX: N63.24 Unspecified lump in the left breast, lower inner quadrant (principal)
CPT/HCPCS: 77066; G0279

== ENCOUNTER 2020-07-05 09:50 | Emergency (ER) | payer MEDICARE, OTHER ==
[2020-07-05] MEDS ORDERED: Fentanyl 100 MCG/2 ML VIAL ONE (10:44)
[2020-07-05 10:50] LABS: #Basophils 0.1 thou/uL (0.0-0.2); #Eosinphils 0.2 thou/uL (0.0-0.7); #Lymphocytes 1.5 thou/uL (1.20-3.40); #Monocytes 0.7 thou/uL (0.11-0.59); %Basophils 0.8 % (0.0-1.0); %Eosinophils 2.1 % (0.0-10.0); %Lymphocytes 15.4 % (21.0-51.0); %Monocytes 7.8 % (0.0-10.0); %Neutrophils 73.9 % (42.0-75.0); Hemoglobin 13.1 g/dL (12.0-16.0); Mean Corpuscular HGB CONC 32.5 g/dL (32.0-36.0); Mean Corpuscular Hemoglobin 31.4 pg (27.0-31.0); Mean Corpuscular Volume 96.3 fL (78.0-98.0); Mean Platelet Volume 9.2 fL (7.4-10.4); Platelet Count 167 thou/uL (130-400); RBC Distribution Width 13.9 % (11.5-14.5); Red Blood Cell (RBC) Count 4.18 mill/uL (4.20-5.40); White Blood Cell (WBC) Count 9.5 thou/uL (4.8-10.8)
--- NOTE | 2020-07-05 11:01 | RAD ---
Chest AP view INDICATION: History of left-sided flank pain and shortness of breath COMPARISON: February 24, 2020 FINDINGS: Lungs: There is stable linear density involving the left midlung suspicious for either persistent orellana bsegmental volume loss or scarring. There are low lung volumes. Cardiac silhouette: There is stable mild cardiomegaly Pulmonary vasculature: Normal Pleural spaces: No pleural effusion or pneumothorax is demonstrated. Upper abdomen: No abnormality seen. Osseous structures: No acute osseous abnormality. Additional findings: None. IMPRESSION: No acute cardiopulmonary abnormality.
[2020-07-05 11:08] LABS: ALT (SGPT) 24 U/L (8-55); AST (SGOT) 19 U/L (5-34); Albumin 3.8 g/dL (3.4-4.8); Alkaline Phosphatase 77 U/L (40-110); BUN (Urea Nitrogen) 23 mg/dL (9.8-20.1); Bilirubin, Total 0.7 mg/dL (0.2-1.2); Calc. Creatinine Clearance 0 mL/min (70-130); Calcium 9.6 mg/dL (7.8-10.44); Globulin 3.4 g/dL (2.4-3.5); Glucose 127 mg/dL (80-115); Lipase 20 U/L (8-78); Protein, Total 7.2 g/dL (6.0-8.3)
[2020-07-05 11:16] LABS: Bilirubin Negative (Negative); Blood, Urine Negative (Negative); Clarity Clear (Clear); Glucose, Urine (Dipstick) Normal (Negative); Ketone, Urine Negative (Negative); Leukocyte 250 Leu/uL (Negative); Nitrite Negative (Negative); Protein, Urine (Dipstick) Negative (Neg-Trace); RBC/HPF 0-3 HPF (0-3); Squamous Epithelial 0-3 HPF (0-3); Urobilinogen Normal mg/dL (Less than 2); WBC/HPF 21-50 HPF (0-3)
[2020-07-05 11:17] LABS: Bacteria/HPF 1+ HPF (None Seen)
[2020-07-05 11:17] LABS: Anion Gap 20 mmol/L (10-20); Carbon Dioxide 33 mmol/L (23-31)
--- NOTE | 2020-07-05 11:29 | CT ---
Exam: Abdomen CT without contrast Pelvic CT without contrast HISTORY: Left flank pain. Shortness of breath. COMPARISON: 11/26/2018, 02/25/2019, 03/31/2016 FINDINGS: Abdomen CT: Lung bases:Dependent atelectatic changes and scarring. Incompletely evaluated pleural based density a butting the minor fissure, measuring 0.9 cm. Pleural-based density is similar to a CT from 02/25/2019 and 03/31/2016. Heart size: Cardiomegaly. There are coronary calcifications. No significant pericardial fluid. Aorta: Atherosclerosis of the root of the aorta. Additional atherosclerosis involving the abdominal a yoni. No aneurysm or area aortic fat stranding Solid organs: Limited evaluation by the lack of IV contrast. 1.9 x 0.6 cm hypodensity associated with the left adrenal gland with attenuation coefficient of 9 Hounsfield units, suggesting a benign adenoma. Otherwise, grossly no solid organ abnormality. Lymph nodes: No gastrohepatic, retrocrural or periportal lymphadenopathy Gallbladder: Punctate calcifications in the wall of the gallbladder. No evidence of cholecystitis. Mesentery: No mass, lymphadenopathy, free air or free fluid Kidneys: Bilaterally, no hydronephrosis, nephrolithiasis or perinephric fat stranding. Bilateral uret ers have a normal caliber. No hydroureter, periureteral fat stranding or ureterolithiasis. 1.8 x 1.5 cm exophytic hypodensity emanating from the left upper pole cortex compatible with a cyst. There is scarring in the mid left renal cortex. Alimentary canal: Limited evaluation by the lack of oral contrast administration. Slightly prominent small bowel loops in the left hemiabdomen. Distal small bowel loops are decompressed. Normal-appearing ileocecal junction. Appendix is not appreciated. No obvious inflammation in the ceca l apex. There is scattered fecal material throughout the colon. CT PELVIS: No mass, adenopathy, free air or free fluid. Uterus and adnexal structures are grossly unremarkable. Urinary bladder: Unremarkable. Osseous structures: Interval T11 vertebral body fracture with vertebra plana. Moderate compression fr acture at T12. Findings are similar to lumbar spine MRI 04/20/2019. IMPRESSION: 1. No evidence of obstructive uropathy. 2. Left adrenal nodule. 3. Stable vertebra plana and impression fractures at T11/T12 respectively.
[2020-07-05 11:30] LABS: CKMB 1.1 ng/mL (0-6.6)
[2020-07-05 11:43] LABS: Chloride 93 mmol/L (98-107); Potassium 3.6 mmol/L (3.5-5.1); Sodium 141 mmol/L (136-145)
[2020-07-05] MEDS ORDERED: cefTRIAXone\\ROCEPHIN 1 GM VIAL ONE (12:26)
--- NOTE | 2020-07-12 17:03 | EKG ---
Test Reason : Blood Pressure : / mmHG Vent. Rate : 070 BPM Atrial Rate : 312 BPM P-R Int : 000 ms QRS Dur : 088 ms QT Int : 370 ms P-R-T Axes : 000 120 202 degrees QTc Int : 399 ms Atrial fibrillation Lateral infarct , age undetermined Abnormal ECG Confirmed by ELIZABETH PANCHAL DO ([id number]), associate editor RAYA JAVIER ([id number]) on 07/12/2020 5:02:59 PM Referred By: Confirmed By:ELIZABETH PANCHAL DO
== END 2020-07-05 16:00 ==
LOC: ERS 09:50
DX: N12 Tubulo-interstitial nephritis, not specified as acute or chronic (principal); E78.5 Hyperlipidemia, unspecified; E78.00 Pure hypercholesterolemia, unspecified; E03.9 Hypothyroidism, unspecified; K21.9 Gastro-esophageal reflux disease without esophagitis; I48.91 Unspecified atrial fibrillation; I11.0 Hypertensive heart disease with heart failure; I50.9 Heart failure, unspecified; J44.9 Chronic obstructive pulmonary disease, unspecified; F31.9 Bipolar disorder, unspecified; E11.9 Type 2 diabetes mellitus without complications; Z87.891 Personal history of nicotine dependence
CPT/HCPCS: 36415; 71045; 74176; 80053; 81003; 81015; 82553; 83690; 84484; 85025; 93005; 94760; 96374; 96375; J0696; J3010

== ENCOUNTER 2020-08-06 15:05 | Inpatient (IN) | payer MEDICARE, MEDICAID ==
[2020-08-06] MEDS ORDERED: Furosemide 40 MG/4 ML VIAL ONE (15:30)
--- NOTE | 2020-08-06 15:36 | RAD ---
EXAM: CHEST ONE VIEW HISTORY: Shortness of breath and leg swelling. Chest pain and leg pain. COMPARISON: 07/08/2020 FINDINGS: There has been interval increase in interstitial and patchy parenchymal airspace opacities at the lef t lung base with minimal increased interstitial densities at the right lung base. Findings are worrisome for infectious process. Follow-up to resolution is recommended. Cardiac silhouette is magni fied by projection. Loop recording device overlies the left upper quadrant. Vascular calcific lesions are seen in the thoracic aorta. No other interval change. IMPRESSION: Interval increase in interstitial and patchy parenchymal airspace opacities left lung base worrisome for pneumonia. Follow-up to resolution is recommended.
[2020-08-06 15:39] LABS: #Basophils 0.1 thou/uL (0.0-0.2); #Eosinphils 0.2 thou/uL (0.0-0.7); #Lymphocytes 2.7 thou/uL (1.20-3.40); #Monocytes 1.2 thou/uL (0.11-0.59); #Neutrophils 7.1 thou/uL (1.40-6.50); %Basophils 0.6 % (0.0-1.0); %Eosinophils 1.6 % (0.0-10.0); %Lymphocytes 23.8 % (21.0-51.0); %Monocytes 10.8 % (0.0-10.0); %Neutrophils 63.2 % (42.0-75.0); Hemoglobin 12.8 g/dL (12.0-16.0); Mean Corpuscular HGB CONC 32.4 g/dL (32.0-36.0); Mean Corpuscular Hemoglobin 31.2 pg (27.0-31.0); Mean Corpuscular Volume 96.2 fL (78.0-98.0); Mean Platelet Volume 8.7 fL (7.4-10.4); Platelet Count 181 thou/uL (130-400); RBC Distribution Width 14.5 % (11.5-14.5); Red Blood Cell (RBC) Count 4.09 mill/uL (4.20-5.40); White Blood Cell (WBC) Count 11.2 thou/uL (4.8-10.8)
[2020-08-06 15:57] LABS: ALT (SGPT) 23 U/L (8-55); AST (SGOT) 18 U/L (5-34); Albumin 3.8 g/dL (3.4-4.8); Alkaline Phosphatase 78 U/L (40-110); Anion Gap 15 mmol/L (10-20); BUN (Urea Nitrogen) 19 mg/dL (9.8-20.1); Bilirubin, Total 0.6 mg/dL (0.2-1.2); CK (CPK) 42 U/L (29-168); Calc. Creatinine Clearance 0 mL/min (70-130); Calcium 8.4 mg/dL (7.8-10.44); Carbon Dioxide 26 mmol/L (23-31); Chloride 101 mmol/L (98-107); Globulin 3.4 g/dL (2.4-3.5); Glucose 285 mg/dL (80-115); Lipase 29 U/L (8-78); Potassium 4.3 mmol/L (3.5-5.1); Protein, Total 7.2 g/dL (6.0-8.3); Sodium 138 mmol/L (136-145)
[2020-08-06 16:27] LABS: Prothrombin Time 23.2 sec (12.0-14.7)
[2020-08-06 17:20] LABS: Bilirubin Negative (Negative); Blood, Urine 2+ (Negative); Clarity Clear (Clear); Glucose, Urine (Dipstick) Normal (Negative); Ketone, Urine Negative (Negative); Leukocyte Negative Leu/uL (Negative); Nitrite Negative (Negative); Protein, Urine (Dipstick) Negative (Neg-Trace); Specific Gravity, Urine 1.011 (1.002-1.036); Urobilinogen Normal mg/dL (Less than 2); WBC/HPF None Seen HPF (0-3)
[2020-08-06 17:24] LABS: Bacteria/HPF 4+ HPF (None Seen)
[2020-08-06 17:28] LABS: Digoxin 1.46 ng/mL (0.8-2.0)
[2020-08-06] MEDS ORDERED: Dextrose 5% in Water 1,000 ML IV PRN (18:27)
[2020-08-06] MEDS ORDERED: Ondansetron PF 4 MG/2 ML Vial IVP PRN (18:27)
[2020-08-06] MEDS ORDERED: Guaifenesin DM 100-10/5 ML UDCUP PO PRN (18:27)
[2020-08-06] MEDS ORDERED: Dextrose 50% Abboject 50 ML SYRINGE SLOW IVP PRN (18:27)
[2020-08-06] MEDS ORDERED: Polyethylene Glycol 3350 17 GM Packet PO PRN (18:27)
[2020-08-06] MEDS ORDERED: hydrALAZINE 20 MG/ML VIAL SLOW IVP PRN (18:27)
[2020-08-06] MEDS ORDERED: Ondansetron ODT 4 MG TAB PO PRN (18:27)
[2020-08-06 19:11] LABS: Troponin I 0.028 ng/mL (< 0.028)
[2020-08-06 19:16] VITALS: BMI 43.8
[2020-08-06] MEDS: Nitroglycerin 2% Ointment 1 INCH/1 GM Packet TOP SCH (19:28)
[2020-08-06] MEDS: Morphine 2 MG/ML VIAL SLOW IVP PRN (20:22)
[2020-08-06] MEDS: Melatonin 3 MG TAB PO SCH (20:23)
[2020-08-06] MEDS: Potassium Chloride 20 MEQ TAB PO SCH (20:23)
[2020-08-06] MEDS: Benztropine 1 MG TAB PO SCH (20:23)
[2020-08-06] MEDS: Metoprolol Tartrate 50 MG TAB PO SCH (20:23)
[2020-08-06] MEDS: Aripiprazole 10 MG TAB PO SCH (20:24)
[2020-08-06] MEDS: Famotidine 20 MG TAB PO SCH (20:24)
[2020-08-06] MEDS: Furosemide 40 MG/4 ML VIAL SLOW IVP SCH (20:49)
[2020-08-06] MEDS ORDERED: Non-Formulary Item 1 EACH (Insulin Detemir [Levemir] 100 UNIT/ML Vial) SC SCH (21:00)
[2020-08-06] MEDS: HumaLOG 300 UNITS/3 ML VIAL SC PRN (21:49)
[2020-08-06] MEDS: Insulin Glargine 18 UNITS in Pre-Filled Syringe SC SCH (21:50)
[2020-08-06 22:09] LABS: Troponin I 0.033 ng/mL (< 0.028)
[2020-08-07] MEDS: Morphine 2 MG/ML VIAL SLOW IVP PRN ×5 (04:00→22:15)
[2020-08-07 04:40] LABS: #Basophils 0.1 thou/uL (0.0-0.2); #Eosinphils 0.2 thou/uL (0.0-0.7); #Lymphocytes 1.9 thou/uL (1.20-3.40); #Monocytes 0.9 thou/uL (0.11-0.59); #Neutrophils 4.2 thou/uL (1.40-6.50); %Monocytes 11.8 % (0.0-10.0); %Neutrophils 58.2 % (42.0-75.0); Hemoglobin 11.9 g/dL (12.0-16.0); Mean Corpuscular HGB CONC 32.4 g/dL (32.0-36.0); Mean Corpuscular Volume 95.7 fL (78.0-98.0); Mean Platelet Volume 8.8 fL (7.4-10.4); Platelet Count 163 thou/uL (130-400); RBC Distribution Width 14.7 % (11.5-14.5); Red Blood Cell (RBC) Count 3.83 mill/uL (4.20-5.40); White Blood Cell (WBC) Count 7.3 thou/uL (4.8-10.8)
[2020-08-07 04:44] LABS: INR-International Normal Ratio 2.1; Prothrombin Time 24.3 sec (12.0-14.7)
[2020-08-07 05:11] LABS: ALT (SGPT) 20 U/L (8-55); AST (SGOT) 13 U/L (5-34); Albumin 3.4 g/dL (3.4-4.8); Alkaline Phosphatase 73 U/L (40-110); Anion Gap 16 mmol/L (10-20); BUN (Urea Nitrogen) 20 mg/dL (9.8-20.1); Bilirubin, Total 0.6 mg/dL (0.2-1.2); Calc. Creatinine Clearance 93 mL/min (70-130); Calcium 8.1 mg/dL (7.8-10.44); Carbon Dioxide 30 mmol/L (23-31); Chloride 98 mmol/L (98-107); Glucose 183 mg/dL (80-115); Potassium 3.7 mmol/L (3.5-5.1); Protein, Total 6.4 g/dL (6.0-8.3); Sodium 140 mmol/L (136-145)
[2020-08-07] MEDS: Furosemide 40 MG/4 ML VIAL SLOW IVP SCH ×3 (05:35→22:16)
[2020-08-07] MEDS: Levothyroxine Sodium 100 MCG TAB PO SCH (05:35)
[2020-08-07] MEDS: Nitroglycerin 2% Ointment 1 INCH/1 GM Packet TOP SCH ×3 (05:35→22:16)
[2020-08-07] MEDS: Mometasone 100 MCG/Formoterol 5 MCG 120 PUFF INHALER INH SCH ×2 (07:05→19:31)
[2020-08-07] MEDS: Digoxin 0.25 MG TAB PO SCH (08:54)
[2020-08-07] MEDS: Metolazone 5 MG TAB PO SCH (08:55)
[2020-08-07] MEDS: Famotidine 20 MG TAB PO SCH ×2 (08:55→22:18)
[2020-08-07] MEDS: Potassium Chloride 20 MEQ TAB PO SCH ×2 (08:55→22:18)
[2020-08-07] MEDS: Metoprolol Tartrate 50 MG TAB PO SCH ×2 (08:55→22:18)
[2020-08-07] MEDS: Acetaminophen 500 MG TAB PO PRN ×3 (08:55→22:17)
[2020-08-07] MEDS: Aspirin 81 mg Enteric Coated Tablet PO SCH (08:55)
[2020-08-07] MEDS: Insulin Glargine 18 UNITS in Pre-Filled Syringe SC SCH ×2 (09:00→22:17)
[2020-08-07] MEDS ORDERED: FLU VACC QS2020-21(6MOS UP)/PF 60 MCG/0.5 ML SYRINGE IM ONE (09:00)
[2020-08-07] MEDS ORDERED: Aspirin 81 mg Enteric Coated Tablet PO SCH (09:00)
[2020-08-07 09:14] LABS: SARS-CoV-2 MS2 Positive; SARS-CoV-2 N Gene Negative; SARS-CoV-2 S Gene Negative; SARS-CoV-2 by NAA Not Detected (NotDetected); SARS-CoV-2 orf1ab Negative
[2020-08-07 09:18] LABS: Troponin I 0.037 ng/mL (< 0.028)
--- NOTE | 2020-08-07 12:06 | HP ---
PRIMARY CARE PROVIDER: Delicia Felder MD CHIEF COMPLAINT: Lower extremity swelling and leg pain. HISTORY OF PRESENT ILLNESS: This is a 64-year-old female, who presents to [facility] Emergency Department in transfer from [facility], where the patient is a current resident over the last year, complaining of increasing bilateral lower extremity swelling over the last week with associated increased shortness of breath. The patient does state she has a history of heart failure with last echocardiogram in November 2019 showing ejection fraction of 45% to 50% with poly-valvular disease. The patient admits to taking Lasix 80 mg b.i.d. in addition to Zaroxolyn every other day. The patient is unsure if she missed any doses, but has noted persistent swelling of her lower extremities with associated pain and difficulty moving the lower extremities. The patient states she normally uses a rolling walker at home or at the nursing facility for ambulation. The patient admits to some chest pain, mainly shortness of breath and sharp in nature. No specific fever, chills, increased cough, or purulent sputum. In the emergency room, the patient underwent general evaluation including chest imaging showing bilateral pulmonary edema with elevated BNP of 248. The patient received IV Lasix 80 mg x1 dose and was referred to the Hospitalist Service for admission. PAST MEDICAL HISTORY: 1. Diastolic congestive heart failure with ejection fraction of 45% to 50%. 2. Poly-valvular disease. 3. Chronic anticoagulation with Coumadin. 4. Chronic atrial fibrillation with variable rate. 5. Chronic kidney disease stage 3. 6. Diabetes mellitus type 2, insulin requiring. 7. Deconditioning. 8. Schizoaffective disorder. 9. Hypertension. 10. Chronic venous stasis. PAST SURGICAL HISTORY: 1. Status post mitral valvuloplasty due to mitral stenosis. 2. Status post right wrist surgery. 3. Status post cardiac catheterization. CURRENT MEDICATIONS: Based on review of the electronic medical record, 1. Abilify 10 mg p.o. at bedtime. 2. Enteric-coated aspirin 81 mg p.o. daily. 3. Amitiza 24 mcg p.o. b.i.d. 4. Lipitor 10 mg p.o. daily. 5. Breo Ellipta 100 mcg/25 mcg p.o. q.a.m. 6. Cogentin 1 mg p.o. at bedtime. 7. Coumadin 3 mg p.o. q.a.m. 8. Fentanyl patch 25 mcg transdermally q.72 hours. 9. Fosamax 70 mg p.o. weekly. 10. Lasix 80 mg p.o. b.i.d. 11. Digoxin p.o. daily. 12. Levemir 18 units subcutaneously b.i.d. 13. Melatonin 10 mg p.o. at bedtime. 14. Metoprolol 50 mg p.o. b.i.d. 15. Multivitamin one tablet p.o. daily. 16. Protonix 20 mg p.o. nightly. 17. Levothyroxine 100 mcg p.o. daily. 18. Tradjenta 5 mg p.o. q.a.m. 19. Zaroxolyn 5 mg p.o. q.48 hours. 20. Zetia 10 mg p.o. at bedtime. ALLERGIES: NO KNOWN DRUG ALLERGIES. TOMATOES. FAMILY HISTORY: Positive for lung cancer in her mother. SOCIAL HISTORY: Resides at [facility] over the last year. Previously living in a [facility]. Ambulates with a rolling walker with history of falls. Remote tobacco use, none currently. No alcohol or illicit drug use. REVIEW OF SYSTEMS: CONSTITUTIONAL: Negative for weight loss or gain, ability to conduct usual activities. SKIN: Negative for rash, itching. EYES: Negative for double vision, pain. ENT/MOUTH: Negative for nose bleeding, neck stiffness, pain, tenderness. CARDIOVASCULAR: Negative for palpitations, dyspnea on exertion, orthopnea. RESPIRATORY: Negative for shortness of breath, wheezing, cough, hemoptysis, fever or night sweats. GASTROINTESTINAL: Negative for poor appetite, abdominal pain, heartburn, nausea, vomiting, constipation, or diarrhea. GENITOURINARY: Negative for urgency, frequency, dysuria, nocturia. MUSCULOSKELETAL: Negative for pain, swelling. NEUROLOGIC/PSYCHIATRIC: Negative for anxiety, depression. ALLERGY/IMMUNOLOGIC: Negative for skin rash, bleeding tendency. Otherwise, negative except as stated per HPI. PHYSICAL EXAMINATION: VITAL SIGNS: On admission, blood pressure 162/85, pulse 88, respiratory rate 26, temperature 97.6 degrees Fahrenheit, and O2 saturation 98% on room air. GENERAL APPEARANCE: This is a 64-year-old female, agitated, in [id number] distress. HEENT: Pupils are equal, round, and reactive to light and accommodation. Extraocular muscles are intact. No scleral icterus. No conjunctival injection. Nares patent. OP is clear. Teeth in fair repair. NECK: Supple. No cervical adenopathy. No thyromegaly. No carotid bruits. No JVD appreciated. Cervical spine with full active and passive range of motion. No meningeal signs noted. CHEST: Diminished breath sounds in the bases bilaterally with bibasilar crackles. CARDIOVASCULAR: S1, S2 with irregular rate and rhythm. 2/6 systolic ejection murmur in the left sternal border. ABDOMEN: Rounded, soft with mild tenderness to palpation diffusely. No rebound or guarding noted. No palpable mass. EXTREMITIES: Warm and dry with fair turgor. Pitting edema to the mid thighs bilaterally. Chronic venous stasis changes with erythematous regions of the distal tibia bilaterally. Pulses palpable distally at the dorsalis pedis, posterior tibial, and popliteal arteries bilaterally. Capillary refill less than 2 seconds. NEUROLOGIC: Cranial nerves 2 through 12 are grossly intact. No focal or lateralizing signs appreciated. The patient not observed ambulatory during this exam. PERTINENT LABORATORY AND X-RAY FINDINGS: Sodium 138, potassium 4.3, chloride 101, CO2 of 26, BUN 19, creatinine 1.26, estimated GFR of 43, glucose 285, calcium 8.4. LFTs within normal limits. BNP 248. Lipase 29. CBC showed a white blood cell count of 11.2, hemoglobin 13, hematocrit 39, platelet count 181 with normal differential. PT 23.2, INR 2.0. Portable chest x-ray dated 08/06/2020, by my interpretation shows bilateral pulmonary edema. EKG dated 08/06/2020, by my interpretation shows atrial fibrillation with heart rates in the 80s. Normal axis. No acute ST-T wave changes appreciated. ASSESSMENT AND PLAN: 1. Acute on chronic diastolic congestive heart failure exacerbation. The patient will be admitted to the telemetry unit. Continue Lasix 40 mg IV q.8 hours. Add Zaroxolyn 5 mg p.o. daily. Monitor I's and O's and daily weight. Repeat 2D transthoracic echocardiogram for accurate ejection fraction. 2. Poly-valvular disease including mitral stenosis. Continue supportive management. See #1 above. Resume metoprolol 50 mg b.i.d. Continue Coumadin 3 mg p.o. daily. 3. Chronic atrial fibrillation with controlled rate. Continue rate control measures and resume anticoagulation with Coumadin. Continue telemetry monitoring. 4. Hypothyroidism. Continue levothyroxine 100 mcg daily. 5. Chronic kidney disease stage 3. Avoid nephrotoxic agents and limit contrast exposure. Serial creatinine monitoring. 6. Schizoaffective disorder. Resume home medication regimen and monitor clinically. 7. Prophylaxis. SCDs held due to severe lower extremity edema. Pepcid 20 mg p.o. b.i.d. 8. Code status is full. Surrogate medical decision maker is the patient's spouse, Terrance Carlson. Job ID: [id number]
--- NOTE | 2020-08-07 15:00 | CON ---
DATE OF CONSULTATION: HISTORY OF PRESENT ILLNESS: Kristina Carlson is a 64-year-old white female, who I have followed since 1991. There is an exhaustive history on the consult dictation from November 2019. She was admitted with chest wall pain at that time as well as chest wall pain in February 2020. She now is admitted with increased peripheral edema as well as increased shortness of breath. She complains of pleuritic chest pain in the center part of her chest with taking a deep breath or with coughing. She is also tender to palpation. She denies any fever. Her cough is productive of white sputum. PAST MEDICAL HISTORY: Probable rheumatic fever at age of 12 with valvular abnormalities, status post mitral valvuloplasty for mitral stenosis, diabetes, asthma, COPD, obesity, hypertension, hyperlipidemia, mild coronary artery disease, mental retardation, renal insufficiency, hypothyroidism, bipolar disorder, and depression. MEDICATIONS: 1. Abilify 30 at bedtime. 2. Aspirin 81 daily. 3. Atorvastatin 10 mg daily. 4. Cogentin 1 mg at bedtime. 5. Digoxin 0.25 q.a.m. 6. Colace 50 b.i.d. 7. Zetia 10 mg at bedtime. 8. Fentanyl patch q.72 hours. 9. Breo Ellipta q.a.m. 10. Furosemide 80 mg b.i.d. 11. Metolazone 5 mg q.24 hours p.r.n. 12. Levothyroxine 100 mcg q.a.m. 13. Tradjenta 5 mg q.a.m. 14. Amitiza 24 mcg b.i.d. 15. Melatonin 10 at bedtime. 16. Metoprolol 50 b.i.d. 17. Zofran p.r.n. 18. Protonix 20 q.a.m. 19. KCl 20 mEq b.i.d. 20. Warfarin 3 mg q.a.m. ALLERGIES: TOMATOES. SOCIAL HISTORY: She smoked over one pack per day in the past. Stopped smoking several years ago. She does not drink alcohol. She lives in a skilled nursing. Prior to that, she lived in a f[facility]. FAMILY HISTORY: Unobtainable. REVIEW OF SYSTEMS: A 10-point review of systems is unremarkable. PHYSICAL EXAMINATION: VITAL SIGNS: Blood pressure 124/57, pulse 68. HEENT: PERRL. NECK: Supple. CHEST: Clear. CARDIAC: S1 and S2 normal without any S3 or S4. There is a 2/6 systolic ejection murmur along the left sternal border. ABDOMEN: Obese. Normal bowel sounds. No tenderness. EXTREMITIES: Revealed 2+ pretibial edema. NEUROLOGIC: Grossly intact. MUSCULOSKELETAL: Reveals exquisitely painful lower sternum to palpation. LABORATORY DATA: EKG revealed atrial fibrillation with PVCs, nonspecific ST and T-wave changes. Chest x-ray revealed cardiomegaly and increased interstitial and patchy parenchymal airspace opacities in left lung base, possible pneumonia. On admission, white count was 11,200, today is 7.3. Hemoglobin 11.9, hematocrit 36.3, platelets 163,000. INR 2.1. Sodium 140, potassium 3.7, chloride 98, carbon dioxide 30, BUN 20, creatinine 1.11. BNP 201.1. Troponin I 0.033. Echocardiogram revealed ejection fraction of 45% to 50% with moderate left atrial enlargement, moderate mitral regurgitation, moderate mitral stenosis, moderate to severe aortic stenosis, moderate aortic insufficiency, and moderate to severe tricuspid regurgitation. IMPRESSION: 1. Acute on chronic diastolic heart failure. 2. Chest wall pain. 3. Non-ST elevation myocardial infarction type 2, chronically elevated troponin I. 4. Mild coronary artery disease on catheterization in January 2014. 5. History of rheumatic fever with mitral stenosis, status post mitral valvuloplasty in 2013. 6. Moderate to severe aortic stenosis. 7. Moderate aortic insufficiency. 8. Chronic atrial fibrillation. She does have a LINQ monitor in place and we have been monitoring her heart rate for years. She does here have an episode of heart rate in the mid 30s during sleep. 9. Hypercholesterolemia. 10. History of seizures. 11. Depression. 12. Mental retardation. 13. Former smoker. 14. Chronic obstructive pulmonary disease. PLAN: The patient is currently receiving intravenous diuretics. Also, metolazone has been increased to 5 mg q.a.m. She will continue to be diuresed. At the present time, I do not feel that anything is warranted in regard to the short duration of bradycardia during sleep. I will continue to follow the patient with you. Job ID: [id number] [facility]
[2020-08-07] MEDS: HumaLOG 300 UNITS/3 ML VIAL SC PRN (17:29)
[2020-08-07] MEDS: Warfarin Sodium 3 MG TAB PO SCH (17:30)
--- NOTE | 2020-08-07 19:14 | PDOC.HOSPP ---
- Subjective Encounter Date: 08/07/20 Encounter Time: 11:30 Subjective: Patient seen for follow-up regarding CHF exacerbation. Reports epigastric and retrosternal discomfort. Denies fevers or chills. - Objective Vital Signs & Weight: Vital Signs (12 hours) Temp Pulse Pulse Pulse Resp BP BP 08/07/20 16:26 98.1 F 69 15 08/07/20 11:48 98.1 F 68 13 08/07/20 10:22 83 71 100/56 L 97/50 L 08/07/20 08:54 64 08/07/20 08:53 98.0 F 64 16 BP Pulse Ox 08/07/20 16:26 134/72 98 08/07/20 11:48 124/57 L 98 08/07/20 10:22 08/07/20 08:54 08/07/20 08:53 129/78 93 L Weight Weight 254 lb 11.2 oz I&O: 08/06/20 08/07/20 08/08/20 06:59 06:59 06:59 Output Total 900 Balance -900 Result Diagrams: 08/07/20 04:19 08/07/20 04:19 Additional Labs: Accuchecks 08/07/20 08/07/20 08/07/20 15:57 11:12 06:26 POC Glucose 230 H 193 H 151 H 08/06/20 20:45 POC Glucose 229 H Labs and MAR reviewed by me EKG Reviewed by me: Yes (Telemetry shows atrial fibrillation) Hospitalist ROS - Review of Systems Respiratory: reports: SOB with excertion. denies: cough, dry, shortness of breath, hemoptysis, pleuritic pain, sputum, wheezing Cardiovascular: reports: chest pain. denies: palpitations, orthopnea, paroxysmal noc. dyspnea, edema, light headedness - Medication Medications: Active Medications Generic Name Dose Route Start Last Admin Trade Name Freq PRN Reason Stop Dose Admin Acetaminophen 1,000 mg 08/06/20 18:27 08/07/20 15:02 Acetaminophen 500 Mg Tab PO 1,000 mg Q6H PRN Administration Mild Pain (1-3) Aripiprazole 10 mg 08/06/20 21:00 08/06/20 20:24 Aripiprazole 10 Mg Tab PO 10 mg HS SOFY Administration Aspirin 81 mg 08/07/20 09:00 08/07/20 08:55 Aspirin 81 Mg Enteric Coated Tablet PO 81 mg QAM SOFY Administration Benztropine Mesylate 1 mg 08/06/20 21:00 08/06/20 20:23 Benztropine 1 Mg Tab PO 1 mg HS SOFY Administration Digoxin 0.25 mg 08/07/20 08:00 08/07/20 08:54 Digoxin 0.25 Mg Tab PO 0.25 mg QAM-WM SOFY Administration Famotidine 20 mg 08/06/20 21:00 08/07/20 08:55 Famotidine 20 Mg Tab PO 20 mg BID SOFY Administration Furosemide 40 mg 08/06/20 22:00 08/07/20 14:59 Furosemide 40 Mg/4 Ml Vial SLOW IVP 40 mg Q8HR SOFY Administration Insulin Glargine 18 units/ 0.18 mls @ 0 mls/hr 08/06/20 21:00 08/07/20 09:00 Miscellaneous Medication SC 0.18 mls BID SOFY Administration Insulin Human Lispro 0 units 08/06/20 18:27 08/07/20 17:29 Humalog 300 Units/3 Ml Vial SC 3 unit .MILD SLIDING SCALE PRN Administration Mild Correctional Scale Insulin Human Lispro 0 units 08/06/20 18:27 08/06/20 21:49 Humalog 300 Units/3 Ml Vial SC 2 unit .BEDTIME SLIDING SC PRN Administration Bedtime Correctional Scale Levothyroxine Sodium 100 mcg 08/07/20 06:00 08/07/20 05:35 Levothyroxine Sodium 100 Mcg Tab PO 100 mcg 0600 SOFY Administration Melatonin 9 mg 08/06/20 21:00 08/06/20 20:23 Melatonin 3 Mg Tab PO 9 mg HS SOFY Administration Metolazone 5 mg 08/07/20 08:30 08/07/20 08:55 Metolazone 5 Mg Tab PO 5 mg 0830 SOFY Administration Metoprolol Tartrate 50 mg 08/06/20 21:00 08/07/20 08:55 Metoprolol Tartrate 50 Mg Tab PO 50 mg BID SOFY Administration Mometasone Furoate/Formoterol Fumar 2 puff 08/07/20 06:30 08/07/20 07:05 Mometasone 100 Mcg/Formoterol 5 Mcg 120 Puff Inhaler INH 2 puff BID-RT SOFY Administration Morphine Sulfate 2 mg 08/06/20 19:37 08/07/20 15:03 Morphine 2 Mg/Ml Vial SLOW IVP 2 mg Q4H PRN Administration Moderate Pain (4-6) Nitroglycerin 0.5 inch 08/06/20 22:00 08/07/20 14:59 Nitroglycerin 2% Ointment 1 Inch/1 Gm Packet TOP 0.5 inch Q8HR SOFY Administration Potassium Chloride 20 meq 08/06/20 21:00 08/07/20 08:55 Potassium Chloride 20 Meq Tab PO 20 meq BID SOFY Administration Warfarin Sodium 3 mg 08/07/20 17:00 08/07/20 17:30 Warfarin Sodium 3 Mg Tab PO 3 mg 1700 SOFY Administration - Exam General - other findings: Morbid obesity Eye: anicteric sclera ENT: normocephalic atraumatic Neck: supple, no lymphadenopathy Heart: irregular Respiratory: rales Gastrointestinal: soft, non-tender Extremities: 2+ LE edema Psychiatric: normal affect, normal behavior Hosp A/P (1) Acute on chronic systolic heart failure, NYHA class 3 Code(s): I50.23 - ACUTE ON CHRONIC SYSTOLIC (CONGESTIVE) HEART FAILURE Status: Acute (2) Chest pain Code(s): R07.9 - CHEST PAIN, UNSPECIFIED Status: Acute Qualifiers: Chest pain type: intercostal pain Qualified Code(s): R07.82 - Intercostal pain (3) Atrial fibrillation Code(s): I48.91 - UNSPECIFIED ATRIAL FIBRILLATION Status: Chronic (4) DM type 2 (diabetes mellitus, type 2) Status: Chronic (5) HTN (hypertension) Code(s): I10 - ESSENTIAL (PRIMARY) HYPERTENSION Status: Chronic - Plan Continue furosemide 40 mg intravenously every 8 hours. Continue metolazone 5 mg daily. Hypertension controlled and stable, continue Lopressor 50 mg 2 times a day. Continue Lantus insulin 18 units 2 times a day, continue Accu-Cheks and insulin sliding scale. INR is therapeutic, warfarin management per pharmacy. Await 2D echocardiogram. Continue Synthroid 100 mcg daily.
[2020-08-07] MEDS ORDERED: Pharmacy to MANAGE WARFARIN PO PRN (19:23)
[2020-08-07] MEDS: Melatonin 3 MG TAB PO SCH (22:19)
[2020-08-07] MEDS: Aripiprazole 10 MG TAB PO SCH (22:19)
[2020-08-07] MEDS: Benztropine 1 MG TAB PO SCH (22:19)
[2020-08-08 04:37] LABS: INR-International Normal Ratio 1.8; Prothrombin Time 21.6 sec (12.0-14.7)
[2020-08-08 04:58] LABS: Anion Gap 12 mmol/L (10-20); BUN (Urea Nitrogen) 23 mg/dL (9.8-20.1); Calc. Creatinine Clearance 99 mL/min (70-130); Carbon Dioxide 36 mmol/L (23-31); Chloride 94 mmol/L (98-107); Glucose 124 mg/dL (80-115); Potassium 3.3 mmol/L (3.5-5.1); Sodium 139 mmol/L (136-145)
[2020-08-08] MEDS: Levothyroxine Sodium 100 MCG TAB PO SCH (05:53)
[2020-08-08] MEDS: Nitroglycerin 2% Ointment 1 INCH/1 GM Packet TOP SCH ×3 (05:54→22:04)
[2020-08-08] MEDS: Furosemide 40 MG/4 ML VIAL SLOW IVP SCH ×3 (05:54→22:04)
[2020-08-08] MEDS: Mometasone 100 MCG/Formoterol 5 MCG 120 PUFF INHALER INH SCH ×2 (07:13→19:23)
[2020-08-08] MEDS: Metoprolol Tartrate 50 MG TAB PO SCH ×2 (08:25→20:58)
[2020-08-08] MEDS: Metolazone 5 MG TAB PO SCH (08:25)
[2020-08-08] MEDS: Potassium Chloride 20 MEQ TAB PO SCH ×2 (08:25→20:59)
[2020-08-08] MEDS: Digoxin 0.25 MG TAB PO SCH (08:25)
[2020-08-08] MEDS: Famotidine 20 MG TAB PO SCH ×2 (08:25→20:58)
[2020-08-08] MEDS: Aspirin 81 mg Enteric Coated Tablet PO SCH (08:25)
[2020-08-08] MEDS: Insulin Glargine 18 UNITS in Pre-Filled Syringe SC SCH ×2 (08:26→21:05)
[2020-08-08] MEDS: HumaLOG 300 UNITS/3 ML VIAL SC PRN ×2 (11:50→17:09)
[2020-08-08] MEDS: Warfarin Sodium 3 MG TAB PO SCH (17:07)
--- NOTE | 2020-08-08 18:53 | PDOC.HOSPP ---
- Objective Vital Signs & Weight: Vital Signs (12 hours) Temp Pulse Resp BP Pulse Ox 08/08/20 15:29 99.7 F H 67 20 172/70 H 93 L 08/08/20 11:43 99.3 F 65 15 131/60 95 08/08/20 07:34 99.4 F 71 19 125/71 92 L Weight Weight 248 lb 9.6 oz I&O: 08/07/20 08/08/20 08/09/20 06:59 06:59 06:59 Intake Total 1320 540 Output Total 5390 7340 Balance -9907 -2554 Result Diagrams: 08/07/20 04:19 08/08/20 03:57 Additional Labs: Accuchecks 08/08/20 08/08/20 08/07/20 16:25 10:31 20:48 POC Glucose 187 H 212 H 213 H Hospitalist ROS - Medication Medications: Active Medications Generic Name Dose Route Start Last Admin Trade Name Freq PRN Reason Stop Dose Admin Acetaminophen 1,000 mg 08/06/20 18:27 08/07/20 22:17 Acetaminophen 500 Mg Tab PO 1,000 mg Q6H PRN Administration Mild Pain (1-3) Aripiprazole 10 mg 08/06/20 21:00 08/07/20 22:19 Aripiprazole 10 Mg Tab PO 10 mg HS SOFY Administration Aspirin 81 mg 08/07/20 09:00 08/08/20 08:25 Aspirin 81 Mg Enteric Coated Tablet PO 81 mg QAM SOFY Administration Benztropine Mesylate 1 mg 08/06/20 21:00 08/07/20 22:19 Benztropine 1 Mg Tab PO 1 mg HS SOFY Administration Digoxin 0.25 mg 08/07/20 08:00 08/08/20 08:25 Digoxin 0.25 Mg Tab PO 0.25 mg QAM-WM SOFY Administration Famotidine 20 mg 08/06/20 21:00 08/08/20 08:25 Famotidine 20 Mg Tab PO 20 mg BID SOFY Administration Furosemide 40 mg 08/06/20 22:00 08/08/20 15:36 Furosemide 40 Mg/4 Ml Vial SLOW IVP 40 mg Q8HR SOFY Administration Insulin Glargine 18 units/ 0.18 mls @ 0 mls/hr 08/06/20 21:00 08/08/20 08:26 Miscellaneous Medication SC 0.18 mls BID SOFY Administration Insulin Human Lispro 0 units 08/06/20 18:27 08/08/20 17:09 Humalog 300 Units/3 Ml Vial SC 2 unit .MILD SLIDING SCALE PRN Administration Mild Correctional Scale Insulin Human Lispro 0 units 08/06/20 18:27 08/06/20 21:49 Humalog 300 Units/3 Ml Vial SC 2 unit .BEDTIME SLIDING SC PRN Administration Bedtime Correctional Scale Levothyroxine Sodium 100 mcg 08/07/20 06:00 08/08/20 05:53 Levothyroxine Sodium 100 Mcg Tab PO 100 mcg 0600 SOFY Administration Melatonin 9 mg 08/06/20 21:00 08/07/20 22:19 Melatonin 3 Mg Tab PO 9 mg HS SOFY Administration Metolazone 5 mg 08/07/20 08:30 08/08/20 08:25 Metolazone 5 Mg Tab PO 5 mg 0830 SOFY Administration Metoprolol Tartrate 50 mg 08/06/20 21:00 08/08/20 08:25 Metoprolol Tartrate 50 Mg Tab PO 50 mg BID SOFY Administration Mometasone Furoate/Formoterol Fumar 2 puff 08/07/20 06:30 08/08/20 07:13 Mometasone 100 Mcg/Formoterol 5 Mcg 120 Puff Inhaler INH 2 puff BID-RT SOFY Administration Morphine Sulfate 2 mg 08/06/20 19:37 08/07/20 22:15 Morphine 2 Mg/Ml Vial SLOW IVP 2 mg Q4H PRN Administration Moderate Pain (4-6) Nitroglycerin 0.5 inch 08/06/20 22:00 08/08/20 15:35 Nitroglycerin 2% Ointment 1 Inch/1 Gm Packet TOP 0.5 inch Q8HR SOFY Administration Potassium Chloride 20 meq 08/06/20 21:00 08/08/20 08:25 Potassium Chloride 20 Meq Tab PO 20 meq BID SOFY Administration Warfarin Sodium 3 mg 08/07/20 17:00 08/08/20 17:07 Warfarin Sodium 3 Mg Tab PO 3 mg 1700 SOFY Administration Hosp A/P (1) Acute on chronic systolic heart failure, NYHA class 3 Code(s): I50.23 - ACUTE ON CHRONIC SYSTOLIC (CONGESTIVE) HEART FAILURE Status: Acute (2) Chest pain Code(s): R07.9 - CHEST PAIN, UNSPECIFIED Status: Acute Qualifiers: Chest pain type: intercostal pain Qualified Code(s): R07.82 - Intercostal pain (3) Atrial fibrillation Code(s): I48.91 - UNSPECIFIED ATRIAL FIBRILLATION Status: Chronic (4) DM type 2 (diabetes mellitus, type 2) Status: Chronic (5) HTN (hypertension) Code(s): I10 - ESSENTIAL (PRIMARY) HYPERTENSION Status: Chronic - Plan Continue furosemide 40 mg intravenously every 8 hours. Continue metolazone 5 mg daily. Hypertension controlled and stable, continue Lopressor 50 mg 2 times a day. Continue Lantus insulin 18 units 2 times a day, continue Accu-Cheks and insulin sliding scale. INR is therapeutic, warfarin management per pharmacy. Await 2D echocardiogram. Continue Synthroid 100 mcg daily.
--- NOTE | 2020-08-08 19:04 | PDOC.HOSPP ---
- Subjective Encounter Date: 08/08/20 Encounter Time: 11:30 Subjective: Patient seen for follow-up regarding CHF exacerbation. Denies chest pain, reports shortness of breath is better. - Objective Vital Signs & Weight: Vital Signs (12 hours) Temp Pulse Resp BP Pulse Ox 08/08/20 15:29 99.7 F H 67 20 172/70 H 93 L 08/08/20 11:43 99.3 F 65 15 131/60 95 08/08/20 07:34 99.4 F 71 19 125/71 92 L Weight Weight 248 lb 9.6 oz I&O: 08/07/20 08/08/20 08/09/20 06:59 06:59 06:59 Intake Total 1320 540 Output Total 5372 1750 Balance -4004 -2680 Result Diagrams: 08/07/20 04:19 08/08/20 03:57 Additional Labs: Accuchecks 08/08/20 08/08/20 08/07/20 16:25 10:31 20:48 POC Glucose 187 H 212 H 213 H I reviewed patient's labs and MAR EKG Reviewed by me: Yes (Atrial fibrillation on telemetry) Hospitalist ROS - Review of Systems Cardiovascular: denies: chest pain, palpitations, orthopnea, paroxysmal noc. dyspnea, edema, light headedness Gastrointestinal: denies: nausea, vomiting, abdominal pain, diarrhea, constipation, melena, hematochezia - Medication Medications: Active Medications Generic Name Dose Route Start Last Admin Trade Name Freq PRN Reason Stop Dose Admin Acetaminophen 1,000 mg 08/06/20 18:27 08/07/20 22:17 Acetaminophen 500 Mg Tab PO 1,000 mg Q6H PRN Administration Mild Pain (1-3) Aripiprazole 10 mg 08/06/20 21:00 08/07/20 22:19 Aripiprazole 10 Mg Tab PO 10 mg HS SOFY Administration Aspirin 81 mg 08/07/20 09:00 08/08/20 08:25 Aspirin 81 Mg Enteric Coated Tablet PO 81 mg QAM SOFY Administration Benztropine Mesylate 1 mg 08/06/20 21:00 08/07/20 22:19 Benztropine 1 Mg Tab PO 1 mg HS SOFY Administration Digoxin 0.25 mg 08/07/20 08:00 08/08/20 08:25 Digoxin 0.25 Mg Tab PO 0.25 mg QAM-WM SOFY Administration Famotidine 20 mg 08/06/20 21:00 08/08/20 08:25 Famotidine 20 Mg Tab PO 20 mg BID SOFY Administration Furosemide 40 mg 08/06/20 22:00 08/08/20 15:36 Furosemide 40 Mg/4 Ml Vial SLOW IVP 40 mg Q8HR SOFY Administration Insulin Glargine 18 units/ 0.18 mls @ 0 mls/hr 08/06/20 21:00 08/08/20 08:26 Miscellaneous Medication SC 0.18 mls BID SOFY Administration Insulin Human Lispro 0 units 08/06/20 18:27 08/08/20 17:09 Humalog 300 Units/3 Ml Vial SC 2 unit .MILD SLIDING SCALE PRN Administration Mild Correctional Scale Insulin Human Lispro 0 units 08/06/20 18:27 08/06/20 21:49 Humalog 300 Units/3 Ml Vial SC 2 unit .BEDTIME SLIDING SC PRN Administration Bedtime Correctional Scale Levothyroxine Sodium 100 mcg 08/07/20 06:00 08/08/20 05:53 Levothyroxine Sodium 100 Mcg Tab PO 100 mcg 0600 SOFY Administration Melatonin 9 mg 08/06/20 21:00 08/07/20 22:19 Melatonin 3 Mg Tab PO 9 mg HS SOFY Administration Metolazone 5 mg 08/07/20 08:30 08/08/20 08:25 Metolazone 5 Mg Tab PO 5 mg 0830 SOFY Administration Metoprolol Tartrate 50 mg 08/06/20 21:00 08/08/20 08:25 Metoprolol Tartrate 50 Mg Tab PO 50 mg BID SOFY Administration Mometasone Furoate/Formoterol Fumar 2 puff 08/07/20 06:30 08/08/20 07:13 Mometasone 100 Mcg/Formoterol 5 Mcg 120 Puff Inhaler INH 2 puff BID-RT SOFY Administration Morphine Sulfate 2 mg 08/06/20 19:37 08/07/20 22:15 Morphine 2 Mg/Ml Vial SLOW IVP 2 mg Q4H PRN Administration Moderate Pain (4-6) Nitroglycerin 0.5 inch 08/06/20 22:00 08/08/20 15:35 Nitroglycerin 2% Ointment 1 Inch/1 Gm Packet TOP 0.5 inch Q8HR SOFY Administration Potassium Chloride 20 meq 08/06/20 21:00 08/08/20 08:25 Potassium Chloride 20 Meq Tab PO 20 meq BID SOFY Administration Warfarin Sodium 3 mg 08/07/20 17:00 08/08/20 17:07 Warfarin Sodium 3 Mg Tab PO 3 mg 1700 SOFY Administration - Exam General - other findings: Morbid obesity ENT: moist mucosa Neck: supple Heart: no rubs, irregular Respiratory: CTAB Gastrointestinal: soft, non-tender Extremities: 2+ LE edema Skin: no rashes Psychiatric: normal affect, normal behavior Hosp A/P (1) Acute on chronic systolic heart failure, NYHA class 3 Code(s): I50.23 - ACUTE ON CHRONIC SYSTOLIC (CONGESTIVE) HEART FAILURE Status: Acute (2) Chest pain Code(s): R07.9 - CHEST PAIN, UNSPECIFIED Status: Acute Qualifiers: Chest pain type: intercostal pain Qualified Code(s): R07.82 - Intercostal pain (3) Atrial fibrillation Code(s): I48.91 - UNSPECIFIED ATRIAL FIBRILLATION Status: Chronic (4) DM type 2 (diabetes mellitus, type 2) Status: Chronic (5) HTN (hypertension) Code(s): I10 - ESSENTIAL (PRIMARY) HYPERTENSION Status: Chronic - Plan Continue IV Lasix. Continue metolazone 5 mg daily. Hypertension controlled and stable. Continue Lantus insulin 18 units 2 times a day, continue Accu-Cheks and insulin sliding scale. Warfarin management per pharmacy. Continue Synthroid 100 mcg daily.
[2020-08-08] MEDS: Aripiprazole 10 MG TAB PO SCH (20:57)
[2020-08-08] MEDS: Melatonin 3 MG TAB PO SCH (20:58)
[2020-08-08] MEDS: Benztropine 1 MG TAB PO SCH (20:58)
[2020-08-08] MEDS: Acetaminophen 500 MG TAB PO PRN (22:17)
[2020-08-09] MEDS: HumaLOG 300 UNITS/3 ML VIAL SC PRN ×3 (00:06→21:57)
[2020-08-09 04:49] LABS: INR-International Normal Ratio 1.4; Prothrombin Time 17.5 sec (12.0-14.7)
[2020-08-09 05:03] LABS: Anion Gap 14 mmol/L (10-20); BUN (Urea Nitrogen) 24 mg/dL (9.8-20.1); Calc. Creatinine Clearance 94 mL/min (70-130); Calcium 8.4 mg/dL (7.8-10.44); Carbon Dioxide 35 mmol/L (23-31); Chloride 91 mmol/L (98-107); Glucose 120 mg/dL (80-115); Sodium 137 mmol/L (136-145)
[2020-08-09] MEDS: Nitroglycerin 2% Ointment 1 INCH/1 GM Packet TOP SCH ×3 (05:04→21:59)
[2020-08-09] MEDS: Furosemide 40 MG/4 ML VIAL SLOW IVP SCH ×3 (05:04→21:59)
[2020-08-09] MEDS: Levothyroxine Sodium 100 MCG TAB PO SCH (05:04)
[2020-08-09] MEDS: Mometasone 100 MCG/Formoterol 5 MCG 120 PUFF INHALER INH SCH ×2 (07:09→18:50)
[2020-08-09] MEDS: Metolazone 5 MG TAB PO SCH (09:50)
[2020-08-09] MEDS: Aspirin 81 mg Enteric Coated Tablet PO SCH (09:50)
[2020-08-09] MEDS: Metoprolol Tartrate 50 MG TAB PO SCH ×2 (09:50→21:56)
[2020-08-09] MEDS: Digoxin 0.25 MG TAB PO SCH (09:50)
[2020-08-09] MEDS: Potassium Chloride 20 MEQ TAB PO SCH ×4 (09:51→21:55)
[2020-08-09] MEDS: Famotidine 20 MG TAB PO SCH ×2 (09:51→21:56)
[2020-08-09] MEDS: Insulin Glargine 18 UNITS in Pre-Filled Syringe SC SCH ×2 (09:51→21:59)
--- NOTE | 2020-08-09 12:24 | PDOC.HOSPP ---
- Subjective Encounter Date: 08/09/20 Encounter Time: 09:00 Subjective: Patient seen for follow-up regarding her exacerbation. Reports feeling better. - Objective Vital Signs & Weight: Vital Signs (12 hours) Temp Pulse Pulse Pulse Resp BP BP 08/09/20 08:55 90 79 139/86 117/59 L 08/09/20 07:52 97.4 F L 63 16 08/09/20 03:05 98.6 F 41 L 16 BP Pulse Ox 08/09/20 08:55 08/09/20 07:52 133/101 H 96 08/09/20 03:05 123/60 93 L Weight Weight 240 lb 4.8 oz I&O: 08/08/20 08/09/20 08/10/20 06:59 06:59 06:59 Intake Total 1320 820 Output Total 5337 2930 Balance -7012 -4431 Result Diagrams: 08/07/20 04:19 08/09/20 04:00 Additional Labs: Accuchecks 08/09/20 08/09/20 08/08/20 11:07 05:52 20:38 POC Glucose 188 H 151 H 230 H 08/08/20 16:25 POC Glucose 187 H Labs and MAR reviewed by me EKG Reviewed by me: Yes (Oscar tanner on telemetry) Hospitalist ROS - Review of Systems Respiratory: reports: SOB with excertion. denies: cough, dry, shortness of breath, hemoptysis, pleuritic pain, sputum, wheezing Cardiovascular: reports: edema. denies: chest pain, palpitations, orthopnea, paroxysmal noc. dyspnea, light headedness - Medication Medications: Active Medications Generic Name Dose Route Start Last Admin Trade Name Freq PRN Reason Stop Dose Admin Acetaminophen 1,000 mg 08/06/20 18:27 08/08/20 22:17 Acetaminophen 500 Mg Tab PO 1,000 mg Q6H PRN Administration Mild Pain (1-3) Aripiprazole 10 mg 08/06/20 21:00 08/08/20 20:57 Aripiprazole 10 Mg Tab PO 10 mg HS SOFY Administration Aspirin 81 mg 08/07/20 09:00 08/09/20 09:50 Aspirin 81 Mg Enteric Coated Tablet PO 81 mg QAM SOFY Administration Benztropine Mesylate 1 mg 08/06/20 21:00 08/08/20 20:58 Benztropine 1 Mg Tab PO 1 mg HS SOFY Administration Digoxin 0.25 mg 08/07/20 08:00 08/09/20 09:50 Digoxin 0.25 Mg Tab PO 0.25 mg QAM-WM SOFY Administration Famotidine 20 mg 08/06/20 21:00 08/09/20 09:51 Famotidine 20 Mg Tab PO 20 mg BID SOFY Administration Furosemide 40 mg 08/06/20 22:00 08/09/20 05:04 Furosemide 40 Mg/4 Ml Vial SLOW IVP 40 mg Q8HR SOFY Administration Insulin Glargine 18 units/ 0.18 mls @ 0 mls/hr 08/06/20 21:00 08/09/20 09:51 Miscellaneous Medication SC 0.18 mls BID SOFY Administration Insulin Human Lispro 0 units 08/06/20 18:27 08/08/20 17:09 Humalog 300 Units/3 Ml Vial SC 2 unit .MILD SLIDING SCALE PRN Administration Mild Correctional Scale Insulin Human Lispro 0 units 08/06/20 18:27 08/09/20 00:06 Humalog 300 Units/3 Ml Vial SC 2 unit .BEDTIME SLIDING SC PRN Administration Bedtime Correctional Scale Levothyroxine Sodium 100 mcg 08/07/20 06:00 08/09/20 05:04 Levothyroxine Sodium 100 Mcg Tab PO 100 mcg 0600 SOFY Administration Melatonin 9 mg 08/06/20 21:00 08/08/20 20:58 Melatonin 3 Mg Tab PO 9 mg HS SOFY Administration Metolazone 5 mg 08/07/20 08:30 08/09/20 09:50 Metolazone 5 Mg Tab PO 5 mg 0830 SOFY Administration Metoprolol Tartrate 50 mg 08/06/20 21:00 08/09/20 09:50 Metoprolol Tartrate 50 Mg Tab PO 50 mg BID SOFY Administration Mometasone Furoate/Formoterol Fumar 2 puff 08/07/20 06:30 08/09/20 07:09 Mometasone 100 Mcg/Formoterol 5 Mcg 120 Puff Inhaler INH 2 puff BID-RT SOFY Administration Morphine Sulfate 2 mg 08/06/20 19:37 08/07/20 22:15 Morphine 2 Mg/Ml Vial SLOW IVP 2 mg Q4H PRN Administration Moderate Pain (4-6) Nitroglycerin 0.5 inch 08/06/20 22:00 08/09/20 05:04 Nitroglycerin 2% Ointment 1 Inch/1 Gm Packet TOP 0.5 inch Q8HR SOFY Administration Potassium Chloride 20 meq 08/06/20 21:00 08/09/20 09:51 Potassium Chloride 20 Meq Tab PO 20 meq BID SOFY Administration - Exam General Appearance: awake alert Eye: anicteric sclera ENT: moist mucosa Neck: supple Heart: irregular Respiratory: CTAB Gastrointestinal: soft, non-tender Extremities: 2+ LE edema Musculoskeletal: no muscle wasting Psychiatric: normal affect, normal behavior Hosp A/P (1) Acute on chronic systolic heart failure, NYHA class 3 Code(s): I50.23 - ACUTE ON CHRONIC SYSTOLIC (CONGESTIVE) HEART FAILURE Status: Acute (2) Chest pain Code(s): R07.9 - CHEST PAIN, UNSPECIFIED Status: Acute Qualifiers: Chest pain type: intercostal pain Qualified Code(s): R07.82 - Intercostal pain (3) Atrial fibrillation Code(s): I48.91 - UNSPECIFIED ATRIAL FIBRILLATION Status: Chronic (4) DM type 2 (diabetes mellitus, type 2) Status: Chronic (5) HTN (hypertension) Code(s): I10 - ESSENTIAL (PRIMARY) HYPERTENSION Status: Chronic - Plan Continue IV Lasix and PO metolazone 5 mg daily. Hypertension controlled and stable. Continue Lantus insulin 18 units 2 times a day, continue Accu-Cheks and insulin sliding scale. Warfarin management per pharmacy. Continue Synthroid 100 mcg daily. Replace potassium.
--- NOTE | 2020-08-09 13:17 | PDOC.CPN ---
- Subjective Date: 08/09/20 Time: 10:00 Interval history: Patient resting. Urine culture back and positive. No CP/SOB. - Review of Systems General: denies: fever/chills, weight/appetite/sleep changes, night sweats, fatigue Respiratory: denies: cough, congestion, shortness of breath, exercise intolerance Cardiovascular: denies: chest pain, palpitation, edema, paroxysmal nocturnal dyspnea, orthopnea Gastrointestinal: denies: nausea, vomiting, diarrhea, constipation, abd pain, GI bleeding Musculoskeletal: denies: pain, tenderness, stiffness, swelling, a rthritis/arthralgias Neurological: denies: numbness, syncope, seizure, weakness - Objective Allergies/Adverse Reactions: Allergies Allergy/AdvReac Type Severity Reaction Status Date / Time tomato [Tomato] Allergy Intermediate Verified 02/25/20 03:32 No Known Drug Allergies Allergy Verified 02/25/20 03:32 Visit Medications: Current Medications Acetaminophen (Acetaminophen 500 Mg Tab) 1,000 mg PO Q6H PRN PRN Reason: Mild Pain (1-3) Last Admin: 08/08/20 22:17 Dose: 1,000 mg Documented by: Aripiprazole (Aripiprazole 10 Mg Tab) 10 mg PO [facility] Last Admin: 08/08/20 20:57 Dose: 10 mg Documented by: Aspirin (Aspirin 81 Mg Enteric Coated Tablet) 81 mg PO [facility] Last Admin: 08/09/20 09:50 Dose: 81 mg Documented by: Benztropine Mesylate (Benztropine 1 Mg Tab) 1 mg PO [facility] Last Admin: 08/08/20 20:58 Dose: 1 mg Documented by: Dextrose/Water (Dextrose 50% Abboject 50 Ml Syringe) 25 gm SLOW IVP PRN PRN PRN Reason: Hypoglycemia Digoxin (Digoxin 0.25 Mg Tab) 0.25 mg PO QA-[facility] Last Admin: 08/09/20 09:50 Dose: 0.25 mg Documented by: Famotidine (Famotidine 20 Mg Tab) 20 mg PO BID [facility] Last Admin: 08/09/20 09:51 Dose: 20 mg Documented by: Furosemide (Furosemide 40 Mg/4 Ml Vial) 40 mg SLOW IVP Q8HR [facility] Last Admin: 08/09/20 05:04 Dose: 40 mg Documented by: Glucagon (Glucagon 1 Mg/Ml Vial) 1 mg IM PRN PRN PRN Reason: Hypoglycemia Guaifenesin/Dextromethorphan (Guaifenesin Dm 100-10/5 Ml Udcup) 10 ml PO Q6H PRN PRN Reason: Cough Hydralazine HCl (Hydralazine 20 Mg/Ml Vial) 10 mg SLOW IVP Q4H PRN PRN Reason: SBP > 180 and HR < 70 Dextrose/Water (D5w) 1,000 mls @ 0 mls/hr IV .Q0M PRN PRN Reason: Hypoglycemia Insulin Glargine 18 units/ (Miscellaneous Medication) 0.18 mls @ 0 mls/hr SC BID [facility] Last Admin: 08/09/20 09:51 Dose: 0.18 mls Documented by: Insulin Human Lispro (Humalog 300 Units/3 Ml Vial) 0 units SC .MILD SLIDING SCALE PRN PRN Reason: Mild Correctional Scale Last Admin: 08/08/20 17:09 Dose: 2 unit Documented by: Insulin Human Lispro (Humalog 300 Units/3 Ml Vial) 0 units SC .BEDTIME SLIDING SC PRN PRN Reason: Bedtime Correctional Scale Last Admin: 08/09/20 00:06 Dose: 2 unit Documented by: Levothyroxine Sodium (Levothyroxine Sodium 100 Mcg Tab) 100 mcg PO 0600 [facility] Last Admin: 08/09/20 05:04 Dose: 100 mcg Documented by: Melatonin (Melatonin 3 Mg Tab) 9 mg PO HS [facility] Last Admin: 08/08/20 20:58 Dose: 9 mg Documented by: Metolazone (Metolazone 5 Mg Tab) 5 mg PO 0830 [facility] Last Admin: 08/09/20 09:50 Dose: 5 mg Documented by: Metoprolol Tartrate (Metoprolol Tartrate 50 Mg Tab) 50 mg PO BID [facility] Last Admin: 08/09/20 09:50 Dose: 50 mg Documented by: Miscellaneous Medication (Pharmacy To Dose Warfarin) 1 each IVPB .WARFARIN PRN PRN Reason: Pharmacy to dose Mometasone Furoate/Formoterol Fumar (Mometasone 100 Mcg/Formoterol 5 Mcg 120 Puff Inhaler) 2 puff INH BID-RT [facility] Last Admin: 08/09/20 07:09 Dose: 2 puff Documented by: Morphine Sulfate (Morphine 2 Mg/Ml Vial) 2 mg SLOW IVP Q4H PRN PRN Reason: Moderate Pain (4-6) Last Admin: 08/07/20 22:15 Dose: 2 mg Documented by: Nitroglycerin (Nitroglycerin 2% Ointment 1 Inch/1 Gm Packet) 0.5 inch TOP Q8HR [facility] Last Admin: 08/09/20 05:04 Dose: 0.5 inch Documented by: Ondansetron HCl (Ondansetron Odt 4 Mg Tab) 4 mg PO Q6H PRN PRN Reason: Nausea/Vomiting Ondansetron HCl (Ondansetron Pf 4 Mg/2 Ml Vial) 4 mg IVP Q6H PRN PRN Reason: Nausea/Vomiting Polyethylene Glycol (Polyethylene Glycol 3350 17 Gm Packet) 17 gm PO QAM PRN PRN Reason: Constipation Potassium Chloride (Potassium Chloride 20 Meq Tab) 20 meq PO BID [facility] Last Admin: 08/09/20 09:51 Dose: 20 meq Documented by: Potassium Chloride (Potassium Chloride 20 Meq Tab) 40 meq PO Q4H [facility] Stop: 08/09/20 16:46 Warfarin Sodium (Warfarin Sodium 5 Mg Tab) 5 mg PO 1700 [facility] Vital Signs & Weight: Vital Signs Temp Pulse Pulse Pulse Resp BP BP 08/09/20 08:55 90 79 139/86 117/59 L 08/09/20 07:52 97.4 F L 63 16 08/09/20 03:05 98.6 F 41 L 16 BP Pulse Ox 08/09/20 08:55 08/09/20 07:52 133/101 H 96 08/09/20 03:05 123/60 93 L Weight 240 lb 4.8 oz - Physical Exam General: appears well, no apparent distress HEENT: mucus membranes moist Neck: supple neck Cardiac: other (IRR) Lungs: normal breath sounds Neuro: grossly intact Abdomen: soft, non-tender Skin: clear - Labs Result Diagrams: 08/07/20 04:19 08/09/20 04:00 Troponin/CKMB Troponin I 0.037 ng/mL (< 0.028) H 08/07/20 08:41 - Assessment/Plan Assessment/Plan: 1. UTI 2. Acute on chronic diastolic CHF 3. Moderate-severe 4. Moderate AI 5. s/p MV valvuloplasty Continue diuresis. INR low today. Continue antibiotics per primary team RG 08/09 Pt seen and examined. Agree with the above Continue conservative treatment
[2020-08-09] MEDS: Warfarin Sodium 5 MG TAB PO SCH (16:02)
--- NOTE | 2020-08-09 16:28 | EKG ---
Test Reason : Blood Pressure : / mmHG Vent. Rate : 082 BPM Atrial Rate : 073 BPM P-R Int : 000 ms QRS Dur : 078 ms QT Int : 360 ms P-R-T Axes : 000 039 243 degrees QTc Int : 420 ms Atrial fibrillation with premature ventricular or aberrantly conducted complexes Abnormal ECG Similar to prior of 07/2014 Confirmed by HIMANSHU WELLS M.D. ([id number]), editor sound RAYA JAVIER ([id number]) on 08/09/2020 4:28:00 PM Referred By: Confirmed By:HIMANSHU WELLS M.D.
[2020-08-09] MEDS ORDERED: Nitrofurantoin Monohyd/M-Cryst 100 MG CAP PO SCH (16:30)
[2020-08-09] MEDS: Benztropine 1 MG TAB PO SCH (21:55)
[2020-08-09] MEDS: Melatonin 3 MG TAB PO SCH (21:55)
[2020-08-09] MEDS: Nitrofurantoin Monohyd/M-Cryst 100 MG CAP PO SCH (21:55)
[2020-08-09] MEDS: Aripiprazole 10 MG TAB PO SCH (21:59)
[2020-08-10 03:53] LABS: INR-International Normal Ratio 1.4; Prothrombin Time 17.1 sec (12.0-14.7)
[2020-08-10 04:06] LABS: Anion Gap 16 mmol/L (10-20); BUN (Urea Nitrogen) 30 mg/dL (9.8-20.1); Calc. Creatinine Clearance 86 mL/min (70-130); Calcium 8.6 mg/dL (7.8-10.44); Carbon Dioxide 32 mmol/L (23-31); Chloride 93 mmol/L (98-107); Glucose 169 mg/dL (80-115); Potassium 3.6 mmol/L (3.5-5.1); Sodium 137 mmol/L (136-145)
[2020-08-10] MEDS: Furosemide 40 MG/4 ML VIAL SLOW IVP SCH ×3 (05:51→21:20)
[2020-08-10] MEDS: Nitroglycerin 2% Ointment 1 INCH/1 GM Packet TOP SCH ×3 (05:51→21:20)
[2020-08-10] MEDS: Levothyroxine Sodium 100 MCG TAB PO SCH (05:51)
[2020-08-10] MEDS: HumaLOG 300 UNITS/3 ML VIAL SC PRN ×5 (06:00→21:22)
[2020-08-10] MEDS: Mometasone 100 MCG/Formoterol 5 MCG 120 PUFF INHALER INH SCH ×2 (07:06→18:17)
[2020-08-10] MEDS: Famotidine 20 MG TAB PO SCH ×2 (08:31→21:20)
[2020-08-10] MEDS: Nitrofurantoin Monohyd/M-Cryst 100 MG CAP PO SCH ×2 (08:31→21:20)
[2020-08-10] MEDS: Potassium Chloride 20 MEQ TAB PO SCH ×2 (08:31→21:20)
[2020-08-10] MEDS: Digoxin 0.25 MG TAB PO SCH (08:31)
[2020-08-10] MEDS: Aspirin 81 mg Enteric Coated Tablet PO SCH (08:31)
[2020-08-10] MEDS: Metolazone 5 MG TAB PO SCH (08:32)
[2020-08-10] MEDS: Insulin Glargine 18 UNITS in Pre-Filled Syringe SC SCH (08:32)
[2020-08-10] MEDS: Metoprolol Tartrate 50 MG TAB PO SCH ×2 (08:32→21:20)
--- NOTE | 2020-08-10 09:55 | PDOC.CPN ---
- Subjective Date: 08/10/20 Time: 08:35 Interval history: No overnight events. Reviewed chart and tele. - Review of Systems General: denies: fever/chills, weight/appetite/sleep changes, night sweats, fatigue Respiratory: denies: cough, congestion, shortness of breath, exercise intolerance Cardiovascular: denies: chest pain, palpitation, edema, paroxysmal nocturnal dyspnea, orthopnea Gastrointestinal: denies: nausea, vomiting, diarrhea, constipation, abd pain, GI bleeding Musculoskeletal: denies: pain, tenderness, stiffness, swelling, arthritis/arthralgias Neurological: denies: numbness, syncope, seizure, weakness - Objective Allergies/Adverse Reactions: Allergies Allergy/AdvReac Type Severity Reaction Status Date / Time tomato [Tomato] Allergy Intermediate Verified 02/25/20 03:32 No Known Drug Allergies Allergy Verified 02/25/20 03:32 Visit Medications: Current Medications Acetaminophen (Acetaminophen 500 Mg Tab) 1,000 mg PO Q6H PRN PRN Reason: Mild Pain (1-3) Last Admin: 08/08/20 22:17 Dose: 1,000 mg Documented by: Aripiprazole (Aripiprazole 10 Mg Tab) 10 mg PO [facility] Last Admin: 08/09/20 21:59 Dose: 10 mg Documented by: Aspirin (Aspirin 81 Mg Enteric Coated Tablet) 81 mg PO [facility] Last Admin: 08/10/20 08:31 Dose: 81 mg Documented by: Benztropine Mesylate (Benztropine 1 Mg Tab) 1 mg PO [facility] Last Admin: 08/09/20 21:55 Dose: 1 mg Documented by: Dextrose/Water (Dextrose 50% Abboject 50 Ml Syringe) 25 gm SLOW IVP PRN PRN PRN Reason: Hypoglycemia Digoxin (Digoxin 0.25 Mg Tab) 0.25 mg PO QA-[facility] Last Admin: 08/10/20 08:31 Dose: 0.25 mg Documented by: Famotidine (Famotidine 20 Mg Tab) 20 mg PO BID [facility] Last Admin: 08/10/20 08:31 Dose: 20 mg Documented by: Furosemide (Furosemide 40 Mg/4 Ml Vial) 40 mg SLOW IVP Q8HR [facility] Last Admin: 08/10/20 05:51 Dose: 40 mg Documented by: Glucagon (Glucagon 1 Mg/Ml Vial) 1 mg IM PRN PRN PRN Reason: Hypoglycemia Guaifenesin/Dextromethorphan (Guaifenesin Dm 100-10/5 Ml Udcup) 10 ml PO Q6H PRN PRN Reason: Cough Hydralazine HCl (Hydralazine 20 Mg/Ml Vial) 10 mg SLOW IVP Q4H PRN PRN Reason: SBP > 180 and HR < 70 Dextrose/Water (D5w) 1,000 mls @ 0 mls/hr IV .Q0M PRN PRN Reason: Hypoglycemia Insulin Glargine 18 units/ (Miscellaneous Medication) 0.18 mls @ 0 mls/hr SC BID [facility] Last Admin: 08/10/20 08:32 Dose: 0.18 mls Documented by: Insulin Human Lispro (Humalog 300 Units/3 Ml Vial) 0 units SC .MILD SLIDING SCALE PRN PRN Reason: Mild Correctional Scale Last Admin: 08/10/20 06:00 Dose: 2 unit Documented by: Insulin Human Lispro (Humalog 300 Units/3 Ml Vial) 0 units SC .BEDTIME SLIDING SC PRN PRN Reason: Bedtime Correctional Scale Last Admin: 08/09/20 21:57 Dose: 2 unit Documented by: Levothyroxine Sodium (Levothyroxine Sodium 100 Mcg Tab) 100 mcg PO 0600 [facility] Last Admin: 08/10/20 05:51 Dose: 100 mcg Documented by: Melatonin (Melatonin 3 Mg Tab) 9 mg PO HS [facility] Last Admin: 08/09/20 21:55 Dose: 9 mg Documented by: Metolazone (Metolazone 5 Mg Tab) 2.5 mg PO 0830 [facility] Metoprolol Tartrate (Metoprolol Tartrate 50 Mg Tab) 50 mg PO BID [facility] Last Admin: 08/10/20 08:32 Dose: 50 mg Documented by: Miscellaneous Medication (Pharmacy To Dose Warfarin) 1 each IVPB .WARFARIN PRN PRN Reason: Pharmacy to dose Mometasone Furoate/Formoterol Fumar (Mometasone 100 Mcg/Formoterol 5 Mcg 120 Puff Inhaler) 2 puff INH BID-RT [facility] Last Admin: 08/10/20 07:06 Dose: 2 puff Documented by: Morphine Sulfate (Morphine 2 Mg/Ml Vial) 2 mg SLOW IVP Q4H PRN PRN Reason: Moderate Pain (4-6) Last Admin: 08/07/20 22:15 Dose: 2 mg Documented by: Nitrofurantoin Macrocrystals (Nitrofurantoin Monohyd/M-Cryst 100 Mg Cap) 100 mg PO BID [facility] Last Admin: 08/10/20 08:31 Dose: 100 mg Documented by: Nitroglycerin (Nitroglycerin 2% Ointment 1 Inch/1 Gm Packet) 0.5 inch TOP Q8HR [facility] Last Admin: 08/10/20 05:51 Dose: 0.5 inch Documented by: Ondansetron HCl (Ondansetron Odt 4 Mg Tab) 4 mg PO Q6H PRN PRN Reason: Nausea/Vomiting Ondansetron HCl (Ondansetron Pf 4 Mg/2 Ml Vial) 4 mg IVP Q6H PRN PRN Reason: Nausea/Vomiting Polyethylene Glycol (Polyethylene Glycol 3350 17 Gm Packet) 17 gm PO QAM PRN PRN Reason: Constipation Potassium Chloride (Potassium Chloride 20 Meq Tab) 20 meq PO BID [facility] Last Admin: 08/10/20 08:31 Dose: 20 meq Documented by: Warfarin Sodium (Warfarin Sodium 5 Mg Tab) 5 mg PO 1700 [facility] Last Admin: 08/09/20 16:02 Dose: 5 mg Documented by: Vital Signs & Weight: Vital Signs Temp Pulse Resp BP Pulse Ox 08/10/20 08:31 66 08/10/20 07:30 98.2 F 66 17 130/75 92 L 08/10/20 04:00 98.6 F 62 15 113/55 L 92 L 08/10/20 00:34 95 08/10/20 00:00 56 L 129/70 Weight 236 lb 3.2 oz - Physical Exam General: appears well, no apparent distress HEENT: mucus membranes moist Neck: supple neck Cardiac: other (IRR iRR) Lungs: no wheezes, no rhonchi Abdomen: soft Extremities: 1+ LE edema Skin: clear - Labs Result Diagrams: 08/07/20 04:19 08/10/20 03:19 Troponin/CKMB Troponin I 0.037 ng/mL (< 0.028) H 08/07/20 08:41 - Assessment/Plan Assessment/Plan: 1. UTI 2. Acute on chronic diastolic CHF 3. Moderate-severe 4. Moderate AI 5. s/p MV valvuloplasty Good output and weight loss. Will decrease zaroxolyn to 2.5mg daily. Continue ti trating warfarin.
--- NOTE | 2020-08-10 15:01 | PDOC.HOSPP ---
- Subjective Encounter Date: 08/10/20 Encounter Time: 09:30 Subjective: Seen in follow-up for congestive heart failure exacerbation. She denies chest pain. She reports getting out of bed. - Objective Vital Signs & Weight: Vital Signs (12 hours) Temp Pulse Resp BP Pulse Ox 08/10/20 11:35 97.6 F 64 17 121/68 96 08/10/20 08:31 66 08/10/20 07:30 98.2 F 66 17 130/75 92 L 08/10/20 04:00 98.6 F 62 15 113/55 L 92 L Weight Weight 236 lb 3.2 oz I&O: 08/09/20 08/10/20 08/11/20 06:59 06:59 06:59 Intake Total 820 870 480 Output Total 2930 2962 Balance -2109 -2091 480 Result Diagrams: 08/07/20 04:19 08/10/20 03:19 Additional Labs: Accuchecks 08/10/20 08/09/20 08/09/20 05:30 20:49 17:04 POC Glucose 165 H 219 H 201 H Labs and MAR reviewed by me EKG Reviewed by me: Yes (Telemetry: Es. flores) Hospitalist ROS - Review of Systems Cardiovascular: reports: edema. denies: chest pain, palpitations, orthopnea, paroxysmal noc. dyspnea, light headedness Gastrointestinal: denies: nausea, vomiting, abdominal pain, diarrhea, constipati on, melena, hematochezia - Medication Medications: Active Medications Generic Name Dose Route Start Last Admin Trade Name Freq PRN Reason Stop Dose Admin Acetaminophen 1,000 mg 08/06/20 18:27 08/08/20 22:17 Acetaminophen 500 Mg Tab PO 1,000 mg Q6H PRN Administration Mild Pain (1-3) Aripiprazole 10 mg 08/06/20 21:00 08/09/20 21:59 Aripiprazole 10 Mg Tab PO 10 mg HS SOFY Administration Aspirin 81 mg 08/07/20 09:00 08/10/20 08:31 Aspirin 81 Mg Enteric Coated Tablet PO 81 mg QAM SOFY Administration Benztropine Mesylate 1 mg 08/06/20 21:00 08/09/20 21:55 Benztropine 1 Mg Tab PO 1 mg HS SOFY Administration Digoxin 0.25 mg 08/07/20 08:00 08/10/20 08:31 Digoxin 0.25 Mg Tab PO 0.25 mg QAM-WM SOFY Administration Famotidine 20 mg 08/06/20 21:00 08/10/20 08:31 Famotidine 20 Mg Tab PO 20 mg BID SOFY Administration Furosemide 40 mg 08/06/20 22:00 08/10/20 05:51 Furosemide 40 Mg/4 Ml Vial SLOW IVP 40 mg Q8HR SOFY Administration Insulin Glargine 18 units/ 0.18 mls @ 0 mls/hr 08/06/20 21:00 08/10/20 08:32 Miscellaneous Medication SC 0.18 mls BID SOFY Administration Insulin Human Lispro 0 units 08/06/20 18:27 08/10/20 12:47 Humalog 300 Units/3 Ml Vial SC 5 unit .MILD SLIDING SCALE PRN Administration Mild Correctional Scale Insulin Human Lispro 0 units 08/06/20 18:27 08/09/20 21:57 Humalog 300 Units/3 Ml Vial SC 2 unit .BEDTIME SLIDING SC PRN Administration Bedtime Correctional Scale Levothyroxine Sodium 100 mcg 08/07/20 06:00 08/10/20 05:51 Levothyroxine Sodium 100 Mcg Tab PO 100 mcg 0600 SOFY Administration Melatonin 9 mg 08/06/20 21:00 08/09/20 21:55 Melatonin 3 Mg Tab PO 9 mg HS SOFY Administration Metoprolol Tartrate 50 mg 08/06/20 21:00 08/10/20 08:32 Metoprolol Tartrate 50 Mg Tab PO 50 mg BID SOFY Administration Mometasone Furoate/Formoterol Fumar 2 puff 08/07/20 06:30 08/10/20 07:06 Mometasone 100 Mcg/Formoterol 5 Mcg 120 Puff Inhaler INH 2 puff BID-RT SOFY Administration Morphine Sulfate 2 mg 08/06/20 19:37 08/07/20 22:15 Morphine 2 Mg/Ml Vial SLOW IVP 2 mg Q4H PRN Administration Moderate Pain (4-6) Nitrofurantoin Macrocrystals 100 mg 08/09/20 21:00 08/10/20 08:31 Nitrofurantoin Monohyd/M-Cryst 100 Mg Cap PO 100 mg BID SOFY Administration Nitroglycerin 0.5 inch 08/06/20 22:00 08/10/20 05:51 Nitroglycerin 2% Ointment 1 Inch/1 Gm Packet TOP 0.5 inch Q8HR SOFY Administration Potassium Chloride 20 meq 08/06/20 21:00 08/10/20 08:31 Potassium Chloride 20 Meq Tab PO 20 meq BID SOFY Administration Warfarin Sodium 5 mg 08/09/20 17:00 08/09/20 16:02 Warfarin Sodium 5 Mg Tab PO 5 mg 1700 SOFY Administration - Exam General Appearance: awake alert General - other findings: Obesity, morbid Eye: anicteric sclera ENT: normocephalic atraumatic Neck: supple Heart: irregular Respiratory: CTAB Gastrointestinal: soft, non-tender Extremities: 2+ LE edema Skin: no rashes Psychiatric: normal affect, normal behavior Hosp A/P (1) Acute on chronic systolic heart failure, NYHA class 3 Code(s): I50.23 - ACUTE ON CHRONIC SYSTOLIC (CONGESTIVE) HEART FAILURE Status: Acute (2) UTI (urinary tract infection) Status: Acute (3) Atrial fibrillation Code(s): I48.91 - UNSPECIFIED ATRIAL FIBRILLATION Status: Chronic (4) DM type 2 (diabetes mellitus, type 2) Status: Chronic (5) HTN (hypertension) Code(s): I10 - ESSENTIAL (PRIMARY) HYPERTENSION Status: Chronic (6) Chest pain Code(s): R07.9 - CHEST PAIN, UNSPECIFIED Status: Resolved Qualifiers: Chest pain type: intercostal pain Qualified Code(s): R07.82 - Intercostal pain - Plan Patient has been started on Macrobid for urinary tract infection, continue. Continue IV Lasix 40 mg every 8 hours and PO metolazone dose has been decreased to 2.5 mg daily. Hypertension controlled and stable. Crease Lantus to 20 units twice daily, continue Accu-Cheks and insulin sliding scale. Warfarin management per pharmacy. Continue Synthroid 100 mcg daily.
[2020-08-10] MEDS: Warfarin Sodium 5 MG TAB PO SCH (17:08)
[2020-08-10] MEDS: Insulin Glargine 20 UNITS in Pre-Filled Syringe 1 EACH SC SCH (21:19)
[2020-08-10] MEDS: Melatonin 3 MG TAB PO SCH (21:20)
[2020-08-10] MEDS: Benztropine 1 MG TAB PO SCH (21:20)
[2020-08-10] MEDS: Aripiprazole 10 MG TAB PO SCH (21:21)
[2020-08-11 04:32] LABS: INR-International Normal Ratio 1.6; Prothrombin Time 19.3 sec (12.0-14.7)
[2020-08-11 04:47] LABS: Anion Gap 15 mmol/L (10-20); BUN (Urea Nitrogen) 34 mg/dL (9.8-20.1); Calc. Creatinine Clearance 85 mL/min (70-130); Calcium 8.5 mg/dL (7.8-10.44); Carbon Dioxide 31 mmol/L (23-31); Chloride 93 mmol/L (98-107); Glucose 182 mg/dL (80-115); Potassium 3.4 mmol/L (3.5-5.1); Sodium 136 mmol/L (136-145)
[2020-08-11] MEDS: Mometasone 100 MCG/Formoterol 5 MCG 120 PUFF INHALER INH SCH ×2 (07:04→19:50)
[2020-08-11] MEDS: Nitroglycerin 2% Ointment 1 INCH/1 GM Packet TOP SCH ×3 (07:20→21:06)
[2020-08-11] MEDS: Furosemide 40 MG/4 ML VIAL SLOW IVP SCH ×3 (07:20→21:06)
[2020-08-11] MEDS: Levothyroxine Sodium 100 MCG TAB PO SCH (07:20)
--- NOTE | 2020-08-11 07:35 | PDOC.HOSPP ---
- Subjective Encounter Date: 08/11/20 Encounter Time: 09:30 Subjective: Patient feeling much better than on admit. Still weak. Diuresing very well. - Objective Vital Signs & Weight: Vital Signs (12 hours) Temp Pulse Resp BP Pulse Ox 08/11/20 03:27 98.4 F 77 13 119/62 95 08/11/20 00:32 95 08/10/20 19:47 98.6 F 79 18 132/84 95 Weight Weight 236 lb 3.2 oz I&O: 08/10/20 08/11/20 08/12/20 06:59 06:59 06:59 Intake Total 870 580 Output Total 2962 800 Balance -2091 Result Diagrams: 08/07/20 04:19 08/11/20 03:57 Additional Labs: Accuchecks 08/11/20 08/10/20 05:25 20:13 POC Glucose 188 H 231 H Hospitalist ROS - Review of Systems Constitutional: reports: weakness. denies: fever, chills Respiratory: denies: cough, shortness of breath Cardiovascular: denies: chest pain, palpitations Gastrointestinal: denies: nausea, vomiting, abdominal pain - Medication Medications: Active Medications Generic Name Dose Route Start Last Admin Trade Name Freq PRN Reason Stop Dose Admin Acetaminophen 1,000 mg 08/06/20 18:27 08/08/20 22:17 Acetaminophen 500 Mg Tab PO 1,000 mg Q6H PRN Administration Mild Pain (1-3) Aripiprazole 10 mg 08/06/20 21:00 08/10/20 21:21 Aripiprazole 10 Mg Tab PO 10 mg HS SOFY Administration Aspirin 81 mg 08/07/20 09:00 08/10/20 08:31 Aspirin 81 Mg Enteric Coated Tablet PO 81 mg QAM SOFY Administration Benztropine Mesylate 1 mg 08/06/20 21:00 08/10/20 21:20 Benztropine 1 Mg Tab PO 1 mg HS SOFY Administration Digoxin 0.25 mg 08/07/20 08:00 08/10/20 08:31 Digoxin 0.25 Mg Tab PO 0.25 mg QAM-WM SOFY Administration Famotidine 20 mg 08/06/20 21:00 08/10/20 21:20 Famotidine 20 Mg Tab PO 20 mg BID SOFY Administration Furosemide 40 mg 08/06/20 22:00 08/11/20 07:20 Furosemide 40 Mg/4 Ml Vial SLOW IVP 40 mg Q8HR SOFY Administration Insulin Glargine 20 units/ 0.2 mls @ 0 mls/hr 08/10/20 21:00 08/10/20 21:19 Miscellaneous Medication SC 0.2 mls BID SOFY Administration Insulin Human Lispro 0 units 08/06/20 18:27 08/10/20 17:10 Humalog 300 Units/3 Ml Vial SC 2 unit .MILD SLIDING SCALE PRN Administration Mild Correctional Scale Insulin Human Lispro 0 units 08/06/20 18:27 08/10/20 21:22 Humalog 300 Units/3 Ml Vial SC 2 unit .BEDTIME SLIDING SC PRN Administration Bedtime Correctional Scale Levothyroxine Sodium 100 mcg 08/07/20 06:00 08/11/20 07:20 Levothyroxine Sodium 100 Mcg Tab PO 100 mcg 0600 SOFY Administration Melatonin 9 mg 08/06/20 21:00 08/10/20 21:20 Melatonin 3 Mg Tab PO 9 mg HS SOFY Administration Metoprolol Tartrate 50 mg 08/06/20 21:00 08/10/20 21:20 Metoprolol Tartrate 50 Mg Tab PO 50 mg BID SOFY Administration Mometasone Furoate/Formoterol Fumar 2 puff 08/07/20 06:30 08/11/20 07:04 Mometasone 100 Mcg/Formoterol 5 Mcg 120 Puff Inhaler INH 2 puff BID-RT SOFY Administration Morphine Sulfate 2 mg 08/06/20 19:37 08/07/20 22:15 Morphine 2 Mg/Ml Vial SLOW IVP 2 mg Q4H PRN Administration Moderate Pain (4-6) Nitrofurantoin Macrocrystals 100 mg 08/09/20 21:00 08/10/20 21:20 Nitrofurantoin Monohyd/M-Cryst 100 Mg Cap PO 100 mg BID SOFY Administration Nitroglycerin 0.5 inch 08/06/20 22:00 08/11/20 07:20 Nitroglycerin 2% Ointment 1 Inch/1 Gm Packet TOP 0.5 inch Q8HR SOFY Administration Potassium Chloride 20 meq 08/06/20 21:00 08/10/20 21:20 Potassium Chloride 20 Meq Tab PO 20 meq BID SOFY Administration Warfarin Sodium 5 mg 08/09/20 17:00 08/10/20 17:08 Warfarin Sodium 5 Mg Tab PO 5 mg 1700 SOFY Administration - Exam General Appearance: NAD, awake alert ENT: moist mucosa Heart: RRR, no murmur, no gallops, no rubs Respiratory: CTAB, no wheezes, no rales, no ronchi Gastrointestinal: soft, non-tender, non-distended, normal bowel sounds Extremities: no edema Psychiatric: normal affect, normal behavior, A&O x 3 Hosp A/P - Plan (1) Acute on chronic systolic heart failure, NYHA class 3 Code(s): I50.23 - ACUTE ON CHRONIC SYSTOLIC (CONGESTIVE) HEART FAILURE Status: Acute (2) UTI (urinary tract infection) Status: Acute (3) Atrial fibrillation Code(s): I48.91 - UNSPECIFIED ATRIAL FIBRILLATION Status: Chronic (4) DM type 2 (diabetes mellitus, type 2) Status: Chronic (5) HTN (hypertension) Code(s): I10 - ESSENTIAL (PRIMARY) HYPERTENSION Status: Chronic (6) Chest pain Code(s): R07.9 - CHEST PAIN, UNSPECIFIED Status: Resolved Qualifiers: Chest pain type: intercostal pain Qualified Code(s): R07.82 - Intercostal pain - Plan Patient has been started on Macrobid for urinary tract infection with enterobacter, continue. Continue IV Lasix 40 mg every 8 hours and PO metolazone dose has been decreased to 2.5 mg daily. Replete potassium. Hypertension controlled and stable. Increase Lantus to 20 units twice daily, continue Accu-Checks and insulin sliding scale. Warfarin management per pharmacy, still sub therapeutic. Continue Synthroid 100 mcg daily. Dispo- will need SNF placement once cleared by cardiology.
[2020-08-11] MEDS ORDERED: Potassium Chloride 20 MEQ TAB PO SCH (07:45)
[2020-08-11] MEDS: Aspirin 81 mg Enteric Coated Tablet PO SCH (09:37)
[2020-08-11] MEDS: Nitrofurantoin Monohyd/M-Cryst 100 MG CAP PO SCH ×2 (09:37→21:05)
[2020-08-11] MEDS: Famotidine 20 MG TAB PO SCH ×2 (09:37→21:06)
[2020-08-11] MEDS: Metolazone 5 MG TAB PO SCH (09:38)
[2020-08-11] MEDS: Potassium Chloride 20 MEQ TAB PO SCH ×2 (09:38→21:06)
[2020-08-11] MEDS: Digoxin 0.25 MG TAB PO SCH (09:39)
[2020-08-11] MEDS: Metoprolol Tartrate 50 MG TAB PO SCH ×2 (09:39→21:06)
[2020-08-11] MEDS: Insulin Glargine 20 UNITS in Pre-Filled Syringe 1 EACH SC SCH ×2 (09:48→21:11)
[2020-08-11] MEDS: HumaLOG 300 UNITS/3 ML VIAL SC PRN ×2 (10:58→17:33)
[2020-08-11] MEDS: Warfarin Sodium 5 MG TAB PO SCH (17:15)
[2020-08-11] MEDS: Melatonin 3 MG TAB PO SCH (21:05)
[2020-08-11] MEDS: Aripiprazole 10 MG TAB PO SCH (21:06)
[2020-08-11] MEDS: Benztropine 1 MG TAB PO SCH (21:06)
[2020-08-12 04:34] LABS: INR-International Normal Ratio 1.8; Prothrombin Time 21.7 sec (12.0-14.7)
[2020-08-12 04:47] LABS: Anion Gap 18 mmol/L (10-20); BUN (Urea Nitrogen) 39 mg/dL (9.8-20.1); Calc. Creatinine Clearance 75 mL/min (70-130); Calcium 8.9 mg/dL (7.8-10.44); Carbon Dioxide 30 mmol/L (23-31); Chloride 92 mmol/L (98-107); Glucose 174 mg/dL (80-115); Potassium 3.5 mmol/L (3.5-5.1); Sodium 136 mmol/L (136-145)
[2020-08-12] MEDS: Nitroglycerin 2% Ointment 1 INCH/1 GM Packet TOP SCH (05:09)
[2020-08-12] MEDS: Furosemide 40 MG/4 ML VIAL SLOW IVP SCH (05:09)
[2020-08-12] MEDS: Levothyroxine Sodium 100 MCG TAB PO SCH (05:09)
[2020-08-12] MEDS: HumaLOG 300 UNITS/3 ML VIAL SC PRN (06:20)
[2020-08-12] MEDS: Mometasone 100 MCG/Formoterol 5 MCG 120 PUFF INHALER INH SCH (06:34)
--- NOTE | 2020-08-12 07:42 | PDOC.HOSPP ---
- Subjective Encounter Date: 08/12/20 Encounter Time: 09:00 Subjective: Patient feeling better. Cleared by Dr. Nieto to go back to [facility]. - Objective Vital Signs & Weight: Vital Signs (12 hours) Temp Pulse Resp BP Pulse Ox 08/12/20 06:34 71 20 92 L 08/12/20 06:32 92 L 08/12/20 03:12 98.3 F 71 20 125/72 92 L 08/11/20 20:00 98.5 F 80 20 115/67 95 08/11/20 19:50 75 16 93 L Weight Weight 229 lb 4.8 oz I&O: 08/11/20 08/12/20 08/13/20 06:59 06:59 06:59 Intake Total 1060 815 Output Total 1500 1125 Balance -440 -310 Result Diagrams: 08/07/20 04:19 08/12/20 04:01 Additional Labs: Accuchecks 08/12/20 08/11/20 08/11/20 05:44 21:04 17:09 POC Glucose 189 H 201 H 217 H 08/11/20 08/10/20 08/10/20 10:36 16:36 10:23 POC Glucose 260 H 168 H 317 H Hospitalist ROS - Review of Systems Constitutional: denies: fever, chills Respiratory: denies: cough, shortness of breath Cardiovascular: denies: chest pain, palpitations Gastrointestinal: denies: nausea, vomiting, abdominal pain - Medication Medications: Active Medications Generic Name Dose Route Start Last Admin Trade Name Freq PRN Reason Stop Dose Admin Acetaminophen 1,000 mg 08/06/20 18:27 08/08/20 22:17 Acetaminophen 500 Mg Tab PO 1,000 mg Q6H PRN Administration Mild Pain (1-3) Aripiprazole 10 mg 08/06/20 21:00 08/11/20 21:06 Aripiprazole 10 Mg Tab PO 10 mg HS SOFY Administration Aspirin 81 mg 08/07/20 09:00 08/11/20 09:37 Aspirin 81 Mg Enteric Coated Tablet PO 81 mg QAM SOFY Administration Benztropine Mesylate 1 mg 08/06/20 21:00 08/11/20 21:06 Benztropine 1 Mg Tab PO 1 mg HS SOFY Administration Digoxin 0.25 mg 08/07/20 08:00 08/11/20 09:39 Digoxin 0.25 Mg Tab PO 0.25 mg QAM-WM SOFY Administration Famotidine 20 mg 08/06/20 21:00 08/11/20 21:06 Famotidine 20 Mg Tab PO 20 mg BID SOFY Administration Furosemide 40 mg 08/06/20 22:00 08/12/20 05:09 Furosemide 40 Mg/4 Ml Vial SLOW IVP 40 mg Q8HR SOFY Administration Insulin Glargine 20 units/ 0.2 mls @ 0 mls/hr 08/10/20 21:00 08/11/20 21:11 Miscellaneous Medication SC 0.2 mls BID SOFY Administration Insulin Human Lispro 0 units 08/06/20 18:27 08/12/20 06:20 Humalog 300 Units/3 Ml Vial SC 2 unit .MILD SLIDING SCALE PRN Administration Mild Correctional Scale Insulin Human Lispro 0 units 08/06/20 18:27 08/10/20 21:22 Humalog 300 Units/3 Ml Vial SC 2 unit .BEDTIME SLIDING SC PRN Administration Bedtime Correctional Scale Levothyroxine Sodium 100 mcg 08/07/20 06:00 08/12/20 05:09 Levothyroxine Sodium 100 Mcg Tab PO 100 mcg 0600 SOFY Administration Melatonin 9 mg 08/06/20 21:00 08/11/20 21:05 Melatonin 3 Mg Tab PO 9 mg HS SOFY Administration Metolazone 2.5 mg 08/11/20 08:30 08/11/20 09:38 Metolazone 5 Mg Tab PO 2.5 mg 0830 SOFY Administration Metoprolol Tartrate 50 mg 08/06/20 21:00 08/11/20 21:06 Metoprolol Tartrate 50 Mg Tab PO 50 mg BID SOFY Administration Mometasone Furoate/Formoterol Fumar 2 puff 08/07/20 06:30 08/12/20 06:34 Mometasone 100 Mcg/Formoterol 5 Mcg 120 Puff Inhaler INH 2 puff BID-RT SOFY Administration Morphine Sulfate 2 mg 08/06/20 19:37 08/07/20 22:15 Morphine 2 Mg/Ml Vial SLOW IVP 2 mg Q4H PRN Administration Moderate Pain (4-6) Nitrofurantoin Macrocrystals 100 mg 08/09/20 21:00 08/11/20 21:05 Nitrofurantoin Monohyd/M-Cryst 100 Mg Cap PO 100 mg BID SOFY Administration Nitroglycerin 0.5 inch 08/06/20 22:00 08/12/20 05:09 Nitroglycerin 2% Ointment 1 Inch/1 Gm Packet TOP 0.5 inch Q8HR SOFY Administration Potassium Chloride 20 meq 08/06/20 21:00 08/11/20 21:06 Potassium Chloride 20 Meq Tab PO 20 meq BID SOFY Administration Warfarin Sodium 5 mg 08/09/20 17:00 08/11/20 17:15 Warfarin Sodium 5 Mg Tab PO 5 mg 1700 SOFY Administration - Exam General Appearance: NAD, awake alert ENT: moist mucosa Heart: RRR, no murmur, no gallops, no rubs Respiratory: no wheezes, no ronchi, normal chest expansion, no tachypnea Respiratory - other findings: rare crackle in bases Gastrointestinal: soft, non-tender, non-distended, normal bowel sounds Extremities - other findings: trace edema to shins with skin breakdown Psychiatric: normal affect, normal behavior, A&O x 3 Hosp A/P - Plan (1) Acute on chronic systolic heart failure, NYHA class 3 Code(s): I50.23 - ACUTE ON CHRONIC SYSTOLIC (CONGESTIVE) HEART FAILURE Status: Acute (2) UTI (urinary tract infection) Status: Acute (3) Atrial fibrillation Code(s): I48.91 - UNSPECIFIED ATRIAL FIBRILLATION Status: Chronic (4) DM type 2 (diabetes mellitus, type 2) Status: Chronic (5) HTN (hypertension) Code(s): I10 - ESSENTIAL (PRIMARY) HYPERTENSION Status: Chronic (6) Chest pain Code(s): R07.9 - CHEST PAIN, UNSPECIFIED Status: Resolved Qualifiers: Chest pain type: intercostal pain Qualified Code(s): R07.82 - Intercostal pain - Plan Patient has been started on Macrobid for urinary tract infection with enterobacter, continue. Continue IV Lasix 40 mg every 8 hours and PO metolazone dose has been decreased to 2.5 mg daily. Creatinine bumped a bit today. Replete potassium. Hypertension controlled and stable. Increased Lantus to 20 units twice daily, continue Accu-Checks and insulin sliding scale. Warfarin management per pharmacy, still sub therapeutic. Continue Synthroid 100 mcg daily. Dispo- can go back to [facility] now that cleared by cardiology.
[2020-08-12 08:41] VITALS: TEMP 97.6
[2020-08-12] MEDS: Insulin Glargine 20 UNITS in Pre-Filled Syringe 1 EACH SC SCH (08:45)
[2020-08-12] MEDS: Nitrofurantoin Monohyd/M-Cryst 100 MG CAP PO SCH (08:46)
[2020-08-12] MEDS: Aspirin 81 mg Enteric Coated Tablet PO SCH (08:46)
[2020-08-12] MEDS: Digoxin 0.25 MG TAB PO SCH (08:46)
[2020-08-12] MEDS: Potassium Chloride 20 MEQ TAB PO SCH (08:47)
[2020-08-12] MEDS: Metolazone 5 MG TAB PO SCH (08:47)
[2020-08-12] MEDS: Famotidine 20 MG TAB PO SCH (08:47)
[2020-08-12] MEDS: Metoprolol Tartrate 50 MG TAB PO SCH (08:47)
--- NOTE | 2020-08-12 09:32 | PRG ---
DATE OF SERVICE: SUBJECTIVE: Ms. Carlson is doing fine. No chest pain or pressure. No shortness of breath. The patient is resting comfortably. OBJECTIVE: VITAL SIGNS: Her blood pressure 159/76, earlier is 125/72; pulse is in the 70s, but at times she is getting bradycardic with heart rates as low as in the 40s, especially last night. LUNGS: Clear. CARDIAC: Irregular. ABDOMEN: Soft, nontender. EXTREMITIES: There is no significant edema. ASSESSMENT: 1. Congestive heart failure, diastolic, improved. 2. Bradycardia, intermittent. 3. Chronic atrial fibrillation. PLAN: 1. Reduce digoxin to 0.125 mg a day. 2. Change Lasix to 80 mg orally twice a day. 3. Metolazone 2.5 mg twice a week only. 4. Isosorbide 30 mg a day. 5. Metoprolol 50 mg twice a day. 6. Potassium she is receiving on a daily basis. 7. Coumadin aiming for INR of 2 to 3. Okay to be released home to be followed up as an outpatient with Dr. Polo. Job ID: [id number]
[2020-08-12 11:40] VITALS: BP 136/86
[2020-08-12] MEDS ORDERED: Furosemide 80 MG TAB PO SCH (14:00)
[2020-08-13] MEDS ORDERED: Digoxin 0.25 MG TAB PO SCH (08:00)
[2020-08-13] MEDS ORDERED: Metolazone 2.5 MG TAB PO SCH (08:30)
--- NOTE | 2020-08-13 09:33 | DIS ---
DATE OF ADMISSION: 08/06/2020 DATE OF DISCHARGE: 08/12/2020 PRIMARY CARE PHYSICIAN: Delicia Felder MD REASON FOR ADMISSION: Diastolic congestive heart failure exacerbation with edema. DIAGNOSES AT DISCHARGE: 1. Ilhot-do-[id number] diastolic congestive heart failure, [place] Heart Association class III. 2. Urinary tract infection. 3. Chronic atrial fibrillation. 4. Diabetes mellitus type 2. 5. Hypertension. 6. Intercostal chest pain, noncardiac. 7. Chronic anticoagulation with warfarin. 8. Hypothyroidism. PROCEDURES: Echocardiogram showing ejection fraction of 45% to 50%, moderate mitral regurgitation and stenosis, [id number] aortic stenosis with moderate aortic regurgitation. CONSULTATION: Cardiology, Dr. Polo. SUMMARY OF HOSPITAL COURSE: This is a 64-year-old white female, a long-term resident of [facility], came in complaining of increasing bilateral lower extremity edema and shortness of breath. She also had some chest pain associated with shortness of breath. It was sharp in nature. The patient was found to be in congestive failure. She was diuresed. Dr. Polo was consulted. Her medications were adjusted. She did have a little bit of bradycardia at night, so her digoxin was decreased some. She was taken off her oral hypoglycemics and put on insulin while she was in the hospital. The patient was on Coumadin anticoagulation. This was subtherapeutic, so the dose was increased. The patient was found to have a urinary tract infection, uncomplicated, started on nitrofurantoin and will need to complete a 7-day course. She was doing better the day of discharge. She had resolution of her lower extremity swelling and is being discharged back to snf. DISCHARGE MANAGEMENT: Back to [facility]. ACTIVITY: As tolerated. DIET: Diabetic, fluid-restricted diet. THERAPY: Occupational and Physical Therapy. FOLLOWUP: With Dr. Felder and with Dr. Nieto as needed. DISCHARGE MEDICATIONS: 1. Abilify 30 mg at night. 2. Aspirin 81 mg daily. 3. Cogentin 1 mg at night. 4. Digoxin 0.125 mg daily. 5. Breo Ellipta 25 mcg daily. 6. Imdur extended release 30 mg daily. 7. Levothyroxine 100 mcg daily. 8. Melatonin 10 mg at night. 9. Metolazone 2.5 mg on Tuesday and Tuesday. 10. Metoprolol tartrate 50 mg twice a day. 11. Nitrofurantoin 100 mg twice a day to complete a 7-day course. 12. MiraLAX 17 g daily. 13. Potassium chloride 20 mEq twice a day. 14. Warfarin 5 mg daily. 15. Acetaminophen with codeine as needed for pain. 16. Fosamax 70 mg weekly. 17. Atorvastatin 10 mg daily. 18. Calcium 600 plus vitamin D one tablet twice a day. 19. Cyclobenzaprine 10 mg every 6 hours as needed for muscle spasm. 20. Colace 50 mg twice a day. 21. Zetia 10 mg at night. 22. Furosemide 80 mg twice a day. 23. Humalog as directed sliding scale. 24. Tradjenta 5 mg daily. 25. Amitiza 24 mcg twice a day. 26. Multivitamin daily. 27. Zofran as needed. 28. Protonix 20 mg daily. TIME SPENT: Arranging the details of this discharge took 35 minutes. Job ID: [id number]
--- NOTE | 2020-08-13 22:25 | PQF ---
CLINICAL DOCUMENTATION CLARIFICATION FORM: Dear : Chaitanya Patrick Date / Time: 08/13/20 1994 Please exercise your independent, professional judgment in responding to the clarification form. Clinical indicators are provided on the bottom of this form for your review Please check appropriate box(es): [ X ] Type 2 PA (T2MI) secondary to Heart failure [ X ] Type 2 PA (T2MI) secondary to Severe Aortic Stenosis [ ] Ruled out PA [ ] Other diagnosis [ ] Unable to determine In addition, please specify: Present on Admission (POA): [ X ] Yes [ ] No [ ] Unable to determine Physician Signature: Date/Time: For continuity of documentation, please document condition throughout progress notes and discharge summary. Thank You. To be completed by CDI/Coding staff for physician review: Present Clinical Indicators - Signs / Symptoms / Labs Results and Location in Medical Record [X] BNP 248.4, Troponin I 0.027; 0.028; 0.033; 0.037 Laboratory 08/06-08/07 [X] Echocardiogram: ED 45-50%, Mitral regurgitation, stenosis, Aortic Regurgitation and tricuspid regurgitation Cardio consult Dr Polo 08/07 [X] BP 162/85, Pulse 129, Resp 26, temp 98 Vital signs 08/06 [X] Lower extremity swelling and leg pain H&P p1 08/06 [facility] [X] Acute on chronic diastolic CHF H&P p4 08/06 [facility] [X] Non-ST elevation myocardial infarctoin type 2, chronically elevated tropopninIh Consult Dr Polo 08/07 Present Risk Factors Results and Location in Medical Record [X] 64 year-old Female H&P p1 08/06 [facility] [X] Polyvalvular disease H&P p1 08/06 [facility] [X] Chronic AFib H&P p1 08/06 [facility] [X] DM H&P p1 08/06 [facility] [X] CKD H&P p1 08/06 [facility] [X] HTN H&P p1 08/06 [facility] [X] Former smoker H&P p2 08/06 [facility] [X] CAD H&P p4 08/06 [facility] Present Treatments Results and Location in Medical Record [X] Nitro-Bid 2% Oitment 0.05inch OCT 31 [X] Coumadin 3 mg oral OCT 31 [X] Digoxin 0.25 mg oral OCT 31 [X] Aspirin 81 mg oral OCT 31 [X] Cardiology consult Consult Dr Polo 08/07 CDS/Ship Engineer Signature: Vero Doe Phone #: [phone] Date/Time: 08/13/2020 2952 This is a permanent part of the Medical Record [facility]
[2020-08-15] MEDS ORDERED: Metolazone 2.5 MG TAB PO SCH (08:30)
== END 2020-08-12 13:20 | DRG 280 ==
LOC: ERS 15:05 → 2NO 16:50
PROVIDERS: ADMIT Family Medicine; ATTEND Emergency Medicine
DX: I13.0 Hypertensive heart and chronic kidney disease with heart failure and stage 1 through stage 4 chronic kidney disease, or unspecified chronic kidney disease (principal); I50.33 Acute on chronic diastolic (congestive) heart failure; I21.A1 Myocardial infarction type 2; N39.0 Urinary tract infection, site not specified; I48.20 Chronic atrial fibrillation, unspecified; Z20.828 Contact with and (suspected) exposure to other viral communicable diseases; Z23 Encounter for immunization; R07.82 Intercostal pain; E03.9 Hypothyroidism, unspecified; I08.3 Combined rheumatic disorders of mitral, aortic and tricuspid valves; E78.5 Hyperlipidemia, unspecified; K21.9 Gastro-esophageal reflux disease without esophagitis; G40.909 Epilepsy, unspecified, not intractable, without status epilepticus; F20.9 Schizophrenia, unspecified; E66.9 Obesity, unspecified; F31.9 Bipolar disorder, unspecified; F79 Unspecified intellectual disabilities; N18.30 Chronic kidney disease, stage 3 unspecified; E78.00 Pure hypercholesterolemia, unspecified; J44.9 Chronic obstructive pulmonary disease, unspecified; E11.22 Type 2 diabetes mellitus with diabetic chronic kidney disease; R00.1 Bradycardia, unspecified; Z79.01 Long term (current) use of anticoagulants; Z87.891 Personal history of nicotine dependence; Z68.39 Body mass index [BMI] 39.0-39.9, adult; Z79.899 Other long term (current) drug therapy; Z79.890 Hormone replacement therapy; Z79.51 Long term (current) use of inhaled steroids; Z79.82 Long term (current) use of aspirin; Z79.4 Long term (current) use of insulin
CPT/HCPCS: 36415; 36416; 71045; 80048; 80053; 80162; 81003; 81015; 82550; 83690; 83880; 84484; 85025; 85610; 87077; 87086; 87186; 87635; 93005; 93010; 93306; 93798; 96374; 97139; J1815; J1940; J2270; Q0162; U0003

== ENCOUNTER 2021-02-24 22:54 | Inpatient (IN) | payer MEDICARE, MEDICAID ==
[2021-02-24 23:54] LABS: #Eosinphils 0.1 thou/uL (0.0-0.7); #Lymphocytes 2.2 thou/uL (1.20-3.40); #Neutrophils 4.9 thou/uL (1.40-6.50); %Basophils 0.2 % (0.0-1.0); %Eosinophils 1.7 % (0.0-10.0); %Lymphocytes 27.1 % (21.0-51.0); %Monocytes 11.9 % (0.0-10.0); %Neutrophils 59.1 % (42.0-75.0); Hemoglobin 12.9 g/dL (12.0-16.0); Mean Corpuscular HGB CONC 35.5 g/dL (32.0-36.0); Mean Corpuscular Hemoglobin 33.9 pg (27.0-31.0); Mean Corpuscular Volume 95.4 fL (78.0-98.0); Platelet Count 196 thou/uL (130-400); RBC Distribution Width 14.4 % (11.5-14.5); Red Blood Cell (RBC) Count 3.82 mill/uL (4.20-5.40); White Blood Cell (WBC) Count 8.3 thou/uL (4.8-10.8)
[2021-02-25 00:17] LABS: ALT (SGPT) 19 U/L (8-55); AST (SGOT) 17 U/L (5-34); Albumin 3.6 g/dL (3.4-4.8); Alkaline Phosphatase 72 U/L (40-110); Anion Gap 17 mmol/L (10-20); BUN (Urea Nitrogen) 37 mg/dL (9.8-20.1); Bilirubin, Total 0.8 mg/dL (0.2-1.2); Calc. Creatinine Clearance 0 mL/min (70-130); Carbon Dioxide 27 mmol/L (23-31); Chloride 98 mmol/L (98-107); Globulin 2.9 g/dL (2.4-3.5); Glucose 179 mg/dL (80-115); Protein, Total 6.5 g/dL (5.8-8.1); Sodium 139 mmol/L (136-145)
[2021-02-25 02:47] VITALS: BMI 38.7
[2021-02-25] MEDS ORDERED: Alendronate Sodium 70 mg Tablet PO SCH (04:14)
[2021-02-25] MEDS ORDERED: Polyethylene Glycol 3350 17 GM Packet PO PRN (04:14)
[2021-02-25] MEDS ORDERED: Nitroglycerin 0.4 MG TAB (25 Tab Bottle) SL PRN (04:14)
[2021-02-25] MEDS ORDERED: Dextrose 5% in Water 1,000 ML IV PRN (04:14)
[2021-02-25] MEDS ORDERED: Ondansetron ODT 4 MG TAB PO PRN (04:14)
[2021-02-25] MEDS ORDERED: Dextrose 50% Abboject 50 ML SYRINGE SLOW IVP PRN (04:14)
[2021-02-25] MEDS ORDERED: Potassium Chloride 20 MEQ TAB PO SCH (04:14)
[2021-02-25] MEDS ORDERED: HumaLOG 300 UNITS/3 ML VIAL SC PRN (04:14)
[2021-02-25] MEDS ORDERED: hydrALAZINE 20 MG/ML VIAL SLOW IVP PRN (04:14)
[2021-02-25] MEDS ORDERED: Ondansetron PF 4 MG/2 ML Vial IVP PRN (04:14)
[2021-02-25 05:11] LABS: INR-International Normal Ratio 1.5; Prothrombin Time 18.6 sec (12.0-14.7)
[2021-02-25] MEDS: Furosemide 40 MG/4 ML VIAL SLOW IVP SCH ×2 (05:14→15:11)
[2021-02-25] MEDS: Levothyroxine Sodium 100 MCG TAB PO SCH (05:14)
[2021-02-25] MEDS: Nitroglycerin 2% Ointment 1 INCH/1 GM Packet TOP SCH ×3 (05:14→22:17)
[2021-02-25 05:34] LABS: Troponin I 0.031 ng/mL (< 0.028)
[2021-02-25] MEDS: Mometasone 100 MCG/Formoterol 5 MCG 120 PUFF INHALER INH SCH ×2 (06:44→18:37)
[2021-02-25 08:25] LABS: Troponin I 0.024 ng/mL (< 0.028)
[2021-02-25] MEDS: Acetaminophen/Codeine 30-300mg Tablet PO PRN (09:49)
[2021-02-25] MEDS: Digoxin 0.25 MG TAB PO SCH (09:56)
[2021-02-25] MEDS: Potassium Chloride 20 MEQ TAB PO SCH ×2 (09:58→17:10)
[2021-02-25] MEDS: Aspirin 81 mg Enteric Coated Tablet PO SCH (10:04)
[2021-02-25] MEDS: Atorvastatin Calcium 20 MG TAB PO SCH (10:04)
[2021-02-25] MEDS: Aspirin Chewable 81 MG TAB PO SCH (10:04)
[2021-02-25] MEDS: Cholecalciferol 1,000 UNITS (25 MCG) TAB PO SCH (10:05)
[2021-02-25] MEDS: Famotidine 20 MG TAB PO SCH ×2 (10:05→22:14)
[2021-02-25] MEDS: Metoprolol Tartrate 25 MG TAB PO SCH ×2 (10:06→22:14)
[2021-02-25] MEDS: Lubiprostone 24 MCG CAP PO SCH ×2 (10:06→22:13)
[2021-02-25] MEDS: Multivit, Therapeutic 1 TAB PO SCH (10:07)
[2021-02-25] MEDS: Alogliptin 25 MG TAB PO SCH (10:31)
[2021-02-25] MEDS: Metolazone 2.5 MG TAB PO SCH (10:32)
[2021-02-25] MEDS: Lantus 1000 UNITS/10 ML VIAL SC SCH ×2 (10:33→22:14)
[2021-02-25 11:06] LABS: Anion Gap 16 mmol/L (10-20); BUN (Urea Nitrogen) 31 mg/dL (9.8-20.1); Calc. Creatinine Clearance 69 mL/min (70-130); Calcium 8.9 mg/dL (7.8-10.44); Carbon Dioxide 28 mmol/L (23-31); Chloride 96 mmol/L (98-107); Glucose 193 mg/dL (80-115); Potassium 3.1 mmol/L (3.5-5.1); Sodium 137 mmol/L (136-145)
[2021-02-25] MEDS: Acetaminophen 500 MG TAB PO PRN ×2 (16:59→22:12)
[2021-02-25] MEDS: Warfarin Sodium 2 MG TAB PO SCH (17:10)
[2021-02-25] MEDS: Melatonin 3 MG TAB PO SCH (22:13)
[2021-02-25] MEDS: Aripiprazole 15 MG TAB PO SCH (22:13)
[2021-02-25] MEDS: Ezetimibe 10 MG TAB PO SCH (22:13)
[2021-02-25] MEDS: Benztropine 1 MG TAB PO SCH (22:13)
[2021-02-26] MEDS: Acetaminophen/Codeine 30-300mg Tablet PO PRN (05:31)
[2021-02-26] MEDS: Nitroglycerin 2% Ointment 1 INCH/1 GM Packet TOP SCH ×3 (05:32→21:10)
[2021-02-26] MEDS: Levothyroxine Sodium 100 MCG TAB PO SCH (05:32)
[2021-02-26] MEDS: Furosemide 40 MG/4 ML VIAL SLOW IVP SCH ×2 (05:32→13:46)
[2021-02-26 05:42] LABS: #Eosinphils 0.2 thou/uL (0.0-0.7); #Neutrophils 7.3 thou/uL (1.40-6.50); %Basophils 0.4 % (0.0-1.0); %Eosinophils 1.7 % (0.0-10.0); %Lymphocytes 18.9 % (21.0-51.0); %Monocytes 9.6 % (0.0-10.0); %Neutrophils 69.5 % (42.0-75.0); Hemoglobin 13.4 g/dL (12.0-16.0); Mean Corpuscular HGB CONC 33.5 g/dL (32.0-36.0); Mean Corpuscular Hemoglobin 33.1 pg (27.0-31.0); Mean Corpuscular Volume 98.7 fL (78.0-98.0); Mean Platelet Volume 8.9 fL (7.4-10.4); Platelet Count 198 thou/uL (130-400); RBC Distribution Width 14.4 % (11.5-14.5); Red Blood Cell (RBC) Count 4.04 mill/uL (4.20-5.40); White Blood Cell (WBC) Count 10.5 thou/uL (4.8-10.8)
[2021-02-26 05:48] LABS: INR-International Normal Ratio 1.9; Prothrombin Time 21.7 sec (12.0-14.7)
[2021-02-26 05:54] LABS: ALT (SGPT) 20 U/L (8-55); AST (SGOT) 18 U/L (5-34); Albumin 3.5 g/dL (3.4-4.8); Alkaline Phosphatase 74 U/L (40-110); Anion Gap 16 mmol/L (10-20); BUN (Urea Nitrogen) 36 mg/dL (9.8-20.1); Bilirubin, Total 0.6 mg/dL (0.2-1.2); Calc. Creatinine Clearance 57 mL/min (70-130); Calcium 8.9 mg/dL (7.8-10.44); Carbon Dioxide 31 mmol/L (23-31); Cardiac Risk 4.4 (Less than 4.5); Chloride 97 mmol/L (98-107); Cholesterol 131 mg/dl (< 200 Desired); Globulin 3.4 g/dL (2.4-3.5); Glucose 173 mg/dL (80-115); HDL Cholesterol 30 mg/dL (>60 Neg Risk); LDL Cholesterol, Calculated 77 mg/dL; Potassium 3.6 mmol/L (3.5-5.1); Protein, Total 6.9 g/dL (5.8-8.1); Sodium 140 mmol/L (136-145); Triglycerides 120 mg/dL (Less than 150)
[2021-02-26] MEDS: HumaLOG 300 UNITS/3 ML VIAL SC PRN ×2 (06:27→17:35)
[2021-02-26] MEDS: Mometasone 100 MCG/Formoterol 5 MCG 120 PUFF INHALER INH SCH ×2 (07:05→18:21)
[2021-02-26] MEDS: Metoprolol Tartrate 25 MG TAB PO SCH ×2 (10:22→21:11)
[2021-02-26] MEDS: Famotidine 20 MG TAB PO SCH ×2 (10:22→20:56)
[2021-02-26] MEDS: Multivit, Therapeutic 1 TAB PO SCH (10:22)
[2021-02-26] MEDS: Potassium Chloride 20 MEQ TAB PO SCH ×3 (10:22→16:59)
[2021-02-26] MEDS: Cholecalciferol 1,000 UNITS (25 MCG) TAB PO SCH (10:22)
[2021-02-26] MEDS: Lubiprostone 24 MCG CAP PO SCH ×2 (10:23→20:56)
[2021-02-26] MEDS: Atorvastatin Calcium 20 MG TAB PO SCH (10:23)
[2021-02-26] MEDS: Aspirin 81 mg Enteric Coated Tablet PO SCH (10:23)
[2021-02-26] MEDS: Aspirin Chewable 81 MG TAB PO SCH (10:23)
[2021-02-26] MEDS: Digoxin 0.25 MG TAB PO SCH (10:23)
[2021-02-26] MEDS: Alogliptin 25 MG TAB PO SCH (10:24)
[2021-02-26] MEDS: Lantus 1000 UNITS/10 ML VIAL SC SCH ×2 (10:24→21:10)
[2021-02-26] MEDS: cefTRIAXone\\ROCEPHIN 1 GM in Sodium Chloride 0.9% 100 ML IVPB SCH (15:28)
[2021-02-26] MEDS: Warfarin Sodium 2 MG TAB PO SCH (15:29)
[2021-02-26] MEDS: Aripiprazole 15 MG TAB PO SCH (20:55)
[2021-02-26] MEDS: Benztropine 1 MG TAB PO SCH (20:55)
[2021-02-26] MEDS: Ezetimibe 10 MG TAB PO SCH (20:56)
[2021-02-26] MEDS: Melatonin 3 MG TAB PO SCH (20:58)
[2021-02-27] MEDS: Acetaminophen/Codeine 30-300mg Tablet PO PRN (01:27)
[2021-02-27] MEDS: Furosemide 40 MG/4 ML VIAL SLOW IVP SCH ×2 (04:59→14:13)
[2021-02-27 05:16] LABS: #Eosinphils 0.2 thou/uL (0.0-0.7); #Lymphocytes 2.1 thou/uL (1.20-3.40); #Monocytes 1.3 thou/uL (0.11-0.59); #Neutrophils 6.4 thou/uL (1.40-6.50); %Basophils 0.4 % (0.0-1.0); %Eosinophils 1.7 % (0.0-10.0); %Lymphocytes 20.8 % (21.0-51.0); %Monocytes 13.3 % (0.0-10.0); %Neutrophils 63.7 % (42.0-75.0); Hemoglobin 12.8 g/dL (12.0-16.0); Mean Corpuscular HGB CONC 34.8 g/dL (32.0-36.0); Mean Corpuscular Hemoglobin 33.7 pg (27.0-31.0); Mean Corpuscular Volume 96.8 fL (78.0-98.0); Mean Platelet Volume 9.2 fL (7.4-10.4); Platelet Count 174 thou/uL (130-400); RBC Distribution Width 14.3 % (11.5-14.5); Red Blood Cell (RBC) Count 3.79 mill/uL (4.20-5.40); White Blood Cell (WBC) Count 10.1 thou/uL (4.8-10.8)
[2021-02-27 05:34] LABS: Anion Gap 12 mmol/L (10-20); BUN (Urea Nitrogen) 34 mg/dL (9.8-20.1); Calc. Creatinine Clearance 66 mL/min (70-130); Calcium 8.6 mg/dL (7.8-10.44); Carbon Dioxide 32 mmol/L (23-31); Chloride 97 mmol/L (98-107); Glucose 250 mg/dL (80-115); INR-International Normal Ratio 2.3; Potassium 3.5 mmol/L (3.5-5.1); Sodium 137 mmol/L (136-145)
[2021-02-27] MEDS: HumaLOG 300 UNITS/3 ML VIAL SC PRN ×2 (06:01→12:02)
[2021-02-27] MEDS: Levothyroxine Sodium 100 MCG TAB PO SCH (06:03)
[2021-02-27] MEDS: Nitroglycerin 2% Ointment 1 INCH/1 GM Packet TOP SCH ×2 (06:05→14:55)
[2021-02-27] MEDS: Digoxin 0.25 MG TAB PO SCH (08:38)
[2021-02-27] MEDS: Multivit, Therapeutic 1 TAB PO SCH (08:38)
[2021-02-27] MEDS: Alogliptin 25 MG TAB PO SCH (08:38)
[2021-02-27] MEDS: Potassium Chloride 20 MEQ TAB PO SCH (08:39)
[2021-02-27] MEDS: Metolazone 2.5 MG TAB PO SCH (08:39)
[2021-02-27] MEDS: Lubiprostone 24 MCG CAP PO SCH (08:39)
[2021-02-27] MEDS: Metoprolol Tartrate 25 MG TAB PO SCH (08:39)
[2021-02-27] MEDS: Aspirin 81 mg Enteric Coated Tablet PO SCH (08:39)
[2021-02-27] MEDS: Famotidine 20 MG TAB PO SCH (08:39)
[2021-02-27] MEDS: Atorvastatin Calcium 20 MG TAB PO SCH (08:40)
[2021-02-27] MEDS: Cholecalciferol 1,000 UNITS (25 MCG) TAB PO SCH (08:41)
[2021-02-27] MEDS: Lantus 1000 UNITS/10 ML VIAL SC SCH (08:42)
[2021-02-27] MEDS: Mometasone 100 MCG/Formoterol 5 MCG 120 PUFF INHALER INH SCH (09:03)
[2021-02-27] MEDS ORDERED: Bacitracin 1 PK TOP PRN (10:11)
[2021-02-27] MEDS: cefTRIAXone\\ROCEPHIN 1 GM in Sodium Chloride 0.9% 100 ML IVPB SCH (14:55)
[2021-02-27 15:10] VITALS: BP 133/62; TEMP 99
[2021-02-27] MEDS: Warfarin Sodium 2 MG TAB PO SCH (17:09)
== END 2021-02-27 18:30 | DRG 602 ==
LOC: ERS 22:54 → 2SW 02-25 01:16 → OBSVTOIN 02-26 14:30
PROVIDERS: ADMIT Family Medicine; ATTEND Internal Medicine
DX: L03.115 Cellulitis of right lower limb (principal); I50.23 Acute on chronic systolic (congestive) heart failure; J96.01 Acute respiratory failure with hypoxia; I13.0 Hypertensive heart and chronic kidney disease with heart failure and stage 1 through stage 4 chronic kidney disease, or unspecified chronic kidney disease; I48.20 Chronic atrial fibrillation, unspecified; N17.9 Acute kidney failure, unspecified; L03.116 Cellulitis of left lower limb; E11.22 Type 2 diabetes mellitus with diabetic chronic kidney disease; J44.9 Chronic obstructive pulmonary disease, unspecified; E03.9 Hypothyroidism, unspecified; N18.30 Chronic kidney disease, stage 3 unspecified; K21.9 Gastro-esophageal reflux disease without esophagitis; E87.6 Hypokalemia; F32.9 Major depressive disorder, single episode, unspecified; F25.9 Schizoaffective disorder, unspecified; Z79.01 Long term (current) use of anticoagulants; Z98.890 Other specified postprocedural states; Z79.82 Long term (current) use of aspirin; Z79.4 Long term (current) use of insulin; Z79.899 Other long term (current) drug therapy; Z87.891 Personal history of nicotine dependence
CPT/HCPCS: 36415; 36416; 71045; 80048; 80053; 80061; 82553; 83735; 83880; 84484; 85025; 85610; 93005; 93798; J0696; J1815; J1940; J3490

== ENCOUNTER 2021-06-20 22:14 | Emergency (ER) | payer MEDICARE, MEDICAID ==
[2021-06-20 23:33] LABS: #Eosinphils 0.4 thou/uL (0.0-0.7); #Lymphocytes 2.2 thou/uL (1.20-3.40); #Neutrophils 4.9 thou/uL (1.40-6.50); %Basophils 0.2 % (0.0-1.0); %Eosinophils 4.4 % (0.0-10.0); %Lymphocytes 25.7 % (21.0-51.0); %Monocytes 11.7 % (0.0-10.0); Hemoglobin 12.4 g/dL (12.0-16.0); Mean Corpuscular HGB CONC 34.3 g/dL (32.0-36.0); Mean Corpuscular Hemoglobin 31.7 pg (27.0-31.0); Mean Corpuscular Volume 92.5 fL (78.0-98.0); Mean Platelet Volume 8.6 fL (7.4-10.4); Platelet Count 223 thou/uL (130-400); RBC Distribution Width 14.3 % (11.5-14.5); Red Blood Cell (RBC) Count 3.91 mill/uL (4.20-5.40); White Blood Cell (WBC) Count 8.4 thou/uL (4.8-10.8)
[2021-06-21 00:18] LABS: ALT (SGPT) 15 U/L (8-55); AST (SGOT) 12 U/L (5-34); Albumin 3.7 g/dL (3.4-4.8); Alkaline Phosphatase 85 U/L (40-110); Anion Gap 15 mmol/L (10-20); BUN (Urea Nitrogen) 62 mg/dL (9.8-20.1); Bilirubin, Total 0.4 mg/dL (0.2-1.2); Calc. Creatinine Clearance 0 mL/min (70-130); Calcium 9.6 mg/dL (7.8-10.44); Carbon Dioxide 33 mmol/L (23-31); Chloride 96 mmol/L (98-107); Globulin 3.5 g/dL (2.4-3.5); Glucose 254 mg/dL (80-115); Potassium 4.1 mmol/L (3.5-5.1); Protein, Total 7.2 g/dL (5.8-8.1); Sodium 140 mmol/L (136-145)
[2021-06-21 00:28] LABS: Bilirubin Negative (Negative); Blood, Urine Negative (Negative); Clarity Clear (Clear); Glucose, Urine (Dipstick) Normal (Negative); Ketone, Urine Negative (Negative); Leukocyte Negative Leu/uL (Negative); Nitrite Negative (Negative); Protein, Urine (Dipstick) Negative (Neg-Trace); Urobilinogen Normal mg/dL (Less than 2); pH, Urine 5.5 (5.0-9.0)
[2021-06-21 03:05] LABS: Lactic Acid 1.6 mmol/L (0.5-2.2)
== END 2021-06-21 06:41 ==
LOC: ERS 22:14
DX: R51.9 Headache, unspecified (principal); N39.0 Urinary tract infection, site not specified; E78.5 Hyperlipidemia, unspecified; E03.9 Hypothyroidism, unspecified; K21.9 Gastro-esophageal reflux disease without esophagitis; I48.91 Unspecified atrial fibrillation; I11.0 Hypertensive heart disease with heart failure; I50.9 Heart failure, unspecified; E11.9 Type 2 diabetes mellitus without complications; J44.9 Chronic obstructive pulmonary disease, unspecified; D64.9 Anemia, unspecified; Z79.4 Long term (current) use of insulin; Z79.82 Long term (current) use of aspirin; Z79.899 Other long term (current) drug therapy
CPT/HCPCS: 36415; 70450; 80053; 81003; 83605; 85025; 93005

== ENCOUNTER 2021-06-23 11:08 | Outpatient (CLI) | payer MEDICARE, MEDICAID | END 2021-06-23 11:09 | disposition home or self-care (01) | LOC: BICMAMMO 11:08 | PROVIDERS: ATTEND Family Medicine | DX: Z12.31 Encounter for screening mammogram for malignant neoplasm of breast (principal); Z80.3 Family history of malignant neoplasm of breast | CPT/HCPCS: 77063; 77067 ==

== ENCOUNTER 2021-09-07 03:25 | Inpatient (IN) | payer MEDICARE, MEDICAID ==
[2021-09-07 04:44] LABS: #Eosinphils 0.1 thou/uL (0.0-0.7); #Lymphocytes 1.6 thou/uL (1.20-3.40); #Neutrophils 9.9 thou/uL (1.40-6.50); %Basophils 0.2 % (0.0-1.0); %Lymphocytes 12.5 % (21.0-51.0); %Monocytes 7.8 % (0.0-10.0); %Neutrophils 78.5 % (42.0-75.0); Mean Corpuscular HGB CONC 32.3 g/dL (32.0-36.0); Mean Corpuscular Hemoglobin 30.9 pg (27.0-31.0); Mean Corpuscular Volume 95.9 fL (78.0-98.0); Platelet Count 176 thou/uL (130-400); Red Blood Cell (RBC) Count 3.89 mill/uL (4.20-5.40); White Blood Cell (WBC) Count 12.6 thou/uL (4.8-10.8)
[2021-09-07 04:56] LABS: INR-International Normal Ratio 1.6; PTT 47.6 sec (22.9-36.1); Prothrombin Time 19.2 sec (12.0-14.7)
[2021-09-07 05:06] LABS: ALT (SGPT) 15 U/L (8-55); AST (SGOT) 15 U/L (5-34); Alkaline Phosphatase 93 U/L (40-110); Anion Gap 15 mmol/L (10-20); BUN (Urea Nitrogen) 39 mg/dL (9.8-20.1); Bilirubin, Total 0.8 mg/dL (0.2-1.2); CK (CPK) 87 U/L (29-168); Calc. Creatinine Clearance 0 mL/min (70-130); Calcium 9.3 mg/dL (7.8-10.44); Carbon Dioxide 26 mmol/L (23-31); Chloride 99 mmol/L (98-107); Globulin 3.6 g/dL (2.4-3.5); Glucose 220 mg/dL (80-115); Lipase 11 U/L (8-78); Potassium 4.1 mmol/L (3.5-5.1); Protein, Total 7.6 g/dL (5.8-8.1); Sodium 136 mmol/L (136-145)
[2021-09-07 05:52] LABS: SARS-CoV-2 NAA Rapid Test Not Detected (NotDetected)
[2021-09-07] MEDS ORDERED: Aspirin Chewable 81 MG TAB ONE (06:10)
[2021-09-07] MEDS ORDERED: Furosemide 40 MG/4 ML VIAL ONE (06:10)
[2021-09-07 08:53] LABS: Troponin I 0.013 ng/mL (< 0.028)
[2021-09-07] MEDS ORDERED: Ipratropium Oral Inhaler INH PRN (12:10)
[2021-09-07] MEDS ORDERED: Dextrose 5% in Water 1,000 ML IV PRN (12:13)
[2021-09-07] MEDS ORDERED: Dextrose 50% Abboject 50 ML SYRINGE SLOW IVP PRN (12:13)
[2021-09-07] MEDS ORDERED: HumaLOG 300 UNITS/3 ML VIAL SC PRN (12:13)
[2021-09-07] MEDS ORDERED: Electrolyte Replacement Protocol 1 EACH FS SCH (12:15)
[2021-09-07] MEDS ORDERED: Metoprolol Tartrate 50 MG TAB PO SCH (12:45)
[2021-09-07] MEDS ORDERED: Metoprolol Tartrate 50 MG TAB ONE (12:53)
[2021-09-07 14:21] LABS: Troponin I 0.012 ng/mL (< 0.028)
[2021-09-07] MEDS: Warfarin Sodium 2 MG TAB PO SCH (18:41)
[2021-09-07] MEDS: Metoprolol Tartrate 50 MG TAB PO SCH (21:26)
[2021-09-07] MEDS: Atorvastatin Calcium 20 MG TAB PO SCH (21:26)
[2021-09-07 21:40] VITALS: BMI 34.4
[2021-09-08 03:11] LABS: Bacteria/HPF 4+ HPF (None Seen); Bilirubin Negative (Negative); Blood, Urine Negative (Negative); Clarity Turbid (Clear); Glucose, Urine (Dipstick) Normal (Negative); Ketone, Urine Negative (Negative); Leukocyte 500 Leu/uL (Negative); Nitrite 2+ (Negative); Protein, Urine (Dipstick) Negative (Neg-Trace); RBC/HPF 0-3 HPF (0-3); Specific Gravity, Urine 1.019 (1.002-1.036); Squamous Epithelial None Seen HPF (0-3); Urine Culture Reflex Yes Yes; Urobilinogen Normal mg/dL (Less than 2); WBC/HPF Greater than 50 HPF (0-3); pH, Urine 5.5 (5.0-9.0)
[2021-09-08 04:53] LABS: #Eosinphils 0.2 thou/uL (0.0-0.7); #Lymphocytes 1.1 thou/uL (1.20-3.40); #Neutrophils 8.8 thou/uL (1.40-6.50); %Basophils 0.4 % (0.0-1.0); %Eosinophils 1.5 % (0.0-10.0); %Neutrophils 79.1 % (42.0-75.0); Hemoglobin 11.1 g/dL (12.0-16.0); Mean Corpuscular HGB CONC 32.7 g/dL (32.0-36.0); Platelet Count 162 thou/uL (130-400); RBC Distribution Width 14.9 % (11.5-14.5); Red Blood Cell (RBC) Count 3.45 mill/uL (4.20-5.40); White Blood Cell (WBC) Count 11.1 thou/uL (4.8-10.8)
[2021-09-08 04:57] LABS: Hemoglobin A1c 6.6 % (4.0-6.0)
[2021-09-08 05:01] LABS: INR-International Normal Ratio 1.8; Prothrombin Time 20.8 sec (12.0-14.7)
[2021-09-08 05:14] LABS: Anion Gap 16 mmol/L (10-20); BUN (Urea Nitrogen) 27 mg/dL (9.8-20.1); Calc. Creatinine Clearance 85 mL/min (70-130); Calcium 8.7 mg/dL (7.8-10.44); Carbon Dioxide 21 mmol/L (23-31); Cardiac Risk 3.6 (Less than 4.5); Chloride 102 mmol/L (98-107); Cholesterol 111 mg/dl (< 200 Desired); Glucose 238 mg/dL (80-115); HDL Cholesterol 31 mg/dL (>60 Neg Risk); LDL Cholesterol, Calculated 64 mg/dL; Sodium 135 mmol/L (136-145); Triglycerides 80 mg/dL (Less than 150)
[2021-09-08] MEDS: HumaLOG 300 UNITS/3 ML VIAL SC PRN ×3 (05:52→17:10)
[2021-09-08] MEDS: Metoprolol Tartrate 50 MG TAB PO SCH ×2 (08:30→20:51)
[2021-09-08] MEDS ORDERED: Ondansetron ODT 4 MG TAB PO PRN (11:20)
[2021-09-08] MEDS ORDERED: Polyethylene Glycol 3350 17 GM Packet PO PRN (11:20)
[2021-09-08] MEDS ORDERED: Alendronate Sodium 70 mg Tablet PO SCH (11:30)
[2021-09-08] MEDS ORDERED: Nitroglycerin 0.4 MG TAB (25 Tab Bottle) SL PRN (11:58)
[2021-09-08] MEDS: Acetaminophen 325 MG TAB PO PRN (12:42)
[2021-09-08] MEDS: Warfarin Sodium 2 MG TAB PO SCH (17:11)
[2021-09-08] MEDS: Mometasone 100 MCG/Formoterol 5 MCG 120 PUFF INHALER INH SCH (19:24)
[2021-09-08] MEDS: Aripiprazole 15 MG TAB PO SCH (20:49)
[2021-09-08] MEDS: Lantus 1000 UNITS/10 ML VIAL SC SCH (20:50)
[2021-09-08] MEDS: Benztropine 1 MG TAB PO SCH (20:50)
[2021-09-08] MEDS: Atorvastatin Calcium 20 MG TAB PO SCH (20:50)
[2021-09-08] MEDS: Metoprolol Tartrate 25 MG TAB PO SCH (20:51)
[2021-09-09] MEDS: Levothyroxine Sodium 75 MCG TAB PO SCH (04:39)
[2021-09-09 05:29] LABS: #Eosinphils 0.2 thou/uL (0.0-0.7); #Lymphocytes 1.9 thou/uL (1.20-3.40); #Monocytes 1.3 thou/uL (0.11-0.59); #Neutrophils 8.5 thou/uL (1.40-6.50); %Basophils 0.3 % (0.0-1.0); %Eosinophils 1.3 % (0.0-10.0); %Monocytes 10.9 % (0.0-10.0); %Neutrophils 71.5 % (42.0-75.0); Hemoglobin 11.4 g/dL (12.0-16.0); Mean Corpuscular HGB CONC 32.9 g/dL (32.0-36.0); Mean Corpuscular Hemoglobin 31.8 pg (27.0-31.0); Mean Corpuscular Volume 96.8 fL (78.0-98.0); Mean Platelet Volume 9.1 fL (7.4-10.4); Platelet Count 162 thou/uL (130-400); RBC Distribution Width 14.8 % (11.5-14.5); White Blood Cell (WBC) Count 11.8 thou/uL (4.8-10.8)
[2021-09-09 05:37] LABS: INR-International Normal Ratio 1.9; Prothrombin Time 21.6 sec (12.0-14.7)
[2021-09-09 05:50] LABS: Anion Gap 14 mmol/L (10-20); BUN (Urea Nitrogen) 25 mg/dL (9.8-20.1); Calc. Creatinine Clearance 81 mL/min (70-130); Carbon Dioxide 26 mmol/L (23-31); Chloride 99 mmol/L (98-107); Potassium 3.9 mmol/L (3.5-5.1); Sodium 135 mmol/L (136-145)
[2021-09-09 05:51] LABS: Glucose 178 mg/dL (80-115)
[2021-09-09] MEDS: HumaLOG 300 UNITS/3 ML VIAL SC PRN ×3 (05:52→17:55)
[2021-09-09] MEDS ORDERED: Alogliptin 25 MG TAB PO SCH (09:00)
[2021-09-09] MEDS: Digoxin 0.25 MG TAB PO SCH (09:20)
[2021-09-09] MEDS: Cholecalciferol 1,000 UNITS (25 MCG) TAB PO SCH (09:20)
[2021-09-09] MEDS: cefTRIAXone\\ROCEPHIN 1 GM in Sodium Chloride 0.9% 100 ML IVPB SCH (09:21)
[2021-09-09] MEDS: Metoprolol Tartrate 25 MG TAB PO SCH ×2 (09:21→21:45)
[2021-09-09] MEDS: Allopurinol 100 MG TAB PO SCH (09:21)
[2021-09-09] MEDS: Multivit, Therapeutic 1 TAB PO SCH (09:21)
[2021-09-09] MEDS: Lantus 1000 UNITS/10 ML VIAL SC SCH ×2 (09:27→21:44)
[2021-09-09] MEDS: Acetaminophen 325 MG TAB PO PRN ×2 (11:20→16:34)
[2021-09-09] MEDS: Mometasone 100 MCG/Formoterol 5 MCG 120 PUFF INHALER INH SCH ×2 (12:37→18:45)
[2021-09-09] MEDS: Warfarin Sodium 2 MG TAB PO SCH (16:33)
[2021-09-09] MEDS: HYDROcodone/Acetaminophen 5/325 mg Tablet PO PRN (17:54)
[2021-09-09] MEDS ORDERED: Atorvastatin Calcium 20 MG TAB PO SCH (21:00)
[2021-09-09] MEDS: Aripiprazole 15 MG TAB PO SCH (21:43)
[2021-09-09] MEDS: Benztropine 1 MG TAB PO SCH (21:44)
[2021-09-10] MEDS: HYDROcodone/Acetaminophen 5/325 mg Tablet PO PRN ×4 (01:15→17:12)
[2021-09-10 05:11] LABS: Prothrombin Time 22.7 sec (12.0-14.7)
[2021-09-10] MEDS: Levothyroxine Sodium 75 MCG TAB PO SCH (06:13)
[2021-09-10] MEDS: Mometasone 100 MCG/Formoterol 5 MCG 120 PUFF INHALER INH SCH (07:13)
[2021-09-10] MEDS: Metoprolol Tartrate 25 MG TAB PO SCH (09:10)
[2021-09-10] MEDS: Furosemide 20 MG TAB PO SCH ×2 (09:11→13:48)
[2021-09-10] MEDS: Allopurinol 100 MG TAB PO SCH (09:11)
[2021-09-10] MEDS: Digoxin 0.25 MG TAB PO SCH (09:11)
[2021-09-10] MEDS: Cholecalciferol 1,000 UNITS (25 MCG) TAB PO SCH (09:11)
[2021-09-10] MEDS: Multivit, Therapeutic 1 TAB PO SCH (09:11)
[2021-09-10] MEDS: Acetaminophen 325 MG TAB PO PRN ×2 (09:11→13:47)
[2021-09-10] MEDS: cefTRIAXone\\ROCEPHIN 1 GM in Sodium Chloride 0.9% 100 ML IVPB SCH (09:12)
[2021-09-10] MEDS: Lantus 1000 UNITS/10 ML VIAL SC SCH (09:19)
[2021-09-10 11:55] VITALS: TEMP 97.3
[2021-09-10 16:19] VITALS: BP 114/67
[2021-09-10] MEDS: Warfarin Sodium 2 MG TAB PO SCH (17:12)
== END 2021-09-10 18:04 | DRG 291 ==
LOC: SUATTDRO 03:25 → ERS 03:25 → ERHOLD 06:14 → 2NO 20:43
PROVIDERS: ADMIT Student in an Organized Health Care Education/Training Program; ATTEND Student in an Organized Health Care Education/Training Program
DX: I11.0 Hypertensive heart disease with heart failure (principal); I50.43 Acute on chronic combined systolic (congestive) and diastolic (congestive) heart failure; J96.01 Acute respiratory failure with hypoxia; I48.11 Longstanding persistent atrial fibrillation; N39.0 Urinary tract infection, site not specified; N17.9 Acute kidney failure, unspecified; L03.115 Cellulitis of right lower limb; L03.116 Cellulitis of left lower limb; Z20.822 Contact with and (suspected) exposure to COVID-19; R55 Syncope and collapse; I08.3 Combined rheumatic disorders of mitral, aortic and tricuspid valves; E78.5 Hyperlipidemia, unspecified; E03.9 Hypothyroidism, unspecified; K21.9 Gastro-esophageal reflux disease without esophagitis; E11.9 Type 2 diabetes mellitus without complications; J44.9 Chronic obstructive pulmonary disease, unspecified; G40.909 Epilepsy, unspecified, not intractable, without status epilepticus; F25.9 Schizoaffective disorder, unspecified; S81.801A Unspecified open wound, right lower leg, initial encounter; F31.9 Bipolar disorder, unspecified; E66.9 Obesity, unspecified; B96.1 Klebsiella pneumoniae [K. pneumoniae] as the cause of diseases classified elsewhere; I49.1 Atrial premature depolarization; I25.10 Atherosclerotic heart disease of native coronary artery without angina pectoris; R00.1 Bradycardia, unspecified; Z68.34 Body mass index [BMI] 34.0-34.9, adult; Z79.4 Long term (current) use of insulin; Z79.899 Other long term (current) drug therapy; Z79.82 Long term (current) use of aspirin; Z79.890 Hormone replacement therapy; Z79.01 Long term (current) use of anticoagulants; Z95.5 Presence of coronary angioplasty implant and graft; Z90.49 Acquired absence of other specified parts of digestive tract; Z95.0 Presence of cardiac pacemaker
CPT/HCPCS: 36415; 36416; 70450; 71045; 72170; 80048; 80053; 80061; 81001; 82550; 83036; 83690; 83880; 84484; 85025; 85610; 85730; 87040; 87077; 87086; 87186; 93005; 93306; 96374; J0696; J1815; J1940; J3490; U0002

== ENCOUNTER 2021-09-27 21:55 | Observation (INO) | payer MEDICARE, MEDICAID ==
[2021-09-27 22:45] LABS: Bilirubin Negative (Negative); Blood, Urine Negative (Negative); Clarity Clear (Clear); Glucose, Urine (Dipstick) Normal (Negative); Ketone, Urine Negative (Negative); Leukocyte Negative Leu/uL (Negative); Nitrite Negative (Negative); Protein, Urine (Dipstick) 10 mg/dL (Neg-Trace)
[2021-09-27 23:23] LABS: #Eosinphils 0.1 thou/uL (0.0-0.7); #Lymphocytes 1.8 thou/uL (1.20-3.40); #Monocytes 1.1 thou/uL (0.11-0.59); #Neutrophils 7.7 thou/uL (1.40-6.50); %Basophils 0.1 % (0.0-1.0); %Eosinophils 1.2 % (0.0-10.0); %Lymphocytes 16.5 % (21.0-51.0); %Monocytes 10.3 % (0.0-10.0); Hemoglobin 11.1 g/dL (12.0-16.0); Mean Corpuscular HGB CONC 33.7 g/dL (32.0-36.0); Mean Corpuscular Hemoglobin 32.2 pg (27.0-31.0); Mean Corpuscular Volume 95.3 fL (78.0-98.0); Mean Platelet Volume 8.8 fL (7.4-10.4); Platelet Count 159 thou/uL (130-400); RBC Distribution Width 14.9 % (11.5-14.5); Red Blood Cell (RBC) Count 3.47 mill/uL (4.20-5.40); White Blood Cell (WBC) Count 10.7 thou/uL (4.8-10.8)
[2021-09-27 23:50] LABS: ALT (SGPT) 14 U/L (8-55); AST (SGOT) 13 U/L (5-34); Albumin 3.6 g/dL (3.4-4.8); Alkaline Phosphatase 87 U/L (40-110); Anion Gap 15 mmol/L (10-20); BUN (Urea Nitrogen) 34 mg/dL (9.8-20.1); Bilirubin, Total 0.6 mg/dL (0.2-1.2); Calc. Creatinine Clearance 0 mL/min (70-130); Calcium 8.3 mg/dL (7.8-10.44); Carbon Dioxide 22 mmol/L (23-31); Chloride 104 mmol/L (98-107); Globulin 2.7 g/dL (2.4-3.5); Glucose 189 mg/dL (80-115); Potassium 4.8 mmol/L (3.5-5.1); Protein, Total 6.3 g/dL (5.8-8.1); Sodium 136 mmol/L (136-145)
[2021-09-28] MEDS ORDERED: Acetaminophen 325 MG TAB PO PRN (01:00)
[2021-09-28] MEDS ORDERED: Ondansetron PF 4 MG/2 ML Vial IVP PRN (01:00)
[2021-09-28] MEDS ORDERED: Ondansetron ODT 4 MG TAB SL PRN (01:00)
[2021-09-28 02:56] VITALS: BMI 37.7
[2021-09-28] MEDS ORDERED: Bisacodyl 5 MG TAB PO PRN (03:05)
[2021-09-28] MEDS ORDERED: Senokot S 8.6-50 MG TAB PO PRN (03:05)
[2021-09-28] MEDS ORDERED: Dextrose 5% in Water 1,000 ML IV PRN (03:15)
[2021-09-28] MEDS ORDERED: HumaLOG 300 UNITS/3 ML VIAL SC PRN ×2 (03:15)
[2021-09-28] MEDS ORDERED: Dextrose 50% Abboject 50 ML SYRINGE SLOW IVP PRN (03:15)
[2021-09-28] MEDS ORDERED: Naloxone HCl 0.4 mg/ml Vial IV SCH (03:30)
[2021-09-28] MEDS: Furosemide 20 MG/2 ML VIAL SLOW IVP SCH ×2 (05:11→13:56)
[2021-09-28 05:19] LABS: #Eosinphils 0.2 thou/uL (0.0-0.7); #Lymphocytes 2.5 thou/uL (1.20-3.40); #Neutrophils 5.5 thou/uL (1.40-6.50); %Basophils 0.2 % (0.0-1.0); %Eosinophils 1.9 % (0.0-10.0); %Lymphocytes 26.8 % (21.0-51.0); %Monocytes 11.4 % (0.0-10.0); %Neutrophils 59.7 % (42.0-75.0); Hemoglobin 10.8 g/dL (12.0-16.0); Mean Corpuscular HGB CONC 32.4 g/dL (32.0-36.0); Mean Corpuscular Hemoglobin 31.1 pg (27.0-31.0); Mean Corpuscular Volume 95.9 fL (78.0-98.0); Mean Platelet Volume 8.8 fL (7.4-10.4); Platelet Count 155 thou/uL (130-400); RBC Distribution Width 14.7 % (11.5-14.5); Red Blood Cell (RBC) Count 3.47 mill/uL (4.20-5.40); White Blood Cell (WBC) Count 9.1 thou/uL (4.8-10.8)
[2021-09-28 05:36] LABS: INR-International Normal Ratio 2.7; Prothrombin Time 29.1 sec (12.0-14.7)
[2021-09-28 05:40] LABS: ALT (SGPT) 14 U/L (8-55); AST (SGOT) 14 U/L (5-34); Albumin 3.4 g/dL (3.4-4.8); Alkaline Phosphatase 82 U/L (40-110); Anion Gap 10 mmol/L (10-20); BUN (Urea Nitrogen) 31 mg/dL (9.8-20.1); Bilirubin, Total 0.6 mg/dL (0.2-1.2); Calc. Creatinine Clearance 78 mL/min (70-130); Calcium 8.5 mg/dL (7.8-10.44); Carbon Dioxide 26 mmol/L (23-31); Cardiac Risk 3.6 (Less than 4.5); Chloride 103 mmol/L (98-107); Cholesterol 112 mg/dl (< 200 Desired); Globulin 3.2 g/dL (2.4-3.5); Glucose 142 mg/dL (80-115); HDL Cholesterol 31 mg/dL (>60 Neg Risk); LDL Cholesterol, Calculated 63 mg/dL; Potassium 4.1 mmol/L (3.5-5.1); Protein, Total 6.6 g/dL (5.8-8.1); Sodium 135 mmol/L (136-145); Triglycerides 90 mg/dL (Less than 150)
[2021-09-28 05:46] LABS: Digoxin 0.96 ng/mL (0.8-2.0)
[2021-09-28] MEDS ORDERED: Levothyroxine Sodium 100 MCG TAB PO SCH (06:00)
[2021-09-28] MEDS: Mometasone 100 MCG/Formoterol 5 MCG 120 PUFF INHALER INH SCH ×2 (07:27→19:56)
[2021-09-28] MEDS ORDERED: Digoxin 0.125 MG TAB PO SCH (08:00)
[2021-09-28 08:36] LABS: Amphetamine Not Detected (NotDetected); Barbiturates Screen Not Detected (NotDetected); Benzodiazepine Screen Not Detected (NotDetected); Cocaine Metabolite Screen Not Detected (NotDetected); Methadone Not Detected (NotDetected); Methamphetamine Not Detected (NotDetected); Opiate Screen Detected (NotDetected); Oxycodone Screen Not Detected (NotDetected); Phencyclidine (PCP) Not Detected (NotDetected); THC/Cannabinoid Screen Not Detected (NotDetected); Tricyclic Screen Not Detected (NotDetected)
[2021-09-28] MEDS ORDERED: Allopurinol 100 MG TAB PO SCH (09:00)
[2021-09-28] MEDS ORDERED: Alogliptin 6.25 MG TAB PO SCH (09:00)
[2021-09-28] MEDS ORDERED: Famotidine/PF 20 mg/2ml Vial SLOW IVP SCH (09:00)
[2021-09-28] MEDS ORDERED: Lantus 1000 UNITS/10 ML VIAL SC SCH (09:00)
[2021-09-28] MEDS ORDERED: Furosemide 20 MG TAB PO SCH (09:00)
[2021-09-28] MEDS ORDERED: Non-Formulary Item 1 EACH (Fluticasone/Salmeterol [Advair Diskus 100/50] 1 EACH Blst.W.De IH SCH (09:00)
[2021-09-28] MEDS ORDERED: Non-Formulary Item 1 EACH (Linagliptin [Tradjenta] 5 MG Tablet) PO SCH (09:00)
[2021-09-28 12:33] LABS: SARS-CoV-2 PCR by NAA Not Detected (NotDetected)
[2021-09-28] MEDS ORDERED: Warfarin Sodium 2 MG TAB PO SCH ×2 (17:00)
[2021-09-28 19:59] VITALS: BP 131/58; TEMP 98.6
== END 2021-09-28 21:15 ==
LOC: ERS 21:55 → NEURO 09-28 00:03
PROVIDERS: ADMIT Internal Medicine; ATTEND Family Medicine
DX: R41.82 Altered mental status, unspecified (principal); R53.83 Other fatigue; R55 Syncope and collapse; F20.9 Schizophrenia, unspecified; F31.9 Bipolar disorder, unspecified; I48.20 Chronic atrial fibrillation, unspecified; I13.0 Hypertensive heart and chronic kidney disease with heart failure and stage 1 through stage 4 chronic kidney disease, or unspecified chronic kidney disease; E11.22 Type 2 diabetes mellitus with diabetic chronic kidney disease; N18.9 Chronic kidney disease, unspecified; I50.23 Acute on chronic systolic (congestive) heart failure; N17.9 Acute kidney failure, unspecified; E78.5 Hyperlipidemia, unspecified; E03.9 Hypothyroidism, unspecified; I08.1 Rheumatic disorders of both mitral and tricuspid valves; J44.1 Chronic obstructive pulmonary disease with (acute) exacerbation; M25.552 Pain in left hip; E11.65 Type 2 diabetes mellitus with hyperglycemia; Z86.16 Personal history of COVID-19; Z79.01 Long term (current) use of anticoagulants; Z79.4 Long term (current) use of insulin; Z79.82 Long term (current) use of aspirin; Z79.83 Long term (current) use of bisphosphonates; Z79.84 Long term (current) use of oral hypoglycemic drugs; Z79.899 Other long term (current) drug therapy; Z20.822 Contact with and (suspected) exposure to COVID-19
CPT/HCPCS: 70450; 71045; 73502; 80053; 80061; 80162; 80306; 81003; 82962; 83605; 84484; 85025; 85610; 93005; 93880; 94640 ×3; 94760; 96374; 96375; 96376; 97139; G0378 ×2; U0003; U0005; 36415; 36416; 51701; 84443; J1815; J1940; J2310; J7620; S0028

== ENCOUNTER 2021-12-31 23:24 | Inpatient (IN) | payer MEDICARE, MEDICAID ==
[2022-01-01] MEDS ORDERED: Ondansetron ODT 4 MG TAB PO PRN (03:41)
[2022-01-01] MEDS ORDERED: Acetaminophen 650 MG Suppository PR PRN (03:41)
[2022-01-01] MEDS ORDERED: Ondansetron PF 4 MG/2 ML Vial IVP PRN (03:41)
[2022-01-01] MEDS ORDERED: Dextrose 50% Abboject 50 ML SYRINGE SLOW IVP PRN (03:48)
[2022-01-01] MEDS ORDERED: Dextrose 5% in Water 1,000 ML IV PRN (03:48)
[2022-01-01 04:23] LABS: #Eosinphils 0.5 thou/uL (0.0-0.7); #Lymphocytes 1.8 thou/uL (1.20-3.40); #Monocytes 0.8 thou/uL (0.11-0.59); #Neutrophils 4.4 thou/uL (1.40-6.50); %Basophils 0.7 % (0.0-1.0); %Lymphocytes 23.7 % (21.0-51.0); %Monocytes 11.1 % (0.0-10.0); %Neutrophils 58.5 % (42.0-75.0); Hemoglobin 11.4 g/dL (12.0-16.0); Mean Corpuscular HGB CONC 34.2 g/dL (32.0-36.0); Mean Corpuscular Volume 93.5 fL (78.0-98.0); Mean Platelet Volume 9.1 fL (7.4-10.4); Platelet Count 164 thou/uL (130-400); RBC Distribution Width 15.5 % (11.5-14.5); Red Blood Cell (RBC) Count 3.56 mill/uL (4.20-5.40); White Blood Cell (WBC) Count 7.5 thou/uL (4.8-10.8)
[2022-01-01] MEDS: cefTRIAXone\\ROCEPHIN 1 GM in Sodium Chloride 0.9% 100 ML IVPB SCH (04:26)
[2022-01-01 04:40] LABS: Anion Gap 12 mmol/L (10-20); BUN (Urea Nitrogen) 31 mg/dL (9.8-20.1); Calc. Creatinine Clearance 91 mL/min (70-130); Calcium 9.3 mg/dL (7.8-10.44); Carbon Dioxide 31 mmol/L (23-31); Chloride 99 mmol/L (98-107); Glucose 99 mg/dL (80-115); Sodium 139 mmol/L (136-145)
[2022-01-01] MEDS ORDERED: Electrolyte Replacement Protocol 1 EACH FS SCH (05:45)
[2022-01-01] MEDS ORDERED: Potassium Chloride 20 MEQ TAB PO SCH ×2 (05:45→13:00)
[2022-01-01] MEDS ORDERED: Pantoprazole 40 MG VIAL IVP SCH (05:45)
[2022-01-01 10:51] LABS: ALT (SGPT) 13 U/L (8-55); AST (SGOT) 18 U/L (5-34); Albumin 3.4 g/dL (3.4-4.8); Alkaline Phosphatase 77 U/L (40-110); Anion Gap 12 mmol/L (10-20); BUN (Urea Nitrogen) 27 mg/dL (9.8-20.1); Bilirubin, Total 0.5 mg/dL (0.2-1.2); Calc. Creatinine Clearance 97 mL/min (70-130); Calcium 9.2 mg/dL (7.8-10.44); Carbon Dioxide 31 mmol/L (23-31); Chloride 98 mmol/L (98-107); Globulin 3.1 g/dL (2.4-3.5); Glucose 100 mg/dL (80-115); Potassium 3.2 mmol/L (3.5-5.1); Protein, Total 6.5 g/dL (5.8-8.1); Sodium 138 mmol/L (136-145)
[2022-01-01 11:45] LABS: SARS-CoV-2 PCR by NAA Not Detected (NotDetected)
[2022-01-01] MEDS: Sodium Chloride 0.9% 1,000 ML IV SCH (17:56)
[2022-01-01] MEDS: HumaLOG 300 UNITS/3 ML VIAL SC PRN (18:01)
[2022-01-01] MEDS: Acetaminophen 325 MG TAB PO PRN (22:51)
[2022-01-02] MEDS: cefTRIAXone\\ROCEPHIN 1 GM in Sodium Chloride 0.9% 100 ML IVPB SCH (04:55)
[2022-01-02 07:55] LABS: #Eosinphils 0.2 thou/uL (0.0-0.7); #Lymphocytes 1.5 thou/uL (1.20-3.40); #Monocytes 0.8 thou/uL (0.11-0.59); #Neutrophils 5.3 thou/uL (1.40-6.50); %Basophils 0.1 % (0.0-1.0); %Eosinophils 2.1 % (0.0-10.0); %Lymphocytes 19.5 % (21.0-51.0); %Monocytes 10.8 % (0.0-10.0); %Neutrophils 67.6 % (42.0-75.0); Hemoglobin 11.5 g/dL (12.0-16.0); Mean Corpuscular HGB CONC 33.5 g/dL (32.0-36.0); Mean Corpuscular Hemoglobin 31.4 pg (27.0-31.0); Mean Corpuscular Volume 93.7 fL (78.0-98.0); Mean Platelet Volume 9.2 fL (7.4-10.4); Platelet Count 151 thou/uL (130-400); RBC Distribution Width 15.3 % (11.5-14.5); Red Blood Cell (RBC) Count 3.65 mill/uL (4.20-5.40); White Blood Cell (WBC) Count 7.8 thou/uL (4.8-10.8)
[2022-01-02] MEDS: Pantoprazole 40 MG VIAL IVP SCH (07:56)
[2022-01-02 08:15] LABS: ALT (SGPT) 13 U/L (8-55); AST (SGOT) 15 U/L (5-34); Albumin 3.4 g/dL (3.4-4.8); Alkaline Phosphatase 76 U/L (40-110); Anion Gap 12 mmol/L (10-20); BUN (Urea Nitrogen) 21 mg/dL (9.8-20.1); Bilirubin, Total 0.6 mg/dL (0.2-1.2); Calc. Creatinine Clearance 102 mL/min (70-130); Calcium 9.1 mg/dL (7.8-10.44); Carbon Dioxide 29 mmol/L (23-31); Chloride 102 mmol/L (98-107); Globulin 3.3 g/dL (2.4-3.5); Glucose 169 mg/dL (80-115); Lipase 14 U/L (8-78); Potassium 3.3 mmol/L (3.5-5.1); Protein, Total 6.7 g/dL (5.8-8.1); Sodium 140 mmol/L (136-145)
[2022-01-02] MEDS ORDERED: Potassium Chloride 20 MEQ TAB PO SCH ×2 (09:15→11:15)
[2022-01-02] MEDS ORDERED: Iopamidol-370 76% 500 ML 1 ML ONE (10:25)
[2022-01-02] MEDS: Sodium Chloride 0.9% 1,000 ML IV SCH (12:29)
[2022-01-02] MEDS: Acetaminophen 325 MG TAB PO PRN (18:39)
[2022-01-02 19:22] LABS: #Eosinphils 0.1 thou/uL (0.0-0.7); #Lymphocytes 1.2 thou/uL (1.20-3.40); #Monocytes 0.9 thou/uL (0.11-0.59); #Neutrophils 5.9 thou/uL (1.40-6.50); %Eosinophils 1.7 % (0.0-10.0); %Lymphocytes 15.2 % (21.0-51.0); %Neutrophils 72.1 % (42.0-75.0); Mean Corpuscular HGB CONC 33.7 g/dL (32.0-36.0); Mean Corpuscular Hemoglobin 31.9 pg (27.0-31.0); Mean Corpuscular Volume 94.9 fL (78.0-98.0); Mean Platelet Volume 8.4 fL (7.4-10.4); Platelet Count 147 thou/uL (130-400); RBC Distribution Width 15.1 % (11.5-14.5); Red Blood Cell (RBC) Count 3.44 mill/uL (4.20-5.40); White Blood Cell (WBC) Count 8.2 thou/uL (4.8-10.8)
[2022-01-02 19:39] LABS: Lactic Acid 1.2 mmol/L (0.5-2.2)
[2022-01-02 19:46] LABS: ALT (SGPT) 11 U/L (8-55); AST (SGOT) 11 U/L (5-34); Albumin 3.4 g/dL (3.4-4.8); Alkaline Phosphatase 75 U/L (40-110); Anion Gap 13 mmol/L (10-20); BUN (Urea Nitrogen) 13 mg/dL (9.8-20.1); Bilirubin, Total 0.6 mg/dL (0.2-1.2); Calc. Creatinine Clearance 97 mL/min (70-130); Calcium 8.6 mg/dL (7.8-10.44); Carbon Dioxide 25 mmol/L (23-31); Chloride 103 mmol/L (98-107); Globulin 3.2 g/dL (2.4-3.5); Glucose 257 mg/dL (80-115); Potassium 4.2 mmol/L (3.5-5.1); Protein, Total 6.6 g/dL (5.8-8.1); Sodium 137 mmol/L (136-145)
[2022-01-02] MEDS ORDERED: Azithromycin 500 MG in Sodium Chloride 0.9% 250 ML 250 ML IVPB SCH (20:00)
[2022-01-02] MEDS ORDERED: Piperacillin/Tazobactam 3.375 GM in Sodium Chloride 0.9% 100 ML IVPB SCH ×2 (21:00→23:59)
[2022-01-02] MEDS: Morphine 2 MG/ML VIAL SLOW IVP PRN (21:13)
[2022-01-02] MEDS: Aripiprazole 15 MG TAB PO SCH (21:24)
[2022-01-02] MEDS: Metoprolol Tartrate 50 MG TAB PO SCH (21:25)
[2022-01-03] MEDS: Morphine 4 MG/ML VIAL SLOW IVP PRN ×5 (00:25→21:45)
[2022-01-03] MEDS: Piperacillin/Tazobactam 3.375 GM in Sodium Chloride 0.9% 100 ML IVPB SCH ×3 (00:49→17:31)
[2022-01-03] MEDS: Levothyroxine Sodium 100 MCG TAB PO SCH (04:24)
[2022-01-03 05:24] LABS: #Eosinphils 0.2 thou/uL (0.0-0.7); #Lymphocytes 1.9 thou/uL (1.20-3.40); #Neutrophils 5.6 thou/uL (1.40-6.50); %Basophils 0.3 % (0.0-1.0); %Eosinophils 2.2 % (0.0-10.0); %Lymphocytes 21.5 % (21.0-51.0); %Monocytes 11.6 % (0.0-10.0); %Neutrophils 64.5 % (42.0-75.0); Hemoglobin 10.7 g/dL (12.0-16.0); Mean Corpuscular HGB CONC 33.2 g/dL (32.0-36.0); Mean Corpuscular Hemoglobin 31.7 pg (27.0-31.0); Mean Corpuscular Volume 95.5 fL (78.0-98.0); Mean Platelet Volume 8.9 fL (7.4-10.4); Platelet Count 136 thou/uL (130-400); RBC Distribution Width 15.2 % (11.5-14.5); Red Blood Cell (RBC) Count 3.38 mill/uL (4.20-5.40); White Blood Cell (WBC) Count 8.6 thou/uL (4.8-10.8)
[2022-01-03 05:48] LABS: Anion Gap 15 mmol/L (10-20); BUN (Urea Nitrogen) 11 mg/dL (9.8-20.1); Calc. Creatinine Clearance 108 mL/min (70-130); Calcium 8.4 mg/dL (7.8-10.44); Carbon Dioxide 21 mmol/L (23-31); Chloride 104 mmol/L (98-107); Glucose 172 mg/dL (80-115); Sodium 136 mmol/L (136-145)
[2022-01-03] MEDS: HumaLOG 300 UNITS/3 ML VIAL SC PRN ×2 (06:03→20:41)
[2022-01-03] MEDS: Metoprolol Tartrate 50 MG TAB PO SCH ×2 (09:30→20:41)
[2022-01-03] MEDS: Allopurinol 100 MG TAB PO SCH (09:30)
[2022-01-03] MEDS: Pantoprazole 40 MG VIAL IVP SCH (09:30)
[2022-01-03] MEDS: Digoxin 0.125 MG TAB PO SCH (09:30)
[2022-01-03] MEDS: Aspirin 81 mg Enteric Coated Tablet PO SCH (09:30)
[2022-01-03] MEDS: Furosemide 40 MG/4 ML VIAL SLOW IVP SCH (17:25)
[2022-01-03] MEDS: Aripiprazole 15 MG TAB PO SCH (20:41)
[2022-01-03] MEDS: Vancomycin 25 MG/ML Oral SOLN PO SCH (20:42)
[2022-01-04] MEDS: Vancomycin 25 MG/ML Oral SOLN PO SCH ×4 (03:36→20:53)
[2022-01-04] MEDS: Morphine 4 MG/ML VIAL SLOW IVP PRN (03:36)
[2022-01-04 04:58] LABS: #Eosinphils 0.3 thou/uL (0.0-0.7); #Lymphocytes 1.6 thou/uL (1.20-3.40); #Monocytes 0.8 thou/uL (0.11-0.59); #Neutrophils 4.4 thou/uL (1.40-6.50); %Basophils 0.4 % (0.0-1.0); %Eosinophils 4.2 % (0.0-10.0); %Lymphocytes 22.1 % (21.0-51.0); %Neutrophils 62.4 % (42.0-75.0); Hemoglobin 10.4 g/dL (12.0-16.0); Mean Corpuscular HGB CONC 33.6 g/dL (32.0-36.0); Mean Corpuscular Volume 95.2 fL (78.0-98.0); Mean Platelet Volume 9.1 fL (7.4-10.4); Platelet Count 136 thou/uL (130-400); RBC Distribution Width 15.3 % (11.5-14.5); Red Blood Cell (RBC) Count 3.26 mill/uL (4.20-5.40); White Blood Cell (WBC) Count 7.1 thou/uL (4.8-10.8)
[2022-01-04 05:20] LABS: Anion Gap 14 mmol/L (10-20); BUN (Urea Nitrogen) 11 mg/dL (9.8-20.1); Calc. Creatinine Clearance 105 mL/min (70-130); Calcium 8.3 mg/dL (7.8-10.44); Carbon Dioxide 21 mmol/L (23-31); Chloride 104 mmol/L (98-107); Glucose 141 mg/dL (80-115); Potassium 3.8 mmol/L (3.5-5.1); Sodium 135 mmol/L (136-145)
[2022-01-04] MEDS: Levothyroxine Sodium 100 MCG TAB PO SCH (06:12)
[2022-01-04] MEDS: Piperacillin/Tazobactam 3.375 GM in Sodium Chloride 0.9% 100 ML IVPB SCH ×2 (06:12→13:08)
[2022-01-04] MEDS: Furosemide 40 MG/4 ML VIAL SLOW IVP SCH ×2 (06:12→13:08)
[2022-01-04] MEDS: Digoxin 0.125 MG TAB PO SCH (11:13)
[2022-01-04] MEDS: Allopurinol 100 MG TAB PO SCH (11:13)
[2022-01-04] MEDS: Aspirin 81 mg Enteric Coated Tablet PO SCH (11:13)
[2022-01-04] MEDS: Metoprolol Tartrate 50 MG TAB PO SCH ×2 (11:13→20:53)
[2022-01-04] MEDS: Pantoprazole 40 MG VIAL IVP SCH (11:14)
[2022-01-04] MEDS: HumaLOG 300 UNITS/3 ML VIAL SC PRN ×2 (13:09→21:29)
[2022-01-04] MEDS: Morphine 2 MG/ML VIAL SLOW IVP PRN (16:37)
[2022-01-04] MEDS: Aripiprazole 15 MG TAB PO SCH (20:53)
[2022-01-05] MEDS: Piperacillin/Tazobactam 3.375 GM in Sodium Chloride 0.9% 100 ML IVPB SCH ×3 (00:33→14:57)
[2022-01-05] MEDS: Morphine 4 MG/ML VIAL SLOW IVP PRN (00:34)
[2022-01-05] MEDS: Vancomycin 25 MG/ML Oral SOLN PO SCH ×4 (03:55→21:16)
[2022-01-05] MEDS: Acetaminophen 325 MG TAB PO PRN (06:36)
[2022-01-05] MEDS: Levothyroxine Sodium 100 MCG TAB PO SCH (06:36)
[2022-01-05] MEDS: HumaLOG 300 UNITS/3 ML VIAL SC PRN ×3 (06:37→17:38)
[2022-01-05] MEDS: Furosemide 40 MG/4 ML VIAL SLOW IVP SCH ×2 (06:37→14:58)
[2022-01-05 08:09] LABS: #Eosinphils 0.3 thou/uL (0.0-0.7); #Lymphocytes 1.6 thou/uL (1.20-3.40); #Monocytes 0.6 thou/uL (0.11-0.59); #Neutrophils 3.8 thou/uL (1.40-6.50); %Basophils 0.8 % (0.0-1.0); %Eosinophils 5.1 % (0.0-10.0); %Lymphocytes 24.6 % (21.0-51.0); %Monocytes 10.1 % (0.0-10.0); %Neutrophils 59.4 % (42.0-75.0); Hemoglobin 10.4 g/dL (12.0-16.0); Mean Corpuscular HGB CONC 32.4 g/dL (32.0-36.0); Mean Corpuscular Hemoglobin 30.8 pg (27.0-31.0); Mean Corpuscular Volume 95.2 fL (78.0-98.0); Mean Platelet Volume 8.9 fL (7.4-10.4); Platelet Count 154 thou/uL (130-400); Red Blood Cell (RBC) Count 3.38 mill/uL (4.20-5.40); White Blood Cell (WBC) Count 6.4 thou/uL (4.8-10.8)
[2022-01-05 08:24] LABS: Anion Gap 12 mmol/L (10-20); BUN (Urea Nitrogen) 10 mg/dL (9.8-20.1); Calc. Creatinine Clearance 110 mL/min (70-130); Calcium 8.3 mg/dL (7.8-10.44); Carbon Dioxide 24 mmol/L (23-31); Chloride 102 mmol/L (98-107); Glucose 151 mg/dL (80-115); Potassium 3.2 mmol/L (3.5-5.1); Sodium 135 mmol/L (136-145)
[2022-01-05] MEDS ORDERED: Potassium Chloride 20 MEQ TAB PO SCH (08:45)
[2022-01-05] MEDS: Allopurinol 100 MG TAB PO SCH (09:34)
[2022-01-05] MEDS: Pantoprazole 40 MG VIAL IVP SCH (09:34)
[2022-01-05] MEDS: Aspirin 81 mg Enteric Coated Tablet PO SCH (09:34)
[2022-01-05] MEDS: Saccharomyces boulardii 250 MG CAP PO SCH (09:34)
[2022-01-05] MEDS: Metoprolol Tartrate 50 MG TAB PO SCH ×2 (09:34→21:16)
[2022-01-05] MEDS: Digoxin 0.125 MG TAB PO SCH (09:34)
[2022-01-05] MEDS: Amoxicillin/Potassium Clav 500 MG TAB PO SCH (21:16)
[2022-01-05] MEDS: Aripiprazole 15 MG TAB PO SCH (21:16)
[2022-01-06] MEDS: Vancomycin 25 MG/ML Oral SOLN PO SCH ×3 (02:52→16:49)
[2022-01-06] MEDS: Levothyroxine Sodium 100 MCG TAB PO SCH (05:47)
[2022-01-06] MEDS: Furosemide 40 MG/4 ML VIAL SLOW IVP SCH ×2 (05:48→13:48)
[2022-01-06 07:06] LABS: #Basophils 0.1 thou/uL (0.0-0.2); #Eosinphils 0.4 thou/uL (0.0-0.7); #Lymphocytes 1.2 thou/uL (1.20-3.40); #Monocytes 0.6 thou/uL (0.11-0.59); #Neutrophils 5.6 thou/uL (1.40-6.50); %Basophils 0.6 % (0.0-1.0); %Eosinophils 4.6 % (0.0-10.0); %Lymphocytes 15.7 % (21.0-51.0); %Monocytes 7.9 % (0.0-10.0); %Neutrophils 71.2 % (42.0-75.0); Hemoglobin 10.7 g/dL (12.0-16.0); Mean Corpuscular HGB CONC 32.7 g/dL (32.0-36.0); Mean Corpuscular Hemoglobin 30.9 pg (27.0-31.0); Mean Corpuscular Volume 94.4 fL (78.0-98.0); Mean Platelet Volume 8.5 fL (7.4-10.4); Platelet Count 157 thou/uL (130-400); RBC Distribution Width 14.8 % (11.5-14.5); Red Blood Cell (RBC) Count 3.46 mill/uL (4.20-5.40); White Blood Cell (WBC) Count 7.9 thou/uL (4.8-10.8)
[2022-01-06 07:24] LABS: Anion Gap 11 mmol/L (10-20); BUN (Urea Nitrogen) 7 mg/dL (9.8-20.1); Calc. Creatinine Clearance 125 mL/min (70-130); Calcium 8.5 mg/dL (7.8-10.44); Carbon Dioxide 26 mmol/L (23-31); Chloride 104 mmol/L (98-107); Glucose 164 mg/dL (80-115); Potassium 3.6 mmol/L (3.5-5.1); Sodium 137 mmol/L (136-145)
[2022-01-06] MEDS: Aspirin 81 mg Enteric Coated Tablet PO SCH (09:06)
[2022-01-06] MEDS: Metoprolol Tartrate 50 MG TAB PO SCH ×2 (09:06→20:16)
[2022-01-06] MEDS: Saccharomyces boulardii 250 MG CAP PO SCH ×2 (09:06→20:16)
[2022-01-06] MEDS: Amoxicillin/Potassium Clav 500 MG TAB PO SCH (09:06)
[2022-01-06] MEDS: Allopurinol 100 MG TAB PO SCH (09:06)
[2022-01-06] MEDS: Digoxin 0.125 MG TAB PO SCH (09:06)
[2022-01-06] MEDS ORDERED: metroNIDAZOLE 500 MG in Premix Bag 1 BAG IVPB SCH (12:00)
[2022-01-06] MEDS: HumaLOG 300 UNITS/3 ML VIAL SC PRN (18:38)
[2022-01-06] MEDS ORDERED: Vancomycin 25 MG/ML Oral SOLN PO SCH (19:15)
[2022-01-06] MEDS: Aripiprazole 15 MG TAB PO SCH (20:15)
[2022-01-06] MEDS: metroNIDAZOLE 500 MG in Premix Bag 1 BAG IVPB SCH (23:45)
[2022-01-07] MEDS: Vancomycin 25 MG/ML Oral SOLN PO SCH ×5 (00:41→23:59)
[2022-01-07] MEDS: metroNIDAZOLE 500 MG in Premix Bag 1 BAG IVPB SCH ×4 (05:00→22:01)
[2022-01-07] MEDS: Furosemide 40 MG/4 ML VIAL SLOW IVP SCH ×2 (05:38→14:59)
[2022-01-07] MEDS: Levothyroxine Sodium 100 MCG TAB PO SCH (05:38)
[2022-01-07 05:39] LABS: Norovirus GI Negative (Negative); Norovirus GII Negative (Negative)
[2022-01-07 06:16] LABS: #Eosinphils 0.3 thou/uL (0.0-0.7); #Lymphocytes 1.3 thou/uL (1.20-3.40); #Monocytes 0.6 thou/uL (0.11-0.59); #Neutrophils 3.7 thou/uL (1.40-6.50); %Basophils 0.5 % (0.0-1.0); %Eosinophils 5.5 % (0.0-10.0); %Lymphocytes 22.2 % (21.0-51.0); %Monocytes 10.3 % (0.0-10.0); %Neutrophils 61.6 % (42.0-75.0); Hemoglobin 10.7 g/dL (12.0-16.0); Mean Corpuscular HGB CONC 32.5 g/dL (32.0-36.0); Mean Corpuscular Hemoglobin 30.9 pg (27.0-31.0); Mean Corpuscular Volume 95.1 fL (78.0-98.0); Mean Platelet Volume 8.8 fL (7.4-10.4); Platelet Count 167 thou/uL (130-400); RBC Distribution Width 14.8 % (11.5-14.5); Red Blood Cell (RBC) Count 3.45 mill/uL (4.20-5.40); White Blood Cell (WBC) Count 6.1 thou/uL (4.8-10.8)
[2022-01-07 06:28] LABS: Anion Gap 15 mmol/L (10-20); BUN (Urea Nitrogen) 10 mg/dL (9.8-20.1); Calc. Creatinine Clearance 111 mL/min (70-130); Calcium 9.1 mg/dL (7.8-10.44); Carbon Dioxide 23 mmol/L (23-31); Chloride 105 mmol/L (98-107); Glucose 191 mg/dL (80-115); Magnesium 1.5 mg/dL (1.6-2.6); Potassium 3.5 mmol/L (3.5-5.1); Sodium 139 mmol/L (136-145)
[2022-01-07] MEDS ORDERED: Potassium Chloride 20 MEQ TAB PO SCH (06:45)
[2022-01-07] MEDS ORDERED: Magnesium 2 GM/50 ML(in water) 2 GM in Premix Bag 1 BAG IVPB SCH (06:45)
[2022-01-07] MEDS: Digoxin 0.125 MG TAB PO SCH (08:42)
[2022-01-07] MEDS: Metoprolol Tartrate 50 MG TAB PO SCH ×2 (08:42→21:52)
[2022-01-07] MEDS: Aspirin 81 mg Enteric Coated Tablet PO SCH (08:42)
[2022-01-07] MEDS: PHOS-NAK 1 PKT PACK PO SCH ×2 (08:42→11:53)
[2022-01-07] MEDS: Saccharomyces boulardii 250 MG CAP PO SCH ×2 (08:42→21:52)
[2022-01-07] MEDS: Allopurinol 100 MG TAB PO SCH (08:42)
[2022-01-07] MEDS: Acetaminophen 325 MG TAB PO PRN (08:43)
[2022-01-07] MEDS ORDERED: Mometasone 100 MCG/Formoterol 5 MCG 120 PUFF INHALER INH SCH (19:30)
[2022-01-07 19:34] LABS: SARS-CoV-2 PCR by NAA Not Detected (NotDetected)
[2022-01-07] MEDS: Benztropine 1 MG TAB PO SCH (21:52)
[2022-01-07] MEDS: Furosemide 40 MG TAB PO SCH (21:52)
[2022-01-07] MEDS: Melatonin 3 MG TAB PO SCH (21:52)
[2022-01-07] MEDS: Aripiprazole 15 MG TAB PO SCH (21:53)
[2022-01-08] MEDS: metroNIDAZOLE 500 MG in Premix Bag 1 BAG IVPB SCH ×4 (04:31→22:33)
[2022-01-08 05:07] VITALS: BMI 38.8
[2022-01-08] MEDS: Levothyroxine Sodium 100 MCG TAB PO SCH (05:40)
[2022-01-08] MEDS: Vancomycin 25 MG/ML Oral SOLN PO SCH ×3 (05:40→18:06)
[2022-01-08] MEDS: Mometasone 100 MCG/Formoterol 5 MCG 120 PUFF INHALER INH SCH ×2 (07:13→18:36)
[2022-01-08 07:27] LABS: Magnesium 1.7 mg/dL (1.6-2.6); Phosphorus 3.7 mg/dL (2.3-4.7)
[2022-01-08] MEDS ORDERED: Magnesium 2 GM/50 ML(in water) 2 GM in Premix Bag 1 BAG IVPB SCH (09:00)
[2022-01-08] MEDS: Digoxin 0.125 MG TAB PO SCH (10:02)
[2022-01-08] MEDS: Cholecalciferol 1,000 UNITS (25 MCG) TAB PO SCH (10:02)
[2022-01-08] MEDS: Aspirin 81 mg Enteric Coated Tablet PO SCH (10:03)
[2022-01-08] MEDS: Furosemide 40 MG TAB PO SCH ×2 (10:03→21:09)
[2022-01-08] MEDS: Metoprolol Tartrate 50 MG TAB PO SCH ×2 (10:04→21:09)
[2022-01-08] MEDS: Saccharomyces boulardii 250 MG CAP PO SCH ×2 (10:04→21:10)
[2022-01-08] MEDS: Allopurinol 100 MG TAB PO SCH (11:10)
[2022-01-08] MEDS: Aripiprazole 15 MG TAB PO SCH (21:08)
[2022-01-08] MEDS: Melatonin 3 MG TAB PO SCH (21:09)
[2022-01-08] MEDS: Benztropine 1 MG TAB PO SCH (21:09)
[2022-01-09] MEDS: Vancomycin 25 MG/ML Oral SOLN PO SCH ×3 (00:43→12:03)
[2022-01-09] MEDS: metroNIDAZOLE 500 MG in Premix Bag 1 BAG IVPB SCH ×2 (04:26→12:02)
[2022-01-09] MEDS: Levothyroxine Sodium 100 MCG TAB PO SCH (05:27)
[2022-01-09] MEDS: Mometasone 100 MCG/Formoterol 5 MCG 120 PUFF INHALER INH SCH (07:49)
[2022-01-09] MEDS: Digoxin 0.125 MG TAB PO SCH (09:23)
[2022-01-09] MEDS: Allopurinol 100 MG TAB PO SCH (09:23)
[2022-01-09] MEDS: Saccharomyces boulardii 250 MG CAP PO SCH (09:23)
[2022-01-09] MEDS: Aspirin 81 mg Enteric Coated Tablet PO SCH (09:23)
[2022-01-09] MEDS: Furosemide 40 MG TAB PO SCH (09:23)
[2022-01-09] MEDS: Metoprolol Tartrate 50 MG TAB PO SCH (09:23)
[2022-01-09] MEDS: Cholecalciferol 1,000 UNITS (25 MCG) TAB PO SCH (09:23)
[2022-01-09 17:13] VITALS: BP 128/71; TEMP 98.2
== END 2022-01-09 17:10 | DRG 871 ==
LOC: T4-A 01-01 00:57 → OBSVTOIN 01-02 18:46 → 2NO 01-02 20:05 → T4-B 01-04 23:03
PROVIDERS: ADMIT Internal Medicine; ATTEND Internal Medicine
DX: A41.4 Sepsis due to anaerobes (principal); I50.33 Acute on chronic diastolic (congestive) heart failure; L03.116 Cellulitis of left lower limb; Z20.822 Contact with and (suspected) exposure to COVID-19; A04.72 Enterocolitis due to Clostridium difficile, not specified as recurrent; I13.0 Hypertensive heart and chronic kidney disease with heart failure and stage 1 through stage 4 chronic kidney disease, or unspecified chronic kidney disease; K55.1 Chronic vascular disorders of intestine; L03.115 Cellulitis of right lower limb; I48.91 Unspecified atrial fibrillation; M10.9 Gout, unspecified; J44.9 Chronic obstructive pulmonary disease, unspecified; E78.5 Hyperlipidemia, unspecified; E03.9 Hypothyroidism, unspecified; K21.9 Gastro-esophageal reflux disease without esophagitis; N18.9 Chronic kidney disease, unspecified; E11.22 Type 2 diabetes mellitus with diabetic chronic kidney disease; D63.1 Anemia in chronic kidney disease; E87.6 Hypokalemia; I77.1 Stricture of artery; Z79.899 Other long term (current) drug therapy; Z79.82 Long term (current) use of aspirin; Z79.01 Long term (current) use of anticoagulants; Z98.890 Other specified postprocedural states; Z79.4 Long term (current) use of insulin; Z79.890 Hormone replacement therapy
CPT/HCPCS: 36415; 36416; 71260; 74177; 80048; 80053; 83605; 83630; 83690; 83735; 84100; 84145; 85025; 87040; 87045; 87046; 87324; 87427; 87449; 87798; 96365; 96375; 96376; C9113; G0378; J0456; J0696; J1815; J1940; J2270; J2543; J3475; J3490; J7050; Q9967; U0003; U0005

== ENCOUNTER 2022-03-07 00:13 | Inpatient (IN) | payer MEDICARE, MEDICAID ==
[2022-03-07] MEDS ORDERED: Amiodarone 450 MG, Admixture Fee 1 EACH in Dextrose 5% in Water 250 ML IVPB SCH (02:15)
[2022-03-07 02:53] VITALS: BMI 41.3
[2022-03-07] MEDS ORDERED: Ondansetron PF 4 MG/2 ML Vial IVP PRN (03:06)
[2022-03-07] MEDS ORDERED: Acetaminophen 650 MG Suppository PR PRN (03:06)
[2022-03-07] MEDS ORDERED: Ondansetron ODT 4 MG TAB PO PRN (03:06)
[2022-03-07] MEDS ORDERED: Nystatin Powder 15 GM BOT TOP PRN (03:11)
[2022-03-07 04:03] LABS: #Eosinphils 0.2 thou/uL (0.0-0.7); #Monocytes 0.9 thou/uL (0.11-0.59); #Neutrophils 6.6 thou/uL (1.40-6.50); %Basophils 0.2 % (0.0-1.0); %Eosinophils 1.8 % (0.0-10.0); %Lymphocytes 11.7 % (21.0-51.0); %Monocytes 9.9 % (0.0-10.0); %Neutrophils 76.4 % (42.0-75.0); Hemoglobin 8.5 g/dL (12.0-16.0); Mean Corpuscular HGB CONC 32.2 g/dL (32.0-36.0); Mean Corpuscular Hemoglobin 30.7 pg (27.0-31.0); Mean Corpuscular Volume 95.3 fL (78.0-98.0); Mean Platelet Volume 8.5 fL (7.4-10.4); Platelet Count 108 thou/uL (130-400); RBC Distribution Width 17.8 % (11.5-14.5); Red Blood Cell (RBC) Count 2.77 mill/uL (4.20-5.40); White Blood Cell (WBC) Count 8.7 thou/uL (4.8-10.8)
[2022-03-07 04:09] LABS: Anion Gap 17 mmol/L (10-20); BUN (Urea Nitrogen) 34 mg/dL (9.8-20.1); Calc. Creatinine Clearance 93 mL/min (70-130); Calcium 8.5 mg/dL (7.8-10.44); Carbon Dioxide 28 mmol/L (23-31); Chloride 102 mmol/L (98-107); Estimated GFR 56; Glucose 60 mg/dL (80-115); Potassium 3.6 mmol/L (3.5-5.1); Sodium 143 mmol/L (136-145)
[2022-03-07] MEDS ORDERED: Furosemide 40 MG/4 ML VIAL SLOW IVP SCH ×2 (09:00→14:00)
[2022-03-07] MEDS ORDERED: Potassium Chloride 20 MEQ TAB PO SCH (13:15)
[2022-03-07] MEDS ORDERED: Albuterol Sulfate 2.5 mg/3 ml Neb NEB PRN (17:16)
[2022-03-07] MEDS: Mometasone 100 MCG/Formoterol 5 MCG 120 PUFF INHALER INH SCH (19:03)
[2022-03-07] MEDS: Aripiprazole 15 MG TAB PO SCH (20:21)
[2022-03-07] MEDS: Furosemide 40 MG/4 ML VIAL SLOW IVP SCH (20:21)
[2022-03-07] MEDS: Atorvastatin Calcium 20 MG TAB PO SCH (20:21)
[2022-03-07] MEDS: Benztropine 1 MG TAB PO SCH (20:21)
[2022-03-08] MEDS: Levothyroxine Sodium 100 MCG TAB PO SCH (06:29)
[2022-03-08] MEDS: Mometasone 100 MCG/Formoterol 5 MCG 120 PUFF INHALER INH SCH ×2 (07:15→18:48)
[2022-03-08] MEDS: Furosemide 40 MG/4 ML VIAL SLOW IVP SCH ×2 (08:39→20:19)
[2022-03-08] MEDS: Aspirin 81 mg Enteric Coated Tablet PO SCH (08:39)
[2022-03-08] MEDS: Acetaminophen 325 MG TAB PO PRN (08:45)
[2022-03-08 16:01] LABS: #Eosinphils 0.3 thou/uL (0.0-0.7); #Lymphocytes 0.8 thou/uL (1.20-3.40); #Monocytes 0.7 thou/uL (0.11-0.59); #Neutrophils 4.6 thou/uL (1.40-6.50); %Basophils 0.3 % (0.0-1.0); %Eosinophils 4.6 % (0.0-10.0); %Lymphocytes 12.3 % (21.0-51.0); %Monocytes 10.8 % (0.0-10.0); Hemoglobin 9.1 g/dL (12.0-16.0); Mean Corpuscular HGB CONC 30.4 g/dL (32.0-36.0); Mean Corpuscular Hemoglobin 29.6 pg (27.0-31.0); Mean Corpuscular Volume 97.5 fL (78.0-98.0); Mean Platelet Volume 9.4 fL (7.4-10.4); Platelet Count 102 thou/uL (130-400); RBC Distribution Width 17.5 % (11.5-14.5); Red Blood Cell (RBC) Count 3.07 mill/uL (4.20-5.40); White Blood Cell (WBC) Count 6.4 thou/uL (4.8-10.8)
[2022-03-08 16:47] LABS: ALT (SGPT) 94 U/L (8-55); AST (SGOT) 46 U/L (5-34); Albumin 2.8 g/dL (3.4-4.8); Alkaline Phosphatase 67 U/L (40-110); Anion Gap 16 mmol/L (10-20); BUN (Urea Nitrogen) 30 mg/dL (9.8-20.1); Bilirubin, Total 0.9 mg/dL (0.2-1.2); Calc. Creatinine Clearance 102 mL/min (70-130); Calcium 8.4 mg/dL (7.8-10.44); Carbon Dioxide 28 mmol/L (23-31); Chloride 103 mmol/L (98-107); Estimated GFR 66; Globulin 3.2 g/dL (2.4-3.5); Glucose 187 mg/dL (80-115); Potassium 3.9 mmol/L (3.5-5.1); Sodium 143 mmol/L (136-145)
[2022-03-08] MEDS ORDERED: Dextrose 50% Abboject 50 ML SYRINGE SLOW IVP PRN (18:30)
[2022-03-08] MEDS ORDERED: Dextrose 5% in Water 1,000 ML IV PRN (18:30)
[2022-03-08] MEDS ORDERED: Communication Order-Pharmacy FS SCH (19:42)
[2022-03-08 20:11] LABS: Hemoglobin 8.7 g/dL (12.0-16.0); Platelet Count 109 thou/uL (130-400)
[2022-03-08] MEDS: Enoxaparin Sodium 120 MG/0.8 ML SYRINGE SC SCH (20:18)
[2022-03-08] MEDS: HumaLOG 300 UNITS/3 ML VIAL SC PRN (20:18)
[2022-03-08] MEDS: Benztropine 1 MG TAB PO SCH (20:19)
[2022-03-08] MEDS: Atorvastatin Calcium 20 MG TAB PO SCH (20:19)
[2022-03-08] MEDS: Aripiprazole 15 MG TAB PO SCH (20:19)
[2022-03-08] MEDS ORDERED: Apixaban 5 MG TAB PO SCH (21:00)
[2022-03-09 04:10] LABS: Hemoglobin 8.6 g/dL (12.0-16.0); Platelet Count 101 thou/uL (130-400)
[2022-03-09 04:31] LABS: ALT (SGPT) 82 U/L (8-55); AST (SGOT) 25 U/L (5-34); Albumin 3.2 g/dL (3.4-4.8); Alkaline Phosphatase 68 U/L (40-110); Anion Gap 14 mmol/L (10-20); BUN (Urea Nitrogen) 29 mg/dL (9.8-20.1); Bilirubin, Total 0.8 mg/dL (0.2-1.2); Calc. Creatinine Clearance 98 mL/min (70-130); Calcium 8.9 mg/dL (7.8-10.44); Carbon Dioxide 32 mmol/L (23-31); Chloride 100 mmol/L (98-107); Estimated GFR 63; Globulin 2.7 g/dL (2.4-3.5); Glucose 133 mg/dL (80-115); Potassium 3.3 mmol/L (3.5-5.1); Protein, Total 5.9 g/dL (5.8-8.1); Sodium 143 mmol/L (136-145)
[2022-03-09] MEDS: Levothyroxine Sodium 100 MCG TAB PO SCH (04:56)
[2022-03-09] MEDS: Mometasone 100 MCG/Formoterol 5 MCG 120 PUFF INHALER INH SCH ×2 (06:52→19:25)
[2022-03-09 08:03] LABS: Digoxin 0.38 ng/mL (0.8-2.0)
[2022-03-09] MEDS ORDERED: Digoxin 0.5 MG/2 ML AMP SLOW IVP SCH ×2 (08:30→16:00)
[2022-03-09] MEDS: Furosemide 40 MG/4 ML VIAL SLOW IVP SCH ×2 (09:44→20:11)
[2022-03-09] MEDS: Enoxaparin Sodium 120 MG/0.8 ML SYRINGE SC SCH ×2 (09:44→20:11)
[2022-03-09] MEDS: Aspirin 81 mg Enteric Coated Tablet PO SCH (09:45)
[2022-03-09] MEDS: HumaLOG 300 UNITS/3 ML VIAL SC PRN ×2 (13:03→16:33)
[2022-03-09] MEDS: Acetaminophen 325 MG TAB PO PRN (16:32)
[2022-03-09] MEDS ORDERED: Potassium Bicarbonate/Cit Ac 20 MEQ TAB PO SCH (19:15)
[2022-03-09] MEDS: Atorvastatin Calcium 20 MG TAB PO SCH (20:12)
[2022-03-09] MEDS: Benztropine 1 MG TAB PO SCH (20:12)
[2022-03-09] MEDS: Aripiprazole 15 MG TAB PO SCH (20:12)
[2022-03-10] MEDS: HumaLOG 300 UNITS/3 ML VIAL SC PRN ×3 (05:57→16:58)
[2022-03-10] MEDS: Acetaminophen 325 MG TAB PO PRN (05:58)
[2022-03-10] MEDS: Levothyroxine Sodium 100 MCG TAB PO SCH (05:58)
[2022-03-10 06:51] LABS: ALT (SGPT) 58 U/L (8-55); AST (SGOT) 18 U/L (5-34); Albumin 3.1 g/dL (3.4-4.8); Alkaline Phosphatase 66 U/L (40-110); Anion Gap 19 mmol/L (10-20); BUN (Urea Nitrogen) 21 mg/dL (9.8-20.1); Bilirubin, Total 0.8 mg/dL (0.2-1.2); Calc. Creatinine Clearance 103 mL/min (70-130); Calcium 8.8 mg/dL (7.8-10.44); Carbon Dioxide 28 mmol/L (23-31); Chloride 98 mmol/L (98-107); Digoxin 1.29 ng/mL (0.8-2.0); Estimated GFR 68; Globulin 2.4 g/dL (2.4-3.5); Glucose 145 mg/dL (80-115); Potassium 3.6 mmol/L (3.5-5.1); Protein, Total 5.5 g/dL (5.8-8.1); Sodium 141 mmol/L (136-145)
[2022-03-10] MEDS: Mometasone 100 MCG/Formoterol 5 MCG 120 PUFF INHALER INH SCH (07:31)
[2022-03-10] MEDS ORDERED: Potassium Bicarbonate/Cit Ac 20 MEQ TAB PO SCH (08:00)
[2022-03-10] MEDS: Enoxaparin Sodium 120 MG/0.8 ML SYRINGE SC SCH (08:24)
[2022-03-10] MEDS: Furosemide 40 MG/4 ML VIAL SLOW IVP SCH (08:25)
[2022-03-10] MEDS: Aspirin 81 mg Enteric Coated Tablet PO SCH (08:25)
[2022-03-10] MEDS ORDERED: Digoxin 0.125 MG TAB PO SCH (09:00)
[2022-03-10 11:36] VITALS: BP 89/51
[2022-03-10 15:44] VITALS: TEMP 97.5
== END 2022-03-10 17:27 | DRG 291 ==
LOC: IMCU/EMU 01:36
PROVIDERS: ADMIT Family Medicine; ATTEND Family Medicine
PROC: 5A09357 Assistance with Respiratory Ventilation, Less than 24 Consecutive Hours, Continuous Positive Airway Pressure (ICD-10-PCS; principal; 2022-03-07)
PROC: 30233N1 Transfusion of Nonautologous Red Blood Cells into Peripheral Vein, Percutaneous Approach (ICD-10-PCS; 2022-03-07)
DX: I13.0 Hypertensive heart and chronic kidney disease with heart failure and stage 1 through stage 4 chronic kidney disease, or unspecified chronic kidney disease (principal); I50.23 Acute on chronic systolic (congestive) heart failure; J96.21 Acute and chronic respiratory failure with hypoxia; I48.20 Chronic atrial fibrillation, unspecified; N17.9 Acute kidney failure, unspecified; J44.1 Chronic obstructive pulmonary disease with (acute) exacerbation; N18.30 Chronic kidney disease, stage 3 unspecified; F79 Unspecified intellectual disabilities; D63.1 Anemia in chronic kidney disease; F31.9 Bipolar disorder, unspecified; E11.22 Type 2 diabetes mellitus with diabetic chronic kidney disease; G40.909 Epilepsy, unspecified, not intractable, without status epilepticus; E78.00 Pure hypercholesterolemia, unspecified; I08.3 Combined rheumatic disorders of mitral, aortic and tricuspid valves; E87.6 Hypokalemia; Z79.01 Long term (current) use of anticoagulants; Z79.899 Other long term (current) drug therapy; Z79.84 Long term (current) use of oral hypoglycemic drugs; Z79.4 Long term (current) use of insulin; Z79.890 Hormone replacement therapy; Z79.82 Long term (current) use of aspirin; Z79.51 Long term (current) use of inhaled steroids; Z98.890 Other specified postprocedural states; Z87.891 Personal history of nicotine dependence; Z95.2 Presence of prosthetic heart valve; Z95.818 Presence of other cardiac implants and grafts
CPT/HCPCS: 36415; 36416; 36430; 36600; 71045; 80048; 80053; 80162; 82274; 82805; 83605; 83735; 83880; 84443; 84484; 85014; 85018; 85025; 85049; 86850; 86900; 86901; 87040; 93005; 93306; 94660; 94664; 96365; 96366; 96368; 96375; 97139; J0692; J1160; J1650; J1815; J1940; J3370; P9016; U0002

== ENCOUNTER 2022-11-17 11:07 | Inpatient (IN) | payer MEDICARE, OTHER, MEDICAID ==
[~2022-11-17 11:07] MED LIST changes: -ISOVUE-370 76%-LOCM 1 ML ONE; +Iopamidol-370 76% 500 ML MDV (1 ML CHARGE) ONE
[2022-11-17 11:34] LABS: #Eosinphils 0.2 thou/uL (0.0-0.7); #Lymphocytes 1.5 thou/uL (1.20-3.40); #Monocytes 0.6 thou/uL (0.11-0.59); #Neutrophils 4.6 thou/uL (1.40-6.50); %Basophils 0.1 % (0.0-1.0); %Eosinophils 3.1 % (0.0-10.0); %Lymphocytes 21.1 % (21.0-51.0); %Monocytes 8.7 % (0.0-10.0); Hemoglobin 11.2 g/dL (12.0-16.0); Mean Corpuscular HGB CONC 33.1 g/dL (32.0-36.0); Mean Corpuscular Volume 99.8 fl (78.0-98.0); Mean Platelet Volume 8.6 fL (7.4-10.4); Platelet Count 176 10x3/uL (130-400); White Blood Cell (WBC) Count 6.9 10x3/uL (4.8-10.8)
[2022-11-17] MEDS ORDERED: Aspirin Chewable 81 MG TAB ONE (11:34)
[2022-11-17] MEDS ORDERED: Furosemide 40 MG/4 ML VIAL ONE (11:34)
[2022-11-17 11:51] LABS: INR-International Normal Ratio 1.2; Prothrombin Time 15.3 sec (12.0-14.7)
[2022-11-17 11:52] LABS: PTT 27.6 sec (22.9-36.1)
[2022-11-17 11:53] LABS: Bacteria/HPF None Seen HPF (None Seen); Bilirubin Negative (Negative); Blood, Urine Negative (Negative); Clarity Clear (Clear); Glucose, Urine (Dipstick) 200 mg/dL (Negative); Ketone, Urine Negative (Negative); Leukocyte 75 Leu/uL (Negative); Nitrite Negative (Negative); Protein, Urine (Dipstick) Negative (Neg-Trace); RBC/HPF 0-3 HPF (0-3); Specific Gravity, Urine 1.013 (1.002-1.036); Squamous Epithelial None Seen HPF (0-3); Urobilinogen Normal mg/dL (Less than 2); WBC/HPF 0-3 HPF (0-3)
[2022-11-17 12:03] LABS: CK (CPK) 62 U/L (29-168); Lipase 27 U/L (8-78)
[2022-11-17 12:34] LABS: ALT (SGPT) 31 U/L (8-55); AST (SGOT) 27 U/L (5-34); Albumin 3.9 g/dL (3.4-4.8); Alkaline Phosphatase 65 U/L (40-110); Anion Gap 14 mmol/L (10-20); BUN (Urea Nitrogen) 27 mg/dL (9.8-20.1); Bilirubin, Total 0.5 mg/dL (0.2-1.2); Calc. Creatinine Clearance 0 mL/min (70-130); Calcium 9.5 mg/dL (7.8-10.44); Carbon Dioxide 28 mmol/L (23-31); Chloride 99 mmol/L (98-107); Estimated GFR 45; Glucose 328 mg/dL (80-115); Magnesium 1.8 mg/dL (1.6-2.6); Potassium 3.9 mmol/L (3.5-5.1); Protein, Total 6.9 g/dL (5.8-8.1); Sodium 137 mmol/L (136-145)
[2022-11-17] MEDS ORDERED: cefTRIAXone (ROCEPHIN) 1 GM VIAL ONE (12:52)
[2022-11-17] MEDS ORDERED: Azithromycin 500 MG VIAL ONE (13:18)
[2022-11-17] MEDS ORDERED: Nitroglycerin 0.4 MG TAB (25 Tab Bottle) SL PRN (15:08)
[2022-11-17] MEDS ORDERED: Dextrose 5% in Water 1,000 ML IV PRN (15:09)
[2022-11-17] MEDS ORDERED: Dextrose 50% Abboject 50 ML SYRINGE SLOW IVP PRN (15:09)
[2022-11-17 15:12] LABS: Lactic Acid 2.2 mmol/L (0.5-2.2)
[2022-11-17 15:21] LABS: Troponin I 0.027 ng/mL (< 0.028)
[2022-11-17] MEDS ORDERED: predniSONE 20 MG TAB PO SCH (15:30)
[2022-11-17 16:22] LABS: Actual Bicarbonate (HCO3a) 29.4 mEq/L (22-28); Analyzer IN Cardio ER; Base Excess (BEa) 4.3 mEq/L (-2.0 to +3.0); CO2 Tension 46.4 mmHg (35.0-45.0); Calcium, Ionized (arterial) 1.17 mmol/L (1.12-1.30); Hemoglobin (Hb) 10.9 g/dL (12.0-16.0); O2 Tension (PaO2), arterial 94.5 mmHg (> 80.0); Potassium - ABG Lab 4.17 mmol/L (3.70-5.30); pH, Arterial 7.42 (7.35-7.45)
[2022-11-17 16:23] LABS: Puncture Site RRA
[2022-11-17 18:08] VITALS: BMI 39.6
[2022-11-17 18:20] LABS: Troponin I 0.027 ng/mL (< 0.028)
[2022-11-17] MEDS: Budesonide 0.5 MG/2 ML NEB NEB SCH (18:43)
[2022-11-17] MEDS: Ipratropium/Albuterol 3 ML NEB NEB PRN (19:04)
[2022-11-17] MEDS: Cefepime 1 GM in Sodium Chloride 0.9% 100 ML IVPB SCH (20:01)
[2022-11-17] MEDS: Insulin Glargine 30 UNITS/0.3 ML VIAL SC SCH (20:27)
[2022-11-17] MEDS ORDERED: Apixaban 5 MG TAB PO SCH (22:00)
[2022-11-18] MEDS: Cefepime 1 GM in Sodium Chloride 0.9% 100 ML IVPB SCH ×2 (05:35→15:13)
[2022-11-18] MEDS: Levothyroxine Sodium 100 MCG TAB PO SCH (06:08)
[2022-11-18] MEDS: Furosemide 40 MG/4 ML VIAL SLOW IVP SCH ×2 (06:08→14:58)
[2022-11-18] MEDS: HumaLOG 300 UNITS/3 ML VIAL SC PRN ×4 (06:20→21:49)
[2022-11-18] MEDS: Budesonide 0.5 MG/2 ML NEB NEB SCH ×2 (08:00→18:20)
[2022-11-18] MEDS: Ipratropium/Albuterol 3 ML NEB NEB PRN ×2 (08:05→18:20)
[2022-11-18] MEDS: Aripiprazole 15 MG TAB PO SCH (08:32)
[2022-11-18] MEDS: predniSONE 20 MG TAB PO SCH (08:32)
[2022-11-18] MEDS: Digoxin 0.125 MG TAB PO SCH (08:32)
[2022-11-18] MEDS: Apixaban 5 MG TAB PO SCH ×2 (08:33→21:42)
[2022-11-18] MEDS: Insulin Glargine 30 UNITS/0.3 ML VIAL SC SCH ×2 (08:33→21:42)
[2022-11-19] MEDS: Cefepime 1 GM in Sodium Chloride 0.9% 100 ML IVPB SCH (03:54)
[2022-11-19 04:43] LABS: #Eosinphils 0.2 thou/uL (0.0-0.7); #Lymphocytes 1.4 thou/uL (1.20-3.40); #Monocytes 0.6 thou/uL (0.11-0.59); #Neutrophils 4.4 thou/uL (1.40-6.50); %Basophils 0.3 % (0.0-1.0); %Eosinophils 2.3 % (0.0-10.0); %Lymphocytes 21.9 % (21.0-51.0); %Monocytes 9.1 % (0.0-10.0); %Neutrophils 66.4 % (42.0-75.0); Mean Corpuscular HGB CONC 33.3 g/dL (32.0-36.0); Mean Corpuscular Hemoglobin 33.4 pg (27.0-31.0); Mean Platelet Volume 8.8 fL (7.4-10.4); Platelet Count 146 10x3/uL (130-400); Red Blood Cell (RBC) Count 2.99 mill/uL (4.20-5.40); White Blood Cell (WBC) Count 6.6 10x3/uL (4.8-10.8)
[2022-11-19 05:08] LABS: Anion Gap 16 mmol/L (10-20); BUN (Urea Nitrogen) 31 mg/dL (9.8-20.1); Calc. Creatinine Clearance 78 mL/min (70-130); Calcium 9.4 mg/dL (7.8-10.44); Carbon Dioxide 28 mmol/L (23-31); Chloride 101 mmol/L (98-107); Estimated GFR 44; Glucose 278 mg/dL (80-115); Potassium 4.1 mmol/L (3.5-5.1); Sodium 141 mmol/L (136-145)
[2022-11-19] MEDS: HumaLOG 300 UNITS/3 ML VIAL SC PRN ×4 (05:26→21:46)
[2022-11-19] MEDS: Levothyroxine Sodium 100 MCG TAB PO SCH (05:29)
[2022-11-19] MEDS: Furosemide 40 MG/4 ML VIAL SLOW IVP SCH ×2 (05:29→15:20)
[2022-11-19] MEDS: Budesonide 0.5 MG/2 ML NEB NEB SCH ×2 (07:50→18:40)
[2022-11-19] MEDS: Metolazone 2.5 MG TAB PO SCH (09:10)
[2022-11-19] MEDS: predniSONE 20 MG TAB PO SCH (09:10)
[2022-11-19] MEDS: Digoxin 0.125 MG TAB PO SCH (09:10)
[2022-11-19] MEDS: Aripiprazole 15 MG TAB PO SCH (09:10)
[2022-11-19] MEDS: Apixaban 5 MG TAB PO SCH ×2 (09:11→20:05)
[2022-11-19] MEDS: Insulin Glargine 30 UNITS/0.3 ML VIAL SC SCH ×2 (09:11→20:06)
[2022-11-19] MEDS ORDERED: glipiZIDE 5 MG TAB PO SCH (10:38)
[2022-11-19] MEDS ORDERED: Morphine 2 MG/ML VIAL SLOW IVP PRN (18:04)
[2022-11-19] MEDS ORDERED: Cyclobenzaprine 10 MG TAB PO PRN (18:05)
[2022-11-19] MEDS ORDERED: Acetaminophen/Codeine 30-300mg Tablet PO PRN (18:05)
[2022-11-19] MEDS: Mometasone 100 MCG/Formoterol 5 MCG 120 PUFF INHALER INH SCH (18:45)
[2022-11-19] MEDS: Cefuroxime 250 MG TAB PO SCH (20:05)
[2022-11-19] MEDS ORDERED: Dextrose 5% in Water 1,000 ML IV PRN (21:17)
[2022-11-19] MEDS ORDERED: Dextrose 50% Abboject 50 ML SYRINGE SLOW IVP PRN (21:17)
[2022-11-20 05:36] LABS: Anion Gap 12 mmol/L (10-20); BUN (Urea Nitrogen) 32 mg/dL (9.8-20.1); Calc. Creatinine Clearance 90 mL/min (70-130); Calcium 9.4 mg/dL (7.8-10.44); Carbon Dioxide 30 mmol/L (23-31); Chloride 100 mmol/L (98-107); Estimated GFR 53; Glucose 306 mg/dL (80-115); Potassium 3.7 mmol/L (3.5-5.1); Sodium 138 mmol/L (136-145)
[2022-11-20] MEDS: Levothyroxine Sodium 100 MCG TAB PO SCH (05:56)
[2022-11-20] MEDS: Furosemide 40 MG/4 ML VIAL SLOW IVP SCH ×2 (05:56→14:45)
[2022-11-20] MEDS: HumaLOG 300 UNITS/3 ML VIAL SC PRN ×4 (05:56→20:33)
[2022-11-20] MEDS: Budesonide 0.5 MG/2 ML NEB NEB SCH ×2 (07:43→18:35)
[2022-11-20] MEDS: Mometasone 100 MCG/Formoterol 5 MCG 120 PUFF INHALER INH SCH ×2 (07:44→19:35)
[2022-11-20] MEDS ORDERED: Non-Formulary Item 1 EACH (Sertraline Hcl [Sertraline Hcl] 50 MG Tablet) INH SCH (09:00)
[2022-11-20] MEDS: Insulin Glargine 30 UNITS/0.3 ML VIAL SC SCH ×2 (10:21→20:33)
[2022-11-20] MEDS: Multivit, Therapeutic 1 TAB PO SCH (10:28)
[2022-11-20] MEDS: Lisinopril 2.5 MG TAB PO SCH (10:28)
[2022-11-20] MEDS: Allopurinol 100 MG TAB PO SCH (10:29)
[2022-11-20] MEDS: predniSONE 5 MG TAB PO SCH (10:29)
[2022-11-20] MEDS: Metolazone 2.5 MG TAB PO SCH (10:29)
[2022-11-20] MEDS: Digoxin 0.125 MG TAB PO SCH (10:29)
[2022-11-20] MEDS: Atorvastatin Calcium 20 MG TAB PO SCH (10:29)
[2022-11-20] MEDS: Apixaban 5 MG TAB PO SCH ×2 (10:29→20:33)
[2022-11-20] MEDS: Cefuroxime 250 MG TAB PO SCH ×2 (10:29→20:33)
[2022-11-20] MEDS: Benztropine 1 MG TAB PO SCH (10:29)
[2022-11-20] MEDS: Aspirin 81 mg Enteric Coated Tablet PO SCH (10:30)
[2022-11-20] MEDS: Alogliptin 25 MG TAB PO SCH (10:57)
[2022-11-20] MEDS: Aripiprazole 15 MG TAB PO SCH (11:32)
[2022-11-20] MEDS: Albuterol 200 PUFF (6.7GM INHALER) INH SCH ×2 (14:45→19:35)
[2022-11-20] MEDS ORDERED: Melatonin 3 MG TAB PO PRN (20:49)
[2022-11-21 05:28] LABS: Anion Gap 14 mmol/L (10-20); BUN (Urea Nitrogen) 41 mg/dL (9.8-20.1); Calc. Creatinine Clearance 87 mL/min (70-130); Calcium 9.8 mg/dL (7.8-10.44); Carbon Dioxide 32 mmol/L (23-31); Chloride 96 mmol/L (98-107); Estimated GFR 52; Glucose 173 mg/dL (80-115); Potassium 3.7 mmol/L (3.5-5.1); Sodium 138 mmol/L (136-145)
[2022-11-21] MEDS: Levothyroxine Sodium 100 MCG TAB PO SCH (05:44)
[2022-11-21] MEDS: Furosemide 40 MG/4 ML VIAL SLOW IVP SCH (05:44)
[2022-11-21] MEDS: HumaLOG 300 UNITS/3 ML VIAL SC PRN ×2 (05:44→17:48)
[2022-11-21] MEDS: Mometasone 100 MCG/Formoterol 5 MCG 120 PUFF INHALER INH SCH ×2 (07:55→18:18)
[2022-11-21] MEDS: Albuterol 200 PUFF (6.7GM INHALER) INH SCH ×3 (07:56→18:18)
[2022-11-21] MEDS: Budesonide 0.5 MG/2 ML NEB NEB SCH ×2 (07:57→18:18)
[2022-11-21] MEDS: Cefuroxime 250 MG TAB PO SCH ×2 (08:37→20:22)
[2022-11-21] MEDS: Allopurinol 100 MG TAB PO SCH (08:37)
[2022-11-21] MEDS: Lisinopril 2.5 MG TAB PO SCH (08:37)
[2022-11-21] MEDS: Benztropine 1 MG TAB PO SCH (08:37)
[2022-11-21] MEDS: Digoxin 0.125 MG TAB PO SCH (08:37)
[2022-11-21] MEDS: Insulin Glargine 30 UNITS/0.3 ML VIAL SC SCH ×2 (08:38→20:22)
[2022-11-21] MEDS: Multivit, Therapeutic 1 TAB PO SCH (08:38)
[2022-11-21] MEDS: Aspirin 81 mg Enteric Coated Tablet PO SCH (08:38)
[2022-11-21] MEDS: Atorvastatin Calcium 20 MG TAB PO SCH (08:38)
[2022-11-21] MEDS: predniSONE 5 MG TAB PO SCH (08:38)
[2022-11-21] MEDS: Alogliptin 25 MG TAB PO SCH (08:47)
[2022-11-21] MEDS: Aripiprazole 15 MG TAB PO SCH (08:47)
[2022-11-21] MEDS: Apixaban 5 MG TAB PO SCH ×2 (08:47→20:22)
[2022-11-22] MEDS: Levothyroxine Sodium 100 MCG TAB PO SCH (05:15)
[2022-11-22] MEDS: HumaLOG 300 UNITS/3 ML VIAL SC PRN ×2 (06:04→12:06)
[2022-11-22] MEDS: Albuterol 200 PUFF (6.7GM INHALER) INH SCH (07:25)
[2022-11-22] MEDS ORDERED: Furosemide 40 MG TAB PO SCH (07:30)
[2022-11-22] MEDS: Mometasone 100 MCG/Formoterol 5 MCG 120 PUFF INHALER INH SCH (08:05)
[2022-11-22] MEDS: Budesonide 0.5 MG/2 ML NEB NEB SCH (08:40)
[2022-11-22] MEDS: Aripiprazole 15 MG TAB PO SCH (10:30)
[2022-11-22] MEDS: Benztropine 1 MG TAB PO SCH (10:31)
[2022-11-22] MEDS: Digoxin 0.125 MG TAB PO SCH (10:31)
[2022-11-22] MEDS: Cefuroxime 250 MG TAB PO SCH (10:31)
[2022-11-22] MEDS: Apixaban 5 MG TAB PO SCH (10:32)
[2022-11-22] MEDS: predniSONE 5 MG TAB PO SCH (10:32)
[2022-11-22] MEDS: Allopurinol 100 MG TAB PO SCH (10:32)
[2022-11-22] MEDS: Lisinopril 2.5 MG TAB PO SCH (10:32)
[2022-11-22] MEDS: Insulin Glargine 30 UNITS/0.3 ML VIAL SC SCH (10:33)
[2022-11-22] MEDS: Multivit, Therapeutic 1 TAB PO SCH (10:33)
[2022-11-22] MEDS: Aspirin 81 mg Enteric Coated Tablet PO SCH (10:33)
[2022-11-22] MEDS: Alogliptin 25 MG TAB PO SCH (10:33)
[2022-11-22] MEDS: Atorvastatin Calcium 20 MG TAB PO SCH (10:33)
[2022-11-22 11:47] VITALS: BP 117/56; TEMP 98.6
== END 2022-11-22 14:25 | DRG 291 ==
LOC: ERS 11:07 → ERHOLD 13:49 → 2NO 16:49 → OBSVTOIN 11-18 15:03
PROVIDERS: ADMIT Internal Medicine; ATTEND Internal Medicine
DX: I13.0 Hypertensive heart and chronic kidney disease with heart failure and stage 1 through stage 4 chronic kidney disease, or unspecified chronic kidney disease (principal); I50.23 Acute on chronic systolic (congestive) heart failure; J96.21 Acute and chronic respiratory failure with hypoxia; J44.1 Chronic obstructive pulmonary disease with (acute) exacerbation; Z20.822 Contact with and (suspected) exposure to COVID-19; I48.0 Paroxysmal atrial fibrillation; E03.9 Hypothyroidism, unspecified; F32.A Depression, unspecified; K21.9 Gastro-esophageal reflux disease without esophagitis; E11.22 Type 2 diabetes mellitus with diabetic chronic kidney disease; D63.1 Anemia in chronic kidney disease; N18.30 Chronic kidney disease, stage 3 unspecified; T38.0X5A Adverse effect of glucocorticoids and synthetic analogues, initial encounter; E11.65 Type 2 diabetes mellitus with hyperglycemia; E66.9 Obesity, unspecified; Z68.39 Body mass index [BMI] 39.0-39.9, adult; Z99.81 Dependence on supplemental oxygen; Z91.018 Allergy to other foods; Z95.2 Presence of prosthetic heart valve; Z79.899 Other long term (current) drug therapy; Z79.82 Long term (current) use of aspirin; Z79.890 Hormone replacement therapy; Z79.01 Long term (current) use of anticoagulants; Z79.84 Long term (current) use of oral hypoglycemic drugs
CPT/HCPCS: 36415; 36416; 36600; 71045; 71275; 80048; 80053; 81003; 81015; 82550; 82805; 83605; 83690; 83735; 83880; 84145; 84443; 84484; 85025; 85610; 85730; 87040; 87086; 93005; 94640; 94664; 96365; 96367; 96372; 96375; 96376; G0378; J0456; J0692; J0696; J1650; J1815; J1940; J3490; J7512; J7611; J7620; J7626; Q9967; U0003; U0005

== ENCOUNTER 2023-02-28 09:54 | Inpatient (IN) | payer MEDICARE ==
[2023-02-28 10:52] LABS: #Basophils 0.1 thou/uL (0.0-0.2); #Eosinphils 0.4 thou/uL (0.0-0.7); #Monocytes 0.7 thou/uL (0.11-0.59); #Neutrophils 4.6 thou/uL (1.40-6.50); %Basophils 0.8 % (0.0-1.0); %Eosinophils 5.1 % (0.0-10.0); %Lymphocytes 22.2 % (21.0-51.0); %Monocytes 9.4 % (0.0-10.0); %Neutrophils 62.4 % (42.0-75.0); Hemoglobin 10.7 g/dL (12.0-16.0); Mean Corpuscular HGB CONC 31.1 g/dL (32.0-36.0); Mean Corpuscular Volume 99.7 fl (78.0-98.0); Mean Platelet Volume 10.8 fL (7.4-10.4); Platelet Count 165 10x3/uL (130-400); Red Blood Cell (RBC) Count 3.45 mill/uL (4.20-5.40); White Blood Cell (WBC) Count 7.3 10x3/uL (4.8-10.8)
[2023-02-28 11:14] LABS: ALT (SGPT) 30 U/L (8-55); AST (SGOT) 17 U/L (5-34); Albumin 3.6 g/dL (3.4-4.8); Alkaline Phosphatase 71 U/L (40-110); Anion Gap 18 mmol/L (10-20); BUN (Urea Nitrogen) 38 mg/dL (9.8-20.1); Bilirubin, Total 0.5 mg/dL (0.2-1.2); Calc. Creatinine Clearance 0 mL/min (70-130); Calcium 9.6 mg/dL (7.8-10.44); Carbon Dioxide 27 mmol/L (23-31); Chloride 102 mmol/L (98-107); Estimated GFR 22; Globulin 2.7 g/dL (2.4-3.5); Glucose 118 mg/dL (80-115); Magnesium 1.7 mg/dL (1.6-2.6); Potassium 4.5 mmol/L (3.5-5.1); Protein, Total 6.3 g/dL (5.8-8.1); Sodium 142 mmol/L (136-145)
[2023-02-28 11:35] LABS: CKMB 2.4 ng/mL (0-6.6)
[2023-02-28] MEDS ORDERED: Aspirin Chewable 81 MG TAB ONE (11:41)
[2023-02-28] MEDS ORDERED: Acetaminophen 500 MG TAB ONE (11:41)
[2023-02-28 12:04] LABS: Bilirubin Negative (Negative); Blood, Urine 1+ (Negative); CAUTI Indications for Culture Dysuria,urgency,freq; Clarity Extra Turbid (Clear); Glucose, Urine (Dipstick) Normal (Negative); Ketone, Urine Negative (Negative); Leukocyte 500 Leu/uL (Negative); Nitrite Negative (Negative); Protein, Urine (Dipstick) 50 mg/dL (Neg-Trace); Specific Gravity, Urine 1.011 (1.002-1.036); Squamous Epithelial None Seen HPF (0-3); Urobilinogen Normal mg/dL (Less than 2); WBC/HPF Greater than 50 HPF (0-3); pH, Urine 5.5 (5.0-9.0)
[2023-02-28 12:13] LABS: Bacteria/HPF 4+ HPF (None Seen)
[2023-02-28 12:14] LABS: Urine Culture Reflex Yes Yes
[2023-02-28] MEDS ORDERED: VANCOMYCIN 2 GRAM/500 ML BAG 2 GM in Premix Bag 1 BAG IVPB SCH (13:30)
[2023-02-28] MEDS ORDERED: Meropenem 1 GM in Sodium Chloride 0.9% 100 ML IVPB SCH ×2 (13:30→22:00)
[2023-02-28] MEDS ORDERED: Ondansetron ODT 4 MG TAB PO PRN (13:50)
[2023-02-28] MEDS ORDERED: diphenhydrAMINE 50 MG/ML VIAL IVP PRN (13:50)
[2023-02-28] MEDS ORDERED: Communication Order-Pharmacy FS SCH (13:50)
[2023-02-28] MEDS ORDERED: Moisturizing Cream (Eucerin) 113 GM JAR TOP PRN (13:50)
[2023-02-28] MEDS ORDERED: Acetaminophen 325 MG TAB PO PRN (13:50)
[2023-02-28] MEDS ORDERED: Artificial Tear Sol 15 ML BOT EA EYE PRN (13:50)
[2023-02-28] MEDS ORDERED: Bisacodyl 5 MG TAB PO PRN (13:50)
[2023-02-28] MEDS ORDERED: Acetaminophen 650 MG Suppository PR PRN (13:50)
[2023-02-28] MEDS ORDERED: Ondansetron PF 4 MG/2 ML Vial IVP PRN (13:50)
[2023-02-28] MEDS ORDERED: Sodium Chloride 0.65% Nasal 44 ML BOT EA NARE PRN (13:50)
[2023-02-28] MEDS ORDERED: Senokot S 8.6-50 MG TAB PO PRN (13:50)
[2023-02-28] MEDS ORDERED: diphenhydrAMINE 25 MG CAP PO PRN (13:50)
[2023-02-28] MEDS ORDERED: Dextrose 5% in Water 1,000 ML IV PRN (14:10)
[2023-02-28] MEDS ORDERED: Dextrose 50% Abboject 50 ML SYRINGE SLOW IVP PRN (14:10)
[2023-02-28] MEDS ORDERED: Glucagon 1 MG/ML KIT IM PRN (14:10)
[2023-02-28] MEDS ORDERED: Ipratropium/Albuterol 3 ML NEB NEB PRN (14:12)
[2023-02-28] MEDS ORDERED: Electrolyte Replacement Protocol 1 EACH FS SCH (14:15)
[2023-02-28] MEDS ORDERED: Lactated Ringer's 1,000 ML IV SCH (15:00)
[2023-02-28 15:09] LABS: Troponin I 0.126 ng/mL (< 0.028)
[2023-02-28] MEDS ORDERED: Magnesium 2 GM/50 ML(in water) 2 GM in Premix Bag 1 BAG IVPB SCH (15:15)
[2023-02-28 15:36] LABS: Magnesium 1.6 mg/dL (1.6-2.6); Phosphorus 3.9 mg/dL (2.3-4.7)
[2023-02-28 16:00] LABS: Digoxin 4.47 ng/mL (0.8-2.0)
[2023-02-28] MEDS ORDERED: Vancomycin Dose by Levels Sliding Scale (Wt > 99) FS SCH (16:00)
[2023-02-28] MEDS ORDERED: Magnesium 2 GM/50 ML BAG (IN WATER) ONE (16:56)
[2023-02-28 17:28] LABS: Troponin I 0.114 ng/mL (< 0.028)
[2023-02-28] MEDS ORDERED: Vancomycin HCl 1 GM in Sodium Chloride 0.9% 250 ML 300 ML IVPB SCH (21:00)
[2023-02-28] MEDS: Insulin Glargine 30 UNITS/0.3 ML VIAL SC SCH ×2 (22:07→22:14)
[2023-02-28] MEDS: Famotidine 20 MG TAB PO SCH (22:07)
[2023-02-28] MEDS: Famotidine/PF 20 mg/2ml Vial SLOW IVP SCH (22:07)
[2023-02-28] MEDS: Apixaban 5 MG TAB PO SCH (22:07)
[2023-02-28] MEDS: Lactated Ringer's 1,000 ML IV SCH (22:10)
[2023-02-28] MEDS ORDERED: Sodium Chloride 0.9% 500 ML IV SCH (23:45)
[2023-03-01] MEDS: Meropenem 1 GM in Sodium Chloride 0.9% 100 ML IVPB SCH ×2 (02:16→14:16)
[2023-03-01] MEDS ORDERED: Lactated Ringer's 1,000 ML IV SCH (08:15)
[2023-03-01] MEDS: predniSONE 5 MG TAB PO SCH (08:50)
[2023-03-01] MEDS: Floranex 1 GM Packet PO SCH (08:50)
[2023-03-01] MEDS: Famotidine 20 MG TAB PO SCH (08:50)
[2023-03-01] MEDS: Atorvastatin Calcium 20 MG TAB PO SCH (08:50)
[2023-03-01] MEDS: Apixaban 5 MG TAB PO SCH ×2 (08:50→21:52)
[2023-03-01] MEDS: Aspirin 300 MG Suppository PR SCH (08:51)
[2023-03-01] MEDS: Famotidine/PF 20 mg/2ml Vial SLOW IVP SCH (08:52)
[2023-03-01 08:55] LABS: #Basophils 0.1 thou/uL (0.0-0.2); #Eosinphils 0.3 thou/uL (0.0-0.7); #Monocytes 0.7 thou/uL (0.11-0.59); #Neutrophils 4.5 thou/uL (1.40-6.50); %Basophils 0.9 % (0.0-1.0); %Eosinophils 5.1 % (0.0-10.0); %Lymphocytes 13.6 % (21.0-51.0); %Monocytes 10.3 % (0.0-10.0); %Neutrophils 69.6 % (42.0-75.0); Hemoglobin 8.6 g/dL (12.0-16.0); Mean Corpuscular HGB CONC 31.3 g/dL (32.0-36.0); Mean Corpuscular Hemoglobin 31.2 pg (27.0-31.0); Mean Corpuscular Volume 99.6 fl (78.0-98.0); Mean Platelet Volume 10.8 fL (7.4-10.4); Platelet Count 130 10x3/uL (130-400); RBC Distribution Width 15.9 % (11.5-14.5); Red Blood Cell (RBC) Count 2.76 mill/uL (4.20-5.40); White Blood Cell (WBC) Count 6.5 10x3/uL (4.8-10.8)
[2023-03-01] MEDS ORDERED: [UNRECOGNIZED DRUG - OTHER] IH SCH (09:00)
[2023-03-01] MEDS ORDERED: FLUTICASONE IH SCH (09:00)
[2023-03-01] MEDS ORDERED: SALMETEROL IH SCH (09:00)
[2023-03-01] MEDS ORDERED: Aspirin 81 mg Enteric Coated Tablet PO SCH (09:00)
[2023-03-01 09:32] LABS: ALT (SGPT) 24 U/L (8-55); AST (SGOT) 18 U/L (5-34); Albumin 2.7 g/dL (3.4-4.8); Alkaline Phosphatase 60 U/L (40-110); Anion Gap 13 mmol/L (10-20); BUN (Urea Nitrogen) 35 mg/dL (9.8-20.1); Bilirubin, Total 0.4 mg/dL (0.2-1.2); Calc. Creatinine Clearance 51 mL/min (70-130); Calcium 8.4 mg/dL (7.8-10.44); Carbon Dioxide 25 mmol/L (23-31); Chloride 107 mmol/L (98-107); Estimated GFR 32; Glucose 108 mg/dL (80-115); Potassium 4.3 mmol/L (3.5-5.1); Protein, Total 4.7 g/dL (5.8-8.1); Sodium 141 mmol/L (136-145)
[2023-03-01] MEDS: Lactated Ringer's 1,000 ML IV SCH ×2 (11:50→17:19)
[2023-03-01] MEDS: HumaLOG 300 UNITS/3 ML VIAL SC PRN ×2 (13:36→18:26)
[2023-03-01] MEDS: Albumin 25% 25 GM/100 ML BOT IVPB SCH (17:16)
[2023-03-01] MEDS: Mometasone 100 MCG/Formoterol 5 MCG 120 PUFF INHALER INH SCH (18:48)
[2023-03-01] MEDS: Insulin Glargine 30 UNITS/0.3 ML VIAL SC SCH (21:52)
[2023-03-02] MEDS: Albumin 25% 25 GM/100 ML BOT IVPB SCH (00:21)
[2023-03-02] MEDS: Meropenem 1 GM in Sodium Chloride 0.9% 100 ML IVPB SCH ×2 (01:35→14:49)
[2023-03-02 05:07] LABS: #Eosinphils 0.3 thou/uL (0.0-0.7); #Monocytes 0.5 thou/uL (0.11-0.59); #Neutrophils 2.7 thou/uL (1.40-6.50); %Basophils 0.6 % (0.0-1.0); %Eosinophils 5.8 % (0.0-10.0); %Lymphocytes 25.6 % (21.0-51.0); %Monocytes 10.6 % (0.0-10.0); %Neutrophils 57.2 % (42.0-75.0); Hemoglobin 8.4 g/dL (12.0-16.0); Mean Corpuscular HGB CONC 30.3 g/dL (32.0-36.0); Mean Corpuscular Hemoglobin 30.5 pg (27.0-31.0); Mean Corpuscular Volume 100.7 fl (78.0-98.0); Mean Platelet Volume 11.2 fL (7.4-10.4); Platelet Count 119 10x3/uL (130-400); RBC Distribution Width 15.8 % (11.5-14.5); Red Blood Cell (RBC) Count 2.75 mill/uL (4.20-5.40); White Blood Cell (WBC) Count 4.6 10x3/uL (4.8-10.8)
[2023-03-02] MEDS: Levothyroxine Sodium 75 MCG TAB PO SCH (05:12)
[2023-03-02] MEDS: Lactated Ringer's 1,000 ML IV SCH ×2 (05:24→21:35)
[2023-03-02 05:49] LABS: Anion Gap 16 mmol/L (10-20); BUN (Urea Nitrogen) 35 mg/dL (9.8-20.1); Calc. Creatinine Clearance 51 mL/min (70-130); Calcium 9.3 mg/dL (7.8-10.44); Carbon Dioxide 24 mmol/L (23-31); Chloride 104 mmol/L (98-107); Estimated GFR 32; Glucose 113 mg/dL (80-115); Potassium 4.1 mmol/L (3.5-5.1); Sodium 140 mmol/L (136-145)
[2023-03-02] MEDS: Mometasone 100 MCG/Formoterol 5 MCG 120 PUFF INHALER INH SCH ×2 (07:07→18:56)
[2023-03-02] MEDS: Apixaban 5 MG TAB PO SCH ×2 (09:27→21:27)
[2023-03-02] MEDS: Famotidine 20 MG TAB PO SCH (09:27)
[2023-03-02] MEDS: Aspirin Chewable 81 MG TAB PO SCH (09:27)
[2023-03-02] MEDS: Floranex 1 GM Packet PO SCH (09:27)
[2023-03-02] MEDS: Atorvastatin Calcium 20 MG TAB PO SCH (09:27)
[2023-03-02] MEDS: predniSONE 5 MG TAB PO SCH (09:27)
[2023-03-02] MEDS: Aspirin 300 MG Suppository PR SCH (09:28)
[2023-03-02] MEDS: Famotidine/PF 20 mg/2ml Vial SLOW IVP SCH (09:28)
[2023-03-02] MEDS ORDERED: VANCOMYCIN 1.25 GM/250 ML BAG IVPB SCH ×3 (13:15→17:00)
[2023-03-02] MEDS: HumaLOG 300 UNITS/3 ML VIAL SC PRN ×2 (13:47→18:44)
[2023-03-02] MEDS: VANCOMYCIN 1.25 GM/250 ML BAG 1.25 GM in Premix Bag 1 BAG IVPB SCH (17:49)
[2023-03-02] MEDS ORDERED: Magnesium 2 GM/50 ML(in water) 2 GM in Premix Bag 1 BAG IVPB SCH (19:15)
[2023-03-02] MEDS: Insulin Glargine 30 UNITS/0.3 ML VIAL SC SCH (21:27)
[2023-03-03] MEDS: Meropenem 1 GM in Sodium Chloride 0.9% 100 ML IVPB SCH ×3 (02:06→18:38)
[2023-03-03 04:51] LABS: #Basophils 0.1 thou/uL (0.0-0.2); #Eosinphils 0.4 thou/uL (0.0-0.7); #Monocytes 0.7 thou/uL (0.11-0.59); #Neutrophils 3.4 thou/uL (1.40-6.50); %Basophils 0.9 % (0.0-1.0); %Eosinophils 6.3 % (0.0-10.0); %Lymphocytes 21.6 % (21.0-51.0); %Monocytes 12.2 % (0.0-10.0); %Neutrophils 58.3 % (42.0-75.0); Hemoglobin 8.7 g/dL (12.0-16.0); Mean Corpuscular HGB CONC 31.4 g/dL (32.0-36.0); Mean Corpuscular Hemoglobin 31.4 pg (27.0-31.0); Mean Platelet Volume 10.7 fL (7.4-10.4); Platelet Count 132 10x3/uL (130-400); RBC Distribution Width 15.7 % (11.5-14.5); Red Blood Cell (RBC) Count 2.77 mill/uL (4.20-5.40); White Blood Cell (WBC) Count 5.7 10x3/uL (4.8-10.8)
[2023-03-03 05:14] LABS: Lactic Acid 1.2 mmol/L (0.5-2.2)
[2023-03-03 05:25] LABS: Anion Gap 14 mmol/L (10-20); BUN (Urea Nitrogen) 30 mg/dL (9.8-20.1); Calc. Creatinine Clearance 66 mL/min (70-130); Calcium 9.4 mg/dL (7.8-10.44); Carbon Dioxide 24 mmol/L (23-31); Chloride 107 mmol/L (98-107); Estimated GFR 44; Glucose 119 mg/dL (80-115); Magnesium 2.4 mg/dL (1.6-2.6); Potassium 3.8 mmol/L (3.5-5.1); Sodium 141 mmol/L (136-145)
[2023-03-03 05:33] LABS: Digoxin 2.84 ng/mL (0.8-2.0)
[2023-03-03] MEDS: Levothyroxine Sodium 75 MCG TAB PO SCH (05:35)
[2023-03-03] MEDS: Lactated Ringer's 1,000 ML IV SCH ×2 (07:43→09:14)
[2023-03-03] MEDS: Mometasone 100 MCG/Formoterol 5 MCG 120 PUFF INHALER INH SCH ×2 (07:51→18:36)
[2023-03-03] MEDS: Floranex 1 GM Packet PO SCH (09:09)
[2023-03-03] MEDS: Atorvastatin Calcium 20 MG TAB PO SCH (09:13)
[2023-03-03] MEDS: Apixaban 5 MG TAB PO SCH ×2 (09:13→20:22)
[2023-03-03] MEDS: predniSONE 5 MG TAB PO SCH (09:13)
[2023-03-03] MEDS: Aspirin Chewable 81 MG TAB PO SCH (09:14)
[2023-03-03] MEDS: Famotidine 20 MG TAB PO SCH (09:14)
[2023-03-03] MEDS: Aspirin 300 MG Suppository PR SCH (09:15)
[2023-03-03] MEDS: Famotidine/PF 20 mg/2ml Vial SLOW IVP SCH (09:15)
[2023-03-03] MEDS: VANCOMYCIN 1.25 GM/250 ML BAG 1.25 GM in Premix Bag 1 BAG IVPB SCH (16:56)
[2023-03-03] MEDS: HumaLOG 300 UNITS/3 ML VIAL SC PRN (18:38)
[2023-03-03] MEDS: Insulin Glargine 30 UNITS/0.3 ML VIAL SC SCH (20:25)
[2023-03-04] MEDS: Meropenem 1 GM in Sodium Chloride 0.9% 100 ML IVPB SCH ×3 (01:31→18:35)
[2023-03-04 05:02] LABS: #Basophils 0.1 thou/uL (0.0-0.2); #Eosinphils 0.4 thou/uL (0.0-0.7); #Monocytes 0.7 thou/uL (0.11-0.59); #Neutrophils 4.4 thou/uL (1.40-6.50); %Eosinophils 5.7 % (0.0-10.0); %Lymphocytes 18.2 % (21.0-51.0); %Monocytes 10.5 % (0.0-10.0); %Neutrophils 63.5 % (42.0-75.0); Mean Corpuscular HGB CONC 30.7 g/dL (32.0-36.0); Mean Corpuscular Hemoglobin 30.9 pg (27.0-31.0); Mean Corpuscular Volume 100.6 fl (78.0-98.0); Mean Platelet Volume 11.3 fL (7.4-10.4); Platelet Count 161 10x3/uL (130-400); RBC Distribution Width 15.6 % (11.5-14.5); Red Blood Cell (RBC) Count 3.24 mill/uL (4.20-5.40)
[2023-03-04 05:20] LABS: Anion Gap 17 mmol/L (10-20); BUN (Urea Nitrogen) 24 mg/dL (9.8-20.1); Calc. Creatinine Clearance 89 mL/min (70-130); Calcium 9.8 mg/dL (7.8-10.44); Carbon Dioxide 23 mmol/L (23-31); Chloride 107 mmol/L (98-107); Estimated GFR 63; Glucose 129 mg/dL (80-115); Potassium 3.8 mmol/L (3.5-5.1); Sodium 143 mmol/L (136-145)
[2023-03-04] MEDS: Lactated Ringer's 1,000 ML IV SCH ×3 (05:53→16:03)
[2023-03-04] MEDS: Levothyroxine Sodium 75 MCG TAB PO SCH (05:53)
[2023-03-04] MEDS: Mometasone 100 MCG/Formoterol 5 MCG 120 PUFF INHALER INH SCH ×2 (06:48→18:40)
[2023-03-04] MEDS: Famotidine/PF 20 mg/2ml Vial SLOW IVP SCH ×2 (09:58→20:04)
[2023-03-04] MEDS: Aspirin Chewable 81 MG TAB PO SCH (10:03)
[2023-03-04] MEDS: Floranex 1 GM Packet PO SCH (10:03)
[2023-03-04] MEDS: Aspirin 300 MG Suppository PR SCH (10:03)
[2023-03-04] MEDS: predniSONE 5 MG TAB PO SCH (10:03)
[2023-03-04] MEDS: Apixaban 5 MG TAB PO SCH ×2 (10:03→20:00)
[2023-03-04] MEDS: Atorvastatin Calcium 20 MG TAB PO SCH (10:03)
[2023-03-04] MEDS: Famotidine 20 MG TAB PO SCH ×2 (10:03→20:00)
[2023-03-04] MEDS: VANCOMYCIN 1.25 GM/250 ML BAG 1.25 GM in Premix Bag 1 BAG IVPB SCH (16:01)
[2023-03-04 17:43] LABS: Vancomycin, Trough 28.2 ug/mL
[2023-03-04] MEDS: HumaLOG 300 UNITS/3 ML VIAL SC PRN (18:35)
[2023-03-04] MEDS ORDERED: Melatonin 3 MG TAB PO PRN (19:14)
[2023-03-04] MEDS: Insulin Glargine 30 UNITS/0.3 ML VIAL SC SCH (20:00)
[2023-03-05] MEDS: Meropenem 1 GM in Sodium Chloride 0.9% 100 ML IVPB SCH ×3 (02:01→17:39)
[2023-03-05 04:43] LABS: #Basophils 0.1 thou/uL (0.0-0.2); #Eosinphils 0.4 thou/uL (0.0-0.7); #Monocytes 1.2 thou/uL (0.11-0.59); #Neutrophils 6.7 thou/uL (1.40-6.50); %Basophils 0.6 % (0.0-1.0); %Eosinophils 3.8 % (0.0-10.0); %Lymphocytes 20.3 % (21.0-51.0); %Monocytes 11.5 % (0.0-10.0); %Neutrophils 63.1 % (42.0-75.0); Hemoglobin 10.1 g/dL (12.0-16.0); Mean Corpuscular HGB CONC 30.6 g/dL (32.0-36.0); Mean Corpuscular Volume 101.2 fl (78.0-98.0); Mean Platelet Volume 10.9 fL (7.4-10.4); Platelet Count 167 10x3/uL (130-400); RBC Distribution Width 15.8 % (11.5-14.5); Red Blood Cell (RBC) Count 3.26 mill/uL (4.20-5.40); White Blood Cell (WBC) Count 10.6 10x3/uL (4.8-10.8)
[2023-03-05 05:03] LABS: Anion Gap 16 mmol/L (10-20); BUN (Urea Nitrogen) 22 mg/dL (9.8-20.1); Calc. Creatinine Clearance 101 mL/min (70-130); Calcium 9.4 mg/dL (7.8-10.44); Carbon Dioxide 24 mmol/L (23-31); Chloride 109 mmol/L (98-107); Estimated GFR 73; Glucose 138 mg/dL (80-115); Potassium 3.9 mmol/L (3.5-5.1); Sodium 145 mmol/L (136-145)
[2023-03-05 05:05] LABS: Digoxin 1.52 ng/mL (0.8-2.0)
[2023-03-05] MEDS: Levothyroxine Sodium 75 MCG TAB PO SCH (05:44)
[2023-03-05] MEDS: Lactated Ringer's 1,000 ML IV SCH ×4 (05:58→18:44)
[2023-03-05] MEDS: HumaLOG 300 UNITS/3 ML VIAL SC PRN (06:06)
[2023-03-05] MEDS: Mometasone 100 MCG/Formoterol 5 MCG 120 PUFF INHALER INH SCH ×2 (07:28→19:02)
[2023-03-05] MEDS ORDERED: predniSONE 5 MG TAB PO SCH (08:00)
[2023-03-05] MEDS: Famotidine 20 MG TAB PO SCH ×2 (08:50→21:41)
[2023-03-05] MEDS: Floranex 1 GM Packet PO SCH (08:50)
[2023-03-05] MEDS: Atorvastatin Calcium 20 MG TAB PO SCH (08:50)
[2023-03-05] MEDS: Apixaban 5 MG TAB PO SCH ×2 (08:50→21:41)
[2023-03-05] MEDS: Aspirin Chewable 81 MG TAB PO SCH (08:50)
[2023-03-05] MEDS: Famotidine/PF 20 mg/2ml Vial SLOW IVP SCH ×2 (08:58→21:38)
[2023-03-05] MEDS: Aspirin 300 MG Suppository PR SCH (08:58)
[2023-03-05] MEDS ORDERED: Lactated Ringer's 500 ML IV SCH ×2 (12:45→18:00)
[2023-03-05] MEDS ORDERED: Hydrocortisone Sod Succ/PF 100 mg/2 ml Vial IVP SCH (13:00)
[2023-03-05] MEDS ORDERED: Hydrocortisone Sod Succ/PF 250 mg/2 ml Vial SLOW IVP SCH (16:30)
[2023-03-05] MEDS ORDERED: DOBUTamine 500 mg/250 ml 250 ML IVPB SCH ×2 (17:45→18:15)
[2023-03-05 17:54] LABS: Vancomycin, Trough 16.1 ug/mL
[2023-03-05 18:01] LABS: Actual Bicarbonate (HCO3a) 24.9 mEq/L (22-28); Base Excess (BEa) 0.7 mEq/L (-2.0 to +3.0); CO2 Tension 38.2 mmHg (35.0-45.0); Calcium, Ionized (arterial) 1.19 mmol/L (1.12-1.30); Carboxyhemoglobin (COHb) 0.2 gm% (0.0-3.0); Hematocrit-ABG 30 % (36.0-47.0); Hemoglobin (Hb) 10.1 g/dL (12.0-16.0); O2 Tension (PaO2), arterial 84.3 mmHg (> 80.0); Potassium - ABG Lab 4.07 mmol/L (3.70-5.30); Puncture Site LFA; pH, Arterial 7.432 (7.35-7.45)
[2023-03-05] MEDS: VANCOMYCIN 1.25 GM/250 ML BAG 1.25 GM in Premix Bag 1 BAG IVPB SCH (18:24)
[2023-03-05] MEDS: Hydrocortisone Sod Succ/PF 100 mg/2 ml Vial IVP SCH (18:25)
[2023-03-05 18:30] LABS: Lactic Acid 1.2 mmol/L (0.5-2.2)
[2023-03-05] MEDS: Insulin Glargine 30 UNITS/0.3 ML VIAL SC SCH (21:56)
[2023-03-06] MEDS: Hydrocortisone Sod Succ/PF 100 mg/2 ml Vial IVP SCH ×4 (00:30→19:58)
[2023-03-06] MEDS: Meropenem 1 GM in Sodium Chloride 0.9% 100 ML IVPB SCH ×3 (02:09→17:59)
[2023-03-06] MEDS: Albumin 25% 25 GM/100 ML BOT IVPB SCH ×4 (02:10→20:10)
[2023-03-06 05:40] LABS: #Monocytes 0.3 thou/uL (0.11-0.59); #Neutrophils 2.4 thou/uL (1.40-6.50); %Basophils 0.3 % (0.0-1.0); %Eosinophils 0.3 % (0.0-10.0); %Lymphocytes 18.5 % (21.0-51.0); %Monocytes 9.1 % (0.0-10.0); %Neutrophils 71.2 % (42.0-75.0); Hemoglobin 8.1 g/dL (12.0-16.0); Mean Corpuscular HGB CONC 31.2 g/dL (32.0-36.0); Mean Corpuscular Hemoglobin 31.4 pg (27.0-31.0); Mean Corpuscular Volume 100.8 fl (78.0-98.0); Platelet Count 118 10x3/uL (130-400); RBC Distribution Width 15.4 % (11.5-14.5); Red Blood Cell (RBC) Count 2.58 mill/uL (4.20-5.40); White Blood Cell (WBC) Count 3.3 10x3/uL (4.8-10.8)
[2023-03-06] MEDS: Levothyroxine Sodium 75 MCG TAB PO SCH (05:54)
[2023-03-06 06:01] LABS: Anion Gap 15 mmol/L (10-20); BUN (Urea Nitrogen) 23 mg/dL (9.8-20.1); Calc. Creatinine Clearance 100 mL/min (70-130); Calcium 8.8 mg/dL (7.8-10.44); Carbon Dioxide 23 mmol/L (23-31); Chloride 108 mmol/L (98-107); Estimated GFR 72; Glucose 188 mg/dL (80-115); Potassium 3.9 mmol/L (3.5-5.1); Sodium 142 mmol/L (136-145)
[2023-03-06] MEDS: HumaLOG 300 UNITS/3 ML VIAL SC PRN ×2 (06:01→13:47)
[2023-03-06] MEDS: Mometasone 100 MCG/Formoterol 5 MCG 120 PUFF INHALER INH SCH ×2 (07:00→18:39)
[2023-03-06] MEDS: Aspirin Chewable 81 MG TAB PO SCH (09:55)
[2023-03-06] MEDS: Famotidine/PF 20 mg/2ml Vial SLOW IVP SCH ×2 (09:55→21:14)
[2023-03-06] MEDS: Atorvastatin Calcium 20 MG TAB PO SCH (10:13)
[2023-03-06] MEDS: Aspirin 300 MG Suppository PR SCH (10:14)
[2023-03-06] MEDS: Floranex 1 GM Packet PO SCH (10:21)
[2023-03-06] MEDS ORDERED: Furosemide 20 MG/2 ML VIAL SLOW IVP SCH (16:15)
[2023-03-06] MEDS: VANCOMYCIN 1.25 GM/250 ML BAG 1.25 GM in Premix Bag 1 BAG IVPB SCH (18:30)
[2023-03-06] MEDS: Insulin Glargine 30 UNITS/0.3 ML VIAL SC SCH (21:21)
[2023-03-07] MEDS: Hydrocortisone Sod Succ/PF 100 mg/2 ml Vial IVP SCH ×2 (01:09→06:23)
[2023-03-07] MEDS: Meropenem 1 GM in Sodium Chloride 0.9% 100 ML IVPB SCH ×3 (01:12→17:44)
[2023-03-07 04:11] LABS: #Monocytes 0.4 thou/uL (0.11-0.59); %Basophils 0.2 % (0.0-1.0); %Eosinophils 0.5 % (0.0-10.0); %Lymphocytes 17.5 % (21.0-51.0); %Neutrophils 72.9 % (42.0-75.0); Hemoglobin 8.6 g/dL (12.0-16.0); Mean Corpuscular HGB CONC 31.6 g/dL (32.0-36.0); Mean Corpuscular Hemoglobin 30.6 pg (27.0-31.0); Mean Platelet Volume 11.2 fL (7.4-10.4); Platelet Count 151 10x3/uL (130-400); RBC Distribution Width 15.1 % (11.5-14.5); Red Blood Cell (RBC) Count 2.81 mill/uL (4.20-5.40); White Blood Cell (WBC) Count 5.5 10x3/uL (4.8-10.8)
[2023-03-07 04:34] LABS: Anion Gap 16 mmol/L (10-20); BUN (Urea Nitrogen) 23 mg/dL (9.8-20.1); Calc. Creatinine Clearance 95 mL/min (70-130); Calcium 8.7 mg/dL (7.8-10.44); Carbon Dioxide 22 mmol/L (23-31); Chloride 110 mmol/L (98-107); Estimated GFR 63; Glucose 218 mg/dL (80-115); Potassium 3.8 mmol/L (3.5-5.1); Sodium 144 mmol/L (136-145)
[2023-03-07 04:51] LABS: Mean Corpuscular Volume 96.8 fl (78.0-98.0)
[2023-03-07] MEDS: Levothyroxine Sodium 75 MCG TAB PO SCH (06:17)
[2023-03-07] MEDS: HumaLOG 300 UNITS/3 ML VIAL SC PRN ×2 (06:32→20:29)
[2023-03-07] MEDS: Mometasone 100 MCG/Formoterol 5 MCG 120 PUFF INHALER INH SCH ×2 (07:40→18:58)
[2023-03-07] MEDS: Aspirin 300 MG Suppository PR SCH (09:34)
[2023-03-07] MEDS: Floranex 1 GM Packet PO SCH (09:34)
[2023-03-07] MEDS: Atorvastatin Calcium 20 MG TAB PO SCH (09:34)
[2023-03-07] MEDS: Furosemide 40 MG TAB PO SCH ×2 (09:34→14:19)
[2023-03-07] MEDS: Aspirin Chewable 81 MG TAB PO SCH (09:34)
[2023-03-07] MEDS: Famotidine/PF 20 mg/2ml Vial SLOW IVP SCH ×2 (09:34→20:31)
[2023-03-07 12:04] LABS: Reference Lab Name LABCORP
[2023-03-07 12:05] LABS: Ref Lab Test Ordered I.D. & SUSCF
[2023-03-07] MEDS ORDERED: Hydrocortisone Sod Succ/PF 100 mg/2 ml Vial IVP SCH (17:00)
[2023-03-07] MEDS: Insulin Glargine 30 UNITS/0.3 ML VIAL SC SCH (20:29)
[2023-03-08] MEDS: Meropenem 1 GM in Sodium Chloride 0.9% 100 ML IVPB SCH ×3 (03:47→17:53)
[2023-03-08 04:49] LABS: #Eosinphils 0.2 thou/uL (0.0-0.7); #Monocytes 0.6 thou/uL (0.11-0.59); #Neutrophils 3.9 thou/uL (1.40-6.50); %Basophils 0.5 % (0.0-1.0); %Eosinophils 2.5 % (0.0-10.0); %Lymphocytes 25.3 % (21.0-51.0); %Monocytes 9.8 % (0.0-10.0); %Neutrophils 60.5 % (42.0-75.0); Hemoglobin 8.8 g/dL (12.0-16.0); Mean Corpuscular HGB CONC 30.8 g/dL (32.0-36.0); Mean Corpuscular Hemoglobin 30.8 pg (27.0-31.0); Mean Platelet Volume 10.9 fL (7.4-10.4); Platelet Count 172 10x3/uL (130-400); RBC Distribution Width 15.6 % (11.5-14.5); Red Blood Cell (RBC) Count 2.86 mill/uL (4.20-5.40); White Blood Cell (WBC) Count 6.5 10x3/uL (4.8-10.8)
[2023-03-08 05:19] LABS: Anion Gap 13 mmol/L (10-20); BUN (Urea Nitrogen) 23 mg/dL (9.8-20.1); Calc. Creatinine Clearance 90 mL/min (70-130); Calcium 8.7 mg/dL (7.8-10.44); Carbon Dioxide 26 mmol/L (23-31); Chloride 105 mmol/L (98-107); Estimated GFR 59; Glucose 173 mg/dL (80-115); Potassium 2.8 mmol/L (3.5-5.1); Sodium 141 mmol/L (136-145)
[2023-03-08] MEDS: Levothyroxine Sodium 75 MCG TAB PO SCH (06:02)
[2023-03-08] MEDS: Potassium Chloride 20 MEQ in Premix Bag 1 BAG IVPB SCH ×4 (06:11→13:43)
[2023-03-08] MEDS: Mometasone 100 MCG/Formoterol 5 MCG 120 PUFF INHALER INH SCH ×2 (07:11→19:17)
[2023-03-08 07:13] LABS: Magnesium 1.7 mg/dL (1.6-2.6)
[2023-03-08] MEDS ORDERED: Magnesium 2 GM/50 ML(in water) 2 GM in Premix Bag 1 BAG IVPB SCH (08:00)
[2023-03-08] MEDS ORDERED: Hydrocortisone Sod Succ/PF 100 mg/2 ml Vial IVP SCH (09:00)
[2023-03-08] MEDS: Famotidine/PF 20 mg/2ml Vial SLOW IVP SCH ×2 (09:16→20:32)
[2023-03-08] MEDS: Furosemide 40 MG TAB PO SCH ×2 (09:17→13:44)
[2023-03-08] MEDS: Atorvastatin Calcium 20 MG TAB PO SCH (09:17)
[2023-03-08] MEDS: Floranex 1 GM Packet PO SCH (09:17)
[2023-03-08] MEDS: Aspirin Chewable 81 MG TAB PO SCH (09:17)
[2023-03-08] MEDS: Aspirin 300 MG Suppository PR SCH (09:17)
[2023-03-08] MEDS: VANCOMYCIN 1.25 GM/250 ML BAG 1.25 GM in Premix Bag 1 BAG IVPB SCH (13:42)
[2023-03-08] MEDS: HumaLOG 300 UNITS/3 ML VIAL SC PRN (17:53)
[2023-03-08] MEDS: Potassium Chloride 10 MEQ TAB PO SCH (17:53)
[2023-03-08] MEDS: Insulin Glargine 30 UNITS/0.3 ML VIAL SC SCH (21:13)
[2023-03-09] MEDS: Meropenem 1 GM in Sodium Chloride 0.9% 100 ML IVPB SCH ×3 (02:03→18:25)
[2023-03-09 05:03] LABS: #Basophils 0.1 thou/uL (0.0-0.2); #Eosinphils 0.5 thou/uL (0.0-0.7); #Monocytes 0.7 thou/uL (0.11-0.59); #Neutrophils 3.8 thou/uL (1.40-6.50); %Basophils 1.2 % (0.0-1.0); %Eosinophils 7.4 % (0.0-10.0); %Lymphocytes 25.9 % (21.0-51.0); %Monocytes 9.5 % (0.0-10.0); %Neutrophils 54.8 % (42.0-75.0); Hemoglobin 8.8 g/dL (12.0-16.0); Mean Corpuscular HGB CONC 31.2 g/dL (32.0-36.0); Mean Corpuscular Hemoglobin 31.1 pg (27.0-31.0); Mean Corpuscular Volume 99.6 fl (78.0-98.0); Platelet Count 169 10x3/uL (130-400); RBC Distribution Width 15.5 % (11.5-14.5); Red Blood Cell (RBC) Count 2.83 mill/uL (4.20-5.40); White Blood Cell (WBC) Count 6.9 10x3/uL (4.8-10.8)
[2023-03-09] MEDS: Levothyroxine Sodium 100 MCG TAB PO SCH (05:17)
[2023-03-09 05:28] LABS: Anion Gap 12 mmol/L (10-20); BUN (Urea Nitrogen) 26 mg/dL (9.8-20.1); Calc. Creatinine Clearance 96 mL/min (70-130); Carbon Dioxide 28 mmol/L (23-31); Chloride 102 mmol/L (98-107); Estimated GFR 64; Glucose 196 mg/dL (80-115); Potassium 3.7 mmol/L (3.5-5.1); Sodium 138 mmol/L (136-145)
[2023-03-09] MEDS: Mometasone 100 MCG/Formoterol 5 MCG 120 PUFF INHALER INH SCH ×2 (07:22→19:53)
[2023-03-09] MEDS ORDERED: Hydrocortisone Sod Succ/PF 100 mg/2 ml Vial IVP SCH (09:00)
[2023-03-09] MEDS: Potassium Chloride 10 MEQ TAB PO SCH ×2 (10:11→17:12)
[2023-03-09] MEDS: Atorvastatin Calcium 20 MG TAB PO SCH (10:11)
[2023-03-09] MEDS: Furosemide 80 MG TAB PO SCH ×2 (10:11→17:12)
[2023-03-09] MEDS: Floranex 1 GM Packet PO SCH (10:11)
[2023-03-09] MEDS: Famotidine/PF 20 mg/2ml Vial SLOW IVP SCH ×2 (10:11→19:46)
[2023-03-09] MEDS: Aspirin Chewable 81 MG TAB PO SCH (10:11)
[2023-03-09] MEDS: Apixaban 5 MG TAB PO SCH ×2 (10:11→19:46)
[2023-03-09] MEDS: VANCOMYCIN 1.25 GM/250 ML BAG 1.25 GM in Premix Bag 1 BAG IVPB SCH (13:18)
[2023-03-09 13:24] VITALS: BMI 35.3
[2023-03-09] MEDS: Insulin Glargine 30 UNITS/0.3 ML VIAL SC SCH (20:19)
[2023-03-10] MEDS: Meropenem 1 GM in Sodium Chloride 0.9% 100 ML IVPB SCH ×3 (01:51→17:52)
[2023-03-10] MEDS: Levothyroxine Sodium 100 MCG TAB PO SCH (05:17)
[2023-03-10] MEDS: Mometasone 100 MCG/Formoterol 5 MCG 120 PUFF INHALER INH SCH ×2 (07:05→17:48)
[2023-03-10] MEDS: Floranex 1 GM Packet PO SCH (09:23)
[2023-03-10] MEDS: Furosemide 80 MG TAB PO SCH ×2 (09:23→14:54)
[2023-03-10] MEDS: Aspirin Chewable 81 MG TAB PO SCH (09:23)
[2023-03-10] MEDS: Potassium Chloride 10 MEQ TAB PO SCH ×2 (09:23→17:41)
[2023-03-10] MEDS: Apixaban 5 MG TAB PO SCH ×2 (09:23→20:56)
[2023-03-10] MEDS: Atorvastatin Calcium 20 MG TAB PO SCH (09:23)
[2023-03-10] MEDS: Famotidine/PF 20 mg/2ml Vial SLOW IVP SCH ×2 (09:23→20:56)
[2023-03-10] MEDS: predniSONE 5 MG TAB PO SCH (09:24)
[2023-03-10 11:20] LABS: Vancomycin, Trough 17.9 ug/mL
[2023-03-10] MEDS: VANCOMYCIN 1.25 GM/250 ML BAG 1.25 GM in Premix Bag 1 BAG IVPB SCH (12:50)
[2023-03-10] MEDS: HumaLOG 300 UNITS/3 ML VIAL SC PRN (17:41)
[2023-03-10] MEDS: Insulin Glargine 30 UNITS/0.3 ML VIAL SC SCH (20:57)
[2023-03-11] MEDS: Levothyroxine Sodium 100 MCG TAB PO SCH (06:17)
[2023-03-11] MEDS: Mometasone 100 MCG/Formoterol 5 MCG 120 PUFF INHALER INH SCH ×2 (07:00→19:33)
[2023-03-11] MEDS: Atorvastatin Calcium 20 MG TAB PO SCH (08:58)
[2023-03-11] MEDS: Apixaban 5 MG TAB PO SCH ×2 (08:58→20:52)
[2023-03-11] MEDS: Floranex 1 GM Packet PO SCH (08:58)
[2023-03-11] MEDS: Potassium Chloride 10 MEQ TAB PO SCH ×2 (08:58→17:21)
[2023-03-11] MEDS: Aspirin Chewable 81 MG TAB PO SCH (08:58)
[2023-03-11] MEDS: Furosemide 80 MG TAB PO SCH ×2 (08:58→14:22)
[2023-03-11] MEDS: predniSONE 5 MG TAB PO SCH (08:58)
[2023-03-11] MEDS: Famotidine/PF 20 mg/2ml Vial SLOW IVP SCH ×2 (08:59→20:52)
[2023-03-11] MEDS: VANCOMYCIN 1.25 GM/250 ML BAG 1.25 GM in Premix Bag 1 BAG IVPB SCH (12:17)
[2023-03-11] MEDS: HumaLOG 300 UNITS/3 ML VIAL SC PRN (17:21)
[2023-03-11] MEDS: Insulin Glargine 30 UNITS/0.3 ML VIAL SC SCH (20:52)
[2023-03-12] MEDS: Levothyroxine Sodium 100 MCG TAB PO SCH (06:17)
[2023-03-12] MEDS: Mometasone 100 MCG/Formoterol 5 MCG 120 PUFF INHALER INH SCH ×2 (08:32→17:55)
[2023-03-12] MEDS: Potassium Chloride 10 MEQ TAB PO SCH ×2 (09:09→18:04)
[2023-03-12] MEDS: Floranex 1 GM Packet PO SCH (09:13)
[2023-03-12] MEDS: Aspirin Chewable 81 MG TAB PO SCH (09:15)
[2023-03-12] MEDS: Apixaban 5 MG TAB PO SCH ×2 (09:15→21:10)
[2023-03-12] MEDS: predniSONE 5 MG TAB PO SCH (09:16)
[2023-03-12] MEDS: Furosemide 80 MG TAB PO SCH ×2 (09:17→14:27)
[2023-03-12] MEDS: Atorvastatin Calcium 20 MG TAB PO SCH (09:17)
[2023-03-12] MEDS: Famotidine/PF 20 mg/2ml Vial SLOW IVP SCH ×2 (09:25→21:10)
[2023-03-12 11:48] LABS: Vancomycin, Trough 21.4 ug/mL
[2023-03-12] MEDS: VANCOMYCIN 1.25 GM/250 ML BAG 1.25 GM in Premix Bag 1 BAG IVPB SCH (13:02)
[2023-03-12] MEDS: HumaLOG 300 UNITS/3 ML VIAL SC PRN (18:04)
[2023-03-12] MEDS: Vancomycin 1 GM in Premix Bag 1 BAG IVPB SCH (21:09)
[2023-03-12] MEDS: Insulin Glargine 30 UNITS/0.3 ML VIAL SC SCH (21:10)
[2023-03-13] MEDS: Levothyroxine Sodium 100 MCG TAB PO SCH (05:14)
[2023-03-13] MEDS: Mometasone 100 MCG/Formoterol 5 MCG 120 PUFF INHALER INH SCH ×2 (07:56→19:13)
[2023-03-13 08:54] LABS: #Basophils 0.1 thou/uL (0.0-0.2); #Eosinphils 0.3 thou/uL (0.0-0.7); #Monocytes 0.7 thou/uL (0.11-0.59); #Neutrophils 8.1 thou/uL (1.40-6.50); %Basophils 0.5 % (0.0-1.0); %Eosinophils 2.8 % (0.0-10.0); %Lymphocytes 19.4 % (21.0-51.0); %Monocytes 6.3 % (0.0-10.0); %Neutrophils 70.5 % (42.0-75.0); Hemoglobin 8.8 g/dL (12.0-16.0); Mean Corpuscular HGB CONC 31.5 g/dL (32.0-36.0); Mean Corpuscular Hemoglobin 31.3 pg (27.0-31.0); Mean Corpuscular Volume 99.3 fl (78.0-98.0); Mean Platelet Volume 10.5 fL (7.4-10.4); Platelet Count 177 10x3/uL (130-400); RBC Distribution Width 15.9 % (11.5-14.5); Red Blood Cell (RBC) Count 2.81 mill/uL (4.20-5.40); White Blood Cell (WBC) Count 11.5 10x3/uL (4.8-10.8)
[2023-03-13 09:38] LABS: Anion Gap 15 mmol/L (10-20); BUN (Urea Nitrogen) 24 mg/dL (9.8-20.1); Calc. Creatinine Clearance 77 mL/min (70-130); Calcium 9.5 mg/dL (7.8-10.44); Carbon Dioxide 33 mmol/L (23-31); Chloride 93 mmol/L (98-107); Estimated GFR 49; Glucose 146 mg/dL (80-115); Potassium 3.5 mmol/L (3.5-5.1); Sodium 137 mmol/L (136-145)
[2023-03-13] MEDS ORDERED: Potassium Chloride 20 MEQ TAB PO SCH (11:00)
[2023-03-13] MEDS ORDERED: Sodium Chloride 0.9% 1,000 ML IV SCH (11:00)
[2023-03-13] MEDS: Potassium Chloride 10 MEQ TAB PO SCH ×2 (12:17→17:31)
[2023-03-13] MEDS: predniSONE 5 MG TAB PO SCH (12:17)
[2023-03-13] MEDS: Floranex 1 GM Packet PO SCH (12:18)
[2023-03-13] MEDS: Furosemide 80 MG TAB PO SCH (12:18)
[2023-03-13] MEDS: Atorvastatin Calcium 20 MG TAB PO SCH (12:18)
[2023-03-13] MEDS: Famotidine/PF 20 mg/2ml Vial SLOW IVP SCH ×2 (13:03→21:19)
[2023-03-13 15:21] LABS: Potassium 3.6 mmol/L (3.5-5.1)
[2023-03-13] MEDS ORDERED: Meropenem 1 GM in Sodium Chloride 0.9% 100 ML IVPB SCH ×2 (15:41→16:00)
[2023-03-13 17:13] LABS: Anion Gap 18 mmol/L (10-20); BUN (Urea Nitrogen) 25 mg/dL (9.8-20.1); Calc. Creatinine Clearance 77 mL/min (70-130); Carbon Dioxide 28 mmol/L (23-31); Chloride 96 mmol/L (98-107); Estimated GFR 49; Glucose 140 mg/dL (80-115); Sodium 138 mmol/L (136-145)
[2023-03-13] MEDS: Apixaban 5 MG TAB PO SCH (17:30)
[2023-03-13] MEDS: Aspirin Chewable 81 MG TAB PO SCH (17:30)
[2023-03-13] MEDS ORDERED: Aspirin Chewable 81 MG TAB PER TUBE SCH (17:50)
[2023-03-13] MEDS ORDERED: Levothyroxine Sodium 100 MCG TAB PER TUBE SCH (17:51)
[2023-03-13] MEDS ORDERED: predniSONE 5 MG TAB PER TUBE SCH (17:53)
[2023-03-13 19:07] LABS: Bacteria/HPF 1+ HPF (None Seen); Bilirubin Negative (Negative); Blood, Urine Negative (Negative); CAUTI Indications for Culture Alt mental st,lethar; Clarity Clear (Clear); Glucose, Urine (Dipstick) Normal (Negative); Ketone, Urine Negative (Negative); Leukocyte Negative Leu/uL (Negative); Nitrite Negative (Negative); Protein, Urine (Dipstick) 20 mg/dL (Neg-Trace); RBC/HPF 0-3 HPF (0-3); Renal Epithelial 0-3 HPF (None Seen); Specific Gravity, Urine 1.015 (1.002-1.036); Squamous Epithelial 0-3 HPF (0-3); Urine Culture Reflex No No; WBC/HPF 0-3 HPF (0-3)
[2023-03-13] MEDS: Vancomycin 1 GM in Premix Bag 1 BAG IVPB SCH (21:20)
[2023-03-13] MEDS: Apixaban 5 MG TAB PER TUBE SCH (21:20)
[2023-03-14] MEDS: Meropenem 1 GM in Sodium Chloride 0.9% 100 ML IVPB SCH ×2 (01:40→10:23)
[2023-03-14 05:32] LABS: #Basophils 0.1 thou/uL (0.0-0.2); #Eosinphils 0.4 thou/uL (0.0-0.7); #Monocytes 0.7 thou/uL (0.11-0.59); #Neutrophils 5.5 thou/uL (1.40-6.50); %Eosinophils 4.2 % (0.0-10.0); %Lymphocytes 19.2 % (21.0-51.0); %Monocytes 8.3 % (0.0-10.0); %Neutrophils 66.9 % (42.0-75.0); Hemoglobin 8.7 g/dL (12.0-16.0); Mean Corpuscular HGB CONC 30.9 g/dL (32.0-36.0); Mean Corpuscular Volume 100.4 fl (78.0-98.0); Mean Platelet Volume 11.2 fL (7.4-10.4); Platelet Count 157 10x3/uL (130-400); RBC Distribution Width 15.6 % (11.5-14.5); Red Blood Cell (RBC) Count 2.81 mill/uL (4.20-5.40); White Blood Cell (WBC) Count 8.2 10x3/uL (4.8-10.8)
[2023-03-14 05:54] LABS: Anion Gap 15 mmol/L (10-20); BUN (Urea Nitrogen) 26 mg/dL (9.8-20.1); Calc. Creatinine Clearance 82 mL/min (70-130); Calcium 9.2 mg/dL (7.8-10.44); Carbon Dioxide 33 mmol/L (23-31); Chloride 98 mmol/L (98-107); Estimated GFR 53; Glucose 129 mg/dL (80-115); Potassium 3.6 mmol/L (3.5-5.1); Sodium 142 mmol/L (136-145)
[2023-03-14] MEDS: Levothyroxine Sodium 100 MCG TAB PER TUBE SCH (06:28)
[2023-03-14] MEDS: Famotidine/PF 20 mg/2ml Vial SLOW IVP SCH ×2 (10:24→21:22)
[2023-03-14] MEDS: Mometasone 100 MCG/Formoterol 5 MCG 120 PUFF INHALER INH SCH ×2 (12:20→19:07)
[2023-03-14] MEDS: predniSONE 5 MG TAB PER TUBE SCH (12:22)
[2023-03-14] MEDS: Atorvastatin Calcium 20 MG TAB PER TUBE SCH (12:22)
[2023-03-14] MEDS: Potassium Chloride 10 MEQ TAB PO SCH ×2 (12:22→18:25)
[2023-03-14] MEDS: Floranex 1 GM Packet PO SCH (12:22)
[2023-03-14] MEDS: Aspirin Chewable 81 MG TAB PER TUBE SCH (12:22)
[2023-03-14] MEDS: Apixaban 5 MG TAB PER TUBE SCH ×2 (12:22→21:22)
[2023-03-14] MEDS: HumaLOG 300 UNITS/3 ML VIAL SC PRN ×2 (18:55→21:25)
[2023-03-14 19:34] LABS: Vancomycin, Trough 19.7 ug/mL
[2023-03-14] MEDS: Vancomycin 1 GM in Premix Bag 1 BAG IVPB SCH (21:22)
[2023-03-14] MEDS: Insulin Glargine 30 UNITS/0.3 ML VIAL SC SCH (21:24)
[2023-03-15 06:04] LABS: #Basophils 0.1 thou/uL (0.0-0.2); #Eosinphils 0.3 thou/uL (0.0-0.7); #Monocytes 0.8 thou/uL (0.11-0.59); #Neutrophils 4.4 thou/uL (1.40-6.50); %Basophils 0.9 % (0.0-1.0); %Eosinophils 4.8 % (0.0-10.0); %Lymphocytes 21.3 % (21.0-51.0); %Monocytes 10.7 % (0.0-10.0); %Neutrophils 61.7 % (42.0-75.0); Mean Corpuscular HGB CONC 31.5 g/dL (32.0-36.0); Mean Corpuscular Hemoglobin 31.1 pg (27.0-31.0); Mean Platelet Volume 11.9 fL (7.4-10.4); Platelet Count 171 10x3/uL (130-400); RBC Distribution Width 15.2 % (11.5-14.5); Red Blood Cell (RBC) Count 2.89 mill/uL (4.20-5.40)
[2023-03-15] MEDS: HumaLOG 300 UNITS/3 ML VIAL SC PRN ×2 (06:20→16:55)
[2023-03-15] MEDS: Levothyroxine Sodium 100 MCG TAB PER TUBE SCH (06:20)
[2023-03-15 06:25] LABS: Anion Gap 13 mmol/L (10-20); BUN (Urea Nitrogen) 24 mg/dL (9.8-20.1); Calc. Creatinine Clearance 88 mL/min (70-130); Calcium 9.2 mg/dL (7.8-10.44); Carbon Dioxide 33 mmol/L (23-31); Chloride 98 mmol/L (98-107); Estimated GFR 58; Glucose 181 mg/dL (80-115); Magnesium 1.7 mg/dL (1.6-2.6); Potassium 3.5 mmol/L (3.5-5.1); Sodium 140 mmol/L (136-145)
[2023-03-15] MEDS: Mometasone 100 MCG/Formoterol 5 MCG 120 PUFF INHALER INH SCH ×2 (06:30→18:43)
[2023-03-15] MEDS ORDERED: Magnesium 2 GM/50 ML(in water) 2 GM in Premix Bag 1 BAG IVPB SCH (08:00)
[2023-03-15] MEDS ORDERED: Potassium Chloride 20 MEQ TAB PO SCH (08:00)
[2023-03-15] MEDS: Floranex 1 GM Packet PO SCH (10:21)
[2023-03-15] MEDS: Potassium Chloride 10 MEQ TAB PO SCH ×2 (10:21→16:56)
[2023-03-15] MEDS: Famotidine/PF 20 mg/2ml Vial SLOW IVP SCH ×2 (10:21→20:44)
[2023-03-15] MEDS: predniSONE 5 MG TAB PER TUBE SCH (10:21)
[2023-03-15] MEDS: Apixaban 5 MG TAB PER TUBE SCH (10:22)
[2023-03-15] MEDS: Aspirin Chewable 81 MG TAB PER TUBE SCH (10:22)
[2023-03-15] MEDS: Atorvastatin Calcium 20 MG TAB PER TUBE SCH (10:22)
[2023-03-15 11:36] LABS: INR-International Normal Ratio 1.5; Prothrombin Time 18.7 sec (12.0-14.7)
[2023-03-15 11:37] LABS: PTT 47.9 sec (22.9-36.1)
[2023-03-15] MEDS: Furosemide 80 MG TAB PO SCH (15:24)
[2023-03-15] MEDS ORDERED: Warfarin Sodium 5 MG TAB PO SCH (17:00)
[2023-03-15] MEDS ORDERED: Digoxin 0.5 MG/2 ML AMP SLOW IVP SCH (17:30)
[2023-03-15] MEDS: Vancomycin 1 GM in Premix Bag 1 BAG IVPB SCH (20:46)
[2023-03-15] MEDS: Insulin Glargine 30 UNITS/0.3 ML VIAL SC SCH (20:46)
[2023-03-15] MEDS ORDERED: Warfarin Sodium 2.5 MG TAB PO SCH (21:00)
[2023-03-16] MEDS ORDERED: Furosemide 40 MG/4 ML VIAL ONE (00:59)
[2023-03-16] MEDS ORDERED: Furosemide 40 MG/4 ML VIAL SLOW IVP SCH (01:00)
[2023-03-16] MEDS ORDERED: Metoprolol Tartrate 5 MG/5 ML VIAL IVP SCH (01:05)
[2023-03-16] MEDS ORDERED: Metoprolol Tartrate 5 MG/5 ML VIAL ONE (01:06)
[2023-03-16] MEDS ORDERED: Piperacillin/Tazobactam 3.375 GM in Sodium Chloride 0.9% 100 ML IVPB SCH (02:00)
[2023-03-16] MEDS ORDERED: Piperacillin/Tazobactam 3.375 GM VIAL ONE (02:56)
[2023-03-16 03:53] LABS: #Basophils 0.1 thou/uL (0.0-0.2); #Eosinphils 0.2 thou/uL (0.0-0.7); #Monocytes 0.8 thou/uL (0.11-0.59); #Neutrophils 10.9 thou/uL (1.40-6.50); %Basophils 0.8 % (0.0-1.0); %Eosinophils 1.5 % (0.0-10.0); %Lymphocytes 9.5 % (21.0-51.0); %Monocytes 5.8 % (0.0-10.0); Hemoglobin 9.7 g/dL (12.0-16.0); Mean Corpuscular HGB CONC 30.4 g/dL (32.0-36.0); Mean Corpuscular Hemoglobin 31.1 pg (27.0-31.0); Platelet Count 231 10x3/uL (130-400); RBC Distribution Width 15.3 % (11.5-14.5); Red Blood Cell (RBC) Count 3.12 mill/uL (4.20-5.40); White Blood Cell (WBC) Count 13.2 10x3/uL (4.8-10.8)
[2023-03-16 03:54] LABS: Magnesium 2.1 mg/dL (1.6-2.6)
[2023-03-16 04:37] LABS: Mean Corpuscular Volume 102.2 fl (78.0-98.0)
[2023-03-16] MEDS: Levothyroxine Sodium 100 MCG TAB PER TUBE SCH (05:24)
[2023-03-16 05:48] LABS: INR-International Normal Ratio 1.4; Prothrombin Time 17.7 sec (12.0-14.7)
[2023-03-16 06:00] LABS: Anion Gap 14 mmol/L (10-20); BUN (Urea Nitrogen) 18 mg/dL (9.8-20.1); Calc. Creatinine Clearance 88 mL/min (70-130); Calcium 9.1 mg/dL (7.8-10.44); Carbon Dioxide 29 mmol/L (23-31); Chloride 101 mmol/L (98-107); Estimated GFR 58; Glucose 187 mg/dL (80-115); Potassium 3.8 mmol/L (3.5-5.1); Sodium 140 mmol/L (136-145)
[2023-03-16 06:51] LABS: #Basophils 0.1 thou/uL (0.0-0.2); #Eosinphils 0.1 thou/uL (0.0-0.7); #Monocytes 0.6 thou/uL (0.11-0.59); #Neutrophils 6.7 thou/uL (1.40-6.50); %Basophils 0.7 % (0.0-1.0); %Eosinophils 1.4 % (0.0-10.0); %Lymphocytes 14.9 % (21.0-51.0); %Monocytes 6.4 % (0.0-10.0); %Neutrophils 76.4 % (42.0-75.0); Hemoglobin 8.3 g/dL (12.0-16.0); Mean Corpuscular HGB CONC 31.6 g/dL (32.0-36.0); Mean Corpuscular Hemoglobin 31.4 pg (27.0-31.0); Mean Corpuscular Volume 99.6 fl (78.0-98.0); Mean Platelet Volume 10.8 fL (7.4-10.4); Platelet Count 186 10x3/uL (130-400); RBC Distribution Width 15.3 % (11.5-14.5); Red Blood Cell (RBC) Count 2.64 mill/uL (4.20-5.40); White Blood Cell (WBC) Count 8.7 10x3/uL (4.8-10.8)
[2023-03-16 07:07] LABS: Lactic Acid 1.5 mmol/L (0.5-2.2)
[2023-03-16 07:10] LABS: Anion Gap 14 mmol/L (10-20); BUN (Urea Nitrogen) 18 mg/dL (9.8-20.1); Calc. Creatinine Clearance 88 mL/min (70-130); Calcium 8.8 mg/dL (7.8-10.44); Carbon Dioxide 31 mmol/L (23-31); Chloride 99 mmol/L (98-107); Estimated GFR 58; Glucose 170 mg/dL (80-115); Potassium 3.8 mmol/L (3.5-5.1); Sodium 140 mmol/L (136-145)
[2023-03-16] MEDS: Mometasone 100 MCG/Formoterol 5 MCG 120 PUFF INHALER INH SCH ×2 (07:40→19:05)
[2023-03-16] MEDS: Famotidine/PF 20 mg/2ml Vial SLOW IVP SCH ×2 (08:12→20:28)
[2023-03-16] MEDS: Piperacillin/Tazobactam 3.375 GM in Sodium Chloride 0.9% 100 ML IVPB SCH ×3 (08:12→23:19)
[2023-03-16 08:18] LABS: Actual Bicarbonate (HCO3a) 28.5 mEq/L (22-28); Base Excess (BEa) 4.9 mEq/L (-2.0 to +3.0); CO2 Tension 38.4 mmHg (35.0-45.0); Calcium, Ionized (arterial) 1.09 mmol/L (1.12-1.30); Carboxyhemoglobin (COHb) 0.7 gm% (0.0-3.0); Hematocrit-ABG 28 % (36.0-47.0); Hemoglobin (Hb) 9.4 g/dL (12.0-16.0); O2 Tension (PaO2), arterial 86.4 mmHg (> 80.0); pH, Arterial 7.489 (7.35-7.45)
[2023-03-16 08:21] LABS: Puncture Site RRA
[2023-03-16] MEDS ORDERED: Digoxin 0.5 MG/2 ML AMP SLOW IVP SCH (09:00)
[2023-03-16 09:02] LABS: INR-International Normal Ratio 1.4
[2023-03-16] MEDS: Aspirin Chewable 81 MG TAB PER TUBE SCH (09:26)
[2023-03-16] MEDS: Aspirin 300 MG Suppository PR SCH (09:30)
[2023-03-16] MEDS: Furosemide 80 MG TAB PO SCH ×2 (10:14→13:25)
[2023-03-16] MEDS: Potassium Chloride 10 MEQ TAB PO SCH ×2 (10:14→16:49)
[2023-03-16] MEDS ORDERED: Aripiprazole 15 MG TAB PO SCH (12:04)
[2023-03-16] MEDS: Floranex 1 GM Packet PO SCH (13:25)
[2023-03-16] MEDS: Atorvastatin Calcium 20 MG TAB PER TUBE SCH (13:25)
[2023-03-16] MEDS: predniSONE 5 MG TAB PER TUBE SCH (13:25)
[2023-03-16] MEDS ORDERED: Aripiprazole 10 MG TAB PO SCH (14:00)
[2023-03-16] MEDS ORDERED: Sodium Chloride 0.9% 500 ML IV SCH (16:15)
[2023-03-16] MEDS ORDERED: Warfarin Sodium 2.5 MG TAB PO SCH (17:00)
[2023-03-16] MEDS: Vancomycin 1 GM in Premix Bag 1 BAG IVPB SCH (20:28)
[2023-03-16] MEDS: Insulin Glargine 30 UNITS/0.3 ML VIAL SC SCH (20:28)
[2023-03-16] MEDS ORDERED: Mirtazapine 15 MG TAB PO SCH (21:00)
[2023-03-17 05:13] LABS: #Basophils 0.1 thou/uL (0.0-0.2); #Eosinphils 0.4 thou/uL (0.0-0.7); #Monocytes 0.5 thou/uL (0.11-0.59); #Neutrophils 2.3 thou/uL (1.40-6.50); %Basophils 1.5 % (0.0-1.0); %Eosinophils 8.1 % (0.0-10.0); %Lymphocytes 30.3 % (21.0-51.0); %Monocytes 10.3 % (0.0-10.0); %Neutrophils 49.4 % (42.0-75.0); Mean Corpuscular HGB CONC 29.9 g/dL (32.0-36.0); Mean Corpuscular Hemoglobin 30.5 pg (27.0-31.0); Mean Corpuscular Volume 102.3 fl (78.0-98.0); Mean Platelet Volume 11.1 fL (7.4-10.4); Platelet Count 172 10x3/uL (130-400); RBC Distribution Width 15.1 % (11.5-14.5); Red Blood Cell (RBC) Count 2.62 mill/uL (4.20-5.40); White Blood Cell (WBC) Count 4.7 10x3/uL (4.8-10.8)
[2023-03-17] MEDS: Levothyroxine Sodium 100 MCG TAB PER TUBE SCH (05:16)
[2023-03-17 05:59] LABS: Albumin 3.3 g/dL (3.4-4.8); Anion Gap 14 mmol/L (10-20); BUN (Urea Nitrogen) 18 mg/dL (9.8-20.1); Bilirubin, Total 0.9 mg/dL (0.2-1.2); Calc. Creatinine Clearance 79 mL/min (70-130); Calcium 8.8 mg/dL (7.8-10.44); Carbon Dioxide 29 mmol/L (23-31); Chloride 103 mmol/L (98-107); Estimated GFR 50; Glucose 170 mg/dL (80-115); Potassium 3.6 mmol/L (3.5-5.1); Protein, Total 5.7 g/dL (5.8-8.1); Sodium 142 mmol/L (136-145)
[2023-03-17 06:00] LABS: ALT (SGPT) 26 U/L (8-55); AST (SGOT) 12 U/L (5-34); Alkaline Phosphatase 60 U/L (40-110); Globulin 2.4 g/dL (2.4-3.5); Magnesium 1.9 mg/dL (1.6-2.6)
[2023-03-17] MEDS: HumaLOG 300 UNITS/3 ML VIAL SC PRN (06:08)
[2023-03-17] MEDS: Mometasone 100 MCG/Formoterol 5 MCG 120 PUFF INHALER INH SCH ×2 (06:42→19:17)
[2023-03-17] MEDS ORDERED: Magnesium 2 GM/50 ML(in water) 2 GM in Premix Bag 1 BAG IVPB SCH (08:00)
[2023-03-17] MEDS ORDERED: Aripiprazole 10 MG TAB PO SCH ×2 (09:00)
[2023-03-17] MEDS: Piperacillin/Tazobactam 3.375 GM in Sodium Chloride 0.9% 100 ML IVPB SCH ×2 (09:51→17:03)
[2023-03-17] MEDS: Potassium Chloride 10 MEQ TAB PO SCH ×2 (09:53→17:04)
[2023-03-17] MEDS: Furosemide 80 MG TAB PO SCH ×2 (09:53→13:26)
[2023-03-17] MEDS: Digoxin 0.125 MG TAB PO SCH (09:53)
[2023-03-17] MEDS: Floranex 1 GM Packet PO SCH (09:53)
[2023-03-17] MEDS: predniSONE 5 MG TAB PER TUBE SCH (09:53)
[2023-03-17] MEDS: Famotidine/PF 20 mg/2ml Vial SLOW IVP SCH ×2 (09:53→20:50)
[2023-03-17] MEDS: Atorvastatin Calcium 20 MG TAB PER TUBE SCH (09:53)
[2023-03-17] MEDS: Aspirin 300 MG Suppository PR SCH ×2 (09:53→10:30)
[2023-03-17] MEDS ORDERED: Aspirin Chewable 81 MG TAB PO SCH (10:30)
[2023-03-17 11:50] LABS: INR-International Normal Ratio 1.1; Prothrombin Time 14.7 sec (12.0-14.7)
[2023-03-17] MEDS ORDERED: Warfarin Sodium 5 MG TAB PO SCH (17:00)
[2023-03-17] MEDS: Insulin Glargine 30 UNITS/0.3 ML VIAL SC SCH (20:49)
[2023-03-18] MEDS: Piperacillin/Tazobactam 3.375 GM in Sodium Chloride 0.9% 100 ML IVPB SCH ×3 (01:18→16:06)
[2023-03-18 04:42] LABS: #Basophils 0.1 thou/uL (0.0-0.2); #Eosinphils 0.4 thou/uL (0.0-0.7); #Monocytes 0.6 thou/uL (0.11-0.59); #Neutrophils 2.3 thou/uL (1.40-6.50); %Basophils 1.5 % (0.0-1.0); %Eosinophils 8.2 % (0.0-10.0); %Lymphocytes 28.9 % (21.0-51.0); %Neutrophils 47.8 % (42.0-75.0); Hemoglobin 8.7 g/dL (12.0-16.0); Mean Corpuscular Hemoglobin 30.5 pg (27.0-31.0); Mean Platelet Volume 10.9 fL (7.4-10.4); Platelet Count 195 10x3/uL (130-400); RBC Distribution Width 14.7 % (11.5-14.5); Red Blood Cell (RBC) Count 2.85 mill/uL (4.20-5.40); White Blood Cell (WBC) Count 4.8 10x3/uL (4.8-10.8)
[2023-03-18 04:55] LABS: Mean Corpuscular Volume 98.6 fl (78.0-98.0)
[2023-03-18 05:06] LABS: Anion Gap 13 mmol/L (10-20); BUN (Urea Nitrogen) 23 mg/dL (9.8-20.1); Calc. Creatinine Clearance 84 mL/min (70-130); Calcium 9.6 mg/dL (7.8-10.44); Carbon Dioxide 32 mmol/L (23-31); Cardiac Risk 5.6 (Less than 4.5); Chloride 101 mmol/L (98-107); Cholesterol 124 mg/dl (< 200 Desired); Estimated GFR 54; Glucose 160 mg/dL (80-115); HDL Cholesterol 22 mg/dL (>60 Neg Risk); LDL Cholesterol, Calculated 56 mg/dL; Magnesium 2.3 mg/dL (1.6-2.6); Potassium 3.5 mmol/L (3.5-5.1); Sodium 142 mmol/L (136-145); Triglycerides 231 mg/dL (Less than 150)
[2023-03-18] MEDS: Levothyroxine Sodium 100 MCG TAB PER TUBE SCH (05:57)
[2023-03-18] MEDS: Mometasone 100 MCG/Formoterol 5 MCG 120 PUFF INHALER INH SCH ×2 (07:17→19:00)
[2023-03-18] MEDS ORDERED: Potassium Chloride 20 MEQ TAB PO SCH (08:00)
[2023-03-18] MEDS ORDERED: Warfarin Sodium 5 MG TAB PO SCH (09:08)
[2023-03-18] MEDS: Digoxin 0.125 MG TAB PO SCH (09:41)
[2023-03-18] MEDS: Floranex 1 GM Packet PO SCH (09:41)
[2023-03-18] MEDS: Furosemide 80 MG TAB PO SCH ×2 (09:42→14:18)
[2023-03-18] MEDS: predniSONE 5 MG TAB PER TUBE SCH (09:42)
[2023-03-18] MEDS: Aspirin Chewable 81 MG TAB PO SCH (09:42)
[2023-03-18] MEDS: Famotidine/PF 20 mg/2ml Vial SLOW IVP SCH ×2 (09:46→20:29)
[2023-03-18] MEDS: Potassium Chloride 10 MEQ TAB PO SCH (10:17)
[2023-03-18] MEDS: Potassium Chloride 20 MEQ TAB PO SCH (16:07)
[2023-03-18] MEDS: Warfarin Sodium 7.5 MG TAB PO SCH (16:07)
[2023-03-18] MEDS: HumaLOG 300 UNITS/3 ML VIAL SC PRN (17:59)
[2023-03-18] MEDS: Insulin Glargine 30 UNITS/0.3 ML VIAL SC SCH (20:29)
[2023-03-18] MEDS: Atorvastatin Calcium 40 MG TAB PER TUBE SCH (20:29)
[2023-03-19] MEDS: Piperacillin/Tazobactam 3.375 GM in Sodium Chloride 0.9% 100 ML IVPB SCH ×3 (00:08→16:13)
[2023-03-19 05:19] LABS: INR-International Normal Ratio 1.1; Prothrombin Time 14.7 sec (12.0-14.7)
[2023-03-19 05:32] LABS: Digoxin 0.94 ng/mL (0.8-2.0)
[2023-03-19] MEDS: Levothyroxine Sodium 100 MCG TAB PER TUBE SCH (05:47)
[2023-03-19 06:39] LABS: #Basophils 0.1 thou/uL (0.0-0.2); #Eosinphils 0.4 thou/uL (0.0-0.7); #Monocytes 0.6 thou/uL (0.11-0.59); #Neutrophils 2.6 thou/uL (1.40-6.50); %Basophils 1.3 % (0.0-1.0); %Lymphocytes 30.8 % (21.0-51.0); %Monocytes 11.7 % (0.0-10.0); %Neutrophils 48.4 % (42.0-75.0); Hemoglobin 9.4 g/dL (12.0-16.0); Mean Corpuscular HGB CONC 30.8 g/dL (32.0-36.0); Mean Corpuscular Hemoglobin 30.6 pg (27.0-31.0); Mean Corpuscular Volume 99.3 fl (78.0-98.0); Mean Platelet Volume 11.9 fL (7.4-10.4); Platelet Count 136 10x3/uL (130-400); RBC Distribution Width 14.7 % (11.5-14.5); Red Blood Cell (RBC) Count 3.07 mill/uL (4.20-5.40); White Blood Cell (WBC) Count 5.3 10x3/uL (4.8-10.8)
[2023-03-19] MEDS: Mometasone 100 MCG/Formoterol 5 MCG 120 PUFF INHALER INH SCH ×2 (07:10→19:19)
[2023-03-19 08:20] LABS: Anion Gap 14 mmol/L (10-20); BUN (Urea Nitrogen) 14 mg/dL (9.8-20.1); Calc. Creatinine Clearance 90 mL/min (70-130); Calcium 9.4 mg/dL (7.8-10.44); Carbon Dioxide 34 mmol/L (23-31); Chloride 101 mmol/L (98-107); Estimated GFR 59; Glucose 160 mg/dL (80-115); Sodium 146 mmol/L (136-145)
[2023-03-19 09:15] LABS: Anisocytosis SLIGHT = 6-15 cells (100X) (0-5/hpf); Ovalocytes SLIGHT = 2-5 cells (100X) (0-1/hpf); Poikilocytosis SLIGHT = 6-15 cells (100X) (0-5/hpf); Schistocytes SLIGHT = 2-5 cells (100X) (0-1/hpf)
[2023-03-19] MEDS ORDERED: Potassium Chloride 20 MEQ TAB PO SCH (09:15)
[2023-03-19] MEDS: predniSONE 5 MG TAB PER TUBE SCH (09:17)
[2023-03-19] MEDS: Floranex 1 GM Packet PO SCH (09:17)
[2023-03-19] MEDS: Potassium Chloride 20 MEQ TAB PO SCH ×2 (09:17→18:01)
[2023-03-19] MEDS: Acetaminophen 325 MG TAB PO PRN ×2 (09:17→21:07)
[2023-03-19] MEDS: Furosemide 80 MG TAB PO SCH ×2 (09:18→13:59)
[2023-03-19] MEDS: Famotidine/PF 20 mg/2ml Vial SLOW IVP SCH ×2 (09:19→20:13)
[2023-03-19] MEDS: Aspirin Chewable 81 MG TAB PO SCH (09:19)
[2023-03-19] MEDS: Digoxin 0.125 MG TAB PO SCH (09:19)
[2023-03-19] MEDS: Warfarin Sodium 7.5 MG TAB PO SCH (18:01)
[2023-03-19] MEDS: HumaLOG 300 UNITS/3 ML VIAL SC PRN (18:31)
[2023-03-19] MEDS: Insulin Glargine 30 UNITS/0.3 ML VIAL SC SCH (20:14)
[2023-03-19] MEDS: Atorvastatin Calcium 40 MG TAB PER TUBE SCH (20:14)
[2023-03-20] MEDS: Piperacillin/Tazobactam 3.375 GM in Sodium Chloride 0.9% 100 ML IVPB SCH ×4 (00:25→23:17)
[2023-03-20 04:37] LABS: INR-International Normal Ratio 1.4; Prothrombin Time 17.6 sec (12.0-14.7)
[2023-03-20] MEDS: Levothyroxine Sodium 100 MCG TAB PER TUBE SCH (05:39)
[2023-03-20 08:50] LABS: Anion Gap 12 mmol/L (10-20); BUN (Urea Nitrogen) 25 mg/dL (9.8-20.1); Calc. Creatinine Clearance 83 mL/min (70-130); Calcium 9.9 mg/dL (7.8-10.44); Carbon Dioxide 36 mmol/L (23-31); Chloride 104 mmol/L (98-107); Estimated GFR 54; Glucose 150 mg/dL (80-115); Potassium 3.5 mmol/L (3.5-5.1); Sodium 148 mmol/L (136-145)
[2023-03-20] MEDS: Mometasone 100 MCG/Formoterol 5 MCG 120 PUFF INHALER INH SCH ×2 (08:56→19:42)
[2023-03-20] MEDS: predniSONE 5 MG TAB PER TUBE SCH (09:01)
[2023-03-20] MEDS: Aripiprazole 15 MG TAB PO SCH (09:01)
[2023-03-20] MEDS: Floranex 1 GM Packet PO SCH (09:01)
[2023-03-20] MEDS: Digoxin 0.125 MG TAB PO SCH (09:01)
[2023-03-20] MEDS: Potassium Chloride 20 MEQ TAB PO SCH ×2 (09:01→16:56)
[2023-03-20] MEDS: Aspirin Chewable 81 MG TAB PO SCH (09:01)
[2023-03-20] MEDS: Famotidine/PF 20 mg/2ml Vial SLOW IVP SCH ×2 (09:02→21:26)
[2023-03-20] MEDS: Benztropine 1 MG TAB PO SCH (09:02)
[2023-03-20] MEDS: Furosemide 80 MG TAB PO SCH ×2 (09:02→14:58)
[2023-03-20] MEDS ORDERED: Potassium Chloride 20 MEQ TAB PO SCH (10:00)
[2023-03-20] MEDS: HumaLOG 300 UNITS/3 ML VIAL SC PRN ×2 (12:30→17:40)
[2023-03-20] MEDS: Warfarin Sodium 7.5 MG TAB PO SCH (16:55)
[2023-03-20] MEDS: Insulin Glargine 30 UNITS/0.3 ML VIAL SC SCH (21:25)
[2023-03-20] MEDS: Atorvastatin Calcium 40 MG TAB PER TUBE SCH (21:26)
[2023-03-21 04:57] LABS: #Basophils 0.1 thou/uL (0.0-0.2); #Eosinphils 0.7 thou/uL (0.0-0.7); #Monocytes 0.8 thou/uL (0.11-0.59); #Neutrophils 3.2 thou/uL (1.40-6.50); %Basophils 1.3 % (0.0-1.0); %Eosinophils 9.2 % (0.0-10.0); %Lymphocytes 34.8 % (21.0-51.0); %Monocytes 10.5 % (0.0-10.0); %Neutrophils 42.9 % (42.0-75.0); Hemoglobin 9.8 g/dL (12.0-16.0); Mean Corpuscular HGB CONC 30.6 g/dL (32.0-36.0); Mean Corpuscular Hemoglobin 30.8 pg (27.0-31.0); Mean Corpuscular Volume 100.6 fl (78.0-98.0); Mean Platelet Volume 11.1 fL (7.4-10.4); Platelet Count 261 10x3/uL (130-400); RBC Distribution Width 14.6 % (11.5-14.5); Red Blood Cell (RBC) Count 3.18 mill/uL (4.20-5.40); White Blood Cell (WBC) Count 7.5 10x3/uL (4.8-10.8)
[2023-03-21 05:24] LABS: Anion Gap 17 mmol/L (10-20); BUN (Urea Nitrogen) 35 mg/dL (9.8-20.1); Calc. Creatinine Clearance 71 mL/min (70-130); Calcium 10.8 mg/dL (7.8-10.44); Carbon Dioxide 32 mmol/L (23-31); Chloride 101 mmol/L (98-107); Estimated GFR 44; Glucose 171 mg/dL (80-115); Potassium 3.9 mmol/L (3.5-5.1); Sodium 146 mmol/L (136-145)
[2023-03-21 05:26] LABS: INR-International Normal Ratio 1.9; Prothrombin Time 22.5 sec (12.0-14.7)
[2023-03-21] MEDS: Levothyroxine Sodium 100 MCG TAB PER TUBE SCH (06:15)
[2023-03-21] MEDS: HumaLOG 300 UNITS/3 ML VIAL SC PRN (06:15)
[2023-03-21 08:21] VITALS: TEMP 98.4
[2023-03-21] MEDS: Mometasone 100 MCG/Formoterol 5 MCG 120 PUFF INHALER INH SCH (08:22)
[2023-03-21] MEDS: Digoxin 0.125 MG TAB PO SCH (08:39)
[2023-03-21] MEDS: Famotidine/PF 20 mg/2ml Vial SLOW IVP SCH (08:39)
[2023-03-21] MEDS: Aripiprazole 15 MG TAB PO SCH (08:39)
[2023-03-21] MEDS: Benztropine 1 MG TAB PO SCH (08:39)
[2023-03-21] MEDS: Furosemide 80 MG TAB PO SCH (08:39)
[2023-03-21] MEDS: Aspirin Chewable 81 MG TAB PO SCH (08:39)
[2023-03-21] MEDS: Piperacillin/Tazobactam 3.375 GM in Sodium Chloride 0.9% 100 ML IVPB SCH (08:40)
[2023-03-21] MEDS: predniSONE 5 MG TAB PER TUBE SCH (08:45)
[2023-03-21] MEDS: Potassium Chloride 20 MEQ TAB PO SCH (12:10)
[2023-03-21] MEDS: Floranex 1 GM Packet PO SCH (12:13)
[2023-03-21 12:42] VITALS: BP 178/76
== END 2023-03-21 13:10 | DRG 871 ==
LOC: ERS 09:54 → ERHOLD 13:27 → 2SE 19:19 → IMCU/EMU 03-05 15:59 → 2NO 03-07 22:47 → 2SE 03-13 17:33
PROVIDERS: ADMIT Family Medicine; ATTEND Hospitalist
PROC: 3E03329 Introduction of Other Anti-infective into Peripheral Vein, Percutaneous Approach (ICD-10-PCS; 2023-02-28)
PROC: 30233J1 Transfusion of Nonautologous Serum Albumin into Peripheral Vein, Percutaneous Approach (ICD-10-PCS; 2023-03-01)
PROC: 4A133R1 Monitoring of Arterial Saturation, Peripheral, Percutaneous Approach (ICD-10-PCS; principal; 2023-03-05)
DX: A41.59 Other Gram-negative sepsis (principal); G93.41 Metabolic encephalopathy; R65.21 Severe sepsis with septic shock; I63.9 Cerebral infarction, unspecified; J69.0 Pneumonitis due to inhalation of food and vomit; I13.0 Hypertensive heart and chronic kidney disease with heart failure and stage 1 through stage 4 chronic kidney disease, or unspecified chronic kidney disease; N17.9 Acute kidney failure, unspecified; I50.22 Chronic systolic (congestive) heart failure; N39.0 Urinary tract infection, site not specified; Z16.24 Resistance to multiple antibiotics; E27.2 Addisonian crisis; I42.9 Cardiomyopathy, unspecified; Z79.899 Other long term (current) drug therapy; I25.10 Atherosclerotic heart disease of native coronary artery without angina pectoris; E03.9 Hypothyroidism, unspecified; I48.91 Unspecified atrial fibrillation; J44.9 Chronic obstructive pulmonary disease, unspecified; Z66 Do not resuscitate; Z51.5 Encounter for palliative care; F17.210 Nicotine dependence, cigarettes, uncomplicated; I95.9 Hypotension, unspecified; B96.1 Klebsiella pneumoniae [K. pneumoniae] as the cause of diseases classified elsewhere; E86.0 Dehydration; R53.1 Weakness; G83.24 Monoplegia of upper limb affecting left nondominant side; E66.9 Obesity, unspecified; N18.30 Chronic kidney disease, stage 3 unspecified; T46.0X5A Adverse effect of cardiac-stimulant glycosides and drugs of similar action, initial encounter; D63.1 Anemia in chronic kidney disease; Z79.890 Hormone replacement therapy; Z98.890 Other specified postprocedural states; Z79.82 Long term (current) use of aspirin; Z91.018 Allergy to other foods; Z68.35 Body mass index [BMI] 35.0-35.9, adult; Z79.01 Long term (current) use of anticoagulants
CPT/HCPCS: 36415; 36416; 36600; 51701; 70450; 70551; 71045; 74018; 74176; 74230; 76705; 80048; 80053; 80061; 80162; 80202; 81001; 82533; 82553; 82565; 82805; 83605; 83735; 83880; 84100; 84145; 84443; 84484; 85025; 85610; 85730; 87040; 87077; 87086; 87186; 93005; 93010; 93306; 93880; 94760; 95712; 95819; 95957; 96361; 96365; 96366; 96367; J1160; J1250; J1650; J1720; J1815; J1940; J2185; J2543; J3370; J3370-JW; J3475; J3480; J3490; J7030; J7050; J7120; J7512; P9047; S0028